=== PATIENT | male | born 1995 | race Caucasian/White ===

== ENCOUNTER 2022-06-30 18:08 | Emergency (ER) | payer MEDICAID, SELFPAY ==
[2022-06-30] VITALS (9 sets, daily range): BP systolic 128–142; BP diastolic 97–119; PULSE 64–111; RESP 16; O2SAT 93–98
--- NOTE | 2022-06-30 19:20 | ED.NURSE ---
Pt has been in triage room, pt moaning and screaming disruptively and loudly since arrival. Pt frequently dry-heaving into emesis bag.
[2022-06-30] MEDS: 0.9 % SODIUM CHLORIDE 1000 ml 1,000 ML IV ×2 (19:30→21:31)
[2022-06-30 19:36] LABS: Lactate* 3.4 mmol/L (0.5-1.9)
[2022-06-30 19:38] LABS: Basophils Percent Auto 0.1 % (0.0-3.0); Hematocrit 55.8 % (37.0-53.0); Hemoglobin* 19.8 gm/dL (13.5-17.5); Immature Granulocytes Abs Auto 0.04 K/uL (0.00-0.30); Lymphocytes Percent Auto 7.1 % (20-44); Mean Corpuscular HGB Conc 36 gm/dL (32-36); Mean Corpuscular Hemoglobin 32 pg (26-34); Mean Corpuscular Volume 91 fL (80-100); Monocytes Percent Auto 5.6 % (0.0-11.0); Platelet Count* 536 K/uL (140-440); RDW Coefficient of Variation % 13.1 % (11.5-15.5); Red Blood Count 6.12 m/uL (4.30-5.90)
[2022-06-30] MEDS: droperidoL 2.5 MG/ML inj 0.625 MG IV (19:50)
[2022-06-30 19:55] LABS: Chloride* 102 mmol/L (96-114); Potassium* 4.4 mmol/L (3.6-5.1); Sodium* 141 mmol/L (135-149)
[2022-06-30 19:57] LABS: Creatinine* 2.7 mg/dL (0.5-1.5); Estimated Glomerular Filt Rate 32 ml/min
[2022-06-30 19:58] LABS: Blood Urea Nitrogen* 31 mg/dL (5-24); Calcium* 11.7 mg/dL (8.4-10.6); Carbon Dioxide* 15 mmol/L (20-32); Glucose* 156 mg/dL (60-115)
[2022-06-30 19:59] LABS: Slide Review Reflex No
--- NOTE | 2022-06-30 20:00 | ED.NURSE ---
Pt now resting quietly in bed, no longer dry-heaving or having emesis.
--- NOTE | 2022-06-30 20:05 | ED_ITS ---
HPI - General Adult General Date Seen: 06/30/22 Chief complaint: Nausea/Vomiting Stated complaint: REACTION TO EDIBLE,HAS HYPEREMESIS SYNDROME Time Seen by Provider: 06/30/22 18:31 Source: patient History of Present Illness HPI narrative: Patient presents saying he is having a flare of his cyclic vomiting syndrome and muscle cramps. He has had this many times previously. He tells me that he has not used marijuana in several months but yesterday someone gave him an edible. He says that he thought it was shows regular candy. He said he had vomiting yesterday, and then it started up again today 11 am. He otherwise feels that this is a typical episode for him. Multiple episodes of vomiting, stomach cramping, and cramping in his back and extremities. He denies fevers, diarrhea, black or bloody stools. Has not had rashes, headache or trauma. Related Data Home Medications Medication Instructions Recorded Confirmed buprenorphine HCl 150 mcg buccal mcg buccal 06/30/22 film (Belbuca) celecoxib 100 mg capsule mg 06/30/22 cyclobenzaprine 10 mg tablet mg 06/30/22 lithium carbonate 300 mg mg PO 06/30/22 tablet,extended release ondansetron 4 mg disintegrating mg 06/30/22 tablet Allergies Allergy/AdvReac Type Severity Reaction Status Date / Time mold Allergy Mild Sneezing, Verified 06/08/22 08:44 congestion cats Allergy Mild Hives Uncoded 06/08/22 08:44 Dust Allergy Mild Sneezing, Uncoded 06/08/22 08:44 congestion Review of Systems Status of ROS: Reports: 10 or more systems reviewed and unremarkable except as noted in History and below [facility] Medical History Adhesive capsulitis of shoulder History of intussusception Surgical History History of hernia repair History of laparoscopy Family History Other Asthma Bipolar disorder Heart disease Social History Narrative: Marijuana user Smoking Status: Current every day smoker Non-prescribed substance use: denies use Exam Narrative: Exam Narrative: Vital signs as noted below. In general, an alert, dramatic acting male. Head: Normocephalic, atraumatic. Eyes: Pupils are equal reactive. Extraocular movements are full. Conjunctivae are normal. ENT: Mucous membranes are moist. Neck: Supple without lymphadenopathy. Heart: Regular rate and rhythm Lungs: Clear bilaterally. No increased work of breathing, crackles or wheezes. Abdomen: Nondistended. Mild diffuse tenderness. Extremities: Well perfused. No edema. Pulses intact. Neurologic: Patient is alert and oriented to person and place. Speech is fluent. Face is symmetric. Moves all extremities equally. Affect: Histrionic. Skin: Slightly diaphoretic, no rashes or lesions.. Const: Vital Signs, click to edit/add: Vital Signs - 24 hr 06/30/22 19:50 06/30/22 20:00 06/30/22 20:15 Pulse Rate [Left P ulse Oximeter] 64 73 90 Respiratory Rate Blood Pressure [Ri ght Upper Arm] 133/119 H 136/106 H 142/110 H Pulse Oximetry 95 93 98 [facility] Room Air 06/30/22 20:30 06/30/22 21:00 06/30/22 22:00 Pulse Rate [Left P ulse Oximeter] 84 84 107 H Respiratory Rate Blood Pressure [Ri ght Upper Arm] 132/105 H 128/102 H 128/97 H Pulse Oximetry 98 97 98 [facility] Room Air Room Air 06/30/22 20:45 06/30/22 21:15 06/30/22 23:00 Pulse Rate [Left P ulse Oximeter] 95 111 H 77 Respiratory Rate 16 Blood Pressure [Ri ght Upper Arm] 134/102 H 134/111 H 137/98 H Pulse Oximetry 96 98 98 [facility] Room Air Room Air 07/01/22 00:00 Pulse Rate [Left P ulse Oximeter] 77 Respiratory Rate 16 Blood Pressure [Ri ght Upper Arm] 146/99 H Pulse Oximetry 98 [facility] Documenting provider has reviewed patient's vital signs: yes Course Course Hospital Course: Patient presented to triage ambulatory, then stated he could not walk, was kneeling in triage saying he could not get up. He was sobbing and retching. We placed an IV, will give fluids, droperidol. I have reviewed previous records, he has typically had IV fluids and either Haldol or droperidol with good result. Typically has labs checked, usually has a significantly elevated white blood cell count. Labs as expected showed high white blood cell count, this is typical for him. His lactate was elevated at 3.4, his creatinine was elevated at 2.7, which is also been typical for him in the past. He also had a markedly elevated hemoglobin at 19.8, suggesting that his CBC is at least in part abnormal secondary to hemoconcentration, platelet count was up at 536. Urine showed 1+ ketones. Urine drug screen was positive for THC, oxycodone, TCAs. Had 2 L of normal saline total. His symptoms quieted down significantly. He rested for a while here we recheck a lactate which was normal at 0.9. His creatinine improved from 2.7 to 1.9, which I think is fairly significant improvement. He is taking fluids here orally. He did complain of some additional nausea and I gave him some Zofran, but I think given marked improvement in his labs and symptoms, I think it is reasonable to try letting him go home. If he is unable to continue hydrating at home he can return. He was noted to be walking through the parking lot and into the hospital without any difficulty, seemingly asymptomatic on security footage, and then had a dramatic change in his behavior as he approached the ER lobby, suddenly doubling over and acting significantly distressed. Some concerns about secondary gain. Vital Signs Vital signs: Initial Vital Signs Pulse Rate 64 06/30/22 19:50 Blood Pressure 133/119 H 06/30/22 19:50 Blood Pressure Mean 123 06/30/22 19:50 Blood Pressure Position Supine 06/30/22 19:50 Pulse Oximetry 95 06/30/22 19:50 Oxygen Delivery Method 06/30/22 19:50 Vital Signs Pulse Rate 64 06/30/22 19:50 Blood Pressure 133/119 H 06/30/22 19:50 Pulse Oximetry 95 06/30/22 19:50 Oxygen Delivery Method 06/30/22 19:50 Pulse Rate 77 07/01/22 00:00 Respiratory Rate 16 07/01/22 00:00 Blood Pressure 146/99 H 07/01/22 00:00 Pulse Oximetry 98 07/01/22 00:00 Oxygen Delivery Method 07/01/22 00:00 Medical Decision Making Lab Data Labs: Lab Results 06/30/22 06/30/22 06/30/22 Range/Units 19:25 19:25 19:25 WBC 24.60 H (4.50-11.00) K/uL RBC 6.12 H (4.30-5.90) m/uL Hgb 19.8 H (13.5-17.5) gm/dL Hct 55.8 H (37.0-53.0) % MCV 91 (80-100) fL MCH 32 (26-34) pg MCHC 36 (32-36) gm/dL RDW Coeff of Jennifer 13.1 (11.5-15.5) % Plt Count 536 H (140-440) K/uL Neut % (Auto) 87.0 H (42.0-72.0) % Lymph % (Auto) 7.1 L (20-44) % Slope % (Auto) 5.6 (0.0-11.0) % Eos % (Auto) 0.0 (0.0-7.0) % Baso % (Auto) 0.1 (0.0-3.0) % Neut # (Auto) 21.40 H (1.7-7.0) K/uL Lymph # (Auto) 1.70 (0.90-2.90) K/uL Slope # (Auto) 1.40 H (0.00-0.90) K/UL Eos # (Auto) 0.00 (0.00-0.50) K/uL Baso # (Auto) 0.00 (0.00-0.30) K/uL Abs Immat Gran (auto) 0.04 (0.00-0.30) K/uL Sodium 141 (135-149) mmol/L Potassium 4.4 (3.6-5.1) mmol/L Chloride 102 (96-114) mmol/L Carbon Dioxide 15 L (20-32) mmol/L BUN 31 H (5-24) mg/dL Creatinine 2.7 H (0.5-1.5) mg/dL Estimated GFR 32 ml/min Glucose 156 H (60-115) mg/dL Lactate 3.4 H (0.5-1.9) mmol/L Calcium 11.7 H (8.4-10.6) mg/dL Urine Color (Yellow) Urine Appearance (Clear) Urine pH (5.0-8.5) Ur Specific Titus (1.000-1.030) Urine Protein (Negative) Urine Glucose (UA) (Negative) Urine Ketones (Negative) Urine Blood (Negative) Urine Nitrite (Negative) Urine Bilirubin (Negative) Urine Urobilinogen (0.2-1.0) Ur Leukocyte Esterase (Negative) Urine RBC (0-2) Urine WBC (0-5) Ur Squamous Epith Cells (None-Few) Amorphous Sediment (None) Other Sediment (None) Urine Bacteria (None) Urine Mucus (None) Urine Opiates Screen (Negative) Ur Oxycodone Screen (Negative) Urine Methadone Screen (Negative) Ur Propoxyphene Screen (Negative) Ur Barbiturates Screen (Negative) U Tricyclic Antidepress (Negative) Ur Phencyclidine Scrn (Negative) Ur Amphetamines Screen (Negative) U Methamphetamines Scrn (Negative) U Benzodiazepines Scrn (Negative) Urine Cocaine Screen (Negative) U Marijuana (THC) Screen (Negative) Ur Drug Screen Comment SARS-CoV-2 (PCR) (Negative) Influenza Type A (PCR) (Negative) Influenza Type B (PCR) (Negative) 06/30/22 06/30/22 06/30/22 Range/Units 20:07 22:35 22:35 WBC (4.50-11.00) K/uL RBC (4.30-5.90) m/uL Hgb (13.5-17.5) gm/dL Hct (37.0-53.0) % MCV (80-100) fL MCH (26-34) pg MCHC (32-36) gm/dL RDW Coeff of Jennifer (11.5-15.5) % Plt Count (140-440) K/uL Neut % (Auto) (42.0-72.0) % Lymph % (Auto) (20-44) % Slope % (Auto) (0.0-11.0) % Eos % (Auto) (0.0-7.0) % Baso % (Auto) (0.0-3.0) % Neut # (Auto) (1.7-7.0) K/uL Lymph # (Auto) (0.90-2.90) K/uL Slope # (Auto) (0.00-0.90) K/UL Eos # (Auto) (0.00-0.50) K/uL Baso # (Auto) (0.00-0.30) K/uL Abs Immat Gran (auto) (0.00-0.30) K/uL Sodium (135-149) mmol/L Potassium (3.6-5.1) mmol/L Chloride (96-114) mmol/L Carbon Dioxide (20-32) mmol/L BUN (5-24) mg/dL Creatinine (0.5-1.5) mg/dL Estimated GFR ml/min Glucose (60-115) mg/dL Lactate (0.5-1.9) mmol/L Calcium (8.4-10.6) mg/dL Urine Color Yellow (Yellow) Urine Appearance Cloudy A (Clear) Urine pH 5.5 (5.0-8.5) Ur Specific Titus >= 1.030 (1.000-1.030) Urine Protein 3+ A (Negative) Urine Glucose (UA) Negative (Negative) Urine Ketones 1+ A (Negative) Urine Blood Negative (Negative) Urine Nitrite Negative (Negative) Urine Bilirubin 2+ A (Negative) Urine Urobilinogen 0.2 (0.2-1.0) Ur Leukocyte Esterase Negative (Negative) Urine RBC 0-2 (0-2) Urine WBC 2-5 (0-5) Ur Squamous Epith Cells Moderate A (None-Few) Amorphous Sediment Few A (None) Other Sediment HYLAINE CAST (None) Urine Bacteria Moderate A (None) Urine Mucus Moderate A (None) Urine Opiates Screen Negative (Negative) Ur Oxycodone Screen POSITIVE A* (Negative) Urine Methadone Screen Negative (Negative) Ur Propoxyphene Screen Negative (Negative) Ur Barbiturates Screen Negative (Negative) U Tricyclic Antidepress POSITIVE A* (Negative) Ur Phencyclidine Scrn Negative (Negative) Ur Amphetamines Screen Negative (Negative) U Methamphetamines Scrn Negative (Negative) U Benzodiazepines Scrn Negative (Negative) Urine Cocaine Screen Negative (Negative) U Marijuana (THC) Screen POSITIVE A* (Negative) Ur Drug Screen Comment See Note SARS-CoV-2 (PCR) Negative SARS-CoV-2 (Negative) Influenza Type A (PCR) Negative PCR FLU A (Negative) Influenza Type B (PCR) Negative PCR FLU B (Negative) 06/30/22 06/30/22 Range/Units 23:20 23:20 WBC (4.50-11.00) K/uL RBC (4.30-5.90) m/uL Hgb (13.5-17.5) gm/dL Hct (37.0-53.0) % MCV (80-100) fL MCH (26-34) pg MCHC (32-36) gm/dL RDW Coeff of Jennifer (11.5-15.5) % Plt Count (140-440) K/uL Neut % (Auto) (42.0-72.0) % Lymph % (Auto) (20-44) % Slope % (Auto) (0.0-11.0) % Eos % (Auto) (0.0-7.0) % Baso % (Auto) (0.0-3.0) % Neut # (Auto) (1.7-7.0) K/uL Lymph # (Auto) (0.90-2.90) K/uL Slope # (Auto) (0.00-0.90) K/UL Eos # (Auto) (0.00-0.50) K/uL Baso # (Auto) (0.00-0.30) K/uL Abs Immat Gran (auto) (0.00-0.30) K/uL Sodium 141 (135-149) mmol/L Potassium 4.5 (3.6-5.1) mmol/L Chloride 105 (96-114) mmol/L Carbon Dioxide 25 (20-32) mmol/L BUN 32 H (5-24) mg/dL Creatinine 1.9 H (0.5-1.5) mg/dL Estimated GFR 49 ml/min Glucose 116 H (60-115) mg/dL Lactate 0.9 (0.5-1.9) mmol/L Calcium 9.4 (8.4-10.6) mg/dL Urine Color (Yellow) Urine Appearance (Clear) Urine pH (5.0-8.5) Ur Specific Titus (1.000-1.030) Urine Protein (Negative) Urine Glucose (UA) (Negative) Urine Ketones (Negative) Urine Blood (Negative) Urine Nitrite (Negative) Urine Bilirubin (Negative) Urine Urobilinogen (0.2-1.0) Ur Leukocyte Esterase (Negative) Urine RBC (0-2) Urine WBC (0-5) Ur Squamous Epith Cells (None-Few) Amorphous Sediment (None) Other Sediment (None) Urine Bacteria (None) Urine Mucus (None) Urine Opiates Screen (Negative) Ur Oxycodone Screen (Negative) Urine Methadone Screen (Negative) Ur Propoxyphene Screen (Negative) Ur Barbiturates Screen (Negative) U Tricyclic Antidepress (Negative) Ur Phencyclidine Scrn (Negative) Ur Amphetamines Screen (Negative) U Methamphetamines Scrn (Negative) U Benzodiazepines Scrn (Negative) Urine Cocaine Screen (Negative) U Marijuana (THC) Screen (Negative) Ur Drug Screen Comment SARS-CoV-2 (PCR) (Negative) Influenza Type A (PCR) (Negative) Influenza Type B (PCR) (Negative) Discharge Plan Discharge Clinical Impression: Cyclic vomiting syndrome Patient Disposition: Home, Self-Care Condition: Improved Instructions: Acute Nausea and Vomiting (ED) Additional Instructions: Continue to hydrate at home. Return if unable to keep down fluids. Zofran as needed. Do not use marijuana. Prescriptions: No Action cyclobenzaprine 10 mg tablet Label Comments: TAKE 0.5-1 TAB BY MOUTH 3 TIMES A DAY , MAX 3 TABS/DAY (MAX 30MG DAILY) lithium carbonate 300 mg tablet extended release PO Label Comments: TAKE 2 TABLETS BY MOUTH DAILY. celecoxib 100 mg capsule ondansetron 4 mg tablet,disintegrating Label Comments: DISSOLVE 1 TAB ON THE TONGUE EVERY 8 HOURS NEEDED NAUSEA OR VOM buprenorphine HCl [Belbuca] 150 mcg film BUCCAL Label Comments: TAKE 1 FILM BUCCALLY TWICE A DAY FOR CHRONIC PAIN DO NOT EAT/DRINK/SMOKE FOR 30 MIN Follow Up/Referrals: Kimberlee Posadas PAJohnC [Primary Care Provider] - Stand Alone Forms: [facility] Info Instructions
[2022-06-30 20:55] LABS: PCR FLU A Negative PCR FLU A (Negative); PCR FLU B Negative PCR FLU B (Negative)
[2022-06-30 21:06] LABS: SARS PCR* Negative SARS-CoV-2 (Negative)
--- NOTE | 2022-06-30 22:05 | ED.NURSE ---
Pt appears resting comfortably in bed.
[2022-06-30 22:42] LABS: Appearance Urine Cloudy (Clear); Bilirubin Urine 2+ (Negative); Blood Urine Negative (Negative); Color Urine Yellow (Yellow); Glucose Urine Negative (Negative); Ketones Urine 1+ (Negative); Leukocyte Esterase Urine Negative (Negative); Nitrite Urine Negative (Negative); Protein Urine 3+ (Negative); Specific Gravity Urine >= 1.030 (1.000-1.030); Urobilinogen Urine 0.2 (0.2-1.0); pH Urine 5.5 (5.0-8.5)
[2022-06-30 22:52] LABS: Amphetamine Screen Urine Negative (Negative); Barbiturate Screen Urine Negative (Negative); Benzodiazepines Screen Urine Negative (Negative); Cocaine Screen Urine Negative (Negative); Methadone Screen Urine Negative (Negative); Methamphetamines Screen Urine Negative (Negative); Opiate Screen Urine Negative (Negative); Phencyclidine Screen Urine Negative (Negative)
[2022-06-30 22:54] LABS: Cannabinoid Screen Urine POSITIVE (Negative); Oxycodone Screen Urine POSITIVE (Negative); Tricyclic Antidepressant Urine POSITIVE (Negative)
[2022-06-30 23:04] LABS: Amorphous Sediment Urine Few; Bacteria Urine Moderate; Mucus Urine Moderate; RBC Urine 0-2 (0-2); Squamous Epithelial Cell Urine Moderate (None-Few)
[2022-06-30 23:22] LABS: Lactate* 0.9 mmol/L (0.5-1.9)
[2022-06-30 23:38] LABS: Chloride* 105 mmol/L (96-114); Potassium* 4.5 mmol/L (3.6-5.1); Sodium* 141 mmol/L (135-149)
[2022-06-30 23:41] LABS: Blood Urea Nitrogen* 32 mg/dL (5-24); Carbon Dioxide* 25 mmol/L (20-32); Creatinine* 1.9 mg/dL (0.5-1.5); Estimated Glomerular Filt Rate 49 ml/min; Glucose* 116 mg/dL (60-115)
[2022-06-30 23:42] LABS: Calcium* 9.4 mg/dL (8.4-10.6)
[2022-07-01] VITALS: BP 146/99; PULSE 77; RESP 16; O2SAT 98
[2022-07-01] MEDS: ONDANSETRON 2 MG/ML inj 4 MG IVP (00:10)
== END 2022-07-01 00:24 | disposition home or self-care (01) ==
PROVIDERS: Emergency Provider Emergency Medicine; PCP Physician Assistant Medical
DX: R11.15 Cyclical vomiting syndrome unrelated to migraine (principal)
CPT/HCPCS: 36415; 80048; 80306; 81001; 83605; 85025; 87086; 87502; 87635; 96374; 96375; 99283; 99284; J1790; J2405; J7030

== ENCOUNTER 2022-07-20 08:09 | Emergency (ER) | payer MEDICAID, SELFPAY ==
[2022-07-20 08:16] VITALS: BP 141/119; PULSE 126; RESP 20; TEMP 35.9; O2SAT 100; BMI 20.7
--- NOTE | 2022-07-20 08:45 | ED.NAVMDI ---
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 Patient noted that he actually quit using marijuana 5-6 months ago because he recognized his cyclic vomiting syndrome was from marijuana. A few weeks ago he was given an at a bowl which caused a flare and he was seen by my partner Dr. Rosemarie cordero. He states that on WednesdayJuly 18 he tried Delta 8 as he has a friend who is a dealer and is in the end history. He was told that Delta 8 has a different chemical makeup. Unfortunately, since that time he has had nonstop vomiting. He has been Ali able to keep any fluids down and has only had a little bit of urine this morning. He denies any diarrhea or fevers. He states this is very similar to past episodes. He notes that he does not have the cramping that he usually gets. He states he wanted to come in before that happened. Patient states that the Zofran that he has a at home has helped with the vomiting and nausea and he has no nausea at this time. However, he is still unable to take any p.o. without vomiting. Associated nausea: Yes Related Data Home Medications Medication Instructions Recorded Confirmed buprenorphine HCl 150 mcg buccal mcg buccal 06/30/22 film (Belbuca) celecoxib 100 mg capsule mg 06/30/22 cyclobenzaprine 10 mg tablet mg 06/30/22 lithium carbonate 300 mg mg PO 06/30/22 tablet,extended release ondansetron 4 mg disintegrating mg 06/30/22 tablet Allergies Allergy/AdvReac Type Severity Reaction Status Date / Time mold Allergy Mild Sneezing, Verified 06/08/22 08:44 congestion cats Allergy Mild Hives Uncoded 06/08/22 08:44 Dust Allergy Mild Sneezing, Uncoded 06/08/22 08:44 congestion Review of Systems Status of ROS: Reports: 10 or more systems reviewed and unremarkable except as noted in History and below Narrative: Patient notes that he has noticed elevated blood pressures in the times that he has been here to the emergency room. Const: Denies: fever or chills Eyes: Denies: change in vision ENMT: Denies: throat pain or difficulty swallowing Cardio: Denies: chest pain or shortness of breath with exertion Resp: Denies: shortness of breath or cough GI: Reports: nausea and vomiting; Denies: abdominal pain, diarrhea or difficulty swallowing : Reports: other (Minimal urination over the last 48 hours); Denies: painful urination Integ/Breast: Denies: rash Neuro: Reports: other (Bilateral carpal tunnel syndrome which she states is improving.); Denies: headache or numbness in extremities PFSH [facility], [facility] Medical History Adhesive capsulitis of shoulder History of intussusception Surgical History History of hernia repair History of laparoscopy Family History Other Asthma Bipolar disorder Heart disease Social History Narrative: Marijuana user Smoking Status: Never smoker Do you use any of these nicotine containing products: None Second hand tobacco smoke exposure: Yes How often do you have a drink containing alcohol: monthly or less How many standard drinks containing alcohol do you have on a typical day: 1 or 2 How often do you have six or more drinks on one occasion: Never AUDIT-C Alcohol total score: 1 Non-prescribed substance use: marijuana (any form) service: No Exam Narrative: Exam Narrative: Past medical history: Patient had told me that he is healthy but has noticed increased blood pressures lately. Denies headache or chest pain. Has developed carpal tunnel syndrome secondary to his employment. Currently wearing his braces on both arms and states that he is actually had some improvement. According to charged patient has a history of bipolar disorder with depression, anxiety, chronic back pain currently on Suboxone Family history: Mom with porcine heart valve. Dad with chronic back problems Social history: Occasional alcohol use. States he has only had 5-6 drinks since the beginning of the year. Currently working for a [employer] service. Const: Vital Signs, click to edit/add: Vital Signs - 24 hr 07/20/22 08:16 07/20/22 09:01 Temperature 96.7 F L Pulse Rate [Pulse Oximeter] 126 H Respiratory Rate 20 124 H Blood Pressure [Le ft Upper Arm] 127/93 H Blood Pressure [Ri ght Upper Arm] 141/119 H Pulse Oximetry 100 97 Oxygen Delivery Me thod Room Air Room Air Documenting provider has reviewed patient's vital signs: yes Common normals: no apparent distress, average body habitus, oriented x3, no limitations and alert General appearance: cooperative and comfortable HENMT: Common normals: normocephalic, head/scalp atraumatic, external ears normal and external nose normal Head and scalp: normocephalic and atraumatic Face and sinus: normal facial exam Nose: external nose normal External ear: external ears normal Mouth: oral and palatal mucosa normal and other (Mildly tacky mucous membranes) Eye: General eye: normal appearance of both eyes Neck & C-Spine: Common normals: full ROM and supple Resp: Common normals: normal respiratory effort and clear to auscultation bilaterally Effort & inspection: able to speak in complete sentences Auscultation: clear to auscultation bilaterally Cardio: Common normals: regular rhythm Rate: tachycardic Rhythm: regular rhythm GI: Common normals: soft to palpation and non-tender Palpation: soft Extremity: Common normals: normal to inspection Neuro: Common normals: oriented x3 Sensorium/orientation: alert Motor exam: muscle tone normal throughout and no movement abnormalities noted Psych: Common normals: mental status grossly normal, thought process normal, cooperative and speech normal Appearance: grossly normal Attitude: calm Speech: normal speech and other (Increase detail in stories.) Thought process: normal thought process Skin: Common normals: no rashes or lesions noted General skin exam: no rashes or lesions noted Course Course Hospital Course: Given patient's past history of cyclic vomiting syndrome secondary to THC today's episode most likely is that. His abdomen is soft, he has no fever and he has had recent exposure to delta 8. Would recommend placement of IV 1 L of normal saline and droperidol 0.625 mg IV. He appears to have a past history of acute kidney injury during these episodes as well as increase lactate and leukocytosis. Will check a CBC, comprehensive panel, urinalysis, drug screen, lactate and magnesium. Patient is agreeable to our plan. Reevaluation(s) Reevaluation #1: Patient noted to have no episodes of vomiting while here. He states he is feeling better and has been able to tolerate fluids. He notes that he has chicken broth at home and that seems to help him and he is feeling comfortable about going home. We spoke about his laboratory results which include a creatinine of 1.4, a lactate of 2.4 and a mild leukocytosis of 13.48. These values are usually much higher but as Jarocho said he came in before he started experiencing muscle cramping in an effort to khan off those symptoms. Vital Signs Vital signs: Initial Vital Signs Temperature 96.7 F L 07/20/22 08:16 Temperature Source Temporal Artery Scan 07/20/22 08:16 Pulse Rate 126 H 07/20/22 08:16 Pulse Rhythm 07/20/22 08:16 Respiratory Rate 20 07/20/22 08:16 Blood Pressure 141/119 H 07/20/22 08:16 Blood Pressure Mean 126 07/20/22 08:16 Blood Pressure Position Supine 07/20/22 08:16 Pulse Oximetry 100 07/20/22 08:16 Oxygen Delivery Method 07/20/22 08:16 Vital Signs Temperature 96.7 F L 07/20/22 08:16 Pulse Rate 126 H 07/20/22 08:16 Respiratory Rate 20 07/20/22 08:16 Blood Pressure 141/119 H 07/20/22 08:16 Pulse Oximetry 100 07/20/22 08:16 Oxygen Delivery Method 07/20/22 08:16 Temperature 96.7 F L 07/20/22 08:16 Pulse Rate 126 H 07/20/22 08:16 Respiratory Rate 124 H 07/20/22 09:01 Blood Pressure 127/93 H 07/20/22 09:01 Pulse Oximetry 97 07/20/22 09:01 Oxygen Delivery Method 07/20/22 09:01 MDM - Nausea/Vomiting/Diarrhea MDM Narrative Medical decision making narrative: 1. Cyclic vomiting syndrome secondary to THC-improved after 1 L of normal saline and droperidol 0.625 mg IV. Did speak extensively with patient about the importance of avoiding all forms of THC whether they be natural or synthetic. He is in agreement that he will not do this in the future. 2. Leukocytosis -mild and appears to have a history of this with his vomiting episodes. 3. Elevated creatinine-usually much worse. Today is 1.4. Patient received L of saline and is noted to be taking p.o. at this time. 4. Elevated lactate-patient has no evidence of fever nor does he have any abdominal pain. Will not check lactate at this time as it is lower than what it normally is with episodes of vomiting for Jarocho. He has no evidence of underlying bacterial infection. 5. Abnormal urinalysis-patient has 1+ ketones but does have rbc's and wbc's. Will send this for urine culture and contact him if abnormal. 6. Disposition-patient is discharged home. He is to push fluids and partake of mild foods and chicken or beef broth. He is to return to the emergency room for worsening symptoms and as needed. Medical Records Attestation: I reviewed the patient's medical records. Lab Data Attestation: I reviewed the patient's lab results. Labs: Lab Results 07/20/22 07/20/22 07/20/22 Range/Units 08:45 08:45 08:45 WBC 13.48 H (4.50-11.00) K/uL RBC 5.90 (4.30-5.90) m/uL Hgb 18.9 H (13.5-17.5) gm/dL Hct 53.4 H (37.0-53.0) % MCV 91 (80-100) fL MCH 32 (26-34) pg MCHC 35 (32-36) gm/dL RDW Coeff of Jennifer 12.5 (11.5-15.5) % Plt Count 470 H (140-440) K/uL Neut % (Auto) 82.6 H (42.0-72.0) % Lymph % (Auto) 12.8 L (20-44) % [place] % (Auto) 4.2 (0.0-11.0) % Eos % (Auto) 0.1 (0.0-7.0) % Baso % (Auto) 0.2 (0.0-3.0) % Neut # (Auto) 11.10 H (1.7-7.0) K/uL Lymph # (Auto) 1.70 (0.90-2.90) K/uL [place] # (Auto) 0.60 (0.00-0.90) K/UL Eos # (Auto) 0.00 (0.00-0.50) K/uL Baso # (Auto) 0.00 (0.00-0.30) K/uL Abs Immat Gran (auto) 0.01 (0.00-0.30) K/uL Sodium 134 L (135-149) mmol/L Potassium 3.7 (3.6-5.1) mmol/L Chloride 95 L (96-114) mmol/L Carbon Dioxide 19 L (20-32) mmol/L BUN 24 (5-24) mg/dL Creatinine 1.4 (0.5-1.5) mg/dL Estimated Creat Clear 66.53 Estimated GFR 70 ml/min Glucose 145 H (60-115) mg/dL Lactate 2.4 H (0.5-1.9) mmol/L Calcium 10.4 (8.4-10.6) mg/dL Magnesium (1.5-2.6) mg/dL Total Bilirubin 2.1 H (0.1-1.5) mg/dL AST 34 (12-35) U/L ALT 23 (4-50) U/L Alkaline Phosphatase 145 (40-150) U/L Total Protein 9.5 H (6.0-8.3) g/dL Albumin 5.6 H (3.3-5.0) g/dL Urine Color (Yellow) Urine Appearance (Clear) Urine pH (5.0-8.5) Ur Specific [place] (1.000-1.030) Urine Protein (Negative) Urine Glucose (UA) (Negative) Urine Ketones (Negative) Urine Blood (Negative) Urine Nitrite (Negative) Urine Bilirubin (Negative) Urine Urobilinogen (0.2-1.0) Ur Leukocyte Esterase (Negative) Urine RBC (0-2) Urine WBC (0-5) Ur Squamous Epith Cells (None-Few) Urine Bacteria (None) Hyaline Casts (None-Few) Urine Opiates Screen (Negative) Ur Oxycodone Screen (Negative) Urine Methadone Screen (Negative) Ur Propoxyphene Screen (Negative) Ur Barbiturates Screen (Negative) U Tricyclic Antidepress (Negative) Ur Phencyclidine Scrn (Negative) Ur Amphetamines Screen (Negative) U Methamphetamines Scrn (Negative) U Benzodiazepines Scrn (Negative) Urine Cocaine Screen (Negative) U Marijuana (THC) Screen (Negative) Ur Drug Screen Comment 07/20/22 07/20/22 07/20/22 Range/Units 08:45 09:30 09:30 WBC (4.50-11.00) K/uL RBC (4.30-5.90) m/uL Hgb (13.5-17.5) gm/dL Hct (37.0-53.0) % MCV (80-100) fL MCH (26-34) pg MCHC (32-36) gm/dL RDW Coeff of Jennifer (11.5-15.5) % Plt Count (140-440) K/uL Neut % (Auto) (42.0-72.0) % Lymph % (Auto) (20-44) % [place] % (Auto) (0.0-11.0) % Eos % (Auto) (0.0-7.0) % Baso % (Auto) (0.0-3.0) % Neut # (Auto) (1.7-7.0) K/uL Lymph # (Auto) (0.90-2.90) K/uL [place] # (Auto) (0.00-0.90) K/UL Eos # (Auto) (0.00-0.50) K/uL Baso # (Auto) (0.00-0.30) K/uL Abs Immat Gran (auto) (0.00-0.30) K/uL Sodium (135-149) mmol/L Potassium (3.6-5.1) mmol/L Chloride (96-114) mmol/L Carbon Dioxide (20-32) mmol/L BUN (5-24) mg/dL Creatinine (0.5-1.5) mg/dL Estimated Creat Clear Estimated GFR ml/min Glucose (60-115) mg/dL Lactate (0.5-1.9) mmol/L Calcium (8.4-10.6) mg/dL Magnesium 1.9 (1.5-2.6) mg/dL Total Bilirubin (0.1-1.5) mg/dL AST (12-35) U/L ALT (4-50) U/L Alkaline Phosphatase (40-150) U/L Total Protein (6.0-8.3) g/dL Albumin (3.3-5.0) g/dL Urine Color Brown A (Yellow) Urine Appearance Cloudy A (Clear) Urine pH 5.5 (5.0-8.5) Ur Specific [place] >= 1.030 (1.000-1.030) Urine Protein 3+ A (Negative) Urine Glucose (UA) Negative (Negative) Urine Ketones 1+ A (Negative) Urine Blood Negative (Negative) Urine Nitrite Positive A (Negative) Urine Bilirubin 2+ A (Negative) Urine Urobilinogen 1.0 (0.2-1.0) Ur Leukocyte Esterase Negative (Negative) Urine RBC 10-25 A (0-2) Urine WBC 5-10 A (0-5) Ur Squamous Epith Cells Few (None-Few) Urine Bacteria Few A (None) Hyaline Casts Moderate A (None-Few) Urine Opiates Screen Negative (Negative) Ur Oxycodone Screen POSITIVE A* (Negative) Urine Methadone Screen Negative (Negative) Ur Propoxyphene Screen Negative (Negative) Ur Barbiturates Screen Negative (Negative) U Tricyclic Antidepress POSITIVE A* (Negative) Ur Phencyclidine Scrn Negative (Negative) Ur Amphetamines Screen Negative (Negative) U Methamphetamines Scrn Negative (Negative) U Benzodiazepines Scrn Negative (Negative) Urine Cocaine Screen Negative (Negative) U Marijuana (THC) Screen POSITIVE A* (Negative) Ur Drug Screen Comment See Note Discharge Plan Discharge Clinical Impression: Cyclic vomiting syndrome Patient Disposition: Home, Self-Care Additional Instructions: Rest and push fluids. Avoid all forms of THC. Return as needed. We will be sending your urine for a culture. You will be called if there is any evidence of infection. Prescriptions: No Action cyclobenzaprine 10 mg tablet Label Comments: TAKE 0.5-1 TAB BY MOUTH 3 TIMES A DAY , MAX 3 TABS/DAY (MAX 30MG DAILY) lithium carbonate 300 mg tablet extended release PO Label Comments: TAKE 2 TABLETS BY MOUTH DAILY. celecoxib 100 mg capsule ondansetron 4 mg tablet,disintegrating Label Comments: DISSOLVE 1 TAB ON THE TONGUE EVERY 8 HOURS NEEDED NAUSEA OR VOM buprenorphine HCl [Belbuca] 150 mcg film BUCCAL Label Comments: TAKE 1 FILM BUCCALLY TWICE A DAY FOR CHRONIC PAIN DO NOT EAT/DRINK/SMOKE FOR 30 MIN Follow Up/Referrals: Kimberlee Posadas, PAJohnC [Primary Care Provider] - Stand Alone Forms: MyHealth Info Instructions
[2022-07-20] MEDS: 0.9 % SODIUM CHLORIDE 1000 ml 1,000 ML IV (08:48)
[2022-07-20] MEDS: droperidoL 2.5 MG/ML inj 0.625 MG IV (08:58)
[2022-07-20 09:01] VITALS: BP 127/93; RESP 124; O2SAT 97
[2022-07-20 09:01] LABS: Lactate* 2.4 mmol/L (0.5-1.9)
[2022-07-20 09:09] LABS: Basophils Percent Auto 0.2 % (0.0-3.0); Eosinophils Percent Auto 0.1 % (0.0-7.0); Hematocrit 53.4 % (37.0-53.0); Hemoglobin* 18.9 gm/dL (13.5-17.5); Immature Granulocytes Abs Auto 0.01 K/uL (0.00-0.30); Lymphocytes Percent Auto 12.8 % (20-44); Mean Corpuscular HGB Conc 35 gm/dL (32-36); Mean Corpuscular Hemoglobin 32 pg (26-34); Mean Corpuscular Volume 91 fL (80-100); Monocytes Percent Auto 4.2 % (0.0-11.0); Neutrophils Percent Auto 82.6 % (42.0-72.0); Platelet Count* 470 K/uL (140-440); RDW Coefficient of Variation % 12.5 % (11.5-15.5); White Blood Count* 13.48 K/uL (4.50-11.00)
[2022-07-20 09:13] LABS: Slide Review Reflex No
[2022-07-20 09:38] LABS: Appearance Urine Cloudy (Clear); Bilirubin Urine 2+ (Negative); Blood Urine Negative (Negative); Color Urine Brown (Yellow); Glucose Urine Negative (Negative); Ketones Urine 1+ (Negative); Leukocyte Esterase Urine Negative (Negative); Nitrite Urine Positive (Negative); Protein Urine 3+ (Negative); Specific Gravity Urine >= 1.030 (1.000-1.030); pH Urine 5.5 (5.0-8.5)
[2022-07-20 09:39] LABS: Albumin* 5.6 g/dL (3.3-5.0); Chloride* 95 mmol/L (96-114); Sodium* 134 mmol/L (135-149)
[2022-07-20 09:40] LABS: Potassium* 3.7 mmol/L (3.6-5.1)
[2022-07-20 09:42] LABS: Alkaline Phosphatase* 145 U/L (40-150); Aspartate Amino Transferase* 34 U/L (12-35); Bilirubin Total* 2.1 mg/dL (0.1-1.5); Blood Urea Nitrogen* 24 mg/dL (5-24); Carbon Dioxide* 19 mmol/L (20-32); Creatinine* 1.4 mg/dL (0.5-1.5); Est. Creatinine Clearance* 66.53; Estimated Glomerular Filt Rate 70 ml/min; Total Protein* 9.5 g/dL (6.0-8.3)
[2022-07-20 09:43] LABS: Alanine Aminotransferase* 23 U/L (4-50); Calcium* 10.4 mg/dL (8.4-10.6); Glucose* 145 mg/dL (60-115)
[2022-07-20 09:51] LABS: Amphetamine Screen Urine Negative (Negative); Barbiturate Screen Urine Negative (Negative); Benzodiazepines Screen Urine Negative (Negative); Cocaine Screen Urine Negative (Negative); Methadone Screen Urine Negative (Negative); Methamphetamines Screen Urine Negative (Negative); Opiate Screen Urine Negative (Negative); Phencyclidine Screen Urine Negative (Negative)
[2022-07-20 09:54] LABS: Cannabinoid Screen Urine POSITIVE (Negative); Tricyclic Antidepressant Urine POSITIVE (Negative)
[2022-07-20 09:55] LABS: Oxycodone Screen Urine POSITIVE (Negative)
[2022-07-20 10:02] LABS: Bacteria Urine Few; Squamous Epithelial Cell Urine Few (None-Few)
[2022-07-20 10:03] LABS: Hyaline Casts Urine Moderate (None-Few)
[2022-07-20 10:25] LABS: Magnesium* 1.9 mg/dL (1.5-2.6)
[2022-07-20 10:40] VITALS: BP 137/87; PULSE 93; O2SAT 97
== END 2022-07-20 10:47 | disposition home or self-care (01) ==
PROVIDERS: Emergency Provider Family Medicine; PCP Physician Assistant Medical
DX: R11.15 Cyclical vomiting syndrome unrelated to migraine (principal); F12.90 Cannabis use, unspecified, uncomplicated; D72.829 Elevated white blood cell count, unspecified; R94.4 Abnormal results of kidney function studies
CPT/HCPCS: 36415; 80053; 80306; 81003; 81015; 83605; 83735; 85025; 87086; 96361; 96374; 99283; 99284; J1790; J7030

== ENCOUNTER 2022-08-19 21:59 | Emergency (ER) | payer MEDICAID, SELFPAY ==
[2022-08-19 22:09] VITALS: BP 103/69; PULSE 131; RESP 18; TEMP 36.7; O2SAT 99; BMI 21.0
[2022-08-19 22:13] VITALS: O2SAT 99
[2022-08-19] MEDS: ONDANSETRON 2 MG/ML inj 4 MG IVP (22:17)
[2022-08-19] MEDS: 0.9 % SODIUM CHLORIDE 1000 ml 1,000 ML IV ×2 (22:17→22:34)
[2022-08-19 22:18] LABS: Lactate* 3.8 mmol/L (0.5-1.9)
--- NOTE | 2022-08-19 22:21 | ED_ITS ---
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 He did a cannabis vape which ended up having THC in it. Since last night he has been having nonstop retching and vomiting. He is getting muscle cramps in his back. He notes no fevers or chills or new symptoms. He is having abdominal pain with this. There is no diarrhea or fevers. This is similar to his last episodes. He does not remember any medications that he has had prior except that he does not want Haldol. He states that that makes his anxiety much worse. He does usually try to use Zofran at home. He is been unsuccessful in having this episode. . Related Data Home Medications Medication Instructions Recorded Confirmed buprenorphine HCl 150 mcg buccal mcg buccal 06/30/22 film (Belbuca) celecoxib 100 mg capsule mg 06/30/22 cyclobenzaprine 10 mg tablet mg 06/30/22 lithium carbonate 300 mg mg PO 06/30/22 tablet,extended release ondansetron 4 mg disintegrating mg 06/30/22 tablet Allergies Allergy/AdvReac Type Severity Reaction Status Date / Time mold Allergy Mild Sneezing, Verified 06/08/22 08:44 congestion cats Allergy Mild Hives Uncoded 06/08/22 08:44 Dust Allergy Mild Sneezing, Uncoded 06/08/22 08:44 congestion Review of Systems Status of ROS: Reports: 6 or more systems reviewed and unremarkable except as noted in History and below [facility] Medical History Adhesive capsulitis of shoulder History of intussusception Surgical History History of hernia repair History of laparoscopy Family History Other Asthma Bipolar disorder Heart disease Social History Narrative: Marijuana user Smoking Status: Never smoker Do you use any of these nicotine containing products: None Second hand tobacco smoke exposure: Yes How often do you have a drink containing alcohol: monthly or less How many standard drinks containing alcohol do you have on a typical day: 1 or 2 How often do you have six or more drinks on one occasion: Never AUDIT-C Alcohol total score: 1 Non-prescribed substance use: marijuana (any form) service: No Exam Const: Vital Signs, click to edit/add: Vital Signs - 24 hr 08/19/22 22:09 08/19/22 22:13 Temperature 98.0 F Pulse Rate [Right Pulse Oximeter] 131 H Respiratory Rate 18 Blood Pressure [Ri ght Upper Arm] 103/69 Pulse Oximetry 99 99 Oxygen Delivery Me thod Room Air Documenting provider has reviewed patient's vital signs: yes Common normals: oriented x3, no limitations and alert General appearance: cooperative, anxious, disheveled, ill appearing and frail appearing Nutritional appearance: thin Other: Hyperventilating when I 1st walk in, has retching without vomiting as I am leaving. HENMT: Common normals: normocephalic, head/scalp atraumatic, hearing grossly normal bilaterally, external ears normal, external nose normal and nasal mucous membranes and turbinates normal Head and scalp: normocephalic and atraumatic Nose: external nose normal and nasal mucous membranes and turbinates normal External ear: external ears normal Other: Oral mucosa, teeth and tongue are very dry. Speech is normal however. Eye: Common normals: PERRL, EOMs intact bilaterally, conjunctivae normal and no scleral icterus Conjunctiva: conjunctiva(e) normal Pupil: PERRL Neck & C-Spine: Common normals: full ROM, no lymphadenopathy, supple, no meningeal signs, no JVD and thyroid normal Thyroid: thyroid normal Resp: Common normals: normal respiratory effort, no retractions, no use of accessory muscles and clear to auscultation bilaterally Auscultation: clear to auscultation bilaterally Cardio: Common normals: no JVD, regular rhythm, S1 normal heart sound, S2 normal heart sound, no gallops, no clicks and no murmurs Rate: tachycardic Rhythm: regular rhythm Heart sounds: S1 normal and S2 normal GI: Common normals: Normal to inspection, nondistended, normoactive bowel sounds present, soft to palpation, non-tender, no hepatosplenomegaly and no masses Palpation: soft and no hepatosplenomegaly Neuro: Common normals: oriented x3, CN's II-XII intact bilaterally, moves all extremities, no focal motor deficits and no sensory deficits noted Sensorium/orientation: alert Meningeal signs: no meningeal signs Course Course Hospital Course: Will checking labs on this gentleman given that he historically has had some significant dysfunction with his kidneys with prior episodes with dehydration. His lactates have been elevated in the past. I a.m. initiating 2 L normal saline, nursing staff did request 4 mg IV Zofran when he came in as a could not see him immediately. This was done. We are going to order droperidol 0.625 mg IV. I will get an EKG on him just so we have an idea of his QT interval. May need to consider some IV magnesium. I do not feel it prudent to retested urine toxicology, this has been done by Dr. Mo prior. This patient readily admits to using some THC. Reevaluation(s) Reevaluation #1: Patient is mostly improved, states he still having some cramping in just slightly nauseated. Overall is much better. Discussed 1 more dose of IV Zofran and initiating a L of lactated Ringer's. He is in agreement. He overall feels much better. Have reviewed his labs and look to be consistent with prior times. His creatinine is not as high as it has been at other times with his dehydration. I think after the 3 L he should be able to go home. He is in agreement with that. Time: 00:22 Vital Signs Vital signs: Initial Vital Signs Temperature 98.0 F 08/19/22 22:09 Temperature Source Temporal Artery Scan 08/19/22 22:09 Pulse Rate 131 H 08/19/22 22:09 Respiratory Rate 18 08/19/22 22:09 Blood Pressure 103/69 08/19/22 22:09 Blood Pressure Mean 80 08/19/22 22:09 Blood Pressure Position Supine 08/19/22 22:09 Pulse Oximetry 99 08/19/22 22:09 Oxygen Delivery Method 08/19/22 22:09 Vital Signs Temperature 98.0 F 08/19/22 22:09 Pulse Rate 131 H 08/19/22 22:09 Respiratory Rate 18 08/19/22 22:09 Blood Pressure 103/69 08/19/22 22:09 Pulse Oximetry 99 08/19/22 22:09 Oxygen Delivery Method 08/19/22 22:09 Temperature 98.0 F 08/19/22 22:09 Pulse Rate 131 H 08/19/22 22:09 Respiratory Rate 18 08/19/22 22:09 Blood Pressure 103/69 08/19/22 22:09 Pulse Oximetry 99 08/19/22 22:13 Oxygen Delivery Method 08/19/22 22:09 Medical Decision Making Lab Data Labs: Lab Results 08/19/22 08/19/22 08/19/22 Range/Units 22:13 22:13 22:13 WBC 20.85 H (4.50-11.00) K/uL RBC 6.12 H (4.30-5.90) m/uL Hgb 19.7 H (13.5-17.5) gm/dL Hct 56.5 H (37.0-53.0) % MCV 92 (80-100) fL MCH 32 (26-34) pg MCHC 35 (32-36) gm/dL RDW Coeff of Jennifer 13.8 (11.5-15.5) % Plt Count 486 H (140-440) K/uL Neut % (Auto) 82.3 H (42.0-72.0) % Lymph % (Auto) 11.5 L (20-44) % [place] % (Auto) 5.9 (0.0-11.0) % Eos % (Auto) 0.0 (0.0-7.0) % Baso % (Auto) 0.2 (0.0-3.0) % Neut # (Auto) 17.20 H (1.7-7.0) K/uL Lymph # (Auto) 2.40 (0.90-2.90) K/uL [place] # (Auto) 1.20 H (0.00-0.90) K/UL Eos # (Auto) 0.00 (0.00-0.50) K/uL Baso # (Auto) 0.00 (0.00-0.30) K/uL Abs Immat Gran (auto) 0.03 (0.00-0.30) K/uL Sodium 141 (135-149) mmol/L Potassium 3.8 (3.6-5.1) mmol/L Chloride 98 (96-114) mmol/L Carbon Dioxide 16 L (20-32) mmol/L BUN 35 H (5-24) mg/dL Creatinine 1.8 H (0.5-1.5) mg/dL Estimated Creat Clear 50.96 Estimated GFR 52 ml/min Glucose 168 H (60-115) mg/dL Lactate 3.8 H (0.5-1.9) mmol/L Calcium 11.5 H (8.4-10.6) mg/dL ECG Data Attestation: I personally reviewed and interpreted this ECG as follows: (Sinus rhythm, 75 beats per minute. There is a possibility of a short [place] interval. Is meeting voltage criteria for LVH. QT corrected is 433 milliseconds which is reassuring.) Critical Care Time Critical Care Time Critical Care Time: No Discharge Plan Discharge Clinical Impression: Cyclic vomiting syndrome, Dehydration Patient Disposition: Home, Self-Care Condition: Stable Instructions: Dehydration (ED), Cyclic Vomiting Syndrome (ED) Additional Instructions: Continue drinking adequate fluids. Increase her diet to foods as tolerated. It is imperative that you avoid THC compounds. Please follow-up in clinic with y our primary care provider to discuss possibility of consideration for treatment if needed. You can contact the [facility] reside in and work with mental health social worker within the [facility] to work on treatment options as well. Activity Level: Activity as Tolerated Discharge Diet: Regular Prescriptions: No Action cyclobenzaprine 10 mg tablet Label Comments: TAKE 0.5-1 TAB BY MOUTH 3 TIMES A DAY , MAX 3 TABS/DAY (MAX 30MG DAILY) lithium carbonate 300 mg tablet extended release PO Label Comments: TAKE 2 TABLETS BY MOUTH DAILY. celecoxib 100 mg capsule ondansetron 4 mg tablet,disintegrating Label Comments: DISSOLVE 1 TAB ON THE TONGUE EVERY 8 HOURS NEEDED NAUSEA OR VOM buprenorphine HCl [Belbuca] 150 mcg film BUCCAL Label Comments: TAKE 1 FILM BUCCALLY TWICE A DAY FOR CHRONIC PAIN DO NOT EAT/DRINK/SMOKE FOR 30 MIN Follow Up/Referrals: Kimberlee Posadas PA-C [Primary Care Provider] - Stand Alone Forms: [facility] Info Instructions
[2022-08-19] MEDS: droperidoL 2.5 MG/ML inj 0.625 MG IV (22:34)
[2022-08-19 22:39] LABS: Chloride* 98 mmol/L (96-114); Potassium* 3.8 mmol/L (3.6-5.1); Sodium* 141 mmol/L (135-149)
[2022-08-19 22:40] LABS: Basophils Percent Auto 0.2 % (0.0-3.0); Hematocrit 56.5 % (37.0-53.0); Hemoglobin* 19.7 gm/dL (13.5-17.5); Immature Granulocytes Abs Auto 0.03 K/uL (0.00-0.30); Lymphocytes Percent Auto 11.5 % (20-44); Mean Corpuscular HGB Conc 35 gm/dL (32-36); Mean Corpuscular Hemoglobin 32 pg (26-34); Mean Corpuscular Volume 92 fL (80-100); Monocytes Percent Auto 5.9 % (0.0-11.0); Neutrophils Percent Auto 82.3 % (42.0-72.0); Platelet Count* 486 K/uL (140-440); RDW Coefficient of Variation % 13.8 % (11.5-15.5); Red Blood Count 6.12 m/uL (4.30-5.90); White Blood Count* 20.85 K/uL (4.50-11.00)
[2022-08-19 22:42] LABS: Blood Urea Nitrogen* 35 mg/dL (5-24); Calcium* 11.5 mg/dL (8.4-10.6); Carbon Dioxide* 16 mmol/L (20-32); Creatinine* 1.8 mg/dL (0.5-1.5); Est. Creatinine Clearance* 50.96; Estimated Glomerular Filt Rate 52 ml/min; Glucose* 168 mg/dL (60-115)
--- OUTSIDE RECORDS SUMMARY | 2022-08-19 22:47 | XMS_ITS | Encounter Summary ---
:1995 Author Organization [employer] Address [address] [address] Phone Care Team Providers Name Role Phone Unavailable Primary Care Provider Unavailable Encounter Details Date Type Department Care Team Description 07/06/2021 Travel Social History Tobacco Use Types Packs/Day Years Used Date Never Assessed Sex Assigned at Date Recorded Not on file Job Start Date Occupation Industry Not on file Not on file Not on file COVID-19 Exposure Response Date Recorded In the last month, have you been in contact with No / Unsure 07/06/2021 3:46 AM CDT someone who was confirmed or suspected to have Coronavirus / COVID-19? documented as of this encounter Functional Status Functional Status Response Date of Assessment Patient's Vision Adequate to Safely Complete Daily Yes 07/06/2021 Activities Patient's Memory Adequate to Safely Complete Daily Yes 07/06/2021 Activities Cognitive Status Response Date of Assessment Patient's Judgment Adequate to Safely Complete Daily Yes 07/06/2021 Activities documented as of this encounter Plan of Treatment Not on filedocumented as of this encounter Visit Diagnoses Not on filedocumented in this encounter
--- OUTSIDE RECORDS SUMMARY | 2022-08-19 22:47 | XMS_ITS | Encounter Summary ---
:1995 Author Organization [employer] Address [address] [place] [phone] Phone Care Team Providers Name Role Phone Unavailable Primary Care Provider Unavailable Reason for Visit Reason Comments Vomiting Encounter Details Date Type Department Care Team Description 07/06/2021 Emergency [facility] Mo Bliss, Non -intractable vomiting with nausea, unspecified vomiting type (Primary Dx); Center Emergency DO Other acute gastritis without hemorrhage Department [address] [place] [address] [place] [address] [place] [address] [phone] Social History Tobacco Use Types Packs/Day Years [...] / COVID-19? documented as of this encounter Last Filed Vital Signs Vital Sign Reading Time Taken Comments Blood Pressure 130/66 07/06/2021 3:47 AM CDT Pulse 123 07/06/2021 3:47 AM CDT Temperature 36.3 ??C (97.4 ??F) 07/06/2021 3:47 AM CDT Respiratory Rate 18 07/06/2021 3:47 AM CDT Oxygen Saturation 100% 07/06/2021 3:47 AM CDT Inhaled Oxygen Concentration - - Weight 61.2 kg (135 lb) 07/06/2021 3:47 AM CDT Height 175.3 cm (5' 9) 07/06/2021 3:47 AM CDT Body Mass Index 19.94 07/06/2021 3:47 AM CDT documented in this encounter Functional Status Functional Status Response Date of Assessment Patient's Vision Adequate to Safely Complete Daily Yes 07/06/2021 Activities Patient's Memory Adequate to Safely Complete Daily Yes 07/06/2021 Activities Cognitive Status Response Date of Assessment Patient's Judgment Adequate to Safely Complete Daily Yes 07/06/2021 Activities documented as of this encounter Discharge Instructions Patient InstructionsMo Bliss DO - 07/06/2021 7:31 AM CDT Return to the emergency room for worsening of symptoms or other emergent concerns. documented in this encounter Discharge Disposition Disposition Code Departure Means Destination Home and/or Self Halfway documented in this encounter ED Notes Nicolette Ames RN - 07/06/2021 7:45 AM CDT Patient provided with AVS paperwork. Patient verbalized understanding of discharge instructions. Patient discharged to ED lobby he is waiting for his brother to pick him up. Nicolette Ames RN - 07/06/2021 7:33 AM CDT Patient states his cousin dropped him off and he is unsure if he will be able to pick him up to bring him back to [facility]. Nicolette Ames RN - 07/06/2021 7:12 AM CDT Handoff report from LUKE Huang Reina Forrester RN - 07/06/2021 7:12 AM CDT Verbal report given to on-coming RN. Reina Forrester RN - 07/06/2021 6:51 AM CDT Pt provided with ice chips- awaiting repeat labs. Reina Forrester RN - 07/06/2021 5:52 AM CDT Pt back from radiology, resting comfortably in bed. No requests at this time. Awaiting results. Mo Bliss DO - 07/06/2021 4:10 AM CDT Patient: Jarocho Pickens Means of Arrival: Other Chief Complaint: Vomiting History of Present Illness: Patient is a 25-year-old male presenting to the emergency room with a chief complaint of vomiting. 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 He also has a past history of intussusception. Duration of symptoms in the past 24 hours. Patient reports symptoms of feeling like acid is eating away and inside his stomach. He has significant epigastric discomfort. He states he has been vomiting nonstop tonight. Gets no relief from vomiting. Last used marijuana 1.5 days ago. Denies fever, diarrhea, constipation, distention of his abdomen. Review of Systems: Review of Systems Constitutional: Negative for chills and fever. HENT: Negative for congestion, rhinorrhea and sore throat. Eyes: Negative for visual disturbance. Respiratory: Negative for cough and shortness of breath. Cardiovascular: Negative for chest pain. Gastrointestinal: Positive for vomiting. Negative for diarrhea. Genitourinary: Negative for difficulty urinating, dysuria and flank pain. Musculoskeletal: Negative for arthralgias. Skin: Negative for rash. Neurological: Negative for weakness, numbness and headaches. Hematological: Does not bruise/bleed easily. Allergies Allergen Reactions ??? Environmental Sneezing Prior to Admission Medication List Med List Status: ED Triage Only Set By: Reina Forrester RN at 07/06/2021 3:49 AM No Medications Reported Past Medical History: No past medical history on file. Past Surgical History: No past surgical history on file. Family History: No family history on file. Social History: Social History Tobacco Use ??? Smoking status: Not on file Substance Use Topics ??? Alcohol use: Not on file ??? Drug use: Not on file Social History Substance and Sexual Activity Drug Use Not on file Exam: Initial Vitals Most Recent Vitals Temp: 97.4 ??F (36.3 ??C) (07/06/21346) Temp: 97.4 ??F (36.3 ??C) (07/06/21346) Pulse: 123 (07/06/21346) Pulse: 123 (07/06/21346) Resp: 18 (07/06/21346) Resp: 18 (07/06/21346) BP: 130/66 (07/06/21346) BP: 130/66 (07/06/21346) SpO2: 100 % (07/06/21346) SpO2: 100 % (07/06/21346) Weight: 61.2 kg (135 lb) (07/06/21346) Physical Exam: Physical Exam Vitals and nursing note reviewed. Constitutional: General: He is not in acute distress. Appearance: He is well-developed. Comments: Uncomfortable in appearance. Actively vomiting HENT: Head: Normocephalic and atraumatic. Right Ear: Hearing normal. No drainage. Left Ear: Hearing normal. No drainage. Nose: Nose normal. Eyes: General: Lids are normal. Conjunctiva/sclera: Conjunctivae normal. Pupils: Pupils are equal, round, and reactive to light. Neck: Vascular: No JVD. Trachea: Trachea normal. Cardiovascular: Rate and Rhythm: Normal rate and regular rhythm. Pulses: Normal pulses. Pulmonary: Effort: Pulmonary effort is normal. No respiratory distress. Abdominal: Palpations: Abdomen is soft. Tenderness: There is no abdominal tenderness. There is no guarding or rebound. Comments: Small infraumbilical incision noted Musculoskeletal: General: No tenderness. Cervical back: Neck supple. No rigidity. Right lower leg: No edema. Left lower leg: No edema. Skin: General: Skin is warm and dry. Nails: There is no clubbing. Neurological: General: No focal deficit present. Mental Status: He is alert and oriented to person, place, and time. GCS: GCS eye subscore is 4. GCS verbal subscore is 5. GCS motor subscore is 6. Psychiatric: Mood and Affect: Mood normal. Speech: Speech normal. Behavior: Behavior normal. Lab Results: Results for orders placed or performed during the hospital encounter of 07/06/21 BASIC METABOLIC PANEL Collection Time: 07/06/21 7:05 AM Result Value Ref Range Sodium 136 134 - 143 mEq/L Potassium 3.5 3.4 - 5.1 mEq/L Chloride 100 99 - 110 mEq/L Carbon Dioxide 23 19 - 29 mEq/L Anion Gap 13.0 3.0 - 15.0 mEq/L Blood Urea Nitrogen 22 5 - 24 mg/dL Creatinine 0.87 0.70 - 1.20 mg/dL Glomerular Filtration Rate >60 >60 mL/min/1.73 m*2 Calcium 9.1 8.4 - 10.5 mg/dL Glucose 98 70 - 99 mg/dL COMPREHENSIVE METABOLIC PANEL Collection Time: 07/06/21 4:14 AM Result Value Ref Range Sodium 137 134 - 143 mEq/L Potassium 3.7 3.4 - 5.1 mEq/L Chloride 95 (L) 99 - 110 mEq/L Carbon Dioxide 20 19 - 29 mEq/L Anion Gap 22.0 (H) 3.0 - 15.0 mEq/L Blood Urea Nitrogen 27 (H) 5 - 24 mg/dL Creatinine 1.28 (H) 0.70 - 1.20 mg/dL Glomerular Filtration Rate >60 >60 mL/min/1.73 m*2 Calcium 11.4 (H) 8.4 - 10.5 mg/dL Glucose 139 (H) 70 - 99 mg/dL Protein, Total 8.9 (H) 6.0 - 8.0 g/dL Albumin 5.4 (H) 3.5 - 5.0 g/dL Alkaline Phosphatase 81 40 - 150 IU/L Aspartate Aminotransferase 26 10 - 40 IU/L Alanine Aminotransferase 29 6 - 40 IU/L Bilirubin, Total 2.9 (H) 0.2 - 1.2 mg/dL HEMOGRAM/DIFFERENTIAL Collection Time: 07/06/21 4:14 AM Result Value Ref Range WBC 18.6 (H) 3.2 - 11.0 10*9/L RBC 5.35 4.14 - 5.76 10*12/L HGB 17.4 (H) 12.9 - 16.9 g/dL HCT 47.8 38.4 - 49.7 % MCV 89.3 81.4 - 99.0 fL MCH 32.5 26.7 - 33.1 pg MCHC 36.4 (H) 31.6 - 35.5 g/dL RDW 12.9 11.3 - 14.6 % PLT 468 (H) 130 - 375 10*9/L Neutrophils % 76.7 % Lymphocytes % 17.8 % Monocytes % 5.2 % Eosinophils % 0.0 % Basophils % 0.1 % Immature Granulocytes % 0.2 % Neutrophils Absolute 14.3 (H) 1.5 - 7.6 10*9/L Lymphocytes Absolute 3.3 0.8 - 3.3 10*9/L Monocytes Absolute 1.0 (H) 0.2 - 0.9 10*9/L Eosinophils Absolute 0.0 0.0 - 0.4 10*9/L Basophils Absolute 0.0 0.0 - 0.1 10*9/L Immature Granulocytes Absolute 0.04 0.00 - 0.06 10*9/L MAGNESIUM Collection Time: 07/06/21 4:14 AM Result Value Ref Range Magnesium 2.1 1.8 - 2.7 mg/dL LIPASE Collection Time: 07/06/21 4:14 AM Result Value Ref Range Lipase 17 12 - 84 IU/L Imaging Results: Imaging Results CT ABDOMEN PELVIS W IV CONTRAST (In process) Emergency Department Course: Medications sodium chloride 0.9% BOLUS BAG 1,000 mL (0 mL Intravenous Stopped 07/06/21 0815) droperidol (Inapsine) injection 2.5 mg (2.5 mg IV Push Given 07/06/21 1626) aluminum & magnesium hydroxide-simethicone (Maalox, Mylanta) 200-200-20 MG/5ML suspension 30 mL (30 mL Oral Given 07/06/21445) And lidocaine viscous (Xylocaine) 2 % solution 15 mL (15 mL Mouth/Throat Given 07/06/21445) sodium chloride 0.9% BOLUS BAG 1,000 mL (0 mL Intravenous Stopped 07/06/2151) iohexol (Omnipaque) 350 MG/ML 80 mL (80 mL IV Push Given 07/06/21535) sodium chloride 0.9% IV LINE FLUSH (NS) BAG 50 mL (50 mL IV Flush Given 07/06/21535) Procedures: Procedures Assessment: Non-intractable vomiting with nausea, unspecified vomiting type (primary encounter diagnosis) Other acute gastritis without hemorrhage Plan: Discharge Prescriptions None MDM Number of Diagnoses or Management Options Non-intractable vomiting with nausea, unspecified vomiting type Other acute gastritis without hemorrhage Diagnosis management comments: Patient 25-year-old male presented to emergency room with chief complaint of vomiting. Patient vomiting significantly improved after administration of droperidol in the emergency room. Patient subsequently given GI cocktail. On reexamination, patient felt significantly better. Patient reports minimal pain and no further vomiting. Patient is tolerating p.o. Differential diagnosis considered for this patient include cholecystitis, pancreatitis, bowel obstruction, cyclical vomiting syndrome, severe electrolyte abnormality, appendicitis, diverticulitis. Laboratory studies reviewed demonstrate evidence of leukocytosis. Metabolic panel demonstrates aniongap with no significant electrolyte abnormalities. Slight YARA. Clinical impression is likely cyclical vomiting syndrome. However, CT scan was ordered to evaluate for further pathology. CT scan demonstrates thickened gastric mucosa is significant for likely gastritis. There is also some pericolonic fluid which is trace in amount. Radiology reports this could be early inflammatory process. Is not having diarrhea at this time. At this point, metabolic panel was repeated with resolution of anion gap along with acute kidney injury. Patient is tolerating p.o. and will follow up as an outpatient. Return precautions given is normal. Patient agrees with plan of care. Amount and/or Complexity of Data Reviewed Clinical lab tests: reviewed Tests in the radiology section of CPT??: reviewed Disposition: ED Disposition ED Disposition Comment Discharge [facility] thanks you for allowing us to assist you with your healthcare needs. This document contains patient education materials and information regarding your injury/illness. *If you need copies of your x-rays for a f ollow up appointment please call [phone] to arrange for diamond picker. If you had an IV in place during your stay, please continue to monitor the site for the next 48 hours. Report any redness, swelling, drainage, or fever to your primary care phys ician. Mo Bliss DO 07/06/21 0758 Reina Forrester RN - 07/06/2021 3:45 AM CDT Pt states I have cyclical vomiting and have been throwing up for two days. Pt does states he smokes marijuana but that this is not related to that. Pt vomiting presently in triage. He states his medications for nausea/vomiting have not been helping. documented in this encounter Plan of Treatment Not on filedocumented as of this encounter Procedures Procedure Name Priority Date/Time Associated Comments Diagnosis BASIC METABOLIC PANEL STAT 07/06/2021 7:05 AM Results for this CDT procedure are i n the results section. CT ABDOMEN PELVIS W IV STAT 07/06/2021 5:35 AM Non-intracta ble Results for this CONTRAST CDT vomiting with procedure are in nausea, unspecified the resu lts vomiting type section. COMPREHENSIVE STAT 07/06/2021 4:14 AM Results for this METABOLIC PANEL CDT procedure ar e in the results section. HEMOGRAM/DIFF STAT 07/06/2021 4:14 AM Results for this CDT procedure are i n the results section. MAGNESIUM STAT 07/06/2021 4:14 AM Results f or this CDT procedure are i n the results section. LIPASE STAT 07/06/2021 4:14 AM Results f or this CDT procedure are i n the results section. documented in this encounter Results BASIC METABOLIC PANEL (07/06/2021 7:05 AM CDT) P athologist Signature Sodium 136 134 - 143 07/06/[address] [facility] mEq/L 7:28 AM [facility] Potassium 3.5 3.4 - 5.1 07/06/[address] [facility] [facility] mEq/L 7:28 AM [facility] Chloride 100 99 - 110 07/06/[address] [facility] [facility] mEq/L 7:28 AM [facility] Carbon Dioxide 23 19 - 29 07/06/2021 [facility] mEq/L 7:28 AM [facility] Anion Gap 13.0 3.0 - 15.0 07/06/2021 [facility] mEq/L 7:28 AM [facility] Blood Urea 22 5 - 24 [facility]/06[facility] Nitrogen mg/dL 7:28 AM [facility] Creatinine 0.87 0.70 - 07/06/2021 [facility] 1.20 mg/dL 7:28 AM [facility] Glomerular >60 >60 07/06/2021 [facility] Filtration Rate mL/min/1.7 7:28 AM [facility] [address] m*2 LABORATORY Comment: Complications of CKD and risk o f cardiovascular disease increase when GFR is below 60ml.min/1.73m2. A persistently re duced GFR is a specific indication of Chronic Kidney Disease. The eGFR calculation has not been validated in patients >70yrs. Calcium 9.1 8.4 - 10.5 mg/dL 07/06/2021 7:28 AM CDT [facility] Glucose 98 70 - 99 mg/dL 07/06/2021 7:28 AM T [facility] Specimen Anatomical Collection Method / Collection Time Recei paul Time (Source) Location / Volume Laterality Blood BLOOD SPECIMEN / Venipuncture / 07/06/2021 7:05 2020 7:09 Unknown Unknown AM CDT AM CDT Narrative [facility] LABORATOR Y - 07/06/2021 7:28 AM CDT Current ADA criteria for Glucose: ?Normal: 70-99 mg/dL ?Impaired Fasting Glucose: 100-125 mg/dL ?Diabetes Mellitus: at or above 126 mg/dL The diagnosis of diabetes must be confir med on a subsequent day by measuring Fasting Plasma Glucose, 2-hr PG or random plasma glucose (if symptoms are present). Authorizing Provider Result Jacinto Bliss DO EC CHEMISTRY ORDERABLES Performing Organization Address City/State/ZIP Code Phon e Number [place] [id number] [place] [address] ABDOMEN PELVIS W IV CONTRAST (07/06/2021 5:35 AM CDT) Anatomical Region Laterality Modality Abdomen, Pelvis Computed Tomography Specimen (Source) Anatomical Collection Method Collection Time Re ceived Time Location / / Volume Laterality 07/06/2021 5:35 AM CDT Narrative 07/06/2021 2:06 PM CDT This document is currently in Final Status Exam CT ABDOMEN PELVIS W IV CONTRAST HISTORY: Nausea/vomiting; Bowel obstruct ion high-grade suspected; COMPARISON: None. TECHNIQUE: Auto dosage reduction and ite rative reconstruction techniques employed. FINDINGS: The liver, gallbladder, spleen , kidneys, and adrenal glands are normal. Minimal gastric mucosal thickening may be related to under distention versus gastritis. Trace free fluid about the right colon. The bowel is normal in caliber. The appendix is not definitely seen. A partially visualized curvilinear structure may be the normal appendix (series 4 image 29). No intraperitoneal free air or fluid collections. Bilateral L5-S1 pars defects. IMPRESSION: 1. Trace free fluid about the right colo n suggestive of an early infectious or inflammatory process. 2. Mild nonspecific gastric wall thicken ing which could be related to underdistention versus mild gastritis. 3. The appendix is not definitely identi fied. Electronically Signed: Rashawn Alejandro MD 07/06/2021 2:06 PM Procedure Note Rashawn Alejandro MD - 07/06/2021Formatt ing of this note might be different from the original. This document is currently in Final Stat us Exam CT ABDOMEN PELVIS W IV CONTRAST HISTORY: Nausea/vomiting; Bowel obstruct ion high-grade suspected; COMPARISON: None. TECHNIQUE: Auto dosage reduction and ite rative reconstruction techniques employed. FINDINGS: The liver, gallbladder, spleen , kidneys, and adrenal glands are normal. Minimal gastric mucosal thickening may be related to under distention versus gastritis. Trace free fluid about the right colon. The bowel is normal in caliber. The appendix is not definitely seen. A partially visualized curvilinear structure may be the normal appendix (series 4 image 29). No intraperitoneal free air or fluid collections. Bilateral L5-S1 pars defects. IMPRESSION: 1. Trace free fluid about the right colo n suggestive of an early infectious or inflammatory process. 2. Mild nonspecific gastric wall thicken ing which could be related to underdistention versus mild gastritis. 3. The appendix is not definitely identi fied. Electronically Signed: Rashawn Alejandro MD 07/06/2021 2:06 PM Mo Bliss DO EC CT ORDERABLES MAGNESIUM (07/06/2021 4:14 AM CDT) athologist Signature Magnesium 2.1 1.8 - 2.7 07/06/2021 [facility] mg/dL 4:55 AM CDT [facility] Specimen Anatomical Collection Method / Collection Time Recei paul Time (Source) Location / Volume Laterality Blood BLOOD SPECIMEN / Venipuncture / 07/06/2021 4:14 2020 4:19 Unknown Unknown AM CDT AM CDT Mo Bliss DO EC CHEMISTRY ORDERABLES Performing Organization Address City/[facility] Phon e Number [facility] [address] [place] [phone] LABORATORY LIPASE (07/06/2021 4:14 AM CDT) athologist Signature Lipase 17 12 - 84 07/06/2021 [facility] IU/L 4:52 AM [facility] Specimen Anatomical Collection Method / Collection Time Recei paul Time (Source) Location / Volume Laterality Blood BLOOD SPECIMEN / Venipuncture / 07/06/2021 4:14 2020 4:19 Unknown Unknown AM CDT AM CDT Mo Bliss DO EC CHEMISTRY ORDERABLES Performing Organization Address City/[facility] Phon e Number [address] [address] LABORATORY (ABNORMAL) COMPREHENSIVE METABOLIC PANEL (07/06/2021 4:14 AM CDT) [facility] gist Method Time Signature Sodium 137 134 - 143 07/06/2021 ST. mEq/L 4:[address] [facility] Potassium 3.7 3.4 - 5.1 07/06/2021 ST. mEq/L 4:[address] [facility] Chloride 95 (L) 99 - 110 07/06/2021 ST[address] mEq/L 4:[address] [facility] Carbon Dioxide 20 19 - 29 07/06/[address] mEq/L 4:[address] [facility] Anion Gap 22.0 (H) 3.0 - 15.0 07/06/2021 ST[facility] mEq/L 4:[address] [facility] Blood Urea 27 (H) 5 - 24 07/06/2021 ST. Nitrogen mg/dL 4:[address] [facility] Creatinine 1.28 (H) 0.70 - 07/06/2021 ST[address] 1.20 mg/dL 4:[address] [facility] Glomerular >60 >60 07/06/2021 ST. Filtration Rate mL/min/1.7 4:54 AM [facility] 3 m*[address] [facility] Comment: Complications of CKD and risk o f cardiovascular disease increase when GFR is below 60ml.min/1.73m2. A persistently re duced GFR is a specific indication of Chronic Kidney Disease. The eGFR calculation has not been validated in patients >70yrs. Calcium 11.4 (H) 8.4 - 10.5 07/06/2021 4:[address] [facility] mg/dL [facility] Glucose 139 (H) 70 - 99 mg/dL 07/06/2021 4:54 AM [facility] Protein, Total 8.9 (H) 6.0 - 8.0 07/06/2021 4:[address] [facility] g/dL [facility] Albumin 5.4 (H) 3.5 - 5.0 07/06/2021 4:[address] [facility] [facility] g/dL [facility] Alkaline Phosphatase 81 40 - 150 IU/L 07/06/2021 4:[address] [facility] Aspartate 26 10 - 40 IU/L 07/06/2021 4:[address] [facility] Aminotransferase [facility] Alanine Aminotransferase 29 6 - 40 IU/L 07/06/2021 4: 54 AM [facility] Bilirubin, Total 2.9 (H) 0.2 - 1.2 07/06/2021 4:54 AM [facility] mg/dL [facility] Specimen Anatomical Collection Method / Collection Time Recei paul Time (Source) Location / Volume Laterality Blood BLOOD SPECIMEN / Venipuncture / 07/06/2021 4:14 2020 4:19 Unknown Unknown AM CDT AM CDT Narrative [facility] LABORATOR Y - 07/06/2021 4:54 AM CDT Current ADA criteria for Glucose: ?Normal: 70-99 mg/dL ?Impaired Fasting Glucose: 100-125 mg/dL ?Diabetes Mellitus: at or above 126 mg/dL The diagnosis of diabetes must be confir med on a subsequent day by measuring Fasting Plasma Glucose, 2-hr PG or random plasma glucose (if symptoms are present). Mo Bliss DO EC CHEMISTRY ORDERABLES Performing Organization Address City/State/ZIP Code Phon e Number [place] [phone] [place] [id number] LABORATORY (ABNORMAL) HEMOGRAM/DIFFERENTIAL (07/06/2021 4:14 AM CDT) [facility] gist Method Time Signature WBC 18.6 (H) 3.2 - 07/06/2021 ST. 11.0 4:23 AM [facility] 10*9/L [facility] RBC 5.35 4.14 - 07/06/[address]21 ST[address] 5.76 4:23 AM [facility] 10*12/L [facility] HGB 17.4 (H) 12.9 - 07/06/2021 ST[address] 16.9 g/dL 4:[address] [facility] HCT 47.8 38.4 - 07/06/2021 ST[address] 49.7 % 4:[address] [facility] MCV 89.3 81.4 - 07/06/2021 ST[address] 99.0 fL 4:[address] [facility] MCH 32.5 26.7 - 07/06/2021 ST[address] 33.1 pg 4:[address] [facility] MCHC 36.4 (H) 31.6 - 07/06/2021 ST[address] 35.5 g/dL 4:[address] [facility] RDW 12.9 11.3 - 07/06/2021 ST[address] 14.6 % 4:[address] [facility] PLT 468 (H) 130 - 375 07/06/2021 ST. 10*9/L 4:[address] [facility] Neutrophils % 76.7 % 07/06/2021 ST[address] 4:[address] [facility] Lymphocytes % 17.8 % 07/06/2021 ST[address] 4:[address] [facility] Monocytes % 5.2 % 07/06/2021 ST[address] 4:[address] [facility] Eosinophils % 0.0 % 07/06/2021 ST[address] 4:[address] [facility] Basophils % 0.1 % 07/06/2021 ST[address] 4:[address] [facility] Immature 0.2 % 07/06/2021 ST[address] Granulocytes % 4:[address] [facility] Neutrophils 14.3 (H) 1.5 - 7.6 07/06/2021 ST. Absolute 10*9/L 4:[address] [facility] Lymphocytes 3.3 0.8 - 3.3 07/06/2021 ST. Absolute 10*9/L 4:[address] [facility] Monocytes 1.0 (H) 0.2 - 0.9 07/06/2021 ST. Absolute 10*9/L 4:[address] [facility] Eosinophils 0.0 0.0 - 0.4 07/06/2021 ST. Absolute 10*9/L 4:[address] [facility] Basophils 0.0 0.0 - 0.1 07/06/2021 ST. Absolute 10*9/L 4:[address] [facility] Immature 0.04 0.00 - 07/06/2021 ST[address] Granulocytes 0.06 4:23 AM [facility] Absolute 10*9/L [facility] Specimen Anatomical Collection Method / Collection Time Recei paul Time (Source) Location / Volume Laterality Blood BLOOD SPECIMEN / Venipuncture / 07/06/2021 4:14 2020 4:19 Unknown Unknown AM CDT AM CDT Mo [facility] HEMATOLOGY ORDERABLES Performing Organization Address City/State/ZIP Code Phon e Number [facility] [address] [address] LABORATORY documented in this encounter Visit Diagnoses Diagnosis Non-intractable vomiting with nausea, un specified vomiting type - Primary Other acute gastritis without hemorrhage documented in this encounter Administered Medications Inactive Administered Medications Medication Order MAR Action Action Date Dose Rate Site aluminum & magnesium Given 07/06/2021 4:46 AM CDT 30 mL hydroxide-simethicone (Maalox, Mylanta) 200-200-20 MG/5ML suspension 30 mL 30 mL, Oral, ONCE, 1 dose, On Wed07/06/21 at 0435 droperidol (Inapsine) injection 2.5 mg Given 07/06/2021 4:16 AM CDT 2.5 mg 2.5 mg, IV Push, ONCE, 1 dose, On Wed07/06/21 at 0410 iohexol (Omnipaque) 350 MG/ML 80 mL Given 07/06/2021 5:36 AM CDT 80 mL 80 mL, IV Push, ONCE, 1 dose, On Wed07/06/21 at 0525 lidocaine viscous (Xylocaine) 2 % solution 15 Given 4:46 AM CDT 15 mL mL 15 mL, Mouth/Throat, ONCE, 1 dose, On Wed07/06/21 at 0435 sodium chloride 0.9% BOLUS BAG New Bag 07/06/2021 4:15 AM CDT 1,000 mL 1000 mL/hr 1,000 mL 1,000 mL, Intravenous, at 1,000 mL/hr, ONCE, 1 dose, On Wed07/06/21 at 0410 sodium chloride 0.9% BOLUS BAG New Bag 07/06/2021 5:55 AM CDT 1,000 mL 1000 mL/hr 1,000 mL 1,000 mL, Intravenous, at 1,000 mL/hr, ONCE, 1 dose, On Wed07/06/21 at 0520 sodium chloride 0.9% IV LINE FLUSH (NS) BAG 50 Given 0 07/06/2021 5:36 AM CDT 50 mL mL 50 mL, IV Flush, ONCE, 1 dose, On 07/06/21 at 0525 documented in this encounter Active and Recently Administered Medications Times are shown in CDT. Scheduled Medication Order 07/04/2021 07/05/2021 07/06/2021 aluminum & magnesium hydroxide-simethico ne (Maalox, Mylanta) 200-200-20 MG/5ML suspension 30 mL (COMPLETED) 0446 (Given - Provider: Reina Forrester RN) 30 mL, Oral, ONCE, 1 dose, On 07/06/21 at 0435 droperidol (Inapsine) injection 2.5 mg (COMPLETED) 0416 (Given - Provider: Reina Forrester RN) 2.5 mg, IV Push, ONCE, 1 dose, On 07/06/21 at 0410 iohexol (Omnipaque) 350 MG/ML 80 mL (COMPLETED) 0536 (Given - Provider: Juliana Joel RT(R)) 80 mL, IV Push, ONCE, 1 dose, On 07/06/21 at 0525 lidocaine viscous (Xylocaine) 2 % solution 15 mL (COMPLETED) 0446 (Given - Provider: Reina Forrester RN) 15 mL, Mouth/Throat, ONCE, 1 dose, On 07/06/21 at 0435 sodium chloride 0.9% BOLUS BAG 1,000 mL (COMPLETED) 0415 (New Bag - Provider: Reina Forrester RN)0515 (Stopped - Provider: Reina Forrester, LUKE) 1,000 mL, Intravenous, at 1,000 mL/hr, ONCE, 1 dose, On Sun at 0410 sodium chloride 0.9% BOLUS BAG 1,000 mL (COMPLETED) 0555 (New Bag - Provider: Reina Forrester, LUKE)0651 (Stopped - Provider: Reina Forrester, LUKE) 1,000 mL, Intravenous, at 1,000 mL/hr, ONCE, 1 dose, On Sun at 0520 sodium chloride 0.9% IV LINE FLUSH (NS) BAG 50 mL (COMPLETED) 0536 (Given - Provider: RT Abiodun(R)) 50 mL, IV Flush, ONCE, 1 dose, On 07/06/21 at 0525 documented in this encounter
--- OUTSIDE RECORDS SUMMARY | 2022-08-19 22:48 | XMS_ITS | Encounter Summary ---
:1995 Author Organization [facility] Address [address] [place] [address] Care Team Providers Name Role Phone Unavailable Primary Care Provider Unavailable Encounter Details Date Type Department Care Team Description 04/07/2016 Hospital Encounter [facility] Fabienne Gregg ra, JELANI [address] [place] [address] (Wo rk) Social History Tobacco Use Types Packs/Day Years Used Date Smoking Tobacco: Never Assessed Sex Assigned at Date Recorded Not on file documented as of this encounter Last Filed Vital Signs Vital Sign Reading Time Taken Comments Blood Pressure 104/58 04/07/2016 10:58 AM CDT Pulse 88 04/07/2016 10:58 AM CDT Temperature - - Respiratory Rate 18 04/07/2016 10:58 AM CDT Oxygen Saturation - - Inhaled Oxygen Concentration - - Weight 61.8 kg (136 lb 3.9 oz) 04/07/2016 10:58 AM CDT Height 167 cm (5' 5.75) 04/07/2016 10:58 AM CDT Body Mass Index 22.16 04/07/2016 10:58 AM CDT documented in this encounter Progress Notes Jackie Joel, JELANI, C.N.P. - 04/07/2016 10:53 AM CDT FM-LE CHIEF COMPLAINT/REASON FOR VISIT Post hospital followup. HISTORY OF PRESENT ILLNESS This is a 20-year-old male here today in no acute distress. Comes in as he was seen in the [place] [facility] March 28 for nausea, vomiting, with [place]. [place] his [place]els. He ended up being on bowel rest, clear liquids and gradually got back to a general diet. He states now he has been doing well. He actually was discharged from the hospital on April 02 and now 5 days into it states he is doing great. He states he is really focusing on healthy eating habits, and actually has cut down on his weight. He had been at 85.5 kg, down to now 61.8 kg. He has no pain today and overall feels well. It is in here to followup after that hospital stay and make sure things truly are continuing to go well. He does not have afollowup scheduled for general surgery as he did not have to end up having any procedure completed. PHYSICAL EXAMINATION VITAL SIGNS: Temp 36.7, pulse 88, respirations 18, blood pressure 104/50, weight 61.8 kg, height 167cm. BMI 22.16. GENERAL: He is in no acute distress. Alert and oriented x3. NECK: Supple without lymphadenopathy. No masses. Full range of motion. No carotid bruits noted bilaterally. LUNGS: Clear to auscultation bilaterally. No wheezing or rhonchi heard to auscultation bilaterally. HEART: Regular rate and rhythm. ABDOMEN: Bowel sounds active in all 4 quadrants. Soft and nontender. Patient denies any tenderness to percussion or palpation in the abdominal area. IMPRESSION/REPORT/PLAN Nausea with vomiting, resolved. PLAN: 1. Patient will continue to monitor his dietary habits and drink plenty of fluids and follow a healthy diet. 2. If he feels he has worsening concerns or any other questions, he will return to the clinic. Otherwise, does agree with this plan. Has no other concerns. ADMINISTRATIVE BILLING 25 minutes spent with patient, 20 minutes spent in medical counseling and coordination of care. Jackie Joel, FJairoN.P./pos Electronically Signed By: JACKIE JOEL NP On: 04/20/2016 02:12 PM Source: [facility] MHSDOLBEYNONRADSYS Document Id: [id number] documented in this encounter Miscellaneous Notes Miscellaneous - Jackie Joel APRN, C.N.P. - 04/07/2016 11:17 AM CDT Ambulatory Discharge Medication List [address] [id number] Visit Information Name: JONO CARRILLO [facility] Number: [id number] Visit Date: 04/07/2016 11:17:24 Attending Provider: JACKIE JOEL NP Primary Care Provider: PCP, ELSEWHERE JONO CARRILLO has been given the following list of medications: Your Medications It is important to take your medications as directed. Use a pill box or chart to help remind you to take your medications. Please let your doctor or nurse know if you have problems taking your medications. Medication/Strength How to Take Indications/Special Instructions/Comments/Notes for Patient Medication Changes/Routing No Medications found Stop Taking the Following Medications: Medication list as of 04-07-16 11:17 Attention: If you have any medications at home that are not on this list, DO NOT take them until youcontact your provider for clarification. Give a copy of your medication list to your primary care provider. Update your medication list any time medications or doses are changed and carry your medication list at all times in case of emergency. Electronically Signed By: JACKIE JOEL LINE CLEANER Signed On:07-APR-2016 11:17:21 Additional Information: Source: [facility] POWERCHART Document Id: [id number] Miscellaneous - Jackie Joel APRN, C.N.P. - 04/07/2016 11:17 AM CDT Ambulatory Patient Summary [address] [id number] Visit Information Name: JONO CARRILLO [facility] Number: [id number] Current Date: 04/07/2016 11:17:24 Physicians Attending Provider: JACKIE JOEL NP Primary Care Provider: PCP, ELSEWHERE JONO CARRILLO has been given the following list of follow-up instructions, medication list, and patient education materials: Follow-up Instructions Your Medications Here is a list of your medications. It is important to take your medications as directed. Use a pillbox or chart to help remind you to take your medications. Please let your doctor or nurse know if you have problems taking your medications. Medication/Strength How to Take Indications/Special Instructions/Comments/Notes for Patient Medication Changes/Routing No Medications found Stop Taking the Following Medications: Medication list as of 04-07-16 11:17 Attention: If you have any medications at home that are not on this list, DO NOT take them until youcontact your provider for clarification. Give a copy of your medication list to your primary care provider. Update your medication list any time medications or doses are changed and carry your medication list at all times in case of emergency. Electronically Signed By: JACKIE JOEL LINE CLEANER Signed On:07-APR-2016 11:17:21 Your Allergies & Intolerances Substance Reaction Symptoms Category Comments No Known Medication Allergies Drug Your Problem List Problem Status Onset Comments No Problems found Your Upcoming Appointments Date Time Location Provider No Appointments found Attention: Contact your local Clinic if further appointment detail needed. Consider Using Patient Online Services Patient Online Services is a secure online and Mobile application that lets you: ?? View lab and test results ?? View portions of your medical record including clinical notes, immunizations and discharge summaries ?? Request an appointment or medication refill ?? Review your appointment schedule ?? Send secure messages to your care team Its easy to create an account if you dont have one. Go to [email or web address] and click on Create Your Account. Then, follow the directions to complete the online form. Youll be asked for your [facility] number which you can find at the top of this document. Your Goals/Additional instructions: Source: [facility] POWERCHART Document Id: [id number] Miscellaneous - Latasha Ray L.P.N. - 04/07/2016 10:58 AM CDT Adult Web Press Jogger Intake/History Adult Web Press Jogger Intake/History Entered On: 04/07/2016 11:03 CDT Performed On: 04/07/2016 10:58 CDT by LATASHA RAY LPN Intake Chief Complaint : Post hospital discharge for nausea and vomiting. Was hospitalized for four days. Patient has some nausea after eating occasionally. Temperature Core : 36.7 DegC(Converted to: 98.1 DegF) Peripheral Pulse Rate : 88 /min Respiratory Rate : 18 /min Systolic Blood Pressure : 104 mmHg Diastolic Blood Pressure : 58 mmHg NIBP Mean : 73 mmHg BP Location : Right upper extremity Blood Pressure Cuff Size : Regular Height : 167 cm(Converted to: 5 ft 6 inch(es), 66 inch(es)) Actual Weight : 61.8 kg(Converted to: 136 lb 4 oz) Weight Source : Standing scale Dosing Weight Clinic : 61.8 kg Clinic BSA : 1.69 Body Mass Index : 22.16 kg/m2 LATASHA RAY LPN - 04/07/2016 10:58 CDT General Info Information Given By : Patient Preferred Communication Mode : Verbal Languages : [place]an Is Patient Female and 13-50 no hysterectomy : No LATASHA RAY LPN - 04/07/2016 10:58 CDT Subjective Pain Symptoms : No LATASHA RAY LPN - 04/07/2016 10:58 CDT Dependent Habits Exposure to Tobacco Smoke : Other: Non-smoker Smoking Status : Former smoker Tobacco 2A : Yes Tobacco Use/Currently Using : No Tobacco Use/Last 30 Days : No Tobacco Use/Last 12 months : Yes Type : Other: quit smoking six weeks ago. Alcohol Use : Yes LATASHA RAY LPN - 04/07/2016 10:58 CDT Caffeine Use Grid Caffeine Use : Current Type : Soft drinks Frequency : Daily LATASHA RAY LPN - 04/07/2016 10:58 CDT Source: [employer] Document Id: [id number] documented in this encounter Plan of Treatment Upcoming Encounters Date Type Specialty Care Team Description 08/25/2022 Appointment Laboratory Medicine Cabrera Chavarria M.D. [address] [place] [phone] 08/25/2022 Appointment Radiology Cabrera Chavarria M.D. [address] [place] [phone] 08/25/2022 Comprehensive Visit Spine Chauncey Emanuel M.D. [address] [place] [phone] 08/25/2022 Office Visit Gastroenterology and Cabrera Chavarria, Hepatology Donaldo [address] [place] [phone] documented as of this encounter Visit Diagnoses Not on filedocumented in this encounter
--- OUTSIDE RECORDS SUMMARY | 2022-08-19 22:48 | XMS_ITS | Encounter Summary ---
:1995 Author Organization [facility] Address [address] [place] [id number] Care Team Providers Name Role Phone Unavailable Primary Care Provider Unavailable Reason for Referral Outpatient (Routine) - Closed Specialty Diagnoses / Procedures Referred By Contact Refer red To Contact Diagnoses Obstruction Intestinal (HCC) Cyclical Vomiting Syndrome Unrelated To Migraine Dehydration Cabrera Chavarria M.D. [facility] Procedures FL Nasojejunal Feeding Tube Placement [address] [place], [place] [address] Referral ID Status Reason Start Date Expiration Date Visits Requ ested Visits Authorized [id number] Closed 04/07/2022 04/07/2023 1 1 Reason for Visit Outpatient (Routine) - Closed Specialty Diagnoses / Procedures Referred By Contact Refer red To Contact Diagnoses Obstruction Intestinal (HCC) Cyclical Vomiting Syndrome Unrelated To Migraine Dehydration Cabrera Chavarria M.D. [facility] Procedures FL Nasojejunal Feeding Tube Placement [address] [place] [address] Referral ID Status Reason Start Date Expiration Date Visits Requ ested Visits Authorized [id number] Closed 04/07/2022 04/07/2023 1 1 Encounter Details Date Type Department Care Team Description 05/05/2022 Hospital Encounter Department of Cabrera Chavarria, Obstruct ion Intestinal (HCC); Radiology, Dirk [place] Cyclical Vomiting Syndrome Unrelated To Migraine; Building, in [address] [place], [place] [address] [facility] [address] [place], [place] [phone] (Work) [phone] Social History Tobacco Use Types Packs/Day Years Used Date Smoking Tobacco: Never Smokeless Tobacco: Never Alcohol Use Standard Drinks/Week Comments Not Currently 0 (1 standard drink = 0.6 oz pure alcoho l) Sex Assigned at Date Recorded Not on file documented as of this encounter Medications at Time of Discharge Medication Sig Dispensed Refills Start Date End Date albuterol 90 mcg/actuation Inhale 2 puffs. 0 10/29 inhaler asenapine maleate (SAPHRIS) Place under the 0 5 mg SL tablet tongue every 12 (twelve) hours. baclofen (LIORESAL) 10 mg START WITH 1/4 TAB 0 tablet BY MOUTH 4 TIMES A DAY INCREASE GRADUALLY TOLERATED TO MAX 2 TAB 4 TIMES DAILY Belbuca 300 mcg per Buccal 0 2 Film celecoxib (CeleBREX) 100 mg 0 03/30/20 22 capsule ergocalciferol (DRISDOL) TAKE 1 CAPSULE 0 022 50,000 Unit capsule WEEKLY X 10 WEEKS famotidine (PEPCID) 20 mg Take 20 mg by mouth 0 tablet 2 (two) times a day. loratadine (CLARITIN) 10 mg Daily 0 tablet Narcan 4 mg/actuation nasal USE DIRECTED 0 02/16/2022 spray NEEDED ACCIDENTAL OD, THEN CALL 911. ondansetron (ZOFRAN) 24 mg Take 24 mg by mouth 0 tablet once. ondansetron ODT Place 8 mg under the 0 10/15/2020 (ZOFRAN-ODT) 4 mg tongue. disintegrating tablet ondansetron ODT as needed 0 07/11/2021 (ZOFRAN-ODT) 4 mg disintegrating tablet oxyCODONE (ROXICODONE) 5 mg Every 4 Hours as 0 immediate release tablet needed polyethylene glycol Take 17 g by mouth. 0 019 (MIRALAX) 17 gram/dose oral powder prochlorperazine Insert 25 mg into 0 (COMPAZINE) 25 mg the rectum every 12 suppository (twelve) hours as needed for nausea or vomiting. documented as of this encounter Plan of Treatment Upcoming Encounters Date Type Specialty Care Team Description 08/25/2022 Appointment Laboratory Medicine Cabrera Chavarria M.D. [address] [place] [phone] 08/25/2022 Appointment Radiology Cabrera Chavarria M.D. [address] [place] [phone] 08/25/2022 Comprehensive Visit Spine Chauncey Emanuel M.D. [address] [place] [phone] 08/25/2022 Office Visit Gastroenterology and Cabrera Chavarria Hepatology Donaldo [address] [place] [phone] documented as of this encounter Procedures Procedure Name Priority Date/Time Associated Comments Diagnosis FL NASOJEJUNAL RAD - Routine 05/05/2022 2:19 Obstruction Results f or this FEEDING TUBE (most inpatients PM CDT Intestinal (HCC ) procedure are in PLACEMENT and all Cyclical Vomiting the result s outpatients) Syndrome Unrelated section. To Migraine Dehydration documented in this encounter Results FL Nasojejunal Feeding Tube Placement (05/05/2022 2:19 PM CDT) Anatomical Region Laterality Modality Gastro Intestinal, Abdominal RST LOS, Abdominal ARZ N/A Digital Radiography LOS, Abdominal FLA LOS Specimen (Source) Anatomical Collection Method Collection Time Re ceived Time Location / / Volume Laterality 05/05/2022 1:58 PM CDT Impressions 05/05/2022 2:22 PM CDT An NJ tube was successfully placed under fluoroscopic guidance. EP Narrative 05/05/2022 2:22 PM CDT EXAM: ??FL NASOJEJUNAL FEEDING TUBE PLACEMENT COMPARISON: ??CT from 08/17/[address] from 11/05/2021. FINDINGS: An enteric tube was Placed under fluoros copic guidance: Tube placed: ??NJ, 140 cm, 8 Guinean Route of entry: ??Nose (left nostril) Tip location: ??Jejunum Stylet removed: ??Yes Cabrera Chavarria M.D. IMG FLUOROSCOPY PROCEDURES documented in this encounter Visit Diagnoses Diagnosis Obstruction Intestinal (HCC) Cyclical Vomiting Syndrome Unrelated To Migraine Dehydration documented in this encounter
--- OUTSIDE RECORDS SUMMARY | 2022-08-19 22:48 | XMS_ITS | Encounter Summary ---
:1995 Author Organization [facility] Address [address] [place] [address] Care Team Providers Name Role Phone Unavailable Primary Care Provider Unavailable Reason for Referral Outpatient (Routine) - Closed Specialty Diagnoses / Referred By Referred To Cont act Procedures Contact Gastroenterology and Diagnoses Cyclical Vomiting Syndrome Unrelated To Migraine Kimberlee Posadas [facility] [address] [place] [address] Referral ID Status Reason Start Date Expiration Date Visits Requ ested Visits Authorized [id number] Closed 11/26/2021 11/26/2022 1 1 CAL LIBRARY ASSISTANT Encounter Details Date Type Department Care Team Description 11/26/2021 [facility] Kimberlee Posadas C yclical Vomiting AND CLINICS P.A.-C. Syndrome Unrelated To [address] [facility] [address] [facility] Migraine (Primary Dx) [place] [address] [place], [place] [phone] Social History Tobacco Use Types Packs/Day Years Used Date Smoking Tobacco: Never Smokeless Tobacco: Never Alcohol Use Standard Drinks/Week Comments Not Currently 0 (1 standard drink = 0.6 oz pure alcoho l) Sex Assigned at Date Recorded Not on file documented as of this encounter Plan of Treatment Upcoming Encounters Date Type Specialty Care Team Description 08/25/2022 Appointment Laboratory Medicine Cabrera Chavarria M.D. [address] [place] [address] 08/25/2022 Appointment Radiology Cabrera Chavarria M.D. [address] [place] [phone] 08/25/2022 Comprehensive Visit Spine Chauncey Emanuel M.D. [address] [place] [phone] 08/25/2022 Office Visit Gastroenterology and Cabrera Chavarria, Hepatology [facility]onaldo [address] [place] [phone] Scheduled Referrals Name Type Priority Associated Order Schedule Diagnoses Gastroenterology & Outpatient Routine Cyclical Vomiting Expe cted: Hepatology Referral Referral Syndrome Unrelated To Migraine (Approximate), Expires: 02/24/2023 documented as of this encounter Visit Diagnoses Diagnosis Cyclical Vomiting Syndrome Unrelated To Migraine - Primary documented in this encounter
--- OUTSIDE RECORDS SUMMARY | 2022-08-19 22:48 | XMS_ITS | Encounter Summary ---
:1995 Author Organization [facility] Address [address] [place] [address] Care Team Providers Name Role Phone Unavailable Primary Care Provider Unavailable Reason for Referral Outpatient (Routine) - Authorized Specialty Diagnoses / Referred By Referred To Cont act Procedures Contact Gastroenterology and Cabrera Chavarria M.D. [facility] Hepatology [address] [place] [address] Referral ID Status Reason Start Date Expiration Date Visits V isits Requested Authorized [id number] Authorized 03/31/2022 03/31/2023 1 1 ehavioral Health (Routine) - Authorized Specialty Diagnoses / Procedures Referred By Contact Refer red To Contact Psychiatry / Psychiatry Diagnoses Cyclical Vomiting Syndrome Unrelated To Migraine Other Bipolar Disorder (HCC) Cabrera Chavarria M.D. [facility] and Psychology [address] [place] [address] Referral ID Status Reason Start Expiration Visits Visits Date Date Requested Authorized [id number] Authorized Specialty 03/31/2022 03/31/2023 1 1 Services Required utpatient (Routine) - Authorized Specialty Diagnoses / Procedures Referred By Contact Refer red To Contact Diagnoses Cyclical Vomiting Syndrome Unrelated To Migraine Cabrera Chavarria M.D. [facility] Procedures DX Cervical Spine 2-3 Views [address] [place] [address] Referral ID Status Reason Start Date Expiration Date Visits V isits Requested Authorized [id number] Authorized 03/31/2022 03/31/2023 1 1 utpatient (Routine) - Authorized Specialty Diagnoses / Procedures Referred By Contact Refer red To Contact Spine Diagnoses Cyclical Vomiting Syndrome Unrelated To Migraine Cabrera Chavarria M.D. [facility] [address] [place], [place] [phone] Referral ID Status Reason Start Date Expiration Date Visits V isits Requested Authorized [id number] Authorized 03/31/2022 03/31/2023 1 1 Reason for Visit Outpatient (Routine) - Closed Specialty Diagnoses / Referred By Referred To Cont act Procedures Contact Gastroenterology and Diagnoses Cyclical Vomiting Syndrome Unrelated To Migraine [facility] [address] [place] [address] Referral ID Status Reason Start Date Expiration Date Visits Requ ested Visits Authorized [id number] Closed 11/26/2021 11/26/2022 1 1 Encounter Details Date Type Department Care Team Description 03/31/2022 Comprehensive Visit Division of Kimberlee Posadas P.A[facility] [address] [place] [address] Cyclical Vomiting Syndrome Unrelated To Migraine (Primary Dx); Gastroenterology in Cabrera Chavarria M.D. [address] [place] [phone] Other Bipolar Disorder (HCC) [place], [place] [address] [place], [place] [phone] Social History Tobacco Use Types Packs/Day Years Used Date Smoking Tobacco: Never Smokeless Tobacco: Never Alcohol Use Standard Drinks/Week Comments Not Currently 0 (1 standard drink = 0.6 oz pure alcoho l) Sex Assigned at Date Recorded Not on file documented as of this encounter Last Filed Vital Signs Vital Sign Reading Time Taken Comments Blood Pressure 132/97 03/31/2022 8:56 AM CDT Pulse 97 03/31/2022 8:56 AM CDT Temperature - - Respiratory Rate - - Oxygen Saturation - - Inhaled Oxygen Concentration - - Weight 57.9 kg (127 lb 10.3 oz) 03/31/2022 8:56 AM CDT Height 170.4 cm (5' 7.09) 03/31/2022 8:56 AM CDT Body Mass Index 19.94 03/31/2022 8:56 AM CDT documented in this encounter Consult Notes Cabrera Chavarria M.D. - 03/31/2022 9:00 AM CDT SUBJECTIVE Date of Consultation: 03/31/2022 Referring Provider: Kimberlee Posadas P.A.-C. Primary Care Physician: No primary care provider on file. CHIEF COMPLAINT / REASON FOR CONSULT Cyclical Vomiting Syndrome Unrelated To Migraine [R11.15] HISTORY OF PRESENT ILLNESS Jarocho Pickens is a 26 y.o. male attending [facility] for evaluation of Cyclical Vomiting Syndrome Unrelated To Migraine [R11.15]. Mr. Pickens reports that symptoms first began in 2015. He describes the episodes of intractable vomiting punctuated initially by months a feeling well. He reports in 2016 he had 2 episodes over the course of the year. In 2017 he was diagnosed with a right inguinal hernia and he has abdominal mesh placed with the hernia repair. In 2018 he began to have increased frequency of episodes and underwent CT scanning which showed an intussusception which resulted in an exploratory laparoscopy which was negative although his understanding is the CT scan showed 2 size of potential intussusception. [facility] scanning as well as upper and lower endoscopies and a capsule endoscopy.There is no discern about thickening of the stomach but the endoscopy was essentially normal. Mr. Pickens has used marijuana on a regular basis in the past and it was initially thought that the marijuana could be the culprit for his symptoms he stopped marijuana for up to 4 months without ever read to [place] of his GI symptoms. Mr. Pickens also uses opioid pain medications in the form of Belbuca films and oxycodone on a daily basis. He has been on chronic opioid pain medications for greater than a year because of chronic neck and back pain. Mr. Pickens was recently diagnosed with bipolar with predominantly depressive symptoms. Mr. Pickens reports that he has episodes of intractable vomiting that can last for days, during these episodes there was delayed vomiting of food in addition to dry heaving and there is also constipation. When the episode resolves he is able to move his bowels normally. In between episodes he generally has 2 bowel movements a day and has not noted any change in his bowel habits since starting the opioid pain medications. Mr. Pickens does have a history of early lifeadversity including losing his mom to sudden cardiac arrest at age 10. He has roommates which provided good support system to him in he describes some is brothers. REVIEW OF SYSTEMS Constitutional: Positive for fatigue, night sweats, weight gain of more than 10 pounds and weight loss of more than 10 pounds. Gastrointestinal: Positive for abdominal (belly) pain or cramping, constipation, nausea and vomiting. All other systems reviewed and are negative. The following portions of the patient's history were reviewed and updated as appropriate: allergies,current medication, family history, medical history, surgical history and social history. OBJECTIVE VITAL SIGNS BP (!) 132/97 (BP Location: Left arm, Patient Position: Sitting, Cuff Size: Regular) Pulse 97 Ht170.4 cm Wt 57.9 kg BMI 19.94 kg/m?? PHYSICAL EXAMINATION General Appearance: Alert, cooperative. No distress. Appears stated age. Head: Normocephalic, without obvious abnormality, atraumatic. Eyes: . Sclerae anicteric. Conjunctivae clear. EOMs intact, both eyes. Neck: Supple, symmetrical. Trachea midline. No adenopathy. Thyroid: No enlargement, tenderness, or nodules. Lungs: Clear to auscultation bilaterally. Respirations unlabored. Chest Wall: No tenderness or deformity. Heart: Regular rate and rhythm. S1 and S2 normal. No murmur, rub, or gallop Abdomen: Soft, but tender in the epigastrium as well in the left lower quadrant. Carnett sign is equivocal. Bowel sounds active. No masses. No organomegaly. Extremities: Normal, atraumatic. No cyanosis or edema. Pulses: 2+ and symmetric in the upper and lower limbs. Skin: Skin color, texture, skin is clammy and diaphoretic. No rashes or lesions. Lymph Nodes: Cervical, supraclavicular, axillary, and inguinal nodes normal. DIAGNOSTICS Labs: No visits with results within 1 Week(s) from this visit. Latest known visit with results is: Admission on 08/17/2020, Discharged on 08/17/2020 Component Date Value ??? Hemoglobin 08/17/2020 18.1 (A) ??? Hematocrit 08/17/2020 50.2 (A) ??? Erythrocytes 08/17/2020 5.51 ??? MCV 08/17/2020 91.1 ??? RBC Distrib Width 08/17/2020 13.0 ??? Platelet Count 08/17/2020 388 (A) ??? Leukocytes 08/17/2020 10.5 (A) ??? Neutrophils 08/17/2020 7.79 (A) ??? Lymphocytes 08/17/2020 2.05 ??? Monocytes 08/17/2020 0.66 ??? Eosinophils 08/17/2020 0.02 (A) ??? Basophils 08/17/2020 0.02 ??? Potassium, P 08/17/2020 3.9 ??? Sodium, P 08/17/2020 138 ??? Chloride, P 08/17/2020 93 (A) ??? Bicarbonate, P 08/17/2020 28 ??? Anion Gap, P 08/17/2020 17 (A) ??? BUN (Blood Urea Nitrogen* 08/17/2020 20 ??? Creatinine, P 08/17/2020 1.02 ? ? eGFR-Black/ Ameri* 08/17/2020 >90 ? ? eGFR Non-Black/ A* 08/17/2020 >90 ??? Calcium, Total, P 08/17/2020 10.2 (A) ??? Glucose, P 08/17/2020 107 ??? Protein, Total, P 08/17/2020 8.4 (A) ??? Albumin, P 08/17/2020 5.7 (A) ??? Aspartate Aminotransfera* 08/17/2020 17 ??? Alkaline Phosphatase, P 08/17/2020 85 ??? Alanine Aminotransferase* 08/17/2020 18 ??? Bilirubin, Total, P 08/17/2020 2.2 (A) ??? Lactate, P 08/17/2020 2.5 (A) ??? Lipase, P 08/17/2020 30 ??? Magnesium, P 08/17/2020 3.0 (A) ? ? Ethanol, P 08/17/2020 <10 ??? Ventricular Rate ECG/Min 08/17/2020 94 ??? MA Interval 08/17/2020 132 ??? QRSD Interval 08/17/2020 90 ??? QT Interval 08/17/2020 372 ??? QTC Interval 08/17/2020 465 ??? P Dingess 08/17/2020 78 ??? R Dingess 08/17/2020 80 ??? T Wave Dingess 08/17/2020 45 ??? Amphetamines, U 08/17/2020 Negative ??? Barbiturates, U 08/17/2020 Negative ??? Benzodiazepines, U 08/17/2020 Negative ??? Buprenorphine, U 08/17/2020 Negative ??? Cocaine, U 08/17/2020 Negative ??? Methadone, U 08/17/2020 Negative ??? Methamphetamines, U 08/17/2020 Negative ??? Opiates, U 08/17/2020 Negative ??? Oxycodone, U 08/17/2020 Negative ??? Phencyclidine, U 08/17/2020 Negative ??? Propoxyphene, U 08/17/2020 Negative ??? Tetrahydrocannabinol, U 08/17/2020 Unconfirmed Positive (A) ??? Tricyclic Antidepressant* 08/17/2020 Negative ??? Source 08/17/2020 Midstream ??? Clarity 08/17/2020 Clear ??? Color 08/17/2020 Yellow ??? Blood 08/17/2020 Trace (A) ??? Nitrite 08/17/2020 Negative ??? Leukocyte Esterase 08/17/2020 Negative ??? Protein 08/17/2020 Negative ??? Glucose 08/17/2020 Negative ??? Ketones, QI(U) 08/17/2020 Trace (A) ??? Bilirubin 08/17/2020 Negative ??? pH 08/17/2020 8.5 (A) ??? Specific Mcclure 08/17/2020 1.015 ??? Urobilinogen 08/17/2020 0.2 ??? White Blood Cells 08/17/2020 Occ-3 ??? Red Blood Cells 08/17/2020 Occ-2 ? ? Dysmorphic Red Blood Madhavi* 08/17/2020 <=25 ??? Hyaline Casts 08/17/2020 1-3 ??? Squamous Cells 08/17/2020 Occ-3 ASSESSMENT / PLAN #1 Cyclical Vomiting Syndrome Unrelated To Migraine I do have concerns for medication side effects and I have discussed this with Mr. Pickens . Other possibilities would include inherited angioedema, cyclic vomiting syndrome, mechanical obstruction dueto previous surgeries. - Gastroenterology & Hepatology Referral - Interpretation of Outside CT Abdomen and or Pelvis; Future; Expected date: 03/31/2022 - Spine Center - General consult (clinic); Future; Expected date: 03/31/2022 - DX Cervical Spine 2-3 Views; Future; Expected date: 03/31/2022 (Before next visit) - Interpretation of Outside CT Abdomen and or Pelvis; Future; Expected date: 03/31/2022 - Complement C4; Future; Expected date: 03/31/2022 - C1 Esterase Inhibitor, Functional Assay; Future; Expected date: 03/31/2022 - Calcium, Total; Future; Expected date: 03/31/2022 - Glucose, Fasting; Future; Expected date: 03/31/2022 - Cortisol; Future; Expected date: 03/31/2022 - CBC with Differential, Blood; Future; Expected date: 03/31/2022 - tTg (Tissue Transglutaminase), Antibody, IgA; Future; Expected date: 03/31/2022 #2 Other Bipolar Disorder (HCC) I am hopeful that Mr. Pickens will be able to consult with Dr. Muniz the help give us a more definitive diagnosis and treatment options that could be beneficial both from the standpoint of managing hisbipolar symptoms and also for chronic pain. Other orders - Psychiatry and Psychology - General consult (clinic); Future; Expected date: 03/31/2022 - Gastroenterology and Hepatology office visit (clinic); Future; Expected date: 03/31/2022 (After tests) #3 Chronic neck and back pain I would like to arrange for consultation in the Spine Center for non opioid treatment options, I also would have an eye toward comprehensive pain rehabilitation in 4 able to rule out mechanical obstruction. Mr. Pickens has not yet gained access to the patient portal and knows that he is welcome to contactme by telephone should he need to. This was a 60 minute consultation of which 30 minutes was spent in counseling the patient and coordinating their care. documented in this encounter Plan of Treatment Upcoming Encounters Date Type Specialty Care Team Description 08/25/2022 Appointment Laboratory Medicine Cabrera Chavarria M.D. [address] [place] [phone] 08/25/2022 Appointment Radiology Cabrera Chavarria M.D. [address] [place] [phone] 08/25/2022 Comprehensive Visit Spine Chauncey Emanuel M.D. [address] [place] [phone] 08/25/2022 Office Visit Gastroenterology and Cabrera Chavarria Hepatology [place] [address] [place] [phone] Scheduled Orders Name Type Priority Associated Diagnoses Order S chedule DX Cervical Spine Imaging RAD - Routine (most Cyclical Vomitin g Expected: 2-3 Views inpatients and all Syndrome Unrelated 01/2022 outpatients) To Migraine (Approximate), Expires: 07/01/2023 Complement C4 Lab Routine Cyclical Vomiting Expected: Syndrome Unrelated 2 To Migraine (Approximate), Expires: 07/01/2023 C1 Esterase Lab Routine Cyclical Vomiting Expected: Inhibitor, Syndrome Unrelated 2 Functional Assay To Migraine (Approximat e), Expires: 03/31/2023 Calcium, Total Lab Routine Cyclical Vomiting Expected : Syndrome Unrelated 2 To Migraine (Approximate), Expires: 07/01/2023 Glucose, Fasting Lab Routine Cyclical Vomiting Expect ed: Syndrome Unrelated 2 To Migraine (Approximate), Expires: 07/01/2023 Cortisol Lab Routine Cyclical Vomiting Expected: Syndrome Unrelated 2 To Migraine (Approximate), Expires: 07/01/2023 CBC with Lab Routine Cyclical Vomiting Expected: Differential, Blood Syndrome Unrelated To Migraine (Approximate), Expires: 07/01/2023 tTG (Tissue Lab Routine Cyclical Vomiting Expected: Transglutaminase), Syndrome Unrelated 01/2022 Antibody, IgA To Migraine (Approximate), Expires: 07/01/2023 Scheduled Referrals Name Type Priority Associated Order Schedule Diagnoses Spine Center - General Outpatient Routine Cyclical Vomiting Expected: consult (clinic) Referral Syndrome Unrelated 03/31 To Migraine (Approximate), Expires: 07/01/2023 Psychiatry and Outpatient Routine Cyclical Vomiting Expected : Psychology - General Referral Syndrome Unrelated 0 03/31/2022 consult (clinic) To Migraine (Approximate), Other Bipolar Expires: Disorder (HCC) 07/01/2023 Gastroenterology and Outpatient Routine Expecte d: Hepatology office visit Referral 01/2022 (clinic) (Approximate), Expires: 07/01/2023 documented as of this encounter Results Interpretation of Outside CT Abdomen and or Pelvis (03/31/2022 9:53 AM CDT) Anatomical Region Laterality Modality Abdomen, Pelvis, Abdominal RST LOS, Abdominal ARZ LOS, N/A Computed Tomography Abdominal FLA LOS, Other Specimen (Source) Anatomical Collection Method Collection Time Re ceived Time Location / / Volume Laterality 04/01/2022 9:40 AM CDT Impressions 04/01/2022 9:50 AM CDT No findings explaining patient's symptom s. Narrative 04/01/2022 9:50 AM CDT EXAM: ??INTERPRETATION OF OUTSIDE CT ABDOMEN AND OR PELVIS COMPARISON: ??08/17/2020 FINDINGS: ??Outside CT of the abdomen an d pelvis with IV contrast performed 11/05/2021. No bowel obstruction. No intussusception . Large amount of stool within the colon. The bowel appears grossly normal in location but is diffic ult to fully evaluate given the absence of luminal and distending material. If there is concern for malrotation or adhesions, CT enterocleisis or CT enterography would be better for further evaluation. The remainder of the exam is negative. Procedure Note Viktor Saravia M.D. - 04/01/2022Formatti ng of this note might be different from the original. EXAM: INTERPRETATION OF OUTSIDE CT ABDOM EN AND OR PELVIS COMPARISON: 08/17/2020 FINDINGS: Outside CT of the abdomen and pelvis with IV contrast performed 11/05/2021. No bowel obstruction. No intussusception . Large amount of stool within the colon. The bowel appears grossly normal in location but is diffic ult to fully evaluate given the absence of luminal and distending material. If there is concern for malrotation or adhesions, CT enterocleisis or CT enterography would be better for further evaluation. The remainder of the exam is negative. IMPRESSION: No findings explaining patient's symptom s. Cabrera Chavarria M.D. IMG CT PROCEDURES documented in this encounter Visit Diagnoses Diagnosis Cyclical Vomiting Syndrome Unrelated To Migraine - Primary Other Bipolar Disorder (HCC) Cyclical Vomiting Syndrome Unrelated To Migraine documented in this encounter
--- OUTSIDE RECORDS SUMMARY | 2022-08-19 22:48 | XMS_ITS | Encounter Summary ---
:1995 Author Organization [facility] Address [address] [place] [address] Care Team Providers Name Role Phone Unavailable Primary Care Provider Unavailable Reason for Visit Reason Comments GI Motility Results Encounter Details Date Type Department Care Team Description 05/06/2022 Clinical Division of Cabrera Chavarria GI Motility; Communication Gastroenterology in [place]. Results [place], [place] [address] [place] [phone] [facility] [phone] [phone] Social History Tobacco Use Types Packs/Day Years Used Date Smoking Tobacco: Never Smokeless Tobacco: Never Alcohol Use Standard Drinks/Week Comments Not Currently 0 (1 standard drink = 0.6 oz pure alcoho l) Sex Assigned at Date Recorded Not on file documented as of this encounter Miscellaneous Notes Telephone Encounter - Sofi Dong R.N. - 05/06/2022 3:02 PM CDT SUBJECTIVE CHIEF COMPLAINT / REASON FOR CALL GI Motility and Results Test Result Information: Reached out to patient at the request of Dr. Chavarria to share that his recent CT results were reviewed and are normal. There is no evidence of mechanical bowel obstruction. ??I mentioned to him that Dr. Chavarria was looking for the laboratory tests that she ordered and it does not seem that they have yet been done. He would like to have his blood work done on the same day as some other appointments that Dr. Chavarria has recommended. He would like a call to get this all arranged on the same day. Resulted Orders CT Abdomen Pelvis Enterography without and with IV Contrast Narrative EXAM: CT ABDOMEN PELVIS ENTEROGRAPHY WITHOUT AND WITH IV CONTRAST COMPARISON: CT abdomen and pelvis 11/05/2021 FINDINGS: Following administration of 2500 mL of oral contrast, there is uniform distention of majority of the small bowel to the level of the cecum. A few scattered loops of small bowel in the deep pelvis are not well distended, however there is no upstream dilation to indicate an obstruction. No mural hyperenhancement or bowl wall thickening. Normal appearance of the terminal ileum. Moderate colonic stool burden, otherwise unremarkable. The liver, spleen, pancreas, kidneys and adrenal glands are normal. No abdominal or pelvic adenopathy. Bilateral L5 pars defect. Enteric tube with tip in the transverse duodenum. Surgical changes of right inguinal hernia repair. Impression No CT enteroclysis evidence of small bowl obstruction. Disposition/Recommendation: self-care yes appropriate at this time, patient encouraged to call back with questions Information/Education: patient/caller able to teach back Caller agreeable to plan of care: yes documented in this encounter Plan of Treatment Upcoming Encounters Date Type Specialty Care Team Description 08/25/2022 Appointment Laboratory Medicine Cabrera Chavarria M.D. [address] [place] [phone] 08/25/2022 Appointment Radiology Cabrera Chavarria M.D. [address] [place] [phone] 08/25/2022 Comprehensive Visit Spine Chauncey Emanuel M.D. [address] [place] [phone] 08/25/2022 Office Visit Gastroenterology and Cabrera Chavarria Hepatology [place] [address] [place] [phone] documented as of this encounter Visit Diagnoses Not on filedocumented in this encounter
--- OUTSIDE RECORDS SUMMARY | 2022-08-19 22:48 | XMS_ITS | Clinical Summary ---
:1995 Author Organization [facility] Address [address] [place] [address] Care Team Providers Name Role Phone Unavailable Primary Care Provider Unavailable Source Comments Patient records contain information from all sites at [facility]. For routine questions regarding patient records, call [phone] during business hours, M-F 8:00 AM - 5:00 PM Central Time. Record requests for emergency care only can be directed to [phone] at any time.[facility] Allergies Active Allergy Reactions Severity Noted Date Comments House Dust Mite Other (see comments) Low 12/30/2021 Medications Medication Sig Dispensed Refills Start Date End Date Status famotidine (PEPCID) 20 Take 20 mg by 0 Active mg tablet mouth 2 (two) times a day. ondansetron (ZOFRAN) 24 Take 24 mg by 0 Active mg tablet mouth once. prochlorperazine Insert 25 mg into 0 Active (COMPAZINE) 25 mg the rectum every suppository 12 (twelve) hours as needed for nausea or vomiting. albuterol 90 Inhale 2 puffs. 0 11/08/2019 Active mcg/actuation inhaler asenapine maleate Place under the 0 Active (SAPHRIS) 5 mg SL tongue every 12 tablet (twelve) hours. baclofen (LIORESAL) 10 START WITH 1/4 0 01/14/2022 Active mg tablet TAB BY MOUTH 4 TIMES A DAY INCREASE GRADUALLY TOLERATED TO MAX 2 TAB 4 TIMES DAILY Belbuca 300 mcg per 0 03/30/2022 Active Buccal Film celecoxib (CeleBREX) 0 03/30/2022 Active 100 mg capsule ergocalciferol TAKE 1 CAPSULE 0 03/16/2022 Active (DRISDOL) 50,000 Unit WEEKLY X 10 WEEKS capsule loratadine (CLARITIN) Daily 0 Active 10 mg tablet Narcan 4 mg/actuation USE DIRECTED 0 02/16/2022 Active nasal spray NEEDED ACCIDENTAL OD, THEN CALL [address]. [address] 8 mg under 0 10/15/2020 Active (ZOFRAN-ODT) 4 mg the tongue. disintegrating tablet ondansetron ODT as needed 0 07/11/2021 Act rina (ZOFRAN-ODT) 4 mg disintegrating tablet oxyCODONE (ROXICODONE) Every 4 Hours as 0 02/03/2022 Active 5 mg immediate release needed tablet polyethylene glycol Take 17 g by 0 01/25/2019 Active (MIRALAX) 17 gram/dose mouth. oral powder Active Problems No known active problems Family History Medical History Relation Name Comments Asthma Father Congenital heart valve abnormality Mother Relation Name Status Comments Father Mother Social History Tobacco Use Types Packs/Day Years Used Date Smoking Tobacco: Never Smokeless Tobacco: Never Alcohol Use Standard Drinks/Week Comments Not Currently 0 (1 standard drink = 0.6 oz pure alcoho l) Sex Assigned at Date Recorded Not on file Last Filed Vital Signs Vital Sign Reading Time Taken Comments Blood Pressure 132/97 03/31/2022 8:56 AM CDT Pulse 97 03/31/2022 8:56 AM CDT Temperature 36.2 ??C (97.2 ??F) 08/17/2020 1:30 PM CDT Respiratory Rate 20 08/17/2020 1:30 PM CDT Oxygen Saturation 98% 08/17/2020 3:35 PM CDT Inhaled Oxygen Concentration - - Weight 57.9 kg (127 lb 10.3 oz) 03/31/2022 8:56 AM CDT Height 170.4 cm (5' 7.09) 03/31/2022 8:56 AM CDT Body Mass Index 19.94 03/31/2022 8:56 AM CDT Plan of Treatment Upcoming Encounters Date Type Specialty Care Team Description 08/25/2022 Appointment Laboratory Medicine Cabrera Chavarria M.D. [address] [place] [phone] 08/25/2022 Appointment Radiology Cabrera Chavarria M.D. [address] [place] [phone] 08/25/2022 Comprehensive Visit Spine Chauncey Emanuel M.D. [address] [place] [phone] 08/25/2022 Office Visit Gastroenterology and Cabrera Chav[facility] [address] [place] [phone] Health Maintenance Due Date Last Done Comments HIV Screening 1995 Hepatitis C Screening 1995 COVID-19 Vaccine (#1) 01/20/1995 Depression Screening 11/29/2021 (Annual PHQ-2) Glucose Test for Med 02/25/2022 02/25/2021, 11/12/2020, Monitoring 08/17/2020, Additional history exists Influenza Vaccine (#1) 2022 09/25/2003, 09/25/2003 DTaP,Tdap,and Td Vaccines 12/17/2027 12/17/2017, 06/08/2006 , (7 - Td or Tdap) 01/03/1996, Additional history exists Hepatitis B Vaccines Completed 04/15/1995, 1995, 1995 Pneumococcal vaccine (0-64 Aged Out No lo nger eligible years) based on patient 's age to complete this topic Insurance Payer Benefit Plan Subscriber ID Effective Dates Phone Address Type / Group [facility] [id number] 2021-Eboni [phone] [address] Medicaid HMO t 5 [place] [address] (Home) [place] [address]
--- OUTSIDE RECORDS SUMMARY | 2022-08-19 22:48 | XMS_ITS | Encounter Summary ---
:1995 Author Organization [facility] Address [address] [place] [address] Care Team Providers Name Role Phone Unavailable Primary Care Provider Unavailable Reason for Referral MRI/CAT/PET Scan (Routine) - Closed Specialty Diagnoses / Procedures Referred By Contact Refer red To Contact Radiology Diagnoses Obstruction Intestinal (HCC) Cabrera Montez M.D. [facility] [address] Abdomen Pelvis Enterography without and with IV Contrast AL CT ABD&PELVIS WO/W CNTRST [address] [place] [address] Referral ID Status Reason Start Date Expiration Date Visits Requ ested Visits Authorized [id number] Closed 04/07/2022 04/07/2023 1 1 utpatient (Routine) - Closed Specialty Diagnoses / Procedures Referred By Contact Refer red To Contact Diagnoses Obstruction Intestinal (HCC) Cyclical Vomiting Syndrome Unrelated To Migraine Dehydration Cabrera Montez M.D. [facility] Procedures [place] Nasojejunal Feeding Tube Placement [address] [place] [phone] Referral ID Status Reason Start Date Expiration Date Visits Requ ested Visits Authorized [id number] Closed 04/07/2022 04/07/2023 1 1 Reason for Visit Reason Comments GI Motility Encounter Details Date Type Department Care Team Description 04/06/2022 Clinical Communication Division of Cabrera Montez [facility] [place] [place] [address] [facility] [address] [place] [phone] Social History Tobacco Use Types Packs/Day Years Used Date Smoking Tobacco: Never Smokeless Tobacco: Never Alcohol Use Standard Drinks/Week Comments Not Currently 0 (1 standard drink = 0.6 oz pure alcoho l) Sex Assigned at Date Recorded Not on file documented as of this encounter Miscellaneous Notes Addendum Note - Cabrera Montez M.D. - 04/07/2022 8:23 AM CDT Addended by: CABRERA MONTEZ on: 04/07/2022 08:23 AM Modules accepted: Orders Addendum Note - Latasha Leblanc R.N. - 04/06/2022 2:26 PM CDT Addended by: LATASHA LEBLANC on: 04/06/2022 02:26 PM Modules accepted: Orders Telephone Encounter - Latasha Leblanc R.N. - 04/06/2022 2:14 PM CDT The below message was shared with pt at the request of Dr. Montez: ----- Message from Cabrera Montez M.D. sent at 04/03/2022 4:05 PM CDT ----- Please call the patient regarding his CT scan. Please let him know it was not adequate to rule out mechanical obstruction or malrotation so that with his permission I would be happy to order a CT enteroclysis which would allow was to distend the small bowel with contrast and get a better look. Alternatively he is welcome to take this recommendation to his local physician and try to get the study performed at home whichever is preferable to him. Pt also wanted to share that since stopping marijuana on March 29 and since he has stopped the probiotic a few months ago, he has noticed a slight improvement in his systems. Prior when he stopped marijuana, he was always on a probiotic. (he is thinking the probiotic was contributing to some of his symptoms too) He would like to pursue CT enteroclysis here at [place], he is concerned with the amount of mucus he passes in his stools. I will share this with Dr. Montez. documented in this encounter Plan of Treatment Upcoming Encounters Date Type Specialty Care Team Description 08/25/2022 Appointment Laboratory Medicine Cabrera Montez M.D. [address] [place] [phone] 08/25/2022 Appointment Radiology Cabrera Montez M.D. [address] [place] [phone] 08/25/2022 Comprehensive Visit Spine Chauncey Emanuel M.D. [address] [place] [phone] 08/25/2022 Office Visit Gastroenterology and Cabrera Montez Hepat[facility] [address] [place] [phone] documented as of this encounter Results CT Abdomen Pelvis Enterography without and with IV Contrast (05/05/2022 3:51 PM CDT) Anatomical Region Laterality Modality Abdomen, Pelvis, Abdominal RST LOS, Comp uted Tomography, Computed Abdominal ARZ LOS, Abdominal FLA LOS Gerardo ography Specimen (Source) Anatomical Collection Method Collection Time Re ceived Time Location / / Volume Laterality 05/05/2022 3:27 PM CDT Impressions 05/05/2022 4:[address] enteroclysis evidence of small bow l obstruction. Narrative 05/05/2022 4:00 PM CDT EXAM: ??CT ABDOMEN PELVIS ENTEROGRAPHY WITHOUT AND WITH IV CONTRAST COMPARISON: ??CT abdomen and pelvis 06/2021 FINDINGS: ??Following administration of 2500 mL of oral contrast, there is uniform distention of majority of the small bowel to the level of the cecum. A few scattered loops of small bowel in the deep pelvis are not well distended, julio zully there is no upstream dilation to indicate an obstruction. No mural hyperenhancement o r bowl wall thickening. Normal appearance of the terminal ileum. Moderate colonic stool burden, ot herwise unremarkable. The liver, spleen, pancreas, kidneys and adrenal glands are normal. No abdominal or pelvic adenopathy. Bilateral L5 pars defect. En teric tube with tip in the transverse duodenum. Surgical changes of right inguinal hernia repair. Procedure Note Hang Mcdaniel M.D. - 05/05/2022Formatti ng of this note might be different from the original. EXAM: CT ABDOMEN PELVIS ENTEROGRAPHY WIT HOUT AND WITH IV CONTRAST COMPARISON: CT abdomen and pelvis 2020 FINDINGS: Following administration of 25 00 mL of oral contrast, there is uniform distention of majority of the small bowel to the level of the cecum. A few scattered loops of small bowel in the deep pelvis are not well distended, julio zully there is no upstream dilation to indicate an obstruction. No mural hyperenhancement o r bowl wall thickening. Normal appearance of the terminal ileum. Moderate colonic stool burden, ot herwise unremarkable. The liver, spleen, pancreas, kidneys and adrenal glands are normal. No abdominal or pelvic adenopathy. Bilateral L5 pars defect. En teric tube with tip in the transverse duodenum. Surgical changes of right inguinal hernia repair. IMPRESSION: No CT enteroclysis evidence of small bow l obstruction. Cabrera Montez M.D. IMG CT PROCEDURES [place] Nasojejunal Feeding Tube Placement (05/05/2022 2:19 [...] guidance: Tube placed: ??NJ, 140 cm, 8 Estonian Route of entry: ??Nose (left nostril) Tip location: ??Jejunum Stylet removed: ??Yes Cabrera NO FLUOROSCOPY PROCEDURES documented in this encounter Visit Diagnoses Diagnosis Cyclical Vomiting Syndrome Unrelated To Migraine - Primary Obstruction Intestinal (HCC) Dehydration Obstruction Intestinal (HCC) Cyclical Vomiting Syndrome Unrelated To Migraine Dehydration Obstruction Intestinal (HCC) documented in this encounter
--- OUTSIDE RECORDS SUMMARY | 2022-08-19 22:48 | XMS_ITS | Encounter Summary ---
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 MD On: 03/29/2016 03:22 PM Modified by and Electronically Signed by: HOLLEY RIZZO MD On: 03/29/2016 03:22 PM Source: [facility] MHSDOLBEYNONRADSYS Document Id: [id number] documented in this encounter Procedure Notes Svetlana Hopkins RJairoNJairo - 04/02/2016 9:03 AM CDT Peripheral IV Peripheral IV Entered On: 04/02/2016 9:03 CDT Performed On: 04/02/2016 9:03 CDT by SVETLANA HOPKINS RN Peripheral IV Peripheral IV Assess/Intervention Grid Peripheral IV #1 Peripheral IV #2 IV Activity : Discontinue Removal : Catheter intact, Hemostasis within expected timeframe Date of Insertion : 03/30/2016 CDT Discontinued Date : 04/02/2016 CDT IV Site : Forearm Laterality : Right Left Catheter Size : 20 Catheter Type : Over the needle Primary Tubing Changed : 03/29/2016 CDT SVETLANA HOPKINS RN - 04/02/2016 9:03 CDT SVETLANA HOPKINS RN - 04/02/2016 9:03 CDT Source: [facility] POWERCHART Document Id: [id number] CDT!15 Rashawn Wellington R.N. - 03/30/2016 6:44 PM CDT Peripheral IV Peripheral IV Entered On: 03/30/2016 18:46 CDT Performed On: 03/30/2016 18:44 CDT by RASHAWN WELLINGTON RN Peripheral IV Peripheral IV Assess/Intervention Grid Peripheral IV #1 Peripheral IV #2 IV Activity : Start Date of Insertion : 03/30/2016 CDT IV Site : Forearm Laterality : Right Left Catheter Size : 20 Site Condition : No complications Drainage Description : None Primary Tubing Changed : 03/29/2016 CDT Dressing/ Activity : Dry, Intact, Transparent Flow/ Patency : No complications RASHAWN WELLINGTON RN - 03/30/2016 18:44 CDT RASHAWN WELLINGTON RN - 03/30/2016 18:44 CDT Source: [facility] [employer] Document Id: [id number] CDT!16 Regino Martinez R.N. - 03/30/2016 6:18 PM CDT Peripheral IV Peripheral IV Entered On: 03/30/2016 18:19 CDT Performed On: 03/30/2016 18:18 CDT by REGINO MARTINEZ RN Peripheral IV Peripheral IV Assess/Intervention Grid Peripheral IV #1 Peripheral IV #2 IV Activity : Discontinue Attempts/unsuccessful Removal : Catheter intact, Hemostasis within expected timeframe Number of Attempts : 2 Date of Insertion : 03/28/2016 CDT Discontinued Date : 03/30/2016 CDT IV Site : Forearm Forearm Laterality : Right Left Catheter Size : 20 Site Condition : Edema < 1 inch Drainage Description : None Infiltration Score : 1 0 Phlebitis Score : 0 0 Primary Tubing Changed : 03/29/2016 CDT Dressing/ Activity : Intact, Gauze, Transparent REGINO MARTINEZ RN - 03/30/2016 18:18 CDT REGINO MARTINEZ RN - 03/30/2016 18:18 CDT Source: [facility] Document Id: [id number] CDT!24 Mary Rodrigues R.N. - 03/29/2016 11:20 AM CDT Bladder Scan Document Has Been Updated Bladder Scan Entered On: 03/29/2016 11:43 CDT Performed On: 03/29/2016 11:20 CDT by MARY RODRIGUES RN Bladder Scan Void Prior to Bladder Scan : No Bladder Distention : Absent MARY RODRIGUES RN - 03/29/2016 11:41 CDT Patient States Need to Void : Yes MARY RODRIGUES RN - 03/29/2016 11:43 CDT Position During Bladder Scan : Supine Bladder Scan Volume : 34 mL MARY RODRIGUES RN - 03/29/2016 11:41 CDT Source: [facility] Document Id: [id number] CDT!3 documented in this encounter Nursing Notes Regino Martinez R.N. - 03/31/2016 6:05 PM CDT PRN Response PRN Response Entered On: 03/31/2016 18:15 CDT Performed On: 03/31/2016 18:05 CDT by REGINO MARTINEZ RN Intervention Information: ondansetron Performed by REGINO MARTINEZ RN on 03/31/2016 17:35:24 CDT ondansetron,4mg IV Push,Forearm Right Mid,Nausea/vomiting PRN Medication Effectiveness Evaluation PRN Medication Effective : Yes REGINO MARTINEZ RN - 03/31/2016 18:15 CDT Source: [facility] Document Id: [id number] CDT!3 Regino Martinez R.N. - 03/31/2016 5:45 PM CDT Focused Assessment - Gastrointestinal Focused Assessment - Gastrointestinal Entered On: 03/31/2016 19:00 CDT Performed On: 03/31/2016 17:45 CDT by REGINO MARTINEZ RN Gastrointestinal GI Patient Stated Symptoms : Nausea Abdomen Description : Flat, Symmetric Abdomen Palpation : Non-Tender, Soft Bowel Movement Last Date : 03/30/2016 CDT Emesis Description : Bile Bowel Sounds All Quadrants : Hypoactive Passing Flatus : Yes REGINO MARTINEZ RN - 03/31/2016 18:59 CDT Source: [facility] [employer] Document Id: [id number] CDT!9 Trena Gottlieb R.N. - 03/31/2016 12:30 PM CDT PRN Response PRN Response Entered On: 03/31/2016 14:30 CDT Performed On: 03/31/2016 12:30 CDT by TRENA GOTTLIEB RN Intervention Information: ondansetron Performed by TRENA GOTTLIEB RN on 03/31/2016 11:50:33 CDT ondansetron,4mg IV Push,Forearm Right Mid,Nausea/vomiting PRN Medication Effectiveness Evaluation PRN Medication Effective : Yes TRENA GOTTLIEB RN - 03/31/2016 14:30 CDT Source: [facility] [employer] Document Id: [id number] CDT!3 Idania Daly B.S.N. R.NJairo - 03/30/2016 7:59 PM CDT PRN Response PRN Response Entered On: 03/30/2016 20:15 CDT Performed On: 03/30/2016 19:59 CDT by IDANIA DALY RN Intervention Information: acetaminophen Performed by REGINO MARTINEZ RN on 03/30/2016 18:59:26 CDT acetaminophen,650mg PO,Pain / Fever PRN Medication Effectiveness Evaluation PRN Medication Effective : No Post Medication Pain Assessment : 5 IDANIA DALY RN - 03/30/2016 20:15 CDT Source: [facility] [employer] Document Id: [id number] CDT!4 Regino Martinez R.N. - 03/30/2016 9:24 AM CDT PRN Response PRN Response Entered On: 03/30/2016 9:56 CDT Performed On: 03/30/2016 9:24 CDT by REGINO MARTINEZ RN Intervention Information: ondansetron Performed by REGINO MARTINEZ RN on 03/30/2016 08:54:33 CDT ondansetron,4mg IV Push,Forearm Right Mid,Nausea/vomiting PRN Medication Effectiveness Evaluation PRN Medication Effective : Yes REGINO MARTINEZ RN - 03/30/2016 9:56 CDT Source: [facility] Document Id: [id number] CDT!3 Hilary Brower R.N. - 03/30/2016 1:15 AM CDT PRN Response PRN Response Entered On: 03/30/2016 1:24 CDT Performed On: 03/30/2016 1:15 CDT by HILARY BROWER RN Intervention Information: acetaminophen Performed by HILARY BROWER RN on 03/30/2016 00:20:42 CDT acetaminophen,650mg PO,Pain / Fever PRN Medication Effectiveness Evaluation PRN Medication Effective : Yes (Comment: given warm blanket to assist with pain relief [HILARY BROWER RN - 03/30/2016 1:23 CDT] ) Post Medication Pain Assessment : 6 HILARY BROWER RN - 03/30/2016 1:23 CDT Comfort Measures Comfort Measures Grid Heat Therapy : Yes HILARY BROWER RN - 03/30/2016 1:23 CDT Source: [facility] Document Id: [id number] CDT!7 Mary Rodrigues R.N. - 03/29/2016 1:00 PM CDT Focused Assessment - Gastrointestinal Focused Assessment - Gastrointestinal Entered On: 03/29/2016 13:30 CDT Performed On: 03/29/2016 13:00 CDT by MARY RODRIGUES RN Gastrointestinal Bowel Movement Last Date : 03/27/2016 CDT Emesis Description : Watery MARY RODRIGUES RN - 03/29/2016 13:30 CDT Source: [facility] Document Id: [id number] CDT!4 Mary Rodrigues R.N. - 03/29/2016 12:03 PM CDT Protocol Vascular Access Adult Protocol Vascular Access Adult Entered On: 03/29/2016 12:03 CDT Performed On: 03/29/2016 12:03 CDT by MARY RODRIGUES RN Vascular Access Adult Protocol Age 15 years or older Adult Protocol : Yes Vascular Access Device Adult : Yes Exclusion Criteria Adult Vascular Access Protocol : Patient has none of the below exclusions Vascular Access Protocol Status Adult : Criteria Met MARY RODRIGUES RN - 03/29/2016 12:03 CDT Source: [facility] Document Id: [id number] CDT!6 Mary Rodrigues R.N. - 03/29/2016 11:28 AM CDT PRN Response PRN Response Entered On: 03/29/2016 11:28 CDT Performed On: 03/29/2016 11:28 CDT by MARY RODRIGUES RN Intervention Information: ondansetron Performed by LISHA CHILDERS RN on 03/29/2016 11:04:38 CDT ondansetron,4mg IV Push,Antecubital Right,Nausea/vomiting PRN Medication Effectiveness Evaluation PRN Medication Effective : Yes MARY RODRIGUES RN - 03/29/2016 11:28 CDT Source: [facility] [employer] Document Id: [id number] CDT!3 Lisha Kan R.N. - 03/29/2016 3:48 AM CDT RT Tobacco Cessation Education RT Tobacco Cessation Education Entered On: 03/29/2016 3:48 CDT Performed On: 03/29/2016 3:48 CDT by LISHA KAN RN Education Smoking Education Grid Topic : Risks/Benefits of smoking cessation, Smoking cessation programs Individuals Taught : Patient Barriers to Learning : None evident Teaching Method : Explanation LISHA KAN RN - 03/29/2016 3:48 CDT Source: [facility] [employer] Document Id: [id number] CDT!8 documented in this encounter Miscellaneous Notes Miscellaneous - Conversion, Historical Provider Ser - 04/02/2016 9:20 AM CDT Coding Summary-Paper Based CODING DATE: 04/06/2016 FINAL [facility] STATUS: * Discharged to Home or Self Care PAYOR: Medicaid Grouper: 390 MS-DRG G.I. 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 However, the narrative phrase printed from the coding software may appear abbreviated, or result in slightly different terminology. Coded By: LYDIA LOGAN CCS Date Saved: 04/06/2016 12:56 pm Source: [facility] [employer] Document Id: [id number] Miscellaneous - Enedelia Joel - 04/02/2016 8:13 AM CDT Hospital Patient Education The following Patient Education Materials have been given to the patient: Patient Education Materials: Source: [facility] POWERCHART Document Id: [id number] Miscellaneous - Svetlana Hopkins R.N. - 04/02/2016 7:45 AM CDT Adult Ongoing Assessment Adult Ongoing Assessment Entered On: 04/02/2016 9:06 CDT Performed On: 04/02/2016 7:45 CDT by SVETLANA HOPKINS RN Respiratory Respiratory Patient Stated Symptoms : None Respirations : Unlabored Distress : None Respiratory Pattern : Regular All Lobes Breath Sounds : Clear Cough : None Sputum Amount : None SVETLANA HOPKINS RN - 04/02/2016 9:04 CDT Cardiovascular CV Patient Stated Symptoms : None Heart Rhythm : Regular Antiembolism Device Yes/No : No Nail Bed Color : Savona Capillary Refill : Less than 2 seconds Edema Assessment : No SVETLANA HOPKINS RN - 04/02/2016 9:04 CDT Dorsalis Pedis Pulse, Left : 2+ Normal Dorsalis Pedis Pulse, Right : 2+ Normal SVETLANA HOPKINS RN - 04/02/2016 9:04 CDT Skin Color : Normal for ethnicity Skin Description : Dry Skin Temperature : Warm Activity Tolerance : Without distress SVETLANA HOPKINS RN - 04/02/2016 9:04 CDT Neurological Neuro Patient Stated Symptoms : None Orientation : Oriented x 3 Level of Consciousness : Alert Gait : Steady SVETLANA HOPKINS RN - 04/02/2016 9:04 CDT Psycho/Emotional Affect/Behavior : Calm, Cooperative, Appropriate Pain Symptoms : No SVETLANA HOPKINS RN - 04/02/2016 9:04 CDT Coping Grid Identifies effective strategies : Yes Uses effective strategies : Yes Reports increase in psychological comfort : Yes Indicates sense of control : Yes Stressors perceived within control : Yes Stable mood with appropriate affect : Yes Behaviors indicate use of coping mechanism : Yes Family supportive and involved in care : Yes Values/Beliefs incorporated appropriately : Yes SVETLANA HOPKINS RN - 04/02/2016 9:04 CDT Safety Grid Vision, Hearing, Mobility Adequate to Meet Safety Needs : Yes SVETLANA HOPKINS RN - 04/02/2016 9:04 CDT Gastrointestinal GI Patient Stated Symptoms : Nausea (Comment: mild [SVETLANA HOPKINS RN - 04/02/2016 9:04 CDT] ) Abdomen Palpation : Non-Tender, Soft Bowel Movement Last Date : 04/01/2016 CDT Bowel Sounds All Quadrants : Present Passing Flatus : Yes SVETLANA HOPKINS RN - 04/02/2016 9:04 CDT Nutrition Appetite : Good Eating Difficulties : None Feeding Ability : Complete independence SVETLANA HOPKINS RN - 04/02/2016 9:04 CDT Genitourinary Patient Stated Symptoms : None SVETLANA HOPKINS RN - 04/02/2016 9:04 CDT Integumentary Integumentary Patient Stated Symptoms : None Skin Turgor : Elastic Skin Integrity : Intact Mucous Membrane Color : Savona Mucous Membrane Description : Moist Skin Color : Normal for ethnicity Skin Description : Dry Skin Temperature : Warm SVETLANA HOPKINS RN - 04/02/2016 9:04 CDT Jose Enrique Sensory Perception Jose Enrique : No impairment Moisture Jose Enrique : Rarely moist Activity Jose Enrique : Walks frequently Mobility Jose Enrique : No limitations Nutrition Jose Enrique : Adequate Friction and Shear Jose Enrique : No apparent problem Jose Enrique Score : 22 SVETLANA HOPKINS RN - 04/02/2016 9:04 CDT Musculoskeletal Musculoskeletal Patient Stated Symptoms : None Activity Tolerance : Without distress SVETLANA HOPKINS RN - 04/02/2016 9:04 CDT Peripheral IV Peripheral IV Assess/Intervention Grid Peripheral IV #1 Peripheral IV #2 IV Activity : Assessment Date of Insertion : 03/30/2016 CDT Discontinued Date : 04/02/2016 CDT IV Site : Forearm Laterality : Right Left Catheter Size : 20 Catheter Type : Over the needle Site Condition : No complications Drainage Description : None Primary Tubing Changed : 03/29/2016 CDT Dressing/ Activity : Dry, Intact, Transparent Flow/ Patency : No complications SVETLANA HOPKINS RN - 04/02/2016 9:04 CDT SVETLANA HOPKINS RN - 04/02/2016 9:04 CDT Hendrich II Fall Risk Confusion/Disorientation Hendrich : No Depression Fall Risk Hendrich : No Altered Elimination Fall Risk Hendrich : No Dizziness/Vertigo Fall Risk Hendrich : No Gender, Male Fall Risk Hendrich : Yes Prescribed Antiepileptics Hendrich : No Prescribed Benzodiazepines Hendrich : No Rising From Chair Fall Risk Hendrich : Pushes up, successful in one attempt Fall Risk Score Hendrich II : 2 SVETLANA HOPKINS RN - 04/02/2016 9:04 CDT Safe Patient Handling Safe Pt Handling Independent : Yes - No equipment needed Safe Pt Handling Equipment Rec : No Equipment Needed SVETLANA HOPKINS RN - 04/02/2016 9:04 CDT Education General Patient Education [employer] Topics : Plan of care, Unit procedures, When to call health care provider Individuals Taught : Patient Barriers to Learning : None evident Teaching Method : Explanation Teaching Evaluation : Verbalizes understanding SVETLANA HOPKINS RN - 04/02/2016 9:04 CDT [facility] Document Id: [id number] CDT!113 Christi - Jesús Prajapati M.D. - 04/02/2016 7:12 AM CDT Hospital Patient Education The following Patient Education Materials have been given to the patient: Patient Education Materials: [facility] Document Id: [id number] Christi - Darshan Ellis, RJairoN. - 04/02/2016 2:09 AM CDT Adult Ongoing Assessment Adult Ongoing Assessment Entered On: 04/02/2016 2:15 CDT Performed On: 04/02/2016 2:09 CDT by DARSHAN ELLIS RN Respiratory Respiratory Patient Stated Symptoms : None Respirations : Unlabored Distress : None Respiratory Pattern : Regular All Lobes Breath Sounds : Clear Cough : None Sputum Amount : None Suction : None Airway : Patent Respiratory Detailed Assessment : Yes DARSHAN ELLIS RN - 04/02/2016 2:09 CDT Resp Detailed Breath Sounds Assessment Grid JAJA : Clear RUL : Clear RML : Clear LLL : Clear RLL : Clear DARSHAN ELLIS RN - 04/02/2016 2:09 CDT Cardiovascular CV Patient Stated Symptoms : None Heart Rhythm : Regular Heart Sounds ICU : S1S2 Antiembolism Device Yes/No : Yes Nail Bed Color : Savona Capillary Refill : Less than 2 seconds Edema Assessment : No DARSHAN ELLIS RN - 04/02/2016 2:09 CDT Radial Pulse, Left : 2+ Normal Radial Pulse, Right : 2+ Normal Dorsalis Pedis Pulse, Left : 2+ Normal Dorsalis Pedis Pulse, Right : 2+ Normal DARSHAN ELLIS RN - 04/02/2016 2:09 CDT Skin Color : Normal for ethnicity Skin Description : Dry Skin Temperature : Warm Activity Tolerance : Without distress DARSHAN ELLIS RN - 04/02/2016 2:09 CDT Antiembolism Device Antiembolism Device : Sequential Compression Device Antiembolism Device Laterality : Bilateral Antiembolism Device Removal Reason : Activity Antiembolism Device Status : Patient refused DARSHAN ELLIS RN - 04/02/2016 2:09 CDT Neurological Neuro Patient Stated Symptoms : None Orientation : Oriented x 3 Level of Consciousness : Alert Gait : Steady Swallowing Difficulty/Aspiration Risk : None DARSHAN ELLIS RN - 04/02/2016 2:09 CDT Novi Coma Eye Opening Response Tavo : Spontaneously Best Verbal Response Tavo : Oriented Best Motor Response Tavo : Obeys simple commands Novi Coma Score : 15 DARSHAN ELLIS RN - 04/02/2016 2:09 CDT Psycho/Emotional Affect/Behavior : Calm, Cooperative Pain Symptoms : No Feels Rested : No DARSHAN ELLIS RN - 04/02/2016 2:09 CDT Coping Grid Identifies effective strategies : Yes Uses effective strategies : Yes Reports increase in psychological comfort : Yes Indicates sense of control : Yes Stressors perceived within control : Yes Stable mood with appropriate affect : Yes Behaviors indicate use of coping mechanism : Yes Family supportive and involved in care : Yes Values/Beliefs incorporated appropriately : Yes DARSHAN ELLIS RN - 04/02/2016 2:09 CDT Safety Grid Vision, Hearing, Mobility Adequate to Meet Safety Needs : Yes DARSHAN ELLIS RN - 04/02/2016 2:09 CDT Gastrointestinal GI Patient Stated Symptoms : None Abdomen Description : Flat, Symmetric Abdomen Palpation : Non-Tender, Soft Bowel Movement Last Date : 04/01/2016 CDT Bowel Sounds All Quadrants : Present Passing Flatus : Yes DARSHAN ELLIS RN - 04/02/2016 2:09 CDT Genitourinary Patient Stated Symptoms : None Urinary Elimination : Voiding, no difficulties Urine Color : Yellow Urine Description : Clear Urine Odor : Odorless Bladder Distention : Absent DARSHAN ELLIS RN - 04/02/2016 2:09 CDT Integumentary Integumentary Patient Stated Symptoms : None Skin Turgor : Elastic Skin Integrity : Intact Mucous Membrane Color : Savona Mucous Membrane Description : Moist Skin Color : Normal for ethnicity Skin Description : Dry Skin Temperature : Warm DARSHAN ELLIS RN - 04/02/2016 2:34 CDT Jose Enrique Sensory Perception Jose Enrique : No impairment Moisture Jose Enrique : Rarely moist Activity Jose Enrique : Walks frequently Mobility Jose Enrique : No limitations Nutrition Jose Enrique : Adequate Friction and Shear Jose Enrique : No apparent problem Jose Enrique Score : 22 DARSHAN ELLIS RN - 04/02/2016 2:34 CDT Musculoskeletal Musculoskeletal Patient Stated Symptoms : None Activity Tolerance : Without distress DRASHAN ELLIS RN - 04/02/2016 2:34 CDT Peripheral IV Peripheral IV Assess/Intervention Grid Peripheral IV #1 Peripheral IV #2 IV Activity : Assessment Date of Insertion : 03/30/2016 CDT IV Site : Forearm Laterality : Right Left Catheter Size : 20 Catheter Type : Over the needle Site Condition : No complications Primary Tubing Changed : 03/29/2016 CDT DARSHAN ELLIS RN - 04/02/2016 2:34 CDT DARSHAN ELLIS RN - 04/02/2016 2:34 CDT Hendrich II Fall Risk Confusion/Disorientation Hendrich : No Depression Fall Risk Hendrich : No Altered Elimination Fall Risk Hendrich : No Dizziness/Vertigo Fall Risk Hendrich : No Gender, Male Fall Risk Hendrich : Yes Prescribed Antiepileptics Hendrich : No Prescribed Benzodiazepines Hendrich : No Rising From Chair Fall Risk Hendrich : Able to rise in a single movement, no loss of balance with steps Fall Risk Score Hendrich II : 1 DARSHAN ELLIS RN - 04/02/2016 2:34 CDT Safe Patient Handling Safe Pt Handling Independent : Yes - No equipment needed Safe Pt Handling Equipment Rec : No Equipment Needed DARSHAN ELLIS RN - 04/02/2016 2:34 CDT Education General Patient Education [employer] Topics : Equipment, Medication dosage, route, scheduling, Medication generic/brand names, purpose, action, Pain Management, Plan of care, Safety, fall Individuals Taught : Patient Barriers to Learning : None evident Teaching Method : Explanation Teaching Evaluation : Verbalizes understanding DARSHAN ELLIS RN - 04/02/2016 2:34 CDT Source: [facility] Document Id: [id number] CDT!136 Miscellaneous - Darshan Ellis R.N. - 04/01/2016 11:43 PM CDT Adult Activities of Daily Living Adult Activities of Daily Living Entered On: 04/01/2016 23:43 CDT Performed On: 04/01/2016 23:43 CDT by DARSHAN ELLIS RN ADLs I Patient Position : Elevate head of bed 30 degrees, Semi-Lopez's Activity Status ADL : Up ad surya Activity Assistance : Independent Assistive Device : None Ambulation Patient Effort : Good Antiembolism Device : Sequential Compression Device Antiembolism Device Laterality : Bilateral Antiembolism Device Removal Reason : Activity Range of Motion LUE : Active Range of Motion RUE : Active Range of Motion LLE : Active Range of Motion RLE : Active DARSHAN ELLIS RN - 04/01/2016 23:43 CDT ADLs II Bowel Movement Last Date : 04/01/2016 CDT Standard Safety : Bed in low position, Call device within reach, ID band check, Night light, Non-Slip footwear, Upper/Half-length side-rails up, Wheels locked DARSHAN ELLIS RN - 04/01/2016 23:43 CDT Source: [employer] Document Id: [id number] CDT!17 Aline Salazar - 04/01/2016 10:09 PM CDT Adult Activities of Daily Living Adult Activities of Daily Living Entered On: 04/01/2016 22:10 CDT Performed On: 04/01/2016 22:09 CDT by ALINE LIPSCOMB ADLs II Bowel Movement Last Date : 04/01/2016 CDT Standard Safety : Bed in low position, Call device within reach, ID band check, Non-Slip footwear, Rounds every 1 hour, Upper/Half-length side-rails up, Wheels locked ALINE LIPSCOMB - 04/01/2016 22:09 CDT [facility] Document Id: [id number] CDT!4 Christi - Darshan Ellis R.N. - 04/01/2016 8:05 PM CDT Adult Ongoing Assessment Adult Ongoing Assessment Entered On: 04/01/2016 20:11 CDT Performed On: 04/01/2016 20:05 CDT by DARSHAN ELLIS RN Respiratory Respiratory Patient Stated Symptoms : None Respirations : Unlabored Distress : None Respiratory Pattern : Regular All Lobes Breath Sounds : Clear Cough : None Sputum Amount : None Suction : None Airway : Patent Respiratory Detailed Assessment : Yes DARSHAN ELLIS RN - 04/01/2016 20:05 CDT Resp Detailed Breath Sounds Assessment Grid JAJA : Clear RUL : Clear RML : Clear LLL : Clear RLL : Clear DARSHAN ELLIS RN - 04/01/2016 20:05 CDT Cardiovascular CV Patient Stated Symptoms : None Heart Rhythm : Regular Heart Sounds ICU : S1S2 Antiembolism Device Yes/No : Yes Nail Bed Color : Savona Capillary Refill : Less than 2 seconds Edema Assessment : No DARSHAN ELLIS RN - 04/01/2016 20:05 CDT Radial Pulse, Left : 2+ Normal Radial Pulse, Right : 2+ Normal Dorsalis Pedis Pulse, Left : 2+ Normal Dorsalis Pedis Pulse, Right : 2+ Normal DARSHAN ELLIS RN - 04/01/2016 20:05 CDT Skin Color : Normal for ethnicity Skin Description : Dry Skin Temperature : Warm Activity Tolerance : Without distress DARSHAN ELLIS RN - 04/01/2016 20:05 CDT Antiembolism Device Antiembolism Device : Sequential Compression Device Antiembolism Device Laterality : Bilateral Antiembolism Device Removal Reason : Activity Antiembolism Device Status : Off DARSHAN ELLIS RN - 04/01/2016 20:05 CDT Neurological Neuro Patient Stated Symptoms : None Orientation : Oriented x 3 Level of Consciousness : Alert Gait : Steady Swallowing Difficulty/Aspiration Risk : None DARSHAN ELLIS RN - 04/01/2016 20:05 CDT Tavo Coma Eye Opening Response Tavo : Spontaneously Best Verbal Response Novi : Oriented Best Motor Response Tavo : Obeys simple commands Novi Coma Score : 15 DARSHAN ELLIS RN - 04/01/2016 20:05 CDT Psycho/Emotional Affect/Behavior : Calm, Cooperative Pain Symptoms : No Feels Rested : No DARSHAN ELLIS RN - 04/01/2016 20:05 CDT Coping Grid Identifies effective strategies : Yes Uses effective strategies : Yes Reports increase in psychological comfort : Yes Indicates sense of control : Yes Stressors perceived within control : Yes Stable mood with appropriate affect : Yes Behaviors indicate use of coping mechanism : Yes Family supportive and involved in care : Yes Values/Beliefs incorporated appropriately : Yes DARSHAN ELLIS RN - 04/01/2016 20:05 CDT Safety Grid Vision, Hearing, Mobility Adequate to Meet Safety Needs : Yes DARSHAN ELLIS RN - 04/01/2016 20:05 CDT Gastrointestinal GI Patient Stated Symptoms : None Abdomen Description : Flat, Symmetric Abdomen Palpation : Non-Tender, Soft Bowel Movement Last Date : 04/01/2016 CDT Bowel Sounds All Quadrants : Present Passing Flatus : Yes DARSHAN ELLIS RN - 04/01/2016 20:05 CDT Genitourinary Patient Stated Symptoms : None Urinary Elimination : Voiding, no difficulties Urine Color : Yellow Urine Description : Clear Urine Odor : Odorless Bladder Distention : Absent DARSHAN ELLIS RN - 04/01/2016 20:05 CDT Integumentary Integumentary Patient Stated Symptoms : None Skin Turgor : Elastic Skin Integrity : Intact Mucous Membrane Color : Savona Mucous Membrane Description : Moist Skin Color : Normal for ethnicity Skin Description : Dry Skin Temperature : Warm DARSHAN ELLIS RN - 04/01/2016 20:05 CDT Jose Enrique Sensory Perception Jose Enrique : No impairment Moisture Jose Enrique : Rarely moist Activity Jose Enrique : Walks occasionally Mobility Jose Enrique : No limitations Nutrition Jose Enrique : Adequate Friction and Shear Jose Enrique : No apparent problem Jose Enrique Score : 21 DARSHAN ELLIS RN - 04/01/2016 20:05 CDT Musculoskeletal Musculoskeletal Patient Stated Symptoms : None Activity Tolerance : Without distress DARSHAN ELLIS RN - 04/01/2016 20:05 CDT Peripheral IV Peripheral IV Assess/Intervention Grid Peripheral IV #1 Peripheral IV #2 IV Activity : Assessment Date of Insertion : 03/30/2016 CDT IV Site : Forearm Laterality : Right Left Catheter Size : 20 Catheter Type : Over the needle Site Condition : No complications Drainage Description : None Primary Tubing Changed : 03/29/2016 CDT Dressing/ Activity : Dry, Intact Flow/ Patency : No complications DARSHAN ELLIS RN - 04/01/2016 20:05 CDT DARSHAN ELLIS RN - 04/01/2016 20:05 CDT Hendrich II Fall Risk Confusion/Disorientation Hendrich : No Depression Fall Risk Hendrich : No Altered Elimination Fall Risk Hendrich : No Dizziness/Vertigo Fall Risk Hendrich : No Gender, Male Fall Risk Hendrich : Yes Prescribed Antiepileptics Hendrich : No Prescribed Benzodiazepines Hendrich : No Rising From Chair Fall Risk Hendrich : Able to rise in a single movement, no loss of balance with steps Fall Risk Score Hendrich II : 1 DARSHAN ELLIS RN - 04/01/2016 20:05 CDT Safe Patient Handling Safe Pt Handling Independent : Yes - No equipment needed Safe Pt Handling Equipment Rec : No Equipment Needed DARSHAN ELLIS RN - 04/01/2016 20:05 CDT Education General Patient Education Powergrid Topics : Equipment, Medication dosage, route, scheduling, Medication generic/brand names, purpose, action, Pain Management, Plan of care Individuals Taught : Patient Barriers to Learning : None evident Teaching Method : Explanation Teaching Evaluation : Verbalizes understanding DARSHAN ELLIS RN - 04/01/2016 20:05 CDT Source: [facility] [employer] Document Id: [id number] CDT!139 Miscellaneous - Lisha Rosales R.N. - 04/01/2016 3:57 PM CDT Adult Activities of Daily Living Adult Activities of Daily Living Entered On: 04/01/2016 15:57 CDT Performed On: 04/01/2016 15:57 CDT by LISHA ROSALES RN ADLs I Patient Position : High Lopez's Activity Status ADL : Ambulating in room, Up ad surya Activity Assistance : Independent Assistive Device : None Repositioning/Pressure Reducing Devices : Pillow Pressure Reducing Device For Bed : Foam Range of Motion LUE : Active Range of Motion RUE : Active Range of Motion LLE : Active Range of Motion RLE : Active LISHA ROSALES RN - 04/01/2016 15:57 CDT ADLs II Hygiene Assistance Grid Alseia Care : Independent LISHA ROSALES RN - 04/01/2016 15:57 CDT Elimination Assistance Offered Q2H : Independent Bowel Movement Last Date : 04/01/2016 CDT Standard Safety : Bed in low position, Call device within reach, ID band check, Night light, Non-Slip footwear, Rounds every 1 hour, Upper/Half-length side- rails up, Wheels locked LISHA ROSALES RN - 04/01/2016 15:57 CDT ADLs Adult Nutrition Diet Type : Diet -- 04/01/16 15:28:00 CDT, General (No Restrictions) Feeding Assistance : Independent LISHA ROSALES RN - 04/01/2016 15:57 CDT [facility] Document Id: [id number] CDT!21 Miscellaneous - Lisha Rosales R.N. - 04/01/2016 3:45 PM CDT Adult Ongoing Assessment Adult Ongoing Assessment Entered On: 04/01/2016 15:56 CDT Performed On: 04/01/2016 15:45 CDT by LISHA ROSALES RN Respiratory Respiratory Patient Stated Symptoms : None Respirations : Unlabored Distress : None Respiratory Pattern : Regular All Lobes Breath Sounds : Clear Cough and Deep Breathe : Done Cough : None Sputum Amount : None Suction : None Airway : Patent LISHA ROSALES RN - 04/01/2016 15:53 CDT Cardiovascular CV Patient Stated Symptoms : None Heart Rhythm : Regular Antiembolism Device Yes/No : Yes Nail Bed Color : [place]ona Capillary Refill : Less than 2 seconds Edema Assessment : No Pacer : No LISHA ROSALES RN - 04/01/2016 15:53 CDT Radial Pulse, Left : 2+ Normal Radial Pulse, Right : 2+ Normal Dorsalis Pedis Pulse, Left : 2+ Normal Dorsalis Pedis Pulse, Right : 2+ Normal LISHA ROSALES RN - 04/01/2016 15:53 CDT Skin Color : Normal for ethnicity Skin Description : Dry, Normal Skin Temperature : Warm Activity Tolerance : Without distress LISHA ROSALES RN - 04/01/2016 15:53 CDT Antiembolism Device Antiembolism Device : Sequential Compression Device Antiembolism Device Status : Off LISHA ROSALES RN - 04/01/2016 15:53 CDT Neurological Neuro Patient Stated Symptoms : None Orientation : Oriented x 3 Level of Consciousness : Alert Gait : Steady Swallowing Difficulty/Aspiration Risk : None LISHA ROSALES RN - 04/01/2016 15:53 CDT Novi Coma Eye Opening Response Novi : Spontaneously Best Verbal Response Novi : Oriented Best Motor Response Tavo : Obeys simple commands Tavo Coma Score : 15 LISHA ROSALES RN - 04/01/2016 15:53 CDT Psycho/Emotional Affect/Behavior : Calm, Cooperative, Appropriate Pain Symptoms : No Feels Rested : Yes LISHA ROSALES RN - 04/01/2016 15:53 CDT Coping Grid Identifies effective strategies : Yes Uses effective strategies : Yes Reports increase in psychological comfort : Yes Indicates sense of control : Yes Stressors perceived within control : Yes Stable mood with appropriate affect : Yes Behaviors indicate use of coping mechanism : Yes Family supportive and involved in care : Yes Values/Beliefs incorporated appropriately : Yes LISHA ROSALES RN - 04/01/2016 15:53 CDT Safety Grid Vision, Hearing, Mobility Adequate to Meet Safety Needs : Yes LISHA ROSALES RN - 04/01/2016 15:53 CDT Gastrointestinal GI Patient Stated Symptoms : None Abdomen Description : Flat Abdomen Palpation : Non-Tender Bowel Movement Last Date : 04/01/2016 CDT Bowel Sounds All Quadrants : Present Passing Flatus : Yes LISHA ROSALES RN - 04/01/2016 15:53 CDT Nutrition Appetite : Good Eating Difficulties : None Feeding Ability : Complete independence LISHA ROSALES RN - 04/01/2016 15:53 CDT Genitourinary Patient Stated Symptoms : None Urinary Elimination : Voiding, no difficulties Bladder Distention : Absent LISHA ROSALES RN - 04/01/2016 15:53 CDT Integumentary Integumentary Patient Stated Symptoms : None Skin Turgor : Elastic Skin Integrity : Intact Mucous Membrane Color : [place] Mucous Membrane Description : Moist Skin Color : Normal for ethnicity Skin Description : Dry, Normal Skin Temperature : Warm LISHA ROSALES RN - 04/01/2016 15:53 CDT Jose Enrique Sensory Perception Jose Enrique : No impairment Moisture Jose Enrique : Rarely moist Activity Jose Enrique : Walks occasionally Mobility Jose Enrique : No limitations Nutrition Jose Enrique : Adequate Friction and Shear Jose Enrique : Potential problem Jose Enirque Score : 20 LISHA ROSALES RN - 04/01/2016 15:53 CDT Musculoskeletal Musculoskeletal Patient Stated Symptoms : None Activity Tolerance : Without distress LISHA ROSALES RN - 04/01/2016 15:53 CDT Peripheral IV Peripheral IV Assess/Intervention Grid Peripheral IV #1 Peripheral IV #2 IV Activity : Assessment Date of Insertion : 03/30/2016 CDT IV Site : Forearm Laterality : Right Left Catheter Size : 20 Catheter Type : Over the needle Site Condition : No complications Drainage Description : None Primary Tubing Changed : 03/29/2016 CDT Dressing/ Activity : Dry, Intact, Transparent Flow/ Patency : No complications LISHA ROSALES RN - 04/01/2016 15:53 CDT LISHA ROSALES RN - 04/01/2016 15:53 CDT Hendrich II Fall Risk Confusion/Disorientation Hendrich : No Depression Fall Risk Hendrich : No Altered Elimination Fall Risk Hendrich : No Dizziness/Vertigo Fall Risk Hendrich : No Gender, Male Fall Risk Hendrich : Yes Prescribed Antiepileptics Hendrich : No Prescribed Benzodiazepines Hendrich : No Rising From Chair Fall Risk Hendrich : Able to rise in a single movement, no loss of balance with steps Fall Risk Score Lyle II : 1 LISHA ROSALES RN - 04/01/2016 15:53 CDT Safe Patient Handling Safe Pt Handling Independent : Yes - No equipment needed Safe Pt Handling Equipment Rec : No Equipment Needed Repositioning Device Recommended : No LISHA ROSALES RN - 04/01/2016 15:53 CDT Education General Patient Education Powergrid Topics : Activity limitations/expectations, Importance of follow-up visits, Individual plan for painmanagement, Medication dosage, route, scheduling, Medication generic/brand names, purpose, action, Nutrition/Diet, Pain Management, Patient rights and responsibilities, Patient's rights and responsibilities related to pain management, Physical limitations, Plan of care, Safety, fall, Safety, medication, Treatments/Procedures/Tests, Turn/Cough/Deep breathing, Unit procedures, Use of pain scale(s), When to call health care provider Individuals Taught : Patient Barriers to Learning : None evident Teaching Method : Explanation Teaching Evaluation : Verbalizes understanding LISHA ROSALES RN - 04/01/2016 15:53 CDT Source: [employer] Document Id: [id number] CDT!132 Miscellaneous - Juani Jha - 04/01/2016 11:50 AM CDT Adult Activities of Daily Living Adult Activities of Daily Living Entered On: 04/01/2016 11:50 CDT Performed On: 04/01/2016 11:50 CDT by JUANI JHA ADLs II Elimination Assistance Offered Q2H : Independent Bowel Movement Last Date : 03/31/2016 CDT Standard Safety : Bed in low position, Call device within reach, ID band check, Non-Slip footwear, Rounds every 1 hour, Upper/Half-length side-rails up, Wheels locked JUANI JHA - 04/01/2016 11:50 CDT Source: [employer] Document Id: [id number] CDT!5 Miscellaneous - Trena Gottlieb R.N. - 04/01/2016 11:00 AM CDT Adult Ongoing Assessment Adult Ongoing Assessment Entered On: 04/01/2016 13:00 CDT Performed On: 04/01/2016 11:00 CDT by TRENA GOTTLIEB RN Respiratory Respiratory Patient Stated Symptoms : None Respirations : Unlabored Distress : None Respiratory Pattern : Regular All Lobes Breath Sounds : Clear Cough and Deep Breathe : Done Cough : None Sputum Amount : None Suction : None Airway : Patent TRENA GOTTLIEB RN - 04/01/2016 12:58 CDT Cardiovascular CV Patient Stated Symptoms : None Heart Rhythm : Regular Antiembolism Device Yes/No : No Nail Bed Color : [place] Capillary Refill : Less than 2 seconds Edema Assessment : No Pacer : No Skin Color : Normal for ethnicity Skin Description : Dry Skin Temperature : Warm Activity Tolerance : Without distress TRENA GOTTLIEB RN - 04/01/2016 12:58 CDT Neurological Neuro Patient Stated Symptoms : None Orientation : Oriented x 3 Level of Consciousness : Alert Gait : Steady Swallowing Difficulty/Aspiration Risk : None TRENA GOTTLIEB RN - 04/01/2016 12:58 CDT Novi Coma Eye Opening Response Novi : Spontaneously Best Verbal Response Tavo : Oriented Best Motor Response Tavo : Obeys simple commands Tavo Coma Score : 15 TRENA GOTTLIEB RN - 04/01/2016 12:58 CDT Psycho/Emotional Affect/Behavior : Calm, Cooperative, Appropriate Pain Symptoms : No Feels Rested : Yes TRENA GOTTLIEB RN - 04/01/2016 12:58 CDT Coping Grid Identifies effective strategies : Yes Uses effective strategies : Yes Reports increase in psychological comfort : Yes Indicates sense of control : Yes Stressors perceived within control : Yes Stable mood with appropriate affect : Yes Behaviors indicate use of coping mechanism : Yes Family supportive and involved in care : Yes Values/Beliefs incorporated appropriately : Yes TRENA GOTTLIEB RN - 04/01/2016 12:58 CDT Safety Grid Vision, Hearing, Mobility Adequate to Meet Safety Needs : Yes TRENA GOTTLIEB RN - 04/01/2016 12:58 CDT Gastrointestinal GI Patient Stated Symptoms : Nausea Abdomen Description : Flat, Symmetric Abdomen Palpation : Non-Tender, Soft Bowel Movement Last Date : 04/01/2016 CDT Bowel Sounds All Quadrants : Hypoactive Stool Color : Brown Stool Amount : Small Passing Flatus : Yes TRENA GOTTLIEB RN - 04/01/2016 12:58 CDT Genitourinary Patient Stated Symptoms : None Urinary Elimination : Voiding, no difficulties Urine Color : Yellow Urine Description : Clear TRENA GOTTLIEB RN - 04/01/2016 13:00 CDT Integumentary Integumentary Patient Stated Symptoms : None Skin Turgor : Elastic Skin Integrity : Intact Mucous Membrane Color : [place] Mucous Membrane Description : Moist TRENA GOTTLIEB RN - 04/01/2016 13:00 CDT Jose Enrique Sensory Perception Jose Enrique : No impairment Moisture Jose Enrique : Rarely moist Activity Jose Enrique : Walks frequently Mobility Jose Enrique : No limitations Nutrition Jose Enrique : Excellent Friction and Shear Jose Enrique : No apparent problem Jose Enrique Score : 23 TRENA GOTTLIEB RN - 04/01/2016 13:00 CDT Peripheral IV Peripheral IV Assess/Intervention Grid Peripheral IV #1 Peripheral IV #2 IV Activity : Assessment Date of Insertion : 03/30/2016 CDT IV Site : Forearm Laterality : Right Left Catheter Size : 20 Primary Tubing Changed : 03/29/2016 CDT TRENA GOTTLIEB RN - 04/01/2016 13:00 CDT TRENA GOTTLIEB RN - 04/01/2016 13:00 CDT Hendrich II Fall Risk Confusion/Disorientation Hendrich : No Depression Fall Risk Hendrich : No Altered Elimination Fall Risk Hendrich : No Dizziness/Vertigo Fall Risk Hendrich : No Gender, Male Fall Risk Hendrich : Yes Prescribed Antiepileptics Hendrich : No Prescribed Benzodiazepines Hendrich : No Rising From Chair Fall Risk Hendrich : Able to rise in a single movement, no loss of balance with steps Fall Risk Score Hendrich II : 1 TRENA GOTTLIEB RN - 04/01/2016 13:00 CDT Safe Patient Handling Safe Pt Handling Independent : Yes - No equipment needed Safe Pt Handling Equipment Rec : No Equipment Needed TRENA GOTTLIEB RN - 04/01/2016 13:00 CDT Education General Patient Education Powergrid Topics : Activity limitations/expectations, Plan of care, Safety, fall, Treatments/Procedures/Tests,When to call health care provider Individuals Taught : Patient Barriers to Learning : None evident Teaching Method : Explanation Teaching Evaluation : Verbalizes understanding TRENA GOTTLIEB RN - 04/01/2016 13:00 CDT Source: [facility] [employer]ART Document Id: [id number] CDT!111 Miscellaneous - Idania Daly B.S.N., R.N. - 03/31/2016 11:32 PM CDT Adult Ongoing Assessment Adult Ongoing Assessment Entered On: 04/01/2016 1:20 CDT Performed On: 03/31/2016 23:32 CDT by IDANIA DALY RN Respiratory Respiratory Patient Stated Symptoms : None Respirations : Unlabored Distress : None Respiratory Pattern : Regular All Lobes Breath Sounds : Clear Cough and Deep Breathe : Done Cough : None Sputum Amount : None Suction : None Airway : Patent IDANIA DALY RN - 04/01/2016 1:16 CDT Cardiovascular CV Patient Stated Symptoms : None Heart Rhythm : Regular Heart Sounds ICU : S1S2 Antiembolism Device Yes/No : Yes Nail Bed Color : [place] Capillary Refill : Less than 2 seconds Edema Assessment : No IDANIA DALY RN - 04/01/2016 1:16 CDT Radial Pulse, Left : 2+ Normal Radial Pulse, Right : 2+ Normal Dorsalis Pedis Pulse, Left : 2+ Normal Dorsalis Pedis Pulse, Right : 2+ Normal IDANIA DALY RN - 04/01/2016 1:16 CDT Skin Color : Normal for ethnicity Skin Description : Normal Skin Temperature : Warm Activity Tolerance : Without distress IDANIA DALY RN - 04/01/2016 1:16 CDT Antiembolism Device Antiembolism Device : Sequential Compression Device Antiembolism Device Laterality : Bilateral Antiembolism Device Status : Patient refused IDANIA DALY RN - 04/01/2016 1:16 CDT Neurological Neuro Patient Stated Symptoms : None Orientation : Oriented x 3 Level of Consciousness : Alert Gait : Steady Swallowing Difficulty/Aspiration Risk : None Last Well Time Known : Not applicable IDANIA DALY RN - 04/01/2016 1:16 CDT Novi Coma Eye Opening Response Tavo : Spontaneously Best Verbal Response Tavo : Oriented Best Motor Response Tavo : Obeys simple commands Tavo Coma Score : 15 IDANIA DALY RN - 04/01/2016 1:16 CDT Psycho/Emotional Affect/Behavior : Calm, Cooperative, Appropriate Pain Symptoms : No IDANIA DALY RN - 04/01/2016 1:16 CDT Coping Grid Identifies effective strategies : Yes Uses effective strategies : Yes Reports increase in psychological comfort : Yes Indicates sense of control : Yes Stressors perceived within control : Yes Stable mood with appropriate affect : Yes Behaviors indicate use of coping mechanism : Yes Family supportive and involved in care : Yes Values/Beliefs incorporated appropriately : Yes IDANIA DALY RN - 04/01/2016 1:16 CDT Safety Grid Vision, Hearing, Mobility Adequate to Meet Safety Needs : Yes IDANIA DALY RN - 04/01/2016 1:16 CDT Gastrointestinal GI Patient Stated Symptoms : Other: slight abdomenal pressure Abdomen Description : Flat, Symmetric Abdomen Palpation : Soft Bowel Movement Last Date : 03/31/2016 CDT Bowel Sounds All Quadrants : Present Passing Flatus : Yes IDANIA DALY RN - 04/01/2016 1:16 CDT Nutrition Appetite : Fair Eating Difficulties : None Feeding Ability : Complete independence IDANIA DALY RN - 04/01/2016 1:16 CDT Genitourinary Patient Stated Symptoms : None Urinary Elimination : Voiding, no difficulties Bladder Distention : Absent IDANIA DALY RN - 04/01/2016 1:16 CDT Integumentary Integumentary Patient Stated Symptoms : None Skin Turgor : Elastic Skin Integrity : Intact Mucous Membrane Color : [place] Mucous Membrane Description : Moist Skin Color : Normal for ethnicity Skin Description : Normal Skin Temperature : Warm IDANIA DALY RN - 04/01/2016 1:16 CDT Jose Enrique Sensory Perception Jose Enrique : No impairment Moisture Jose Enrique : Rarely moist Activity Jose Enrique : Walks frequently Mobility Jose Enrique : No limitations Nutrition Jose Enrique : Adequate Friction and Shear Jose Enrique : No apparent problem Jose Enrique Score : 22 IDANIA DALY RN - 04/01/2016 1:16 CDT Musculoskeletal Musculoskeletal Patient Stated Symptoms : None Activity Tolerance : Without distress IDANIA DALY RN - 04/01/2016 1:16 CDT Peripheral IV Peripheral IV Assess/Intervention Grid Peripheral IV #1 Peripheral IV #2 IV Activity : Assessment Date of Insertion : 03/30/2016 CDT IV Site : Forearm Laterality : Right Left Catheter Size : 20 Site Condition : No complications Drainage Description : None Infiltration Score : 0 Phlebitis Score : 0 Primary Tubing Changed : 03/29/2016 CDT Dressing/ Activity : Dry, Intact Flow/ Patency : No complications IDANIA DALY RN - 04/01/2016 1:16 CDT IDANIA DALY RN - 04/01/2016 1:16 CDT Hendrich II Fall Risk Confusion/Disorientation Hendrich : No Depression Fall Risk Hendrich : No Altered Elimination Fall Risk Hendrich : No Dizziness/Vertigo Fall Risk Hendrich : No Gender, Male Fall Risk Hendrich : Yes Prescribed Antiepileptics Hendrich : No Prescribed Benzodiazepines Hendrich : No Rising From Chair Fall Risk Hendrich : Able to rise in a single movement, no loss of balance with steps Fall Risk Score Hendrich II : 1 IDANIA DALY RN - 04/01/2016 1:16 CDT Safe Patient Handling Safe Pt Handling Independent : Yes - No equipment needed Safe Pt Handling Equipment Rec : No Equipment Needed Repositioning Device Recommended : No IDANIA DALY RN - 04/01/2016 1:16 CDT Education General Patient Education Powergrid Topics : Medication dosage, route, scheduling, Nutrition/Diet, Pain Management, Plan of care, Safety, fall, Turn/Cough/Deep breathing Individuals Taught : Patient Barriers to Learning : None evident Teaching Method : Explanation Teaching Evaluation : Verbalizes understanding IDANIA DALY RN - 04/01/2016 1:16 CDT [facility] Document Id: [id number] CDT!134 Miscellaneous - Idania Daly B.S.N., R.N. - 03/31/2016 11:30 PM CDT Adult Activities of Daily Living Adult Activities of Daily Living Entered On: 04/01/2016 1:16 CDT Performed On: 03/31/2016 23:30 CDT by IDANIA DALY RN ADLs I Patient Position : Lying on left side Activity Assistance : Independent Repositioning/Pressure Reducing Devices : IDANIA Pierre RN - 04/01/2016 1:16 CDT ADLs II Elimination Assistance Offered Q2H : Independent Bowel Movement Last Date : 03/31/2016 CDT Standard Safety : Bed in low position, Call device within reach, ID band check, Non-Slip footwear, Rounds every 1 hour, Upper/Half-length side-rails up, Wheels locked IDANIA DALY RN - 04/01/2016 1:16 CDT Source: [employer] Document Id: [id number] CDT!9 [place] - Idania Daly B.SDevi, R.N. - 03/31/2016 8:09 PM CDT Adult Activities of Daily Living Adult Activities of Daily Living Entered On: 03/31/2016 20:09 CDT Performed On: 03/31/2016 20:09 CDT by IDANIA DALY RN I Patient Position : Sitting in bed Activity Assistance : Independent Assistive Device : None Repositioning/Pressure Reducing Devices : IDANIA Pierre RN - 03/31/2016 20:09 CDT ADLs II Elimination Assistance Offered Q2H : Independent Bowel Movement Last Date : 03/31/2016 CDT Standard Safety : Bed in low position, Call device within reach, ID band check, Non-Slip footwear, Rounds every 1 hour, Upper/Half-length side-rails up, Wheels locked IDANIA DALY RN - 03/31/2016 20:09 CDT Source: [employer] Document Id: [id number] CDT!10 Sasha Roberttney R, B.S.N., R.N. - 03/31/2016 8:09 PM CDT Adult Ongoing Assessment Adult Ongoing Assessment Entered On: 03/31/2016 20:13 CDT Performed On: 03/31/2016 20:09 CDT by IDANIA DALY RN Respiratory Respiratory Patient Stated Symptoms : None Respirations : Unlabored Distress : None Respiratory Pattern : Regular All Lobes Breath Sounds : Clear Cough and Deep Breathe : Done Cough : None Sputum Amount : None Suction : None Airway : Patent IDANIA DALY RN - 03/31/2016 20:09 CDT Cardiovascular CV Patient Stated Symptoms : None Heart Rhythm : Regular Heart Sounds ICU : S1S2 Antiembolism Device Yes/No : Yes Nail Bed Color : [place] Capillary Refill : Less than 2 seconds Edema Assessment : No IDANIA DALY RN - 03/31/2016 20:09 CDT Radial Pulse, Left : 2+ Normal Radial Pulse, Right : 2+ Normal Dorsalis Pedis Pulse, Left : 2+ Normal Dorsalis Pedis Pulse, Right : 2+ Normal IDANIA DALY RN - 03/31/2016 20:09 CDT Skin Color : Normal for ethnicity Skin Description : Normal Skin Temperature : Warm Activity Tolerance : Without distress IDANIA DALY RN - 03/31/2016 20:09 CDT Antiembolism Device Antiembolism Device : Sequential Compression Device Antiembolism Device Laterality : Bilateral Antiembolism Device Status : Off IDANIA DALY RN - 03/31/2016 20:09 CDT Neurological Neuro Patient Stated Symptoms : None Orientation : Oriented x 3 Level of Consciousness : Alert Gait : Steady Swallowing Difficulty/Aspiration Risk : None Last Well Time Known : Not applicable IDANIA DALY RN - 03/31/2016 20:09 CDT Novi Coma Eye Opening Response Tavo : Spontaneously Best Verbal Response Tavo : Oriented Best Motor Response Tavo : Obeys simple commands Tavo Coma Score : 15 IDANIA DALY RN - 03/31/2016 20:09 CDT Psycho/Emotional Affect/Behavior : Calm, Cooperative, Appropriate Pain Symptoms : No IDANIA DALY RN - 03/31/2016 20:09 CDT Coping Grid Identifies effective strategies : Yes Uses effective strategies : Yes Reports increase in psychological comfort : Yes Indicates sense of control : Yes Stressors perceived within control : Yes Stable mood with appropriate affect : Yes Behaviors indicate use of coping mechanism : Yes Family supportive and involved in care : Yes Values/Beliefs incorporated appropriately : Yes IDANIA DALY RN - 03/31/2016 20:09 CDT Safety Grid Vision, Hearing, Mobility Adequate to Meet Safety Needs : Yes IDANIA DALY RN - 03/31/2016 20:09 CDT Gastrointestinal GI Patient Stated Symptoms : Other: abdominal pressure Abdomen Description : Flat, Symmetric Abdomen Palpation : Non-Tender, Soft Bowel Movement Last Date : 03/31/2016 CDT Bowel Sounds All Quadrants : Present Passing Flatus : Yes IDANIA DALY RN - 03/31/2016 20:09 CDT Nutrition Eating Difficulties : None Feeding Ability : Complete independence IDANIA DALY RN - 03/31/2016 20:09 CDT Genitourinary Patient Stated Symptoms : None Urinary Elimination : Voiding, no difficulties Bladder Distention : Absent IDANIA DALY RN - 03/31/2016 20:09 CDT Integumentary Integumentary Patient Stated Symptoms : None Skin Turgor : Elastic Skin Integrity : Intact Mucous Membrane Color : Savona Mucous Membrane Description : Moist Skin Color : Normal for ethnicity Skin Description : Normal Skin Temperature : Warm IDANIA DALY RN - 03/31/2016 20:09 CDT Jose Enrique Sensory Perception Jose Enrique : No impairment Moisture Jose Enrique : Rarely moist Activity Jose Enrique : Walks frequently Mobility Jose Enrique : No limitations Nutrition Jose Enrique : Probably inadequate Friction and Shear Jose Enrique : No apparent problem Jose Enrique Score : 21 IDANIA DALY RN - 03/31/2016 20:09 CDT Musculoskeletal Musculoskeletal Patient Stated Symptoms : None Activity Tolerance : Without distress IDANIA DALY RN - 03/31/2016 20:09 CDT Peripheral IV Peripheral IV Assess/Intervention Grid Peripheral IV #1 Peripheral IV #2 IV Activity : Assessment Date of Insertion : 03/30/2016 CDT IV Site : Forearm Laterality : Right Left Catheter Size : 20 Site Condition : No complications Drainage Description : None Infiltration Score : 0 Phlebitis Score : 0 Primary Tubing Changed : 03/29/2016 CDT Dressing/ Activity : Dry, Intact Flow/ Patency : No complications IDANIA DALY RN - 03/31/2016 20:09 CDT DIANIA DALY RN - 03/31/2016 20:09 CDT Hendrich II Fall Risk Confusion/Disorientation Hendrich : No Depression Fall Risk Hendrich : No Altered Elimination Fall Risk Hendrich : No Dizziness/Vertigo Fall Risk Hendrich : No Gender, Male Fall Risk Hendrich : Yes Prescribed Antiepileptics Hendrich : No Prescribed Benzodiazepines Hendrich : No Rising From Chair Fall Risk Hendrich : Able to rise in a single movement, no loss of balance with steps Fall Risk Score Hendrich II : 1 IDANIA DALY RN - 03/31/2016 20:09 CDT Safe Patient Handling Safe Pt Handling Independent : Yes - No equipment needed Safe Pt Handling Equipment Rec : No Equipment Needed Repositioning Device Recommended : No IDAINA DALY RN - 03/31/2016 20:09 CDT Education General Patient Education Powergrid Topics : Nutrition/Diet, Pain Management, Plan of care, Safety, fall, Treatments/Procedures/Tests, Turn/Cough/Deep breathing, Unit procedures Individuals Taught : Patient Barriers to Learning : None evident Teaching Method : Explanation Teaching Evaluation : Verbalizes understanding IDANIA DALY RN - 03/31/2016 20:09 CDT Source: Runner Document Id: [id number] CDT!133 Miscellaneous - Regino Martienz RJairoNJairo - 03/31/2016 6:34 PM CDT Communication Note Communication Note Entered On: 03/31/2016 18:35 CDT Performed On: 03/31/2016 18:34 CDT by REGINO MARTINEZ RN Communication Intervention : New Orders Obtained Response : MD Hardwick to place patient NPO for procedure after midnight. REGINO MARTINEZ RN - 03/31/2016 18:53 CDT Subject of Note : M.D. Notification Assessment Communication Note : Patient is having an upper GI scope tomorrow AM. Nurse asking if patient needs to be NPO after midnight. No order placed at this time. Name of provider notified : JESÚS PRAJAPATI MD Name of provider notified d/t : 03/31/2016 18:34 CDT REGINO MARTINEZ RN - 03/31/2016 18:34 CDT Source: Runner Document Id: [id number] CDT!8 Regino Cortez R.N. - 03/31/2016 5:17 PM CDT Adult Activities of Daily Living Adult Activities of Daily Living Entered On: 03/31/2016 17:18 CDT Performed On: 03/31/2016 17:17 CDT by REGINO MARTINEZ RN ADLs I Patient Position : Elevate head of bed 30 degrees, Semi-Lopez's Activity Status ADL : Up ad surya Activity Assistance : Independent Assistive Device : None Repositioning/Pressure Reducing Devices : Pillow Ambulation Patient Effort : Good Range of Motion LUE : Active Range of Motion RUE : Active Range of Motion LLE : Active Range of Motion RLE : Active REGINO MARTINEZ RN - 03/31/2016 17:17 CDT ADLs II Bowel Movement Last Date : 03/30/2016 CDT Standard Safety : Bed in low position, Call device within reach, ID band check, Non-Slip footwear, Rounds every 1 hour, Upper/Half-length side-rails up, Wheels locked REGINO MARTINEZ RN - 03/31/2016 17:17 CDT Source: Runner Document Id: [id number] CDT!15 Regino Cortez R.N. - 03/31/2016 5:00 PM CDT Adult Ongoing Assessment Adult Ongoing Assessment Entered On: 03/31/2016 17:21 CDT Performed On: 03/31/2016 17:00 CDT by REGINO MARTINEZ RN Respiratory Respiratory Patient Stated Symptoms : None Respirations : Unlabored Distress : None Respiratory Pattern : Regular All Lobes Breath Sounds : Clear Cough : None Sputum Amount : None Suction : None Airway : Patent REGINO MARTINEZ RN - 03/31/2016 17:18 CDT Cardiovascular CV Patient Stated Symptoms : None Heart Rhythm : Regular Heart Sounds ICU : S1S2 Antiembolism Device Yes/No : Yes Nail Bed Color : Savona Capillary Refill : Less than 2 seconds Edema Assessment : No Pacer : No REGINO MARTINEZ - 03/31/2016 17:18 CDT Radial Pulse, Left : 2+ Normal Radial Pulse, Right : 2+ Normal Dorsalis Pedis Pulse, Left : 2+ Normal Dorsalis Pedis Pulse, Right : 2+ Normal REGINO MARTINEZ - 03/31/2016 17:18 CDT Skin Color : Normal for ethnicity Skin Description : Normal Skin Temperature : Warm Activity Tolerance : Without distress REGINO MARTINEZ RN - 03/31/2016 17:18 CDT Antiembolism Device Antiembolism Device : Sequential Compression Device REGINO MARTINEZ - 03/31/2016 17:18 CDT Neurological Neuro Patient Stated Symptoms : None Orientation : Oriented x 3, Appropriate for age Level of Consciousness : Alert Gait : Steady Swallowing Difficulty/Aspiration Risk : None Last Well Time Known : Not applicable REGINO MARTINEZ RN - 03/31/2016 17:18 CDT Tavo Coma Eye Opening Response Tavo : Spontaneously Best Verbal Response Tavo : Oriented Best Motor Response Tavo : Obeys simple commands Tavo Coma Score : 15 REGINO MARTINEZ - 03/31/2016 17:18 CDT Psycho/Emotional Affect/Behavior : Calm, Cooperative, Appropriate Pain Symptoms : Yes REGINO MARTINEZ - 03/31/2016 17:18 CDT Coping Grid Identifies effective strategies : Yes Uses effective strategies : Yes Reports increase in psychological comfort : Yes Indicates sense of control : Yes Stressors perceived within control : Yes Stable mood with appropriate affect : Yes Behaviors indicate use of coping mechanism : Yes REGINO MARTINEZ RN - 03/31/2016 17:18 CDT Safety Grid Vision, Hearing, Mobility Adequate to Meet Safety Needs : Yes REGINO MARTINEZ - 03/31/2016 17:18 CDT Pain Scale Pain Scale Verbal 0-10 : Open REGINO MARTINEZ 03/31/2016 17:18 CDT Pain Pain Assessment Grid Pain 1 Location : Neck Laterality : Bilateral Intensity : 2 REGINO MARTINEZ RN - 03/31/2016 17:18 CDT Gastrointestinal GI Patient Stated Symptoms : Other: abdominal pressure, nausea and diarrhea earlier Abdomen Description : Flat, Symmetric Abdomen Palpation : Non-Tender, Soft Bowel Movement Last Date : 03/31/2016 CDT Bowel Sounds All Quadrants : Hypoactive REGINO MARTINEZ RN - 03/31/2016 17:18 CDT Genitourinary Patient Stated Symptoms : None Urinary Elimination : Voiding, no difficulties Bladder Distention : Absent REGINO MARTINEZ RN - 03/31/2016 17:18 CDT Integumentary Integumentary Patient Stated Symptoms : None Skin Turgor : Elastic Skin Integrity : Intact Mucous Membrane Color : [place] Mucous Membrane Description : Moist Skin Color : Normal for ethnicity Skin Description : Normal Skin Temperature : Warm REGINO MARTINEZ RN - 03/31/2016 17:18 CDT Jose Enrique Sensory Perception Jose Enrique : No impairment Moisture Jose Enrique : Rarely moist Activity Jose Enrique : Walks frequently Mobility Jose Enrique : No limitations Nutrition Jose Enrique : Adequate Friction and Shear Jose Enrique : No apparent problem Jose Enrique Score : 22 REGINO MARTINEZ RN - 03/31/2016 17:18 CDT Musculoskeletal Musculoskeletal Patient Stated Symptoms : None Activity Tolerance : Without distress REGINO MARTINEZ RN - 03/31/2016 17:18 CDT Peripheral IV Peripheral IV Assess/Intervention Grid Peripheral IV #1 Peripheral IV #2 IV Activity : Assessment Date of Insertion : 03/30/2016 CDT IV Site : Forearm Laterality : Right Left Catheter Size : 20 Site Condition : No complications Drainage Description : None Infiltration Score : 0 Phlebitis Score : 0 Primary Tubing Changed : 03/29/2016 CDT Dressing/ Activity : Dry, Intact, Transparent Flow/ Patency : No complications REGINO MARTINEZ RN - 03/31/2016 17:18 CDT REGINO MARTINEZ RN - 03/31/2016 17:18 [facility]T [facility] Confusion/Disorientation Hendrich : No Depression Fall Risk Hendrich : No Altered Elimination Fall Risk Hendrich : No Dizziness/Vertigo Fall Risk Hendrich : No Gender, Male Fall Risk Hendrich : Yes Prescribed Antiepileptics Hendrich : No Prescribed Benzodiazepines Hendrich : No Rising From Chair Fall Risk Hendrich : Able to rise in a single movement, no loss of balance with steps Fall Risk Score Hendrich II : 1 REGINO MARTINEZ RN - 03/31/2016 17:18 CDT Safe Patient Handling Safe Pt Handling Independent : Yes - No equipment needed Safe Pt Handling Equipment Rec : No Equipment Needed REGINO MARTINEZ RN - 03/31/2016 17:18 CDT Education General Patient Education Powergrid Topics : Medication dosage, route, scheduling, Nutrition/Diet, Pain Management, Patient rights and responsibilities, Safety, fall Individuals Taught : Patient Barriers to Learning : Acuity of Illness Teaching Method : Demonstration, Explanation Teaching Evaluation : Needs reinforcement, Verbalizes understanding REGINO MARTINEZ RN - 03/31/2016 17:18 CDT Source: Runner Document Id: [id number] CDT!132 Oscar Vital - 03/31/2016 2:47 PM CDT Adult Activities of Daily Living Adult Activities of Daily Living Entered On: 03/31/2016 14:49 CDT Performed On: 03/31/2016 14:47 CDT by OSCAR TURNER ADLs I Activity Status ADL : Ambulating in room Activity Assistance : Independent Assistive Device : None OSCAR TURNER - 03/31/2016 14:47 CDT ADLs II Hygiene Assistance Grid Back Rub : Independent Bed Bath : Independent Foot Care : Independent Hair Care : Independent Oral Care : Independent Alesia Care : Independent Shave : Independent Shower : Independent OSCAR TURNER - 03/31/2016 14:47 CDT Bowel Movement Last Date : 03/30/2016 CDT OSCAR TURNER - 03/31/2016 14:47 CDT Source: Runner Document Id: [id number] CDT!16 Trena Harris RDevi - 03/31/2016 8:30 AM CDT Adult Ongoing Assessment Adult Ongoing Assessment Entered On: 03/31/2016 10:08 CDT Performed On: 03/31/2016 8:30 CDT by TRENA GOTTLIEB RN Respiratory Respiratory Patient Stated Symptoms : None Respirations : Unlabored Distress : None Respiratory Pattern : Regular All Lobes Breath Sounds : Clear Cough and Deep Breathe : Done Cough : None Sputum Amount : None Suction : None Airway : Patent TRENA GOTTLIEB RN - 03/31/2016 10:06 CDT Cardiovascular CV Patient Stated Symptoms : None Heart Rhythm : Regular Antiembolism Device Yes/No : No Nail Bed Color : Savona Capillary Refill : Less than 2 seconds Edema Assessment : No Pacer : No Skin Color : Normal for ethnicity Skin Description : Dry Skin Temperature : Warm Activity Tolerance : Without distress TRENA GOTTLIEB RN - 03/31/2016 10:06 CDT Neurological Neuro Patient Stated Symptoms : None Orientation : Oriented x 3 Level of Consciousness : Alert Gait : Steady Swallowing Difficulty/Aspiration Risk : None Last Well Time Known : Not applicable TRENA GOTTLIEB RN - 03/31/2016 10:06 CDT Tavo Coma Eye Opening Response Novi : Spontaneously Best Verbal Response Tavo : Oriented Best Motor Response Tavo : Obeys simple commands Novi Coma Score : 15 TRENA GOTTLIEB RN - 03/31/2016 10:06 CDT Psycho/Emotional Affect/Behavior : Calm, Cooperative, Appropriate Pain Symptoms : No TRENA GOTTLIEB RN - 03/31/2016 10:06 CDT Coping Grid Identifies effective strategies : Yes Uses effective strategies : Yes Reports increase in psychological comfort : Yes Indicates sense of control : Yes Stressors perceived within control : Yes Stable mood with appropriate affect : Yes Behaviors indicate use of coping mechanism : Yes Family supportive and involved in care : Yes Values/Beliefs incorporated appropriately : Yes TRENA GOTTLIEB RN - 03/31/2016 10:06 CDT Safety Grid Vision, Hearing, Mobility Adequate to Meet Safety Needs : Yes TRENA GOTTLIEB RN - 03/31/2016 10:06 CDT Gastrointestinal GI Patient Stated Symptoms : Abdominal pain, Nausea Abdomen Description : Flat, Symmetric Abdomen Palpation : Soft, Tender Tenderness : All quadrants Bowel Movement Last Date : 03/30/2016 CDT Bowel Sounds All Quadrants : Hypoactive Passing Flatus : Yes TRENA GOTTLIEB RN - 03/31/2016 10:09 CDT Nutrition Eating Difficulties : Appetite change Feeding Ability : Complete independence TRENA GOTTLIEB RN - 03/31/2016 10:09 CDT Genitourinary Patient Stated Symptoms : None Urinary Elimination : Voiding, no difficulties Urine Color : Yellow Urine Description : Clear TRENA GOTTLIEB RN - 03/31/2016 10:09 CDT Integumentary Integumentary Patient Stated Symptoms : Bruising Skin Turgor : Elastic Skin Integrity : Intact Mucous Membrane Color : [place]ona Mucous Membrane Description : Moist TRENA GOTTLIEB RN - 03/31/2016 10:09 CDT Jose Enrique Sensory Perception Jose Enrique : No impairment Moisture Jose Enrique : Rarely moist Activity Jose Enrique : Walks occasionally Mobility Jose Enrique : No limitations Nutrition Jose Enrique : Excellent Friction and Shear Jose Enrique : No apparent problem Jose Enrique Score : 22 TRENA GOTTLIEB RN - 03/31/2016 10:09 CDT Peripheral IV Peripheral IV Assess/Intervention Grid Peripheral IV #1 Peripheral IV #2 IV Activity : Assessment Date of Insertion : 03/30/2016 CDT IV Site : Forearm Laterality : Right Left Catheter Size : 20 Primary Tubing Changed : 03/29/2016 CDT TRENA GOTTLIEB RN - 03/31/2016 10:09 CDT TRENA GOTTLIEB RN - 03/31/2016 10:09 CDT Hendrich II Fall Risk Confusion/Disorientation Hendrich : No Depression Fall Risk Hendrich : No Altered Elimination Fall Risk Hendrich : No Dizziness/Vertigo Fall Risk Hendrich : No Gender, Male Fall Risk Hendrich : Yes Prescribed Antiepileptics Hendrich : No Prescribed Benzodiazepines Hendrich : No Rising From Chair Fall Risk Hendrich : Able to rise in a single movement, no loss of balance with steps Fall Risk Score Hendrich II : 1 TRENA GOTTLIEB RN - 03/31/2016 10:09 CDT Safe Patient Handling Safe Pt Handling Independent : Yes - No equipment needed Safe Pt Handling Equipment Rec : No Equipment Needed TRENA GOTTLIEB RN - 03/31/2016 10:09 CDT Education General Patient Education Powergrid Topics : Activity limitations/expectations, Nutrition/Diet, Pain Management, Plan of care, Safety, fall, Turn/Cough/Deep breathing, When to call health care provider Individuals Taught : Patient Barriers to Learning : None evident Teaching Method : Explanation, Printed materials Teaching Evaluation : Verbalizes understanding TRENA GOTTLIEB RN - 03/31/2016 10:09 CDT Source: [facility] POWERCHART Document Id: [id number] CDT!113 Miscellaneous - Idania Daly B.S.N., RJairoNJairo - 03/31/2016 12:04 AM CDT Adult Ongoing Assessment Adult Ongoing Assessment Entered On: 03/31/2016 0:26 CDT Performed On: 03/31/2016 0:04 CDT by IDANIA DALY RN Respiratory Respiratory Patient Stated Symptoms : None Respirations : Unlabored Distress : None Respiratory Pattern : Regular All Lobes Breath Sounds : Clear Cough and Deep Breathe : Done Cough : None Sputum Amount : None Suction : None Airway : Patent IDANIA DALY RN - 03/31/2016 0:23 CDT Cardiovascular CV Patient Stated Symptoms : None Heart Rhythm : Regular Heart Sounds ICU : S1S2 Antiembolism Device Yes/No : Yes Nail Bed Color : [place] Capillary Refill : Less than 2 seconds Edema Assessment : No IDANIA DALY RN - 03/31/2016 0:23 CDT Radial Pulse, Left : 2+ Normal Radial Pulse, Right : 2+ Normal Dorsalis Pedis Pulse, Left : 2+ Normal Dorsalis Pedis Pulse, Right : 2+ Normal IDANIA DALY RN - 03/31/2016 0:23 CDT Skin Color : Normal for ethnicity Skin Description : Normal Skin Temperature : Warm Activity Tolerance : Without distress IDANIA DALY RN - 03/31/2016 0:23 CDT Antiembolism Device Antiembolism Device : Sequential Compression Device Antiembolism Device Laterality : Bilateral Antiembolism Device Status : Off IDANAI DALY RN - 03/31/2016 0:23 CDT Neurological Neuro Patient Stated Symptoms : None Orientation : Oriented x 3 Level of Consciousness : Alert Gait : Steady Swallowing Difficulty/Aspiration Risk : None Last Well Time Known : Not applicable IDANIA DALY RN - 03/31/2016 0:23 CDT Novi Coma Eye Opening Response Tavo : Spontaneously Best Verbal Response Tavo : Oriented Best Motor Response Tavo : Obeys simple commands Novi Coma Score : 15 IDANIA DALY Buck RN - 03/31/2016 0:23 CDT Psycho/Emotional Affect/Behavior : Calm, Cooperative, Appropriate Pain Symptoms : Yes MALIKAMYNORIDANIA R RN - 03/31/2016 0:23 CDT Coping Grid Identifies effective strategies : Yes Uses effective strategies : Yes Reports increase in psychological comfort : Yes Indicates sense of control : Yes Stressors perceived within control : Yes Stable mood with appropriate affect : Yes Behaviors indicate use of coping mechanism : Yes Family supportive and involved in care : Yes Values/Beliefs incorporated appropriately : Yes IDANIA DALY RN - 03/31/2016 0:23 CDT Safety Grid Vision, Hearing, Mobility Adequate to Meet Safety Needs : Yes IDANIA DALY RN - 03/31/2016 0:23 CDT Pain Scale Pain Scale Verbal 0-10 : Open IDANIA DALY RN - 03/31/2016 0:23 CDT Pain Pain Assessment Grid Pain 1 Location : Lower arm Laterality : Left Intensity : 4 Quality : Aching Aggravating Factors : Palpation Alleviating Factors : Cold therapy Interventions : Cold IDANIA DALY RN - 03/31/2016 0:23 CDT Gastrointestinal GI Patient Stated Symptoms : Other: abdominal pressure Abdomen Description : Symmetric Abdomen Palpation : Soft Bowel Movement Last Date : 03/30/2016 CDT Bowel Sounds All Quadrants : Present Passing Flatus : Yes IDANIA DALY RN - 03/31/2016 0:23 CDT Nutrition Appetite : Good Eating Difficulties : None Feeding Ability : Complete independence IDANIA DALY RN - 03/31/2016 0:23 CDT Genitourinary Patient Stated Symptoms : None Urinary Elimination : Voiding, no difficulties Bladder Distention : Absent IDANIA DALY RN - 03/31/2016 0:23 CDT Integumentary Integumentary Patient Stated Symptoms : None Skin Turgor : Elastic Skin Integrity : Intact Mucous Membrane Color : [place]ona Mucous Membrane Description : Moist Skin Color : Normal for ethnicity Skin Description : Normal Skin Temperature : Warm IDANIA DALY RN - 03/31/2016 0:23 CDT Jose Enrique Sensory Perception Jose Enrique : No impairment Moisture Jose Enrique : Rarely moist Activity Jose Enrique : Walks frequently Mobility Jose Enrique : No limitations Nutrition Jose Enrique : Adequate Friction and Shear Jose Enrique : No apparent problem Jose Enrique Score : 22 IDANIA DALY RN - 03/31/2016 0:23 CDT Musculoskeletal Musculoskeletal Patient Stated Symptoms : None Activity Tolerance : Without distress IDANIA DALY RN - 03/31/2016 0:23 CDT Peripheral IV Peripheral IV Assess/Intervention Grid Peripheral IV #1 Peripheral IV #2 IV Activity : Assessment Date of Insertion : 03/30/2016 CDT IV Site : Forearm Laterality : Right Left Catheter Size : 20 Site Condition : No complications Drainage Description : None Infiltration Score : 0 Phlebitis Score : 0 Primary Tubing Changed : 03/29/2016 CDT Dressing/ Activity : Dry, Intact Flow/ Patency : No complications IDANIA DALY RN - 03/31/2016 0:23 CDT IDANIA DALY RN - 03/31/2016 0:23 CDT Hendrich II Fall Risk Confusion/Disorientation Hendrich : No Depression Fall Risk Hendrich : No Altered Elimination Fall Risk Hendrich : No Dizziness/Vertigo Fall Risk Hendrich : No Gender, Male Fall Risk Hendrich : Yes Prescribed Antiepileptics Hendrich : No Prescribed Benzodiazepines Hendrich : No Rising From Chair Fall Risk Hendrich : Able to rise in a single movement, no loss of balance with steps Fall Risk Score Hendrich II : 1 IDANIA DALY RN - 03/31/2016 0:23 CDT Safe Patient Handling Safe Pt Handling Independent : Yes - No equipment needed Safe Pt Handling Equipment Rec : No Equipment Needed Repositioning Device Recommended : No IDANIA DALY RN - 03/31/2016 0:23 CDT Education General Patient Education Powergrid Topics : Medication dosage, route, scheduling, Multiple Drug Resistant Organism, Pain Management, Plan of care, Safety, fall, Turn/Cough/Deep breathing Individuals Taught : Patient Barriers to Learning : Desire/Motivation Teaching Method : Explanation Teaching Evaluation : Verbalizes understanding IDANIA DALY RN - 03/31/2016 0:23 CDT [facility] Document Id: [id number] CDT!146 Miscellaneous - Idania Daly B.SDevi, R.N. - 03/31/2016 12:02 AM CDT Adult Activities of Daily Living Adult Activities of Daily Living Entered On: 03/31/2016 0:23 CDT Performed On: 03/31/2016 0:02 CDT by IDANIA DALY RN ADLs I Patient Position : Lying on right side Activity Assistance : Independent Assistive Device : None Repositioning/Pressure Reducing Devices : Pillow IDANIA DALY RN - 03/31/2016 0:23 CDT ADLs II Elimination Assistance Offered Q2H : Independent Bowel Movement Last Date : 03/30/2016 CDT Standard Safety : Bed in low position, Call device within reach, Non-Slip footwear, Rounds every 1 hour, Upper/Half-length side-rails up, Wheels locked IDANIA DALY RN - 03/31/2016 0:23 CDT Source: Runner Document Id: [id number] CDT!10 Miscellaneous - Wicho Hemphill U - 03/30/2016 10:01 PM CDT Adult Activities of Daily Living Adult Activities of Daily Living Entered On: 03/30/2016 22:01 CDT Performed On: 03/30/2016 22:01 CDT by WICHO HEMPHILL ADLs I Activity Status ADL : Ambulating in room, Bathroom privileges, Up to chair Activity Assistance : Independent Assistive Device : None WICHO HEMPHILL U - 03/30/2016 22:01 CDT ADLs II Hygiene Assistance Grid Bed Bath : Independent Foot Care : Independent Hair Care : Independent Oral Care : Independent Alesia Care : Independent Upper Body Dressing(Clothing) : Independent Lower Body Dressing(Clothing) : Independent WICHO HEMPHILL - 03/30/2016 22:01 CDT Elimination Assistance Offered Q2H : Independent Bowel Movement Last Date : 03/30/2016 CDT Standard Safety : Bed in low position, Call device within reach, ID band check, Non-Slip footwear, Rounds every 1 hour, Upper/Half-length side-rails up, Wheels locked WICHO HEMPHILL - 03/30/2016 22:01 CDT Source: [facility] POWERCHART Document Id: [id number] CDT!17 Miscellaneous - Idania Daly B.SDevi, R.N. - 03/30/2016 8:08 PM CDT Adult Ongoing Assessment Adult Ongoing Assessment Entered On: 03/30/2016 20:13 CDT Performed On: 03/30/2016 20:08 CDT by IDANIA DALY RN Respiratory Respiratory Patient Stated Symptoms : None Respirations : Unlabored Distress : None Respiratory Pattern : Regular All Lobes Breath Sounds : Clear Cough and Deep Breathe : Done Cough : None Sputum Amount : None Suction : None Airway : Patent IDANIA DALY RN - 03/30/2016 20:10 CDT Cardiovascular CV Patient Stated Symptoms : None Heart Rhythm : Regular Heart Sounds ICU : S1S2 Antiembolism Device Yes/No : No Nail Bed Color : [place]ona Capillary Refill : Less than 2 seconds Edema Assessment : No IDANIA DALY RN - 03/30/2016 20:10 CDT Radial Pulse, Left : 2+ Normal Radial Pulse, Right : 2+ Normal Dorsalis Pedis Pulse, Left : 2+ Normal Dorsalis Pedis Pulse, Right : 2+ Normal IDANIA DALY RN - 03/30/2016 20:10 CDT Skin Color : Normal for ethnicity Skin Description : Normal Skin Temperature : Warm Activity Tolerance : Without distress IDANIA DALY RN - 03/30/2016 20:10 CDT Neurological Neuro Patient Stated Symptoms : None Orientation : Oriented x 3 Level of Consciousness : Alert Gait : Steady Swallowing Difficulty/Aspiration Risk : None Last Well Time Known : Not applicable IDANIA DALY RN - 03/30/2016 20:10 CDT Novi Coma Eye Opening Response Tavo : Spontaneously Best Verbal Response Novi : Oriented Best Motor Response Novi : Obeys simple commands Tavo Coma Score : 15 IDANIA DALY RN - 03/30/2016 20:10 CDT Psycho/Emotional Affect/Behavior : Calm, Cooperative, Appropriate, Flat Pain Symptoms : Yes IDANIA DALY RN - 03/30/2016 20:10 CDT Coping Grid Identifies effective strategies : Yes Uses effective strategies : Yes Reports increase in psychological comfort : Yes Indicates sense of control : Yes Stressors perceived within control : Yes Stable mood with appropriate affect : Yes Behaviors indicate use of coping mechanism : Yes Family supportive and involved in care : Yes Values/Beliefs incorporated appropriately : Yes IDANIA DALY RN - 03/30/2016 20:10 CDT Safety Grid Vision, Hearing, Mobility Adequate to Meet Safety Needs : Yes IDANIA DALY RN - 03/30/2016 20:10 CDT Pain Scale Pain Scale Verbal 0-10 : Open IDANIA DALY RN - 03/30/2016 20:10 CDT Pain Pain Assessment Grid Pain 1 Location : Lower arm Laterality : Left Intensity : 5 Time Pattern : Acute Quality : Aching Aggravating Factors : None Alleviating Factors : Cold therapy, Medication Interventions : Cold, Medications, Repositioning Comment : site of infiltated IV IDANIA DALY RN - 03/30/2016 20:10 CDT Gastrointestinal GI Patient Stated Symptoms : Other: abdominal pressure Abdomen Description : Symmetric Abdomen Palpation : Soft, Tender Tenderness : Left lower quadrant, Right lower quadrant Bowel Movement Last Date : 03/30/2016 CDT Bowel Sounds All Quadrants : Present Passing Flatus : No IDANIA DALY RN - 03/30/2016 20:10 CDT Nutrition Appetite : Fair Eating Difficulties : None Feeding Ability : Complete independence IDANIA DALY RN - 03/30/2016 20:10 CDT Genitourinary Patient Stated Symptoms : None Urinary Elimination : Voiding, no difficulties Bladder Distention : Absent IDANIA DALY RN - 03/30/2016 20:10 CDT Integumentary Integumentary Patient Stated Symptoms : None Skin Turgor : Elastic Skin Integrity : Intact Mucous Membrane Color : [place]ona Mucous Membrane Description : Moist Skin Color : Normal for ethnicity Skin Description : Normal Skin Temperature : Warm IDANIA DALY RN - 03/30/2016 20:10 CDT Jose Enrique Sensory Perception Jose Enrique : No impairment Moisture Jose Enrique : Rarely moist Activity Jose Enrique : Walks frequently Mobility Jose Enrique : No limitations Nutrition Jose Enrique : Adequate Friction and Shear Jose Enrique : No apparent problem Jose Enrique Score : 22 IDANIA DALY RN - 03/30/2016 20:10 CDT Musculoskeletal Musculoskeletal Patient Stated Symptoms : None Activity Tolerance : Without distress IDANIA DALY RN - 03/30/2016 20:10 CDT Peripheral IV Peripheral IV Assess/Intervention Grid Peripheral IV #1 Peripheral IV #2 IV Activity : Assessment Date of Insertion : 03/30/2016 CDT IV Site : Forearm Laterality : Right Left Catheter Size : 20 Site Condition : No complications Drainage Description : None Infiltration Score : 0 Phlebitis Score : 0 Primary Tubing Changed : 03/29/2016 CDT Dressing/ Activity : Dry, Intact Flow/ Patency : No complications IDANIA DALY RN - 03/30/2016 20:10 CDT IDANIA DALY RN - 03/30/2016 20:10 CDT Hendrich II Fall Risk Confusion/Disorientation Hendrich : No Depression Fall Risk Hendrich : No Altered Elimination Fall Risk Hendrich : No Dizziness/Vertigo Fall Risk Hendrich : No Gender, Male Fall Risk Hendrich : Yes Prescribed Antiepileptics Hendrich : No Prescribed Benzodiazepines Hendrich : No Rising From Chair Fall Risk Hendrich : Pushes up, successful in one attempt Fall Risk Score Hendrich II : 2 IDANIA DALY RN - 03/30/2016 20:10 CDT Safe Patient Handling Safe Pt Handling Independent : Yes - No equipment needed Safe Pt Handling Equipment Rec : No Equipment Needed Repositioning Device Recommended : No IDANIA DALY RN - 03/30/2016 20:10 CDT Education General Patient Education Powergrid Topics : Medication dosage, route, scheduling, Nutrition/Diet, Pain Management, Plan of care, Safety, fall, Turn/Cough/Deep breathing Individuals Taught : Patient Barriers to Learning : Acuity of Illness, Desire/Motivation Teaching Method : Explanation Teaching Evaluation : Verbalizes understanding IDANIA DALY RN - 03/30/2016 20:10 CDT Source: [facility] POWERCHART Document Id: [id number] CDT!145 Miscellaneous - Idania Daly B.S.N., R.N. - 03/30/2016 8:06 PM CDT Adult Activities of Daily Living Adult Activities of Daily Living Entered On: 03/30/2016 20:10 CDT Performed On: 03/30/2016 20:06 CDT by IDANIA DALY RN ADLs I Patient Position : Supine Activity Assistance : Independent Assistive Device : None Repositioning/Pressure Reducing Devices : Pillow IDANIA DALY RN - 03/30/2016 20:09 CDT ADLs II Elimination Assistance Offered Q2H : Independent Bowel Movement Last Date : 03/30/2016 CDT Standard Safety : Bed in low position, Call device within reach, ID band check, Non-Slip footwear, Rounds every 1 hour, Upper/Half-length side-rails up, Wheels locked IDANIA DALY RN - 03/30/2016 20:09 CDT Source: [employer] Document Id: [id number] CDT!10 Christi - Regino Martinez RDevi - 03/30/2016 4:05 PM CDT Adult Ongoing Assessment Adult Ongoing Assessment Entered On: 03/30/2016 16:10 CDT Performed On: 03/30/2016 16:05 CDT by REGINO MARTINEZ RN Respiratory Respiratory Patient Stated Symptoms : None Respirations : Unlabored Distress : None Respiratory Pattern : Regular All Lobes Breath Sounds : Clear Cough : None Sputum Amount : None Suction : None Airway : Patent REGINO MARTINEZ RN - 03/30/2016 16:05 CDT Cardiovascular CV Patient Stated Symptoms : None Heart Rhythm : Regular Heart Sounds ICU : S1S2 Antiembolism Device Yes/No : Yes Nail Bed Color : [place] Capillary Refill : Less than 2 seconds Edema Assessment : No Pacer : No REGINO MARTINEZ RN - 03/30/2016 16:05 CDT Radial Pulse, Left : 2+ Normal Radial Pulse, Right : 2+ Normal Dorsalis Pedis Pulse, Left : 2+ Normal Dorsalis Pedis Pulse, Right : 2+ Normal REGINO MARTINEZ 03/30/2016 16:05 CDT Skin Color : Normal for ethnicity Skin Description : Normal Skin Temperature : Warm Activity Tolerance : Without distress REGINO MARTINEZ - 03/30/2016 16:05 CDT Antiembolism Device Antiembolism Device Laterality : Bilateral REGINO MARTINEZ Gerald - 03/30/2016 16:05 CDT Neurological Neuro Patient Stated Symptoms : None Orientation : Oriented x 3, Appropriate for age Level of Consciousness : Alert Gait : Steady Swallowing Difficulty/Aspiration Risk : None REGINO MARTINEZ Gerald - 03/30/2016 16:05 CDT Tavo Coma Eye Opening Response Novi : Spontaneously Best Verbal Response Tavo : Oriented Best Motor Response Tavo : Obeys simple commands Novi Coma Score : 15 REGINO MARTINEZ Gerald - 03/30/2016 16:05 CDT Psycho/Emotional Affect/Behavior : Calm, Cooperative, Appropriate Pain Symptoms : Yes REGINO MARTINEZ 03/30/2016 16:05 CDT Coping Grid Identifies effective strategies : Yes Uses effective strategies : Yes Reports increase in psychological comfort : Yes Indicates sense of control : Yes Stressors perceived within control : Yes Stable mood with appropriate affect : Yes Behaviors indicate use of coping mechanism : Yes REGINO MARTINEZ - 03/30/2016 16:05 CDT Safety Grid Vision, Hearing, Mobility Adequate to Meet Safety Needs : Yes MICHELLEREGINO Gerald - 03/30/2016 16:05 CDT Pain Scale Pain Scale Verbal 0-10 : Open MICHELLE REGINO Duarte 03/30/2016 16:05 CDT Pain Pain Assessment Grid Pain 1 Location : Neck Laterality : Bilateral Intensity : 3 Acceptable Intensity : 0 Time Pattern : Chronic Quality : Aching Pain Radiation : No Aggravating Factors : Movement Alleviating Factors : Rest Associated Symptoms : None SANTOSDEVON DEVRIESROXANN Duarte - 03/30/2016 16:05 CDT Gastrointestinal GI Patient Stated Symptoms : Other: abdominal pressure Abdomen Description : Flat, Symmetric Abdomen Palpation : Non-Tender, Soft Bowel Movement Last Date : 03/27/2016 CDT Bowel Sounds All Quadrants : Present Passing Flatus : Yes REGINO MARTINEZ - 03/30/2016 16:05 CDT Genitourinary Patient Stated Symptoms : None Urinary Elimination : Voiding, no difficulties Urine Color : Yellow Urine Odor : Odorless Bladder Distention : Absent REGINO MARTINEZ RN - 03/30/2016 16:05 CDT Integumentary Integumentary Patient Stated Symptoms : None Skin Turgor : Elastic Skin Integrity : Intact Mucous Membrane Color : [place] Mucous Membrane Description : Moist Skin Color : Normal for ethnicity Skin Description : Normal Skin Temperature : Warm REGINO MARTINEZ RN - 03/30/2016 16:05 CDT Jose Enrique Sensory Perception Jose Enrique : No impairment Moisture Jose Enrique : Rarely moist Activity Jose Enrique : Walks frequently Mobility Jose Enrique : No limitations Nutrition Jose Enrique : Adequate Friction and Shear Jose Enrique : No apparent problem Jose Enrique Score : 22 REGINO MARTINEZ RN - 03/30/2016 16:05 CDT Musculoskeletal Musculoskeletal Patient Stated Symptoms : None Activity Tolerance : Without distress REGINO MARTINEZ RN - 03/30/2016 16:05 CDT Peripheral IV Peripheral IV Assess/Intervention Grid Peripheral IV #1 IV Activity : Assessment Date of Insertion : 03/28/2016 CDT IV Site : Forearm Laterality : Right Catheter Size : 20 Site Condition : No complications Drainage Description : None Infiltration Score : 0 Phlebitis Score : 0 Primary Tubing Changed : 03/29/2016 CDT Dressing/ Activity : Dry, Intact, Transparent Flow/ Patency : No complications REGINO MARTINEZ RN - 03/30/2016 16:05 CDT Hendrich II Fall Risk Confusion/Disorientation Hendrich : No Depression Fall Risk Hendrich : No Altered Elimination Fall Risk Hendrich : No Dizziness/Vertigo Fall Risk Hendrich : No Gender, Male Fall Risk Hendrich : Yes Prescribed Antiepileptics Hendrich : No Prescribed Benzodiazepines Hendrich : No Rising From Chair Fall Risk Hendrich : Able to rise in a single movement, no loss of balance with steps Fall Risk Score Hendrich II : 1 ERGINO MARTINEZ RN - 03/30/2016 16:05 CDT Safe Patient Handling Safe Pt Handling Independent : Yes - No equipment needed Safe Pt Handling Equipment Rec : No Equipment Needed REGINO MARTINEZ RN - 03/30/2016 16:05 CDT Education General Patient Education Powergrid Topics : Medication dosage, route, scheduling, Pain Management, Patient rights and responsibilities,Plan of care, Safety, fall, Unit procedures, Use of pain scale(s) Individuals Taught : Patient Barriers to Learning : Acuity of Illness Teaching Method : Demonstration, Explanation Teaching Evaluation : Verbalizes understanding REGINO MARTINEZ RN - 03/30/2016 16:05 CDT Source: [facility] [employer]ocket [employer]ems Document Id: [id number] CDT!139 Regino Cortez R.N. - 03/30/2016 3:14 PM CDT Adult Activities of Daily Living Adult Activities of Daily Living Entered On: 03/30/2016 15:15 CDT Performed On: 03/30/2016 15:14 CDT by REGINO MARTINEZ RN ADLs I Patient Position : Elevate head of bed 30 degrees, Semi-Lopez's Activity Status ADL : Up ad surya Activity Assistance : Independent Assistive Device : None Repositioning/Pressure Reducing Devices : Pillow Ambulation Patient Effort : Good Range of Motion LUE : Active Range of Motion RUE : Active Range of Motion LLE : Active Range of Motion RLE : Active REGINO MARTINEZ RN - 03/30/2016 15:14 CDT ADLs II Bowel Movement Last Date : 03/27/2016 CDT Standard Safety : Bed in low position, Call device within reach, ID band check, Non-Slip footwear, Rounds every 1 hour, Upper/Half-length side-rails up, Wheels locked REGINO MARTINEZ RN - 03/30/2016 15:14 CDT [facility] Document Id: [id number] CDT!15 Regino Cortez R.N. - 03/30/2016 9:45 AM CDT Adult Ongoing Assessment Adult Ongoing Assessment Entered On: 03/30/2016 9:52 CDT Performed On: 03/30/2016 9:45 CDT by REGINO MARTINEZ RN Respiratory Respiratory Patient Stated Symptoms : None Respirations : Unlabored Distress : None Respiratory Pattern : Regular All Lobes Breath Sounds : Clear Cough : None Sputum Amount : None Suction : None Airway : Patent REGINO MARTINEZ Gerald 03/30/2016 9:47 CDT Cardiovascular CV Patient Stated Symptoms : None Heart Rhythm : Regular Heart Sounds ICU : S1S2 Antiembolism Device Yes/No : Yes Nail Bed Color : [place] Capillary Refill : Less than 2 seconds Edema Assessment : No Pacer : No REGINO MARTINEZ Gerald 03/30/2016 9:47 CDT Radial Pulse, Left : 2+ Normal Radial Pulse, Right : 2+ Normal Dorsalis Pedis Pulse, Left : 2+ Normal Dorsalis Pedis Pulse, Right : 2+ Normal REGINO MARTINEZ Gerald 03/30/2016 9:47 CDT Skin Color : Normal for ethnicity Skin Description : Normal Skin Temperature : Warm Activity Tolerance : Without distress REGINO MARTINEZ 03/30/2016 9:47 CDT Antiembolism Device Antiembolism Device : Sequential Compression Device Antiembolism Device Laterality : Bilateral MICHELLEREGINO 03/30/2016 9:47 CDT Neurological Neuro Patient Stated Symptoms : None Orientation : Oriented x 3, Appropriate for age Level of Consciousness : Alert Gait : Steady Swallowing Difficulty/Aspiration Risk : None REGINO MARTINEZ 03/30/2016 9:47 CDT Novi Coma Eye Opening Response Tavo : Spontaneously Best Verbal Response Novi : Oriented Best Motor Response Tavo : Obeys simple commands Tavo Coma Score : 15 REGINO MARTINEZ 03/30/2016 9:47 CDT Psycho/Emotional Affect/Behavior : Calm, Cooperative, Appropriate Pain Symptoms : Yes REGINO MARTINEZ 03/30/2016 9:47 CDT Coping Grid Identifies effective strategies : Yes Uses effective strategies : Yes Reports increase in psychological comfort : Yes Indicates sense of control : Yes Stressors perceived within control : Yes Stable mood with appropriate affect : Yes Behaviors indicate use of coping mechanism : Yes REGINO MARTINEZ 03/30/2016 9:47 CDT Safety Grid Vision, Hearing, Mobility Adequate to Meet Safety Needs : Yes REGINO MARTINEZ 03/30/2016 9:47 CDT Pain Scale Pain Scale Verbal 0-10 : Open REGINO MARTINEZ 03/30/2016 9:47 CDT Pain Pain Assessment Grid Pain 1 Location : Neck Laterality : Bilateral Intensity : 3 Time Pattern : Acute Quality : Aching Aggravating Factors : Movement Alleviating Factors : None Associated Symptoms : None REGINO MARTINEZ RN - 03/30/2016 9:47 CDT Gastrointestinal GI Patient Stated Symptoms : Other: abdominal pressure Abdomen Description : Flat, Symmetric Abdomen Palpation : Non-Tender, Soft Bowel Movement Last Date : 03/27/2016 CDT Bowel Sounds All Quadrants : Present Stool Color : Brown Stool Description : Loose Passing Flatus : Yes REGINO MARTINEZ RN - 03/30/2016 9:47 CDT Genitourinary Patient Stated Symptoms : None Urinary Elimination : Voiding, no difficulties Bladder Distention : Absent REGINO MARTINEZ RN - 03/30/2016 9:47 CDT Integumentary Integumentary Patient Stated Symptoms : None Skin Turgor : Elastic Skin Integrity : Intact Mucous Membrane Color : [place] Mucous Membrane Description : Moist Skin Color : Normal for ethnicity Skin Description : Normal Skin Temperature : Warm REGINO MARTINEZ RN - 03/30/2016 9:47 CDT Jose Enrique Sensory Perception Jose Enrique : No impairment Moisture Jose Enrique : Rarely moist Activity Jose Enrique : Walks frequently Mobility Jose Enrique : No limitations Nutrition Jose Enrique : Adequate Friction and Shear Jose Enrique : No apparent problem Jose Enrique Score : 22 REGINO MARTINEZ RN - 03/30/2016 9:47 CDT Musculoskeletal Activity Tolerance : Without distress REGINO MARTINEZ RN - 03/30/2016 9:47 CDT Peripheral IV Peripheral IV Assess/Intervention Grid Peripheral IV #1 IV Activity : Assessment Date of Insertion : 03/28/2016 CDT IV Site : Forearm Laterality : Right Catheter Size : 20 Site Condition : No complications Drainage Description : None Infiltration Score : 0 Phlebitis Score : 0 Primary Tubing Changed : 03/29/2016 CDT Dressing/ Activity : Dry, Intact, Transparent Flow/ Patency : No complications REGINO MARTINEZ RN - 03/30/2016 9:47 CDT Hendrich II Fall Risk Confusion/Disorientation Hendrich : No Depression Fall Risk Hendrich : No Altered Elimination Fall Risk Hendrich : No Dizziness/Vertigo Fall Risk Hendrich : No Gender, Male Fall Risk Hendrich : Yes Prescribed Antiepileptics Hendrich : No Prescribed Benzodiazepines Hendrich : No Rising From Chair Fall Risk Hendrich : Able to rise in a single movement, no loss of balance with steps Fall Risk Score Hendrich II : 1 REGINO MARTINEZ RN - 03/30/2016 9:47 CDT Safe Patient Handling Safe Pt Handling Independent : Yes - No equipment needed Safe Pt Handling Equipment Rec : No Equipment Needed REGINO MARTINEZ RN - 03/30/2016 9:47 CDT Education General Patient Education Powergrid Topics : Medication dosage, route, scheduling, Pain Management, Patient rights and responsibilities,Plan of care, Safety, fall, Unit procedures, Use of pain scale(s) Individuals Taught : Patient Barriers to Learning : None evident Teaching Method : Demonstration, Explanation Teaching Evaluation : Verbalizes understanding REGINO MARTINEZ RN - 03/30/2016 9:47 CDT Source: [employer] Document Id: [id number] CDT!137 Regino Cortez R.N. - 03/30/2016 9:18 AM CDT Adult Activities of Daily Living Adult Activities of Daily Living Entered On: 03/30/2016 9:19 CDT Performed On: 03/30/2016 9:18 CDT by REGINO MARTINEZ RN ADLs I Patient Position : Elevate head of bed 30 degrees, Semi-Lopez's Activity Status ADL : Up ad surya Activity Assistance : Independent Assistive Device : None Repositioning/Pressure Reducing Devices : Pillow Ambulation Patient Effort : Good Range of Motion LUE : Active Range of Motion RUE : Active Range of Motion LLE : Active Range of Motion RLE : Active REGINO MARTINEZ RN - 03/30/2016 9:18 CDT ADLs II Bowel Movement Last Date : 03/27/2016 CDT Standard Safety : Bed in low position, Call device within reach, ID band check, Non-Slip footwear, Rounds every 1 hour, Upper/Half-length side-rails up, Wheels locked REGINO MARTINEZ RN - 03/30/2016 9:18 CDT Source: [employer] Document Id: [id number] CDT!15 Hilary Hall R.N. - 03/29/2016 7:30 PM CDT Adult Activities of Daily Living Adult Activities of Daily Living Entered On: 03/29/2016 19:50 CDT Performed On: 03/29/2016 19:30 CDT by HILARY BROWER RN ADLs I Patient Position : High Lopez's Activity Assistance : Independent Assistive Device : None Ambulation Patient Effort : Good Range of Motion LUE : Active Range of Motion RUE : Active Range of Motion LLE : Active Range of Motion RLE : Active HILARY BROWER RN - 03/29/2016 19:50 CDT ADLs II Elimination Assistance Offered Q2H : Independent Bowel Movement Last Date : 03/27/2016 CDT Standard Safety : Bed in low position, Call device within reach, ID band check, Non-Slip footwear, Rounds every 1 hour, Upper/Half-length side-rails up, Wheels locked HILARY BROWER RN - 03/29/2016 19:50 CDT ADLs Adult Nutrition Diet Type : Diet -- 03/29/16 11:18:00 CDT, Transition Feeding Assistance : Independent HILARY BROWER RN - 03/29/2016 19:50 CDT Source: [employer] Document Id: [id number] CDT!17 Miscellaneous - Hilary Brower RDevi - 03/29/2016 7:30 PM CDT Adult Ongoing Assessment Adult Ongoing Assessment Entered On: 03/29/2016 19:53 CDT Performed On: 03/29/2016 19:30 CDT by HILARY BROWER RN Respiratory Respiratory Patient Stated Symptoms : None Respirations : Unlabored Distress : None Respiratory Pattern : Regular All Lobes Breath Sounds : Clear Cough and Deep Breathe : Done Cough : None Airway : Patent HILARY BROWER RN - 03/29/2016 19:50 CDT Cardiovascular CV Patient Stated Symptoms : None Heart Rhythm : Regular Heart Sounds ICU : S1S2 Antiembolism Device Yes/No : No Nail Bed Color : [place] Capillary Refill : Less than 2 seconds Edema Assessment : No Monitored Rhythm : Yes Pacer : No HILARY BROWER 03/29/2016 19:50 CDT Posttibial Pulse, Left : 2+ Normal Posttibial Pulse, Right : 2+ Normal Dorsalis Pedis Pulse, Left : 2+ Normal Dorsalis Pedis Pulse, Right : 2+ Normal BROWERHILARY MONTES 03/29/2016 19:50 CDT Skin Color : Normal for ethnicity Skin Description : Normal Skin Temperature : Warm Activity Tolerance : Without distress LEONARDA HILARY Solis 03/29/2016 19:50 CDT Neurological Neuro Patient Stated Symptoms : None Orientation : Oriented x 3 Level of Consciousness : Alert Gait : Steady Swallowing Difficulty/Aspiration Risk : None Last Well Time Known : Not applicable LEONARDA HILARY Solis 03/29/2016 19:50 CDT Novi Coma Eye Opening Response Tavo : Spontaneously Best Verbal Response Novi : Oriented Best Motor Response Novi : Obeys simple commands Tavo Coma Score : 15 BROWER HILARY Solis 03/29/2016 19:50 CDT Psycho/Emotional Affect/Behavior : Calm, Cooperative, Appropriate Pain Symptoms : No BROWER HILARY Solis 03/29/2016 19:50 CDT Coping Grid Identifies effective strategies : Yes Uses effective strategies : Yes Reports increase in psychological comfort : Yes Indicates sense of control : Yes Stressors perceived within control : Yes Stable mood with appropriate affect : Yes Behaviors indicate use of coping mechanism : Yes Family supportive and involved in care : Yes Values/Beliefs incorporated appropriately : Yes LEONARDA HILARY Solsi 03/29/2016 19:50 CDT Safety Grid Vision, Hearing, Mobility Adequate to Meet Safety Needs : Yes BORWER HILARY Solis 03/29/2016 19:50 CDT Gastrointestinal GI Patient Stated Symptoms : Other: abdominal pressure Abdomen Description : Flat Abdomen Palpation : Non-Tender, Soft Bowel Movement Last Date : 03/27/2016 CDT Bowel Sounds All Quadrants : Hypoactive LEONARDA HILARY Solis 03/29/2016 19:50 CDT Genitourinary Urinary Elimination : Voiding, no difficulties Voiding Difficulties : Oliguria Urine Color : Vale BROWER HILARY Solis LUKE 03/29/2016 19:50 CDT Integumentary Integumentary Patient Stated Symptoms : None Skin Turgor : Elastic Skin Integrity : Intact Mucous Membrane Color : [place] Mucous Membrane Description : Moist Skin Color : Normal for ethnicity Skin Description : Normal Skin Temperature : Warm BROWERHILARY RN - 03/29/2016 19:50 CDT Jose Enrique Sensory Perception Jose Enrique : No impairment Moisture Jose Enrique : Rarely moist Activity Jose Enrique : Walks frequently Mobility Jose Enrique : No limitations Nutrition Jose Enrique : Adequate Friction and Shear Jose Enrique : No apparent problem Jose Enrique Score : 22 BROWERHILARY RN - 03/29/2016 19:50 CDT Musculoskeletal Musculoskeletal Patient Stated Symptoms : None Activity Tolerance : Without distress HILARY BROWER RN - 03/29/2016 19:50 CDT Peripheral IV Peripheral IV Assess/Intervention Grid Peripheral IV #1 IV Activity : Assessment Date of Insertion : 03/28/2016 CDT IV Site : Forearm Laterality : Right Catheter Size : 20 Site Condition : No complications Drainage Description : None Infiltration Score : 0 Phlebitis Score : 0 Primary Tubing Changed : 03/29/2016 CDT Dressing/ Activity : Dry, Intact, Transparent Flow/ Patency : No complications HILARY BROWER RN - 03/29/2016 19:50 CDT Hendrich II Fall Risk Confusion/Disorientation Hendrich : No Depression Fall Risk Hendrich : No Altered Elimination Fall Risk Hendrich : No Dizziness/Vertigo Fall Risk Hendrich : No Gender, Male Fall Risk Hendrich : Yes Prescribed Antiepileptics Hendrich : No Prescribed Benzodiazepines Hendrich : No Rising From Chair Fall Risk Hendrich : Pushes up, successful in one attempt Fall Risk Score Hendrich II : 2 BROWERHILARY RN - 03/29/2016 19:50 CDT Safe Patient Handling Safe Pt Handling Independent : Yes - No equipment needed Safe Pt Handling Equipment Rec : No Equipment Needed HILARY BROWER RN - 03/29/2016 19:50 CDT Education General Patient Education Powergrid Topics : Diagnostic results, Disease process, Invasive line care, Medication dosage, route, scheduling, Nutrition/Diet, Pain Management, Patient rights and responsibilities, Plan of care, Treatments/Procedures/Tests, Unit procedures, When to call health care provider Individuals Taught : Patient Barriers to Learning : None evident Teaching Method : Explanation Teaching Evaluation : Able to teach back, Verbalizes understanding HILARY BROWER RN - 03/29/2016 19:50 CDT Source: [facility] POWERCHART Document Id: [id number] CDT!122 Christi - Mary Rodrigues RDevi - 03/29/2016 4:02 PM CDT Adult Activities of Daily Living Adult Activities of Daily Living Entered On: 03/29/2016 17:28 CDT Performed On: 03/29/2016 16:02 CDT by MARY RODRIGUES RN ADLs I Patient Position : Lying on right side Activity Status ADL : Up ad surya Activity Assistance : Independent Assistive Device : None Repositioning/Pressure Reducing Devices : Pillow Ambulation Patient Effort : Good Antiembolism Device : Sequential Compression Device Antiembolism Device Laterality : Bilateral Antiembolism Device Removal Reason : Activity MARY RODRIGUES RN - 03/29/2016 17:26 CDT ADLs II Elimination Assistance Offered Q2H : Independent Bowel Movement Last Date : 03/27/2016 CDT Standard Safety : Bed in low position, Call device within reach, ID band check, Non-Slip footwear, Rounds every 1 hour, Toilet every 2 hours, Wheels locked MARY RODRIGUES RN - 03/29/2016 17:26 CDT ADLs Adult Nutrition Diet Type : Diet -- 03/29/16 11:18:00 CDT, Transition Feeding Assistance : Independent MARY RODRIGUES RN - 03/29/2016 17:26 CDT [facility] Document Id: [id number] CDT!18 Madonnacelljoanne - Mary Rodrigues RJairoNJairo - 03/29/2016 4:02 PM CDT Adult Ongoing Assessment Adult Ongoing Assessment Entered On: 03/29/2016 17:39 CDT Performed On: 03/29/2016 16:02 CDT by MARY RODRIGUES RN Respiratory Respiratory Patient Stated Symptoms : None Respirations : Unlabored Distress : None Respiratory Pattern : Regular All Lobes Breath Sounds : Clear Cough and Deep Breathe : Done Cough : None Sputum Amount : None Suction : None Airway : Patent MARY RODRIGUES Will RN - 03/29/2016 17:29 CDT Cardiovascular CV Patient Stated Symptoms : None Heart Rhythm : Regular Heart Sounds ICU : S1S2 Antiembolism Device Yes/No : Yes Nail Bed Color : [place] Capillary Refill : Less than 2 seconds Edema Assessment : No JOSÉ MIGUEL RODRIGUESNIEmmanuel Solis RN - 03/29/2016 17:29 CDT Radial Pulse, Left : 2+ Normal Radial Pulse, Right : 2+ Normal Dorsalis Pedis Pulse, Left : 2+ Normal Dorsalis Pedis Pulse, Right : 2+ Normal YUDY MARY Will RN - 03/29/2016 17:29 CDT Skin Color : Normal for ethnicity Skin Description : Normal Skin Temperature : Warm Activity Tolerance : Without distress MARY RODRIGUES RN - 03/29/2016 17:29 CDT Antiembolism Device Antiembolism Device : Sequential Compression Device Antiembolism Device Laterality : Bilateral Antiembolism Device Removal Reason : Activity Antiembolism Device Status : Off MARY RODRIGUES RN - 03/29/2016 17:29 CDT Neurological Neuro Patient Stated Symptoms : Drowsiness Orientation : Oriented x 3 Level of Consciousness : Alert, Drowsy Gait : Steady Swallowing Difficulty/Aspiration Risk : None Last Well Time Known : Not applicable JOSÉ MIGUEL RODRIGUESNIEmmanuel Solis RN - 03/29/2016 17:29 CDT Psycho/Emotional Affect/Behavior : Calm, Cooperative, Appropriate Pain Symptoms : No JOSÉ MIGUEL RODRIGUESNIEmmanuel Solis RN - 03/29/2016 17:29 CDT Coping Grid Identifies effective strategies : Yes Reports increase in psychological comfort : Yes Indicates sense of control : Yes MARY RODRIGUES RN - 03/29/2016 17:29 CDT Safety Grid Vision, Hearing, Mobility Adequate to Meet Safety Needs : Yes JOSÉ MIGUEL RODRIGUESNIEmmanuel Solis RN - 03/29/2016 17:29 CDT Gastrointestinal GI Patient Stated Symptoms : Vomiting, Other: vomiting w/o nausea Abdomen Description : Flat Abdomen Palpation : Non-Tender, Soft Bowel Movement Last Date : 03/27/2016 CDT Bowel Sounds All Quadrants : Present Passing Flatus : Yes MARY RODRIGUES RN - 03/29/2016 17:29 CDT Nutrition Appetite : Fair Eating Difficulties : Other: vomiting MARY RDORIGUES RN - 03/29/2016 17:29 CDT Genitourinary Patient Stated Symptoms : None Urinary Elimination : Voiding, no difficulties Urine Color : Vale MARY RODRIGUES RN - 03/29/2016 17:29 CDT Integumentary Integumentary Patient Stated Symptoms : None Skin Turgor : Elastic Skin Integrity : Intact Mucous Membrane Color : [place]ona Mucous Membrane Description : Moist MARY RODRIGUES RN - 03/29/2016 17:29 CDT Jose Enrique Sensory Perception Jose Enrique : No impairment Moisture Jose Enrique : Rarely moist Activity Jose Enrique : Walks frequently Mobility Jose Enrique : No limitations Nutrition Jose Enrique : Adequate Friction and Shear Jose Enrique : No apparent problem Jose Enrique Score : 22 MARY RODRIGUES RN - 03/29/2016 17:29 CDT Musculoskeletal Musculoskeletal Patient Stated Symptoms : None Activity Tolerance : Without distress MARY RODRIGUES RN - 03/29/2016 17:29 CDT Peripheral IV Peripheral IV Assess/Intervention Grid Peripheral IV #1 IV Activity : Assessment Date of Insertion : 03/28/2016 CDT IV Site : Forearm Laterality : Right Catheter Size : 20 Site Condition : No complications Drainage Description : None Infiltration Score : 0 Phlebitis Score : 0 Dressing/ Activity : Dry, Intact, Transparent Flow/ Patency : No complications MARY RODRIGUES RN - 03/29/2016 17:29 CDT Hendrich II Fall Risk Confusion/Disorientation Hendrich : No Depression Fall Risk Hendrich : No Altered Elimination Fall Risk Hendrich : No Dizziness/Vertigo Fall Risk Hendrich : No Gender, Male Fall Risk Hendrich : Yes Prescribed Antiepileptics Hendrich : No Prescribed Benzodiazepines Hendrich : No Rising From Chair Fall Risk Hendrich : Able to rise in a single movement, no loss of balance with steps Fall Risk Score Hendrich II : 1 MARY RODRIGUES RN - 03/29/2016 17:29 CDT Safe Patient Handling Safe Pt Handling Independent : Yes - No equipment needed Safe Pt Handling Equipment Rec : No Equipment Needed Repositioning Device Recommended : No MARY RODRIGUES RN - 03/29/2016 17:29 CDT Education General Patient Education Powergrid Topics : Medication dosage, route, scheduling, Plan of care, Unit procedures Individuals Taught : Patient Barriers to Learning : None evident Teaching Method : Explanation Teaching Evaluation : Verbalizes understanding MARY RODRIGUES RN - 03/29/2016 17:29 CDT [facility] POWER[facility] Document Id: [id number] CDT!117 Miscellaneous - Mary Rodrigues R.N. - 03/29/2016 1:52 PM CDT Communication Note Document Has Been Updated Communication Note Entered On: 03/29/2016 13:53 CDT Performed On: 03/29/2016 13:52 CDT by MARY RODRIGUES RN Communication Intervention : No New Orders MARY RODRIGUES RN - 03/29/2016 13:59 CDT Response : No new orders, provider wants to continue conservative management. Will continue to monitor patient and assess the need for further measures. MARY RODRIUGES RN - 03/29/2016 14:25 CDT Subject of Note : M.D. Notification Assessment Communication Note : Patient has had two emesis since 1100. States not feeling nauseated,just vomits unexpectedly. Zofran previously given. Name of provider notified : LISHA HAMMER PA-C Name of provider notified d/t : 03/29/2016 13:53 CDT MARY RODRIGUES RN - 03/29/2016 13:52 CDT Source: [facility] Document Id: [id number] CDT!3 Miscellaneous - Mary Rodrigues R.N. - 03/29/2016 12:30 PM CDT Focused Assessment - Genitourinary Focused Assessment - Genitourinary Entered On: 03/29/2016 12:30 CDT Performed On: 03/29/2016 12:30 CDT by MARY RODRIGUES RN Genitourinary Voiding Difficulties : Oliguria Urine Color : Vale Urine Description : Clear MARY RODRIGUES RN - 03/29/2016 12:30 CDT [facility] Document Id: [id number] CDT!5 Christi - Mary Rodrigues R.N. - 03/29/2016 8:20 AM CDT Adult Activities of Daily Living Adult Activities of Daily Living Entered On: 03/29/2016 10:20 CDT Performed On: 03/29/2016 8:20 CDT by MARY RODRIGUES RN ADLs I Patient Position : Lying on right side Activity Status ADL : Up ad surya Activity Assistance : Independent Assistive Device : None Antiembolism Device : Sequential Compression Device Antiembolism Device Laterality : Bilateral Antiembolism Device Removal Reason : Activity MARY RODRIGUES RN - 03/29/2016 10:16 CDT ADLs II Elimination Assistance Offered Q2H : Independent Bowel Movement Last Date : 03/27/2016 CDT Standard Safety : Bed in low position, Call device within reach, ID band check, Non-Slip footwear, Rounds every 1 hour, Toilet every 2 hours, Upper/Half-length side-rails up, Wheels locked MARY RODRIGUES RN - 03/29/2016 10:16 CDT ADLs Adult Nutrition Diet Type : Diet - NPO -- 03/29/16 3:40:00 CDT, Except for Medications MARY RODRIGUES RN - 03/29/2016 10:16 CDT Source: [facility] POWERCHART Document Id: [id number] CDT!15 Madonnacelljoanne - Mary Rodrigues R.N. - 03/29/2016 8:20 AM CDT Adult Ongoing Assessment Adult Ongoing Assessment Entered On: 03/29/2016 10:25 CDT Performed On: 03/29/2016 8:20 CDT by MARY RODRIGUES RN Respiratory Cough and Deep Breathe : Done Cough : None Sputum Amount : None Suction : None Airway : Patent MARY RODRIGUES RN - 03/29/2016 10:30 CDT Respiratory Patient Stated Symptoms : None Respirations : Unlabored Distress : None Respiratory Pattern : Regular All Lobes Breath Sounds : Clear MARY RODRIGUES Will RN - 03/29/2016 10:24 CDT Cardiovascular CV Patient Stated Symptoms : None Heart Rhythm : Regular Heart Sounds ICU : S1S2 Antiembolism Device Yes/No : Yes Nail Bed Color : Savona Capillary Refill : Less than 2 seconds Edema Assessment : No JOSÉ MIGUEL RODRIGUESNIEmmanuel Solis RN - 03/29/2016 10:30 CDT Radial Pulse, Left : 2+ Normal Radial Pulse, Right : 2+ Normal Dorsalis Pedis Pulse, Left : 2+ Normal Dorsalis Pedis Pulse, Right : 2+ Normal JOSÉ MIGUEL RODRIGUESNIEmmanuel Solis RN - 03/29/2016 10:30 CDT Skin Color : Normal for ethnicity Skin Description : Normal Skin Temperature : Warm Activity Tolerance : Without distress MARY RODRIGUES RN - 03/29/2016 10:30 CDT Antiembolism Device Antiembolism Device : Sequential Compression Device Antiembolism Device Laterality : Bilateral Antiembolism Device Removal Reason : Activity Antiembolism Device Status : Off MARY RODRIGUES RN - 03/29/2016 10:30 CDT Neurological Neuro Patient Stated Symptoms : Drowsiness Orientation : Oriented x 3 Level of Consciousness : Alert Gait : Steady Swallowing Difficulty/Aspiration Risk : None Last Well Time Known : Not applicable MARY RODRIGUES RN - 03/29/2016 10:30 CDT Psycho/Emotional Affect/Behavior : Calm, Cooperative, Appropriate Pain Symptoms : No MARY RODRIGUES RN - 03/29/2016 10:30 CDT Coping Grid Identifies effective strategies : Yes Stressors perceived within control : Yes MARY RODRIGUES RN - 03/29/2016 10:30 CDT Safety Grid Vision, Hearing, Mobility Adequate to Meet Safety Needs : Yes MARY RODRIGUES RN - 03/29/2016 10:30 CDT Gastrointestinal GI Patient Stated Symptoms : Other: pressure in lower abdomen Abdomen Description : Flat Abdomen Palpation : Firm, Non-Tender Bowel Movement Last Date : 03/27/2016 CDT Bowel Sounds All Quadrants : Hypoactive Passing Flatus : No MARY RODRIGUES RN - 03/29/2016 10:30 CDT Nutrition Appetite : Other: NPO MARY RODRIGUES RN - 03/29/2016 10:30 CDT Genitourinary Patient Stated Symptoms : None Urinary Elimination : Voiding, no difficulties MARY RODRIGUES RN - 03/29/2016 10:30 CDT Integumentary Integumentary Patient Stated Symptoms : None Skin Turgor : Elastic Skin Integrity : Intact Mucous Membrane Color : [place] Mucous Membrane Description : Moist MARY RODRIGUES RN - 03/29/2016 10:30 CDT Jose Enrique Sensory Perception Jose Enrique : No impairment Moisture Jose Enrique : Rarely moist Activity Jose Enrique : Walks frequently Mobility Jose Enrique : No limitations Nutrition Jose Enrique : Adequate Friction and Shear Jose Enrique : No apparent problem Jose Enrique Score : 22 MARY RODRIGUES RN - 03/29/2016 10:30 CDT Musculoskeletal Musculoskeletal Patient Stated Symptoms : None Activity Tolerance : Without distress MARY RODRIGUES RN - 03/29/2016 10:30 CDT Musculoskeletal Strength Grid Left Upper Extremity Right Upper Extremity Left Lower Extremity Right Lower Extremity Strength : Strong to gravity and resistance Strong to gravity and resistance Strong to gravity and resistance Strong to gravity and resistance Sensation : Normal, Intact Normal, Intact Normal, Intact Normal, Intact MARY RODRIGUES RN - 03/29/2016 10:30 CDT MARY RODRIGUES RN - 03/29/2016 10:30 CDT MARY RODRIGUES RN - 03/29/2016 10:30 CDT MARY RODRIGUES RN - 03/29/2016 10:30 CDT Peripheral IV Peripheral IV Assess/Intervention Grid Peripheral IV #1 IV Activity : Assessment Date of Insertion : 03/28/2016 CDT IV Site : Forearm Laterality : Right Catheter Size : 20 Site Condition : No complications Drainage Description : None Infiltration Score : 0 Phlebitis Score : 0 Dressing/ Activity : Dry, Intact, Transparent Flow/ Patency : No complications MARY RODRIGUES RN - 03/29/2016 10:30 CDT Hendrich II Fall Risk Confusion/Disorientation Hendrich : No Depression Fall Risk Hendrich : No Altered Elimination Fall Risk Hendrich : No Dizziness/Vertigo Fall Risk Hendrich : No Gender, Male Fall Risk Hendrich : Yes Prescribed Antiepileptics Hendrich : No Prescribed Benzodiazepines Hendrich : No Rising From Chair Fall Risk Hendrich : Able to rise in a single movement, no loss of balance with steps Fall Risk Score Hendrich II : 1 MARY RODRIGUES RN - 03/29/2016 10:30 CDT Safe Patient Handling Safe Pt Handling Independent : Yes - No equipment needed Safe Pt Handling Equipment Rec : No Equipment Needed Repositioning Device Recommended : No MARY RODRIGUES RN - 03/29/2016 10:30 CDT Education General Patient Education Powergrid Topics : Medication dosage, route, scheduling, Nutrition/Diet, Plan of care Individuals Taught : Patient Barriers to Learning : Difficulty concentrating Teaching Method : Explanation Teaching Evaluation : Verbalizes understanding MARY RODRIGUES RN - 03/29/2016 10:30 CDT Source: [facility] POWERCHART Document Id: [id number] CDT!127 Miscellaneous - Lisha Kan R.N. - 03/29/2016 3:45 AM CDT Basic Admission Information Document Has Been Updated Basic Admission Information Entered On: 03/29/2016 3:47 CDT Performed On: 03/29/2016 3:45 CDT by LISHA KAN RN Vital Signs Temperature Core : 37.9 DegC(Converted to: 100.2 DegF) Peripheral Pulse Rate : 93 /min Respiratory Rate : 20 /min Systolic Blood Pressure : 136 mmHg Diastolic Blood Pressure : 75 mmHg NIBP Mean : 95 mmHg SpO2 : 98 % Oxygen Therapy : Room air Height : 167 cm(Converted to: 5 ft 6 inch(es)) Actual Weight : 58.6 kg Actual Weight Conversion to Pounds : 128.92 lb Weight Source : Standing scale Height Source : Stated Body Mass Index : 21.01 kg/m2 LISHA KAN RN - 03/29/2016 3:45 CDT Allergy Rule (As Of: 03/29/2016 03:47:16 CDT) Allergies (Active) No Known Medication Allergies Estimated Onset Date: Unspecified ; Created By: MARISA ST RN; Reaction Status: Active ; Category: Drug ; Substance: No Known Medication Allergies ; Type: Allergy ; Updated By: MARISA ST RN; Reviewed Date: 03/29/2016 2:59 CDT Valuables/Belongings Valuables/Belongings Grid Valuables at Bedside Valuables with Patient Clothes, Patient Valuables : Shoes, Skirt Pants, Undergarments Electronic Devices : Cell phone LISHA KAN RN - 03/29/2016 3:45 CDT LISHA KAN RN - 03/29/2016 3:45 CDT Room Orientation/Facility Policy Reviewed : Yes Home Medication Disposition : None brought in with patient LISHA KAN RN - 03/29/2016 3:45 CDT Source: [facility] POWERCHART Document Id: [id number] CDT!25 Miscellaneous - Lisha Kan R.N. - 03/29/2016 3:43 AM CDT Adult Admission Assessment Adult Admission Assessment Entered On: 03/29/2016 3:45 CDT Performed On: 03/29/2016 3:43 CDT by LISHA KAN RN Respiratory Respiratory Patient Stated Symptoms : None Respirations : Unlabored Distress : None Respiratory Pattern : Regular All Lobes Breath Sounds : Clear Cough : None LISHA KAN RN - 03/29/2016 3:43 CDT Cardiovascular CV Patient Stated Symptoms : None Heart Rhythm : Regular Antiembolism Device Yes/No : No Nail Bed Color : [place]ona Capillary Refill : Less than 2 seconds Edema Assessment : No LISHA KAN RN - 03/29/2016 3:43 CDT Neurological Neuro Patient Stated Symptoms : None Orientation : Oriented x 3 Level of Consciousness : Alert Gait : Steady Swallowing Difficulty/Aspiration Risk : None Last Well Time Known : Not applicable LISHA KAN RN - 03/29/2016 3:43 CDT Psycho/Emotional Pain Symptoms : No LISHA KAN RN - 03/29/2016 3:43 CDT Gastrointestinal GI Patient Stated Symptoms : None Abdomen Description : Symmetric Abdomen Palpation : Soft Bowel Movement Last Date : 03/27/2016 CDT Bowel Sounds All Quadrants : Present LISHA KAN RN - 03/29/2016 3:43 CDT Genitourinary Patient Stated Symptoms : None Urinary Elimination : Voiding, no difficulties LISHA KAN RN - 03/29/2016 3:43 CDT Integumentary Integumentary Patient Stated Symptoms : None Skin Turgor : Elastic Skin Integrity : Intact Mucous Membrane Color : [place]ona Mucous Membrane Description : Moist Skin Color : Normal for ethnicity Skin Description : Normal Skin Temperature : Warm LISHA KAN RN - 03/29/2016 3:43 CDT Jose Enrique Sensory Perception Jose Enrique : No impairment Moisture Jose Enrique : Rarely moist Activity Jose Enrique : Walks frequently Mobility Jose Enrique : No limitations Nutrition Jose Enrique : Adequate Friction and Shear Jose Enrique : No apparent problem Jose Enrique Score : 22 LISHA KAN RN - 03/29/2016 3:43 CDT Peripheral IV Peripheral IV Assess/Intervention Grid Peripheral IV #1 IV Activity : Other facility Date of Insertion : 03/28/2016 CDT IV Site : Forearm Laterality : Right Catheter Size : 20 LISHA KAN RN - 03/29/2016 3:43 CDT Hendrich II Fall Risk Confusion/Disorientation Hendrich : No Depression Fall Risk Hendrich : No Altered Elimination Fall Risk Hendrich : No Dizziness/Vertigo Fall Risk Hendrich : No Gender, Male Fall Risk Hendrich : Yes Prescribed Antiepileptics Hendrich : No Prescribed Benzodiazepines Hendrich : No Rising From Chair Fall Risk Hendrich : Able to rise in a single movement, no loss of balance with steps Fall Risk Score Hendrich II : 1 LISHA KAN RN - 03/29/2016 3:43 CDT Safe Patient Handling Safe Pt Handling Independent : Yes - No equipment needed Safe Pt Handling Equipment Rec : No Equipment Needed LISHA KAN RN - 03/29/2016 3:43 CDT Education General Patient Education Powergrid Topics : Activity limitations/expectations, Medication dosage, route, scheduling, Pain Management, Plan of care, Safety, fall, Turn/Cough/Deep breathing, Unit procedures, Use of pain scale(s) Individuals Taught : Patient Barriers to Learning : None evident Teaching Method : Explanation Teaching Evaluation : Verbalizes understanding LISHA KAN RN - 03/29/2016 3:43 CDT Source: [facility] POWERCHART Document Id: [id number] CDT!79 Miscellaneous - Lisha Kan R.N. - 03/29/2016 3:38 AM CDT Adult Admission History Document Has Been Updated Adult Admission History Entered On: 03/29/2016 3:41 CDT Performed On: 03/29/2016 3:38 CDT by LISHA KAN RN General Info Admitted From : Non-Health Care Facility Point of Origin Mode of Arrival : Cart Present in Room During Exam/Procedure : EMS Preferred Communication Mode : Verbal Information Given By : Patient Languages : Czech Is Patient Female and 13-50 no hysterectomy : No LISHA KAN RN - 03/29/2016 3:38 CDT Allergy (As Of: 03/29/2016 03:41:35 CDT) Allergies (Active) No Known Medication Allergies Estimated Onset Date: Unspecified ; Created By: MARISA ST RN; Reaction Status: Active ; Category: Drug ; Substance: No Known Medication Allergies ; Type: Allergy ; Updated By: MARISA ST RN; Reviewed Date: 03/29/2016 2:59 CDT Nutrition Have you recently lost weight without trying? : No Decreased Appetite Nutrition : No Tube Feedings or Parenteral Nutrition : No MST Score : 0 Home Diet : Regular Appetite : Poor (Comment: due to admission reason [LISHA KAN RN - 03/29/2016 3:38 CDT] ) Eating Difficulties : None Feeding Ability : Complete independence LISHA KAN RN - 03/29/2016 3:38 CDT Home Environment Current Daily Living Assistance : None Living Situation : Home independently Home Equipment : None Sensory Deficits : None Mobility Assistance Prior to Admission : Independent Current Home Treatments : None Professional Skilled Services : None Special Services and Community Resources : None LISHA KAN RN - 03/29/2016 3:38 CDT Dependent Habits Alcohol Use : Yes LISHA KAN RN - 03/29/2016 3:38 CDT AUDIT Tool How Often Do You Have A Drink : 2 to 4 times a month How Many Drinks in a Day When Drinking : 5 or 6 Six or More Drinks On One Occassion : Less than monthly Audit Phase 1 Score : 5 LISHA KAN RN - 03/29/2016 3:38 CDT Psychosocial Adult Domestic Abuse Concerns : None Concerns About Family Members at Home : No Emotional Support Available : Yes Caregiver Post Hospital Care : Unknown Chronic/Terminal Illness Freq Visits : No Financial Concerns Regarding Hospitalization/Discharge : Yes Behavioral Health Screen/Safety Assmt : No Coping : Effective Stressors : Hospitalization Zoroastrian Preference : Unknown LISHA KAN RN - 03/29/2016 3:38 CDT Advance Directive Advanced Directives : No Advance Directive Additional Information : No LISHA KAN RN - 03/29/2016 3:38 CDT Educ Needs Patient/Family Education Needs : Activity limitations/expectations, Medications, Pain management, Plan of care, Safety, fall, Treatments/Procedures/Tests LISHA KAN RN - 03/29/2016 3:38 CDT Learning Style Preference Adult Grid Patient : Verbal explanation Family : None LISHA KAN RN - 03/29/2016 3:38 CDT [facility] Document Id: [id number] CDT!53 documented in this encounter Plan of Treatment Upcoming Encounters Date Type Specialty Care Team Description 08/25/2022 Appointment Laboratory Medicine Cabrera Chavarria M.D. [address] [place] [address] [phone] 08/25/2022 Appointment Radiology Cabrera Chavarria M.D. [address] [place] [address] [phone] 08/25/2022 Comprehensive Visit Spine Chauncey Emanuel M.D. [address] [place] [address] [phone] 08/25/2022 Office Visit Gastroenterology and Cabrera Chavarria Hepatology Donaldo [address] [place] [phone] documented as of this encounter Procedures Procedure Name Priority Date/Time Associated Comments Diagnosis FL ESOPHAGRAM AND Routine 04/01/2016 12:41 Result s for this UPPER GI SINGLE PM CDT procedure ar e in CONTRAST WITH SMALL the resu lts BOWEL section. DX ABDOMEN SUPINE WITH Routine 03/30/2016 10:23 R esults for this UPRIGHT OR DECUBITUS 2 AM CDT proce dure are in VIEWS the results section. AUTOMATED Routine 03/30/2016 8:15 AM Results f or this DIFFERENTIAL, B CDT procedure ar e in the results section. CBC WITH DIFFERENTIAL, Routine 03/30/2016 8:15 AM Results for this B CDT procedure are i n the results section. PHOSPHORUS Routine 03/30/2016 8:15 AM Results f or this (INORGANIC), S CDT procedure are in the results section. MAGNESIUM, S Routine 03/30/2016 8:15 AM Results f or this CDT procedure are i n the results section. LIPASE, S/P Routine 03/30/2016 8:15 AM Results f or this CDT procedure are i n the results section. BILIRUBIN DIRECT, S/P Routine 03/30/2016 8:15 AM Results for this CDT procedure are i n the results section. COMPREHENSIVE Routine 03/30/2016 8:15 AM Results for this METABOLIC PANEL, S/P CDT procedu re are in the results section. AUTOMATED Routine 03/29/2016 10:32 Results for this DIFFERENTIAL, B AM CDT procedure ar e in the results section. CBC WITH DIFFERENTIAL, Routine 03/29/2016 10:32 R esults for this B AM CDT procedure are i n the results section. LIPASE, S/P Routine 03/29/2016 10:32 Results for this AM CDT procedure are i n the results section. BILIRUBIN DIRECT, S/P Routine 03/29/2016 10:32 Re sults for this AM CDT procedure are i n the results section. COMPREHENSIVE Routine 03/29/2016 10:32 Results fo r this METABOLIC PANEL, S/P AM CDT procedu re are in the results section. DRUG SCREEN URINE Routine 03/29/2016 4:50 AM Resu lts for this CDT procedure are i n the results section. AUTOMATED Routine 03/29/2016 3:48 AM Results f or this DIFFERENTIAL, B CDT procedure ar e in the results section. CBC WITH DIFFERENTIAL, Routine 03/29/2016 3:48 AM Results for this B CDT procedure are i n the results section. documented in this encounter Results RF Esophogram and Upper GI Single Contrast with Small Bowel (04/01/2016 12:41 PM CDT) Anatomical Region Laterality Modality Gastro Intestinal N/A Radiographic Imaging Specimen (Source) Anatomical Collection Method Collection Time Re ceived Time Location / / Volume Laterality 04/01/2016 12:41 PM CDT Addenda Addendum by Provider, Donaldo Arriaga 04/01/2016 12:41 PM CDT RAD^^^[place] Esophagram/UGI w/ Small Bowel 04/01/2016 12:41:29 Impressions 04/01/2016 1:12 PM CDT 1. Normal esophagus. 2. Normal stomach and small bowel. Narrative 04/01/2016 1:12 PM CDT EXAM: [place] Esophagram/UGI w/ Small Bowel INDICATION: Intussusception on imaging, persistent emesis COMPARISON: None. FINDINGS: The esophagus is normal. Stoma ch fills to a normal contour. There is slow gastric emptying. Contrast enters nondistended small bowel. Small bowel mucosal pattern is un remarkable. Small bowel transit time approximately 2 hours. The appendix is visualized and appears normal Procedure Note Silvio Munguia D.O. / Alireza Owen M.D. - 04/02/2017 EXAM: [place] Esophagram/UGI w/ Small Bowel INDICATION: Intussusception on imaging, persistent emesis COMPARISON: None. FINDINGS: The esophagus is normal. Stoma ch fills to a normal contour. There is slow gastric emptying. Contrast enters nondistended small bowel. Small bowel mucosal pattern is un remarkable. Small bowel transit time approximately 2 hours. The appendix is visualized and appears normal IMPRESSION: 1. Normal esophagus. 2. Normal stomach and small bowel. Elle Wells RTT IMG FLUOROSCOPY PROCEDURES DX Abdomen Supine with Upright or Decubitus 2 Views (03/30/2016 10:23 AM CDT) Anatomical Region Laterality Modality Abdomen Right Radiographic Imaging Specimen (Source) Anatomical Collection Method Collection Time Re ceived Time Location / / Volume Laterality 03/30/2016 10:23 AM CDT Addenda Addendum by Provider, Donaldo Arriaga 03/30/2016 10:23 AM CDT RAD^^^[place] XR Abdomen 2 Views 03/30/2016 10:23:44 Impressions 03/30/2016 11:52 AM CDT Nonspecific bowel gas pattern, no bowel obstruction or free air. Narrative 03/30/2016 11:52 AM CDT EXAM: XR Abdomen 2 Views INDICATION: suspect bowel obstruction. COMPARISON: None. FINDINGS: Overall bowel gas pattern is n onspecific with gas and stool in nondilated colon. No bowel dilatation , significant air-fluid levels, or free air is identified. There is no evidence of obstruction. No abnormal mass or suspici ous calcifications are noted. There is some apparent vascular calcific ation in the left pelvis. Procedure Note Melvin Gordon Jr., M.D. / Corina Swain M.D. - 04/02/2017 EXAM: XR Abdomen 2 Views INDICATION: suspect bowel obstruction. COMPARISON: None. FINDINGS: Overall bowel gas pattern is n onspecific with gas and stool in nondilated colon. No bowel dilatation , significant air-fluid levels, or free air is identified. There is no evidence of obstruction. No abnormal mass or suspici ous calcifications are noted. There is some apparent vascular calcific ation in the left pelvis. IMPRESSION: Nonspecific bowel gas patter n, no bowel obstruction or free air. Marisa Gill(R) IMG DIAGNOSTIC IMAGING PROCE DURES (ABNORMAL) Automated Differential (03/30/2016 8:15 AM CDT) Patholo gist Method Time Signature Absolute 3.60 1.70 - POWERCHART Neutrophils 7.00 109L Lymphocytes 2.04 0.90 - POWERCHART 2.90 X109L Monocytes 0.28 (L) 0.30 - POWERCHART 0.90 X109L Eosinophils 0.03 (L) 0.05 - POWERCHART 0.50 X109L Absolute 0.01 0.00 - POWERCHART Basophil 0.30 X109L Specimen Anatomical Collection Method Collection Time Receive d Time (Source) Location / / Volume Laterality Blood 03/30/2016 8:15 AM 6 8:15 CDT AM CDT Holley Rizzo M.D. LAB BLOOD ADD-ON Performing Organization Address City/State/ZIP Code Phon e Number POWERCHART CBC with Differential (03/30/2016 8:15 AM CDT) P athologist Signature Leukocytes 6.0 3.5 - 10.5 POWERCHART X109L Erythrocytes 4.56 4.32 - 5.72 POWERCHART [id number] Hemoglobin 14.5 13.5 - 17.5 POWERCHART GDL Hematocrit 43.2 38.8 - 50.0 POWERCHART MCV 94.7 81.2 - 95.1 POWERCHART FL HX RDW 14.4 11.8 - 15.6 POWERCHART Platelet Count 231 150 - 450 POWERCHART X109L Specimen (Source) Anatomical Collection Method Collection Time Re ceived Time Location / / Volume Laterality Blood 03/30/2016 8:15 AM CDT Holley Rizzo M.D. LAB BLOOD ADD-ON Performing Organization Address City/[facility]/ZIP Code Phon e Number POWERCHART Phosphorus (Inorganic) (03/30/2016 8:15 AM CDT) P athologist Signature Phosphorus 2.5 2.5 - 4.5 POWERCHART (Inorganic), S MGDL Specimen Anatomical Collection Method Collection Time Receive d Time (Source) Location / / Volume Laterality Blood 03/30/2016 8:15 AM 6 8:20 CDT AM CDT Holley Rizzo M.D. LAB BLOOD ADD-ON Performing Organization Address City/[facility] Phon e Number POWERCHART Magnesium (03/30/2016 8:15 AM CDT) P athologist Signature Magnesium, S 2.0 1.7 - 2.3 POWERCHART MGDL Specimen Anatomical Collection Method Collection Time Receive d Time (Source) Location / / Volume Laterality Blood 03/30/2016 8:15 AM 6 8:20 CDT AM CDT Holley Rizzo M.D. LAB BLOOD ADD-ON Performing Organization Address City/[facility] Phon e Number POWERCHART Lipase (03/30/2016 8:15 AM CDT) P athologist Signature Lipase, S 45 13 - 60 UL POWERCHART Specimen (Source) Anatomical Collection Method Collection Time Re ceived Time Location / / Volume Laterality Blood 03/30/2016 8:15 AM CDT Holley Rizzo M.D. LAB BLOOD ADD-ON Performing Organization Address City/[facility]/ZIP Code Phon e Number POWERCHART (ABNORMAL) CMP (Comprehensive Metabolic Panel) (03/30/2016 8:15 AM CDT) Patholo gist Method Time Signature Sodium, S 139 135 - 145 POWERCHART MMOLL Potassium, S 4.4 3.5 - 5.1 POWERCHART MMOLL Chloride, S 102 98 - 107 POWERCHART MMOLL Total Protein, S 6.4 6.3 - 7.9 POWERCHART GDL Albumin, S 4.1 3.5 - 5.2 POWERCHART GDL CO2 Total 28 22 - 29 POWERCHART MMOLL Glucose 133 70 - 140 POWERCHART MGDL BUN (Blood Urea 10 6 - 24 POWERCHART Nitrogen), S MGDL Creatinine 0.8 0.8 - 1.3 POWERCHART MGDL Calcium, Total, S 9.2 8.6 - 10.3 POWERCHART MGDL Alkaline 64 40 - 130 POWERCHART Phosphatase, S UL Aspartate 24 8 - 48 UL POWERCHART Aminotransferase (AST), S Alanine 25 7 - 55 UL POWERCHART Amniotransferase, LD Bilirubin, Total, S 3.5 (H) <=1.2 MGDL POWERCHAR T Anion Gap 9 7 - 15 POWERCHART MMOLL eGFR Black/ >60 >=60 POWERCHART [place] MLMINSA HXeGFR (MDRD) >60 >=60 POWERCHART MLMINSA Comment: Results are in mL/min/1.73m squared CKD Stage I: ? GFR > 90 CKD Stage II: ?GFR 60 to 89 CKD Stage III: ? GFR 30 to 59 CKD Stage IV: ? GFR 15 to 29 CKD Stage V: ?GFR < 15 or Dialysi s Specimen (Source) Anatomical Collection Method Collection Time Re ceived Time Location / / Volume Laterality Blood 03/30/2016 8:15 AM CDT Holley Rizzo M.D. LAB BLOOD ADD-ON Performing Organization Address City/State/ZIP Code Phon e Number POWERCHART Bilirubin Direct (03/30/2016 8:15 AM CDT) P athologist Signature Bilirubin, <0.2 0.0 - 0.3 POWERCHART Direct, S MGDL Specimen (Source) Anatomical Collection Method Collection Time Re ceived Time Location / / Volume Laterality Blood 03/30/2016 8:15 AM CDT Holley Rizzo M.D. LAB BLOOD ADD-ON Performing Organization Address City/State/ZIP Code Phon e Number POWERCHART (ABNORMAL) Automated Differential (03/29/2016 10:32 AM CDT) Patholo gist Method Time Signature Absolute 8.82 (H) 1.70 - POWERCHART Neutrophils 7.00 109L Lymphocytes 1.99 0.90 - POWERCHART 2.90 X109L Monocytes 0.75 0.30 - POWERCHART 0.90 X109L Eosinophils 0.00 (L) 0.05 - POWERCHART 0.50 X109L Absolute 0.01 0.00 - POWERCHART Basophil 0.30 X109L Specimen Anatomical Collection Method Collection Time Receive d Time (Source) Location / / Volume Laterality Blood 03/29/2016 10:32 03/29/2016 AM CDT 10:32 AM CDT Holley Rizzo M.D. LAB BLOOD ADD-ON Performing Organization Address City/State/ZIP Code Phon e Number POWERCHART (ABNORMAL) CBC with Differential (03/29/2016 10:32 AM CDT) Analysis Performed At Patho logist Time Signature Leukocytes 11.6 (H) 3.5 - 10.5 POWERCHART X109L Erythrocytes 4.61 4.32 - POWERCHART 5.72 [id number] Hemoglobin 14.8 13.5 - POWERCHART 17.5 GDL Hematocrit 43.0 38.8 - POWERCHART 50.0 MCV 93.3 81.2 - POWERCHART 95.1 FL HX RDW 14.7 11.8 - POWERCHART 15.6 Platelet Count 267 150 - 450 POWERCHART X109L Specimen (Source) Anatomical Collection Method Collection Time Re ceived Time Location / / Volume Laterality Blood 03/29/2016 10:32 AM CDT Holley Rizzo M.D. LAB BLOOD ADD-ON Performing Organization Address City/[facility]/ZIP Code Phon e Number POWERCHART Bilirubin Direct (03/29/2016 10:32 AM CDT) P athologist Signature Bilirubin, 0.2 0.0 - 0.3 POWERCHART Direct, S MGDL Specimen (Source) Anatomical Collection Method Collection Time Re ceived Time Location / / Volume Laterality Blood 03/29/2016 10:32 AM CDT Holley Rizzo M.D. LAB BLOOD ADD-ON Performing Organization Address City/State/ZIP Code Phon e Number POWERCHART Lipase (03/29/2016 10:32 AM CDT) P athologist Signature Lipase, S 36 13 - 60 UL POWERCHART Specimen (Source) Anatomical Collection Method Collection Time Re ceived Time Location / / Volume Laterality Blood 03/29/2016 10:32 AM CDT Holley Rizzo M.D. LAB BLOOD ADD-ON Performing Organization Address City/State/ZIP Code Phon e Number POWERCHART (ABNORMAL) CMP (Comprehensive Metabolic Panel) (03/29/2016 10:32 AM CDT) [facility] gist Method Time Signature Sodium, S 140 135 - 145 POWERCHART MMOLL Potassium, S 3.4 (L) 3.5 - 5.1 POWERCHART MMOLL Chloride, S 106 98 - 107 POWERCHART MMOLL Total Protein, S 6.8 6.3 - 7.9 POWERCHART GDL Albumin, S 4.4 3.5 - 5.2 POWERCHART GDL CO2 Total 25 22 - 29 POWERCHART MMOLL Glucose 102 70 - 140 POWERCHART MGDL BUN (Blood Urea 17 6 - 24 POWERCHART Nitrogen), S MGDL Creatinine 0.9 0.8 - 1.3 POWERCHART MGDL Calcium, Total, S 9.3 8.6 - 10.3 POWERCHART MGDL Alkaline 71 40 - 130 POWERCHART Phosphatase, S UL Aspartate 22 8 - 48 UL POWERCHART Aminotransferase (AST), S Alanine 21 7 - 55 UL POWERCHART Amniotransferase, LD Bilirubin, Total, S 2.8 (H) <=1.2 MGDL POWERCHAR T Anion Gap 9 7 - 15 POWERCHART MMOLL eGFR Black/ >60 >=60 POWERCHART [place] MLMINSA HXeGFR (MDRD) >60 >=60 POWERCHART MLMINSA Comment: Results are in mL/min/1.73m squared CKD Stage I: ? GFR > 90 CKD Stage II: ?GFR 60 to 89 CKD Stage III: ? GFR 30 to 59 CKD Stage IV: ? GFR 15 to 29 CKD Stage V: ?GFR < 15 or Dialysi s Specimen (Source) Anatomical Collection Method Collection Time Re ceived Time Location / / Volume Laterality Blood 03/29/2016 10:32 AM CDT Holley Rizzo M.D. LAB BLOOD ADD-ON Performing Organization Address City/State/ZIP Code Phon e Number POWERCHART Drug Screen Urine (03/29/2016 4:50 AM CDT) [facility] gist Method Time Signature Carboxy-THC Positive Negative POWERCHART Immunoassay Screen HX U Negative Negative POWERCHART Phencyclidine Cocaine Negative Negative POWERCHART Amphetamine/Metha Negative Negative POWERCHART mphetamine, Urine Opiates Negative Negative POWERCHART HXU Amphet Scrn Negative Negative POWERCHART HX U Benzodia Negative Negative POWERCHART Scrn HXU Tricyclic Scr Negative Negative POWERCHART Methadone Negative Negative POWERCHART Immunoassay Screen Barbiturates Negative Negative POWERCHART Oxycodone-by Negative Negative POWERCHART LC-MS/MS Propoxyphene Negative Negative POWERCHART Buprenorphine, U Negative Negative POWERCHART Comment See Comment POWERCHART Comment: Control 1 Valid? yControl 2 Valid? yCont rol 3 Valid? yControl 4 Valid? y Control 5 Valid? y Specimen (Source) Anatomical Collection Method Collection Time Re ceived Time Location / / Volume Laterality Urine 03/29/2016 4:50 AM CDT Holley Rizzo M.D. LAB URINE ORDERABLES Performing Organization Address City/[facility] Code Phon e Number POWERCHART (ABNORMAL) Automated Differential (03/29/2016 3:48 AM CDT) [facility] gist Method Time Signature Absolute 11.74 (H) 1.70 - POWERCHART Neutrophils 7.00 109L Lymphocytes 1.54 0.90 - POWERCHART 2.90 X109L Monocytes 0.59 0.30 - POWERCHART 0.90 X109L Eosinophils 0.00 (L) 0.05 - POWERCHART 0.50 X109L Absolute 0.01 0.00 - POWERCHART Basophil 0.30 X109L Specimen Anatomical Collection Method Collection Time Receive d Time (Source) Location / / Volume Laterality Blood 03/29/2016 3:48 AM 6 3:48 CDT AM CDT Holley Rizzo M.D. LAB BLOOD ADD-ON Performing Organization Address City/State/[facility] Code Phon e Number POWERCHART (ABNORMAL) CBC with Differential (03/29/2016 3:48 AM CDT) Analysis Performed At [facility] logist Time Signature Leukocytes 13.9 (H) 3.5 - 10.5 POWERCHART X109L Erythrocytes 4.92 4.32 - POWERCHART 5.72 [id number] Hemoglobin 16.1 13.5 - POWERCHART 17.5 GDL Hematocrit 45.5 38.8 - POWERCHART 50.0 MCV 92.5 81.2 - POWERCHART 95.1 FL HX RDW 14.5 11.8 - POWERCHART 15.6 Platelet Count 311 150 - 450 POWERCHART X109L Specimen (Source) Anatomical Collection Method Collection Time Re ceived Time Location / / Volume Laterality Blood 03/29/2016 3:48 AM CDT Holley Rizzo M.D. LAB BLOOD ADD-ON Performing Organization Address City/State/ZIP Code Phon e Number POWERCHART documented in this encounter Visit Diagnoses Not on filedocumented in this encounter
--- OUTSIDE RECORDS SUMMARY | 2022-08-19 22:48 | XMS_ITS | Encounter Summary ---
:1995 Author Organization [facility] Address [address] [place] [address] Care Team Providers Name Role Phone Unavailable Primary Care Provider Unavailable Encounter Details Date Type Department Care Team Description 03/28/2016 - Hospital Encounter HX [facility] ED ProviderAkin 03/29/2016 Social History Tobacco Use Types Packs/Day Years Used Date Smoking Tobacco: Never Assessed Sex Assigned at Date Recorded Not on file documented as of this encounter Last Filed Vital Signs Vital Sign Reading Time Taken Comments Blood Pressure 132/75 03/29/2016 2:14 AM CDT Pulse 63 03/28/2016 9:31 PM CDT Temperature - - Respiratory Rate 16 03/28/2016 11:30 PM CDT Oxygen Saturation - - Inhaled Oxygen Concentration - - Weight - - Height 167 cm (5' 5.75) 03/28/2016 9:30 PM CDT Body Mass Index - - documented in this encounter Discharge Summaries Marisa Pelayo R.N. - 03/29/2016 2:20 AM CDT ED Depart Summary [facility] Emergency Department Clinical Discharge Summary PERSON INFORMATION Name JAROCHO PICKENS Age 20 Years 1995 12:00 AM Sex Male Language PCP PCP, ELSEWHERE Marital Status Unknown Phone Visit Id Visit Reason Vomiting; Nausea; vomiting Specialty Enc Type Emergency Med Service Emergency Medicine Referred by Marly Tran [facility] ED/UC Discharge 03/29/2016 2:15 AM Tracking Id [id number] Checkout 03/29/2016 2:15 AM Checkin 03/28/2016 9:24 PM Acuity 4 -Less Urgent Dispo Type Disch/Trans ShortTerm Gen Hosp-Inpt Care Arrival 03/28/2016 9:24 PM Reg Status LOS 000 04:51 Address: UNKNOWN UNKNOWN Unknown Comment: PROVIDER INFORMATION Provider Role Provider Contact Time MARISA PELAYO FRONTEND ENGINEER Nurse 03/28/16 21:25 YOKO FORRESTER PA-C ED Provider 03/28/16 21:28 DIAGNOSIS Comment: PATIENT EDUCATION INFORMATION Instructions: Follow up: Source: [facility] POWERCHART Document Id: [id number] Marisa Pelayo R.N. - 03/29/2016 2:20 AM CDT ED Discharge Instructions [address] [address] Name: JAROCHO PICKENS Date of : 1995 12:00 AM Visit Date: 03/28/2016 9:24 PM [facility] Number: [id number] Address: UNKNOWN UNKNOWN Unknown Phone: Primary Care Provider: PCP, ELSEWHERE IMPORTANT: [facility] in [place] would like to thank you for allowing us to assist you with your healthcare needs. The following includes patient education materials and information regarding your injury/illness. Diagnosis: Follow-Up Instructions: Your Upcoming Appointments: Date Time Location Provider No Appointments found Patient Education Materials: Consider Using Patient Online Services Patient Online [...] if you dont have one. Go to [email or web address] and click on Create Your Account. Then, follow the directions to complete the online form. Youll be asked for your [facility] number which you can find at the top of this document. ED Tests and Procedures: Order Status CBC (includes Auto Differential) Completed Comprehensive Metabolic Panel Completed Lipase Level Completed Magnesium Level Completed Ethanol Level Completed CT Abdomen/Pelvis w/ contrast Ordered Lactic Acid Completed Automated Diff-5 Part Completed Discharge Prescriptions & Home Medications: Medication/Strength Dose Route Frequency Indications/Special Instructions/Comments/Notes Comment: Attention: If you have any medications at home not on this list, DO NOT take them until you contact your provider for clarification. Give a copy of your medication list to your primary care provider. Update your medication list any time medications or doses are changed and carry your medication list at all times in case of emergency. IMPORTANT: We examined and treated you today on an emergency basis only. This was not a substitute for, or an effort to provide, complete medical care. In most cases, you must let your doctor check youagain. Tell your doctor about any new or lasting problems. We cannot recognize and treat all injuries or illnesses in one Emergency Department visit. If you had special tests, such as EKG's or X- rays, we will review them again within 24 hours. We will call you if there are any new suggestions. Please follow the instructions above carefully. If you are being transferred to another facility your followup plan of care will be determined by the receiving facility. If you are a patient that is being discharged from the Emergency Department after receiving narcotics or other medications that may impair your judgment you may be a risk to yourself or others if you operate a motor vehicle. We recommend that you arrange a ride home with a responsible alliance party. I, JAROCHO PICKENS , or responsible alliance party have received this information and my questions havebeen answered. I have discussed any challenges I see with this plan with the nurse or physician. Patient Signature or Responsible Republican/Relationship Date Time Provider Signature Date Time IMPORTANT: We examined and treated you today on an emergency basis only. This was not a substitute for, or an effort to provide, complete medical care. In most cases, you must let your doctor check youagain. Tell your doctor about any new or lasting problems. We cannot recognize and treat all injuries or illnesses in one Emergency Department visit. If you had special tests, such as EKG's or X- rays, we will review them again within 24 hours. We will call you if there are any new suggestions. Please follow the instructions above carefully. If you are being transferred to another facility your followup plan of care will be determined by the receiving facility. If you are a patient that is being discharged from the Emergency Department after receiving narcotics or other medications that may impair your judgment you may be a risk to yourself or others if you operate a motor vehicle. We recommend that you arrange a ride home with a responsible alliance party. I, JAROCHO PICKENS , or responsible alliance party have received this information and my questions havebeen answered. I have discussed any challenges I see with this plan with the nurse or physician. Patient Signature or Responsible Republican/Relationship Date Time Provider Signature Date Time Source: [employer] Document Id: [id number] documented in this encounter ED Notes Marisa Pelayo R.N. - 03/29/2016 2:14 AM CDT ED Pain Assessment ED Pain Assessment Entered On: 03/29/2016 2:14 CDT Performed On: 03/29/2016 2:14 CDT by MARISA PELAYO RN Pain Assessment Pain Symptoms : No MARISA PLEAYO RN - 03/29/2016 2:14 CDT Source: [employer] Document Id: [id number] CDT!3 Marisa Pelayo R.N. - 03/29/2016 2:14 AM CDT ED Disposition Summary ED Disposition Summary Entered On: 03/29/2016 2:15 CDT Performed On: 03/29/2016 2:14 CDT by MARISA PELAYO FRONTEND ENGINEER Disposition Summary Nurse Receiving Report : [place] Date/Time Nurse Received Report : 03/29/2016 2:59 CDT MARISA PELAYO RN - 03/29/2016 3:02 CDT Present in Room During Exam/Procedure : EMS Mode of Discharge : Stretcher Transportation : Ground ambulance Printed Discharge Instructions Given to Patient : No Reason Discharge Instructions Not Given : patient transferred to [place] for surgery MARISA PELAYO RN - 03/29/2016 2:14 CDT Source: [employer] Document Id: [id number] CDT!4 Marisa Pelayo R.N. - 03/29/2016 2:00 AM CDT ED Nurse Reassess ED Nurse Reassess Entered On: 03/29/2016 5:06 CDT Performed On: 03/29/2016 2:00 CDT by MARISA PELAYO RN Pain Assessment Pain Symptoms : No MARISA PELAYO RN - 03/29/2016 5:05 CDT Resp Reassess Respiratory Patient Stated Symptoms : None Distress : None Airway : Patent MARISA PELAYO RN - 03/29/2016 5:05 CDT CV Reassess CV Patient Stated Symptoms : None Skin Color : Normal for ethnicity Skin Description : Dry MARISA PELAYO RN - 03/29/2016 5:05 CDT Neuro Reassess Last Well Time Known : Not applicable Orientation : Oriented x 3 Characteristics of Speech : Clear Level of Consciousness : Alert MARISA PELAYO RN - 03/29/2016 5:05 CDT GI Reassess GI Note : states is feelingm uc better than before no nausea no dry heaving MARISA PELAYO RN - 03/29/2016 5:05 CDT Source: [employer] Document Id: [id number] CDT!18 Huy Alicea R.N. - 03/29/2016 1:15 AM CDT ED Nurse Reassess ED Nurse Reassess Entered On: 03/29/2016 1:21 CDT Performed On: 03/29/2016 1:15 CDT by HUY ALICEA Pain Assessment Pain Symptoms : No HUY ALICEA - 03/29/2016 1:20 CDT Resp Reassess Respiratory Patient Stated Symptoms : None Distress : None Airway : Patent Respiratory Pattern : Regular Respirations : Unlabored HUY ALICEA - 03/29/2016 1:20 CDT CV Reassess CV Patient Stated Symptoms : None Skin Color : [place] Skin Description : Dry Skin Temperature : Warm Nail Bed Color : [place] Capillary Refill : Less than 2 seconds HUY ALICEA - 03/29/2016 1:20 CDT GI Reassess GI Patient Stated Symptoms : None HUY ALICEA - 03/29/2016 1:20 CDT Source: [employer] Document Id: [id number] CDT!18 Marisa Pelayo R.N. - 03/29/2016 12:12 AM CDT ED Nurse Reassess ED Nurse Reassess Entered On: 03/29/2016 0:12 CDT Performed On: 03/29/2016 0:12 CDT by MARISA PELAYO RN Pain Assessment Pain Symptoms : No MARISA PELAYO RN - 03/29/2016 0:12 CDT Resp Reassess Respiratory Patient Stated Symptoms : None Distress : None Airway : Patent Respirations : Unlabored MARISA PELAYO RN - 03/29/2016 0:12 CDT CV Reassess CV Patient Stated Symptoms : None Skin Color : Normal for ethnicity Skin Description : Dry MARISA PELAYO RN - 03/29/2016 0:12 CDT Neuro Reassess Last Well Time Known : Not applicable Orientation : Oriented x 3 Characteristics of Speech : Clear Level of Consciousness : Alert MARISA PELAYO RN - 03/29/2016 0:12 CDT GI Reassess GI Patient Stated Symptoms : None GI Note : no nausea no pain resting comfortbly MARISA PELAYO RN - 03/29/2016 0:12 CDT Source: [employer] Document Id: [id number] CDT!20 Marisa Pelayo R.N. - 03/28/2016 10:58 PM CDT ED Nurse Reassess ED Nurse Reassess Entered On: 03/28/2016 22:59 CDT Performed On: 03/28/2016 22:58 CDT by MARISA PELAYO RN Pain Assessment Pain Symptoms : No MARISA PELAYO RN - 03/28/2016 22:58 CDT Resp Reassess Respiratory Patient Stated Symptoms : None Distress : None Airway : Patent Respirations : Unlabored MARISA PELAYO RN - 03/28/2016 22:58 CDT CV Reassess CV Patient Stated Symptoms : None Skin Color : Normal for ethnicity Skin Description : Dry MARISA PELAYO RN - 03/28/2016 22:58 CDT Neuro Reassess Last Well Time Known : Not applicable Orientation : Oriented x 3 Characteristics of Speech : Clear Level of Consciousness : Alert MARISA PELAYO RN - 03/28/2016 22:58 CDT GI Reassess GI Note : no nause no vomiting feeling much better MARISA PELAYO RN - 03/28/2016 22:58 CDT Source: [employer] Document Id: [id number] CDT!19 Marisa Pelayo R.N. - 03/28/2016 10:01 PM CDT ED Nurse Reassess ED Nurse Reassess Entered On: 03/28/2016 22:02 CDT Performed On: 03/28/2016 22:01 CDT by MARISA PELAYO RN Pain Assessment Pain Symptoms : No MARISA PELAYO RN - 03/28/2016 22:01 CDT Resp Reassess Respiratory Patient Stated Symptoms : None Distress : None Airway : Patent Respirations : Unlabored MARISA PELAYO RN - 03/28/2016 22:01 CDT CV Reassess CV Patient Stated Symptoms : None Skin Color : Normal for ethnicity Skin Description : Dry MARISA PELAYO RN - 03/28/2016 22:01 CDT Neuro Reassess Last Well Time Known : Not applicable Orientation : Oriented x 3 Characteristics of Speech : Clear Level of Consciousness : Alert MARISA PELAYO RN - 03/28/2016 22:01 CDT GI Reassess GI Note : no nausea feeling better no dry heaving resting on cot iv infusing without difficulty MARISA PELAYO RN - 03/28/2016 22:01 CDT Source: [employer] Document Id: [id number] CDT!19 Yoko Forrester P.A.-C. - 03/28/2016 9:41 PM CDT Nausea-Vomiting *ED Patient: JAROCHO PICKENS Age: 20 years Sex: Male : 1995 Author: YOKO FORRESTER PA-C Attachments: None Basic Information Time seen: Immediately upon arrival. History source: Patient. Arrival mode: Private vehicle. History limitation: None. History of Present Illness The patient presents with nausea, vomiting and Here today with a 1 day history of vomiting and diarrhea without blood. No recent antibiotics, travels, or sick contacts. . The onset was 1 days ago. The course/duration of symptoms is constant. The character of symptoms is clear and bilious, not bloody and not coffee ground. The degree at present is none. The exacerbating factor is none. The relieving factor is none. Risk factors consist of alcohol abuse. Therapy today: none. Associated symptoms: abdominal pain, diarrhea, denies fever, denies chills, denies chest pain, denies shortness of breath, denies headache, denies dizziness, denies back pain and denies blood in stool. Review of Systems Constitutional symptoms: No fever, no chills, no sweats or no weakness. ENMT symptoms: No sore throat. Respiratory symptoms: No shortness of breath or no cough. Cardiovascular symptoms: No chest pain or no palpitations. Gastrointestinal symptoms: Abdominal pain, nausea, vomiting and diarrhea, but no constipation or no rectal bleeding. Genitourinary symptoms: No dysuria, no hematuria, no discharge or no testicular pain. Musculoskeletal symptoms: No back pain or no Muscle pain. Neurologic symptoms: No dizziness, no numbness or no tingling. Health Status Allergies: No active allergies have been recorded.. Past Medical/ Family/ Social History Medical history: No active or resolved past medical history items have been selected or recorded.. Surgical history: No active procedure history items have been selected or recorded.. Family history: No family history items have been selected or recorded.. Physical Examination Vital Signs: Vital Signs 03/28/2016 21:31 CDT Peripheral Pulse Rate 63 /min Respiratory Rate 20 /min SpO2 100 % Systolic Blood Pressure 156 mmHg HI Diastolic Blood Pressure 98 mmHg >HHI BP Location Right upper . General: Alert and no acute distress. Skin: Warm and pink. Head: Normocephalic. Neck: Supple and no tenderness. Eye: Pupils are equal, round and reactive to light. Ears, nose, mouth and throat: Oral mucosa moist. Cardiovascular: Regular rate and rhythm, No murmur and Normal peripheral perfusion. Respiratory: Lungs are clear to auscultation and breath sounds are equal. Gastrointestinal: Soft and No organomegaly, but no abdominal distention. , Tenderness: Negative, Guarding: Negative, Rebound: Negative, Bowel sounds: Normal, Mass: Negative, Scars: Negative and Signs: None. Medical Decision Making Results review:Lab results : Lab View 03/28/2016 21:40 CDT Hgb 17.6 g/dL HI Hct 49.3 % WBC 18.7 x10(9)/L HI RBC 5.37 x10(12)/L MCV 91.8 fL RDW 14.0 % Platelet 315 x10(9)/L Neutro Absolute 17.33 10(9)/L HI Lymph Absolute 1.08 x10(9)/L [place] Absolute 0.28 x10(9)/L LOW Eos Absolute 0.00 x10(9)/L LOW Baso Absolute 0.00 x10(9)/L Sodium Lvl 145 mmol/L Potassium Lvl 3.7 mmol/L Chloride 100 mmol/L CO2 23 mmol/L AGAP 22 mmol/L HI Alkaline Phosphatase 93 U/L Glucose Lvl 135 mg/dL Creatinine 0.8 mg/dL EGFR (MDRD) >60 mL/min/SA EGFR (MDRD) >60 mL/min/SA BUN 18 mg/dL Calcium Lvl 10.4 mg/dL HI Magnesium 2.0 mg/dL Protein Total 8.5 g/dL HI Albumin Lvl 5.5 g/dL HI AST 25 U/L ALT 28 U/L Bili Total 2.3 mg/dL HI Lipase Lvl 32 U/L Ethanol Lvl <11 mg/dL NA . Notes:discussed his elevated white count. Patient has concerns regarding the costs of his visit. We discussed advanced imaging options, he would like a CT which I believe is warranted with his elevatedwhite count. CT ordered. . Reexamination/ Reevaluation Notes: patient no distress. Discussed his CT findings, he has a intussusception. [place] Transfer Line notified, awaiting surgical consult. , Spoke with Dr. Rizzo in [place], will start maintenance fluids, maintain NPO status. She will accept this patient . Transfer processes initiated. . Impression and Plan Diagnosis intussusception Plan Condition: Improved. Disposition Electronically Signed By: YOKO FORRESTER PA-C On: 03/30/2016 03:06 PM Modified by and Electronically Signed by: YOKO FORRESTER PA-C On: 03/28/2016 09:55 PM Source: [facility] POWERCHART Document Id: [id number]} Marias Pelayo R.N. - 03/28/2016 9:30 PM CDT ED Primary Assessment Document Has Been Updated ED Primary Assessment Entered On: 03/28/2016 21:51 CDT Performed On: 03/28/2016 21:30 CDT by MARISA PELAYO RN Reason For Visit (As Of: 03/29/2016 05:05:22 CDT) Diagnoses(Active) Nausea Date: 03/28/2016 ; Diagnosis Type: Reason For Visit ; Confirmation: Complaint of ; Clinical Dx: Nausea ; Classification: Medical ; Clinical Service: Emergency medicine ; Code: PNED ; Probability: 0 ; Diagnosis Code: [id number] Vomiting Date: 03/28/2016 ; Diagnosis Type: Reason For Visit ; Confirmation: Complaint of ; ClinicalDx: Vomiting ; Classification: Medical ; Clinical Service: Emergency medicine ; Code: PNED ; Probability: 0 ; Diagnosis Code: [id number] Triage Vital Signs Assessed : Yes MARISA PELAYO RN - 03/29/2016 5:05 CDT Chief Complaint Description : patient states was out drinking last night states woke this morning vomiting states cant keep anything down today states had diarrhea for about 3 hours. states has vomited/dry heaved about 100 times Information Given By : Patient Present in Room During Exam/Procedure : Alone Mode of Arrival ED : Private vehicle Track : Medical Languages : Polish GCS Assessed : Yes Treatments Prior to Arrival : None Is Patient Female and 13-50 no hysterectomy : No MARISA PELAYO RN - 03/28/2016 21:46 CDT Vital Signs Temperature Core : 36.6 DegC(Converted to: 97.9 DegF) Height : 167 cm(Converted to: 5 ft 6 inch(es)) MARISA PELAYO RN - 03/29/2016 5:05 CDT [place] Coma Eye Opening Response [place]avo : Spontaneously Best Verbal Response Tavo : Oriented Best Motor Response [place] : Obeys simple commands Tavo Coma Score : 15 MARISA PELAYO RN - 03/28/2016 21:46 CDT Pain Assessment Pain Symptoms : No MARISA PELAYO RN - 03/28/2016 21:46 CDT ED Physician Notification Time ED Physician Notification Time : 03/28/2016 21:30 CDT MARISA PELAYO RN 03/28/2016 21:46 CDT SANDY SANDY Level 1 : No SANDY Level 2 : No SANDY Level 3 : Many Vital Signs SANDY : No MARISA PELAYO RN - 03/28/2016 21:46 CDT DCP GENERIC CODE Tracking Group : [facility] ED/ Tracking Acuity : 4 -Less Urgent MARISA PELAYO RN - 03/28/2016 21:46 CDT Respiratory Airway : Patent Respirations : Unlabored Respiratory Pattern : Regular MARISA PELAYO RN - 03/28/2016 21:46 CDT Cardiovascular Heart Rhythm : Regular Skin Color : Normal for ethnicity Skin Description : Dry Skin Temperature : Warm ALMA ROSA MARISA RN - 03/28/2016 21:46 CDT Neurological Last Well Time Known : Not applicable Level of Consciousness : Alert Orientation : Oriented x 3 Characteristics of Speech : Clear MARISA PELAYO RN - 03/28/2016 21:46 CDT ED Psychosocial Affect/Behavior : Calm, Cooperative Domestic Abuse Concerns : None Behavioral Health Screen/Safety Assmt : No MARISA PELAYO RN - 03/28/2016 21:46 CDT Gastrointestinal Nutrition ED : Adequate Nutrition ED Freetext : states has vomited over 100 times today states cannot hold anything down states had diarrhea for 3 hours this morning states constant dry heaving states nauseated denies blood in stool or emesis states did consume alchol last night MARISA PELAYO RN - 03/28/2016 21:46 CDT Musculoskeletal Fall Prevention Education Provided : MARISA KAUR RN - 03/28/2016 21:46 CDT Social Habits Smoking Status : Never smoker Tobacco 2A : No Tobacco Use/Currently Using : No Tobacco Use/Last 30 Days : No Tobacco Use/Last 12 months : No MARISA PELAYO RN - 03/28/2016 21:46 CDT Peripheral IV Peripheral IV Assess/Intervention Grid Peripheral IV #1 IV Activity : Start Number of Attempts : 1 Date of Insertion : 03/28/2016 CDT IV Site : Antecubital Laterality : Right Catheter Size : 20 Catheter Type : Over the needle Comments (Comment: iv started by nurse practioner Karli [MARISA PELAYO RN - 03/28/2016 21:46 CDT] ) MARISA PELAYO RN - 03/28/2016 21:46 CDT Source: [facility] [employer] Document Id: [id number] CDT!6 documented in this encounter Miscellaneous Notes Miscellaneous - Marisa Pelayo R.N. - 03/29/2016 2:18 AM CDT Valuables/Belongings Valuables/Belongings Entered On: 03/29/2016 2:19 CDT Performed On: 03/29/2016 2:18 CDT by MARISA PELAYO RN Valuables/Belongings Comment : all belongings sent with pt MARISA PELAYO RN - 03/29/2016 2:18 CDT Source: [employer] Document Id: [id number] CDT!3 Miscellaneous - Conversion, Historical Provider Ser - 03/29/2016 2:15 AM CDT Coding Summary-Paper Based CODING DATE: 04/10/2016 FINAL FA [facility] STATUS: Disch/Trans ShortTerm Gen Hosp-Inpt Care PAYOR: Self Pay ADMIT DX: R11.2 Nausea with vomiting, unspecified REASON FOR VISIT DX: R11.2 Nausea with vomiting, unspecified FINAL DX: PRINCIPAL: K56.1 Intussusception SECONDARY: PROCEDURES DOCTOR NAME DATE NOTE: The code number assigned matches the documented diagnosis and / or procedure in the patient's chart. However, the narrative phrase printed from the coding software may appear abbreviated, or result in slightly different terminology. Coded By: HEATHER MALONE Date Saved: 04/10/2016 01:40 pm Source: [employer] Document Id: [id number] Miscellaneous - Marisa Pelayo R.N. - 03/29/2016 12:50 AM CDT Communication Note Communication Note Entered On: 03/29/2016 0:50 CDT Performed On: 03/29/2016 0:50 CDT by MARISA PELAYO RN Communication Subject of Note : Critical Diagnostic Result Assessment Communication Note : contacted MARISA Benson RN - 03/29/2016 0:50 CDT Source: [employer] Document Id: [id number] CDT!4 Miscellaneous - Marisa Pelayo R.N. - 03/28/2016 9:24 PM CDT Facility Charge Ticket 2.0 11.0 DX Facility Charge Ticket 2.0 11.0 DX Entered On: 03/29/2016 2:19 CDT Performed On: 03/28/2016 21:24 CDT by MARISA PELAYO RN Facility Charge Ticket 2.0 11.0 DX ED Other Charges : Standard ED Encounter TVL Level Translated RTF : Nausea, Vomiting TVL:4 TVL Level for Facility Charge Ticket : Level 4 Arrival Mode Calc : 1 Mode of Arrival ED : Private vehicle [facility] Mode of Arrival Interpreted : Standard [facility] Process Management : None Order Management RTF : Laboratory CBC (includes Auto Differential),03/28/16 21:32,YOKO FORRESTER-C Completed CMP,03/28/16 21:32,YOKO FORRESTER-C Completed Lipase Level,03/28/16 21:32,YOOK FORRESTER-C Completed Magnesium Level,03/28/16 21:32,YOKO FORRESTER-C Completed EtOH Level,03/28/16 21:32,YOKO FORRESTER-C Completed Automated Diff-5 Part,03/28/16 21:44,YOKO FORRESTER-C Completed Lactic Acid,03/29/16 00:20,YOKO FORRESTER-C Completed CT / MRI / Ultrasound Abd Pelvis CT w/ contrast,03/28/16 22:09,YOKO FORRESTER-C Ordered [facility] Order Management : CT/MRI/Ultrasound, Lab tests 30 Minutes Critical Care : No Nursing Notes RTF : Nursing Notes ED Primary Assessment,03/28/16 21:30,MARISA PELAYO FRONTEND ENGINEER Nurse Reassess,03/29/16 01:15,HUY ALICEA ED Nurse Reassess,03/29/16 00:12,MARISA PELAYO FRONTEND ENGINEER Nurse Reassess,03/28/16 22:58,MARISA PELAYO FRONTEND ENGINEER Nurse Reassess,03/28/16 22:01,MARISA PELAYO FRONTEND ENGINEER Pain Assessment,03/29/16 02:14,MARISA PELAYO RN Communication Note,03/29/16 00:50,MARISA PELAYO RN [facility] Nursing Assessment : Triage and 3-5 nursing assessments [facility] Disposition : Transfer/Return to Hospital/SNF [facility] Total Points with Diagnosis Control : 15 [facility] Visit Level : 05362 Level 5 Treatments Prior to Arrival : None MARISA PELAYO RN - 03/29/2016 2:19 CDT Source: [employer] Document Id: [id number] CDT!18 documented in this encounter Plan of Treatment Upcoming Encounters Date Type Specialty Care Team Description 08/25/2022 Appointment Laboratory Medicine Cabrera Chavarria M.D. [address] [place] [phone] 08/25/2022 Appointment Radiology Cabrera Chavarria M.D. [address] [place] [address] [phone] 08/25/2022 Comprehensive Visit Spine Chauncey Emanuel M.D. [address] [place] [phone] 08/25/2022 Office Visit Gastroenterology and [facility] [address] [place] [address] [phone] documented as of this encounter Procedures Procedure Name Priority Date/Time Associated Comments Diagnosis LACTATE, B/P Routine 03/29/2016 12:48 Results for this AM CDT procedure are i n the results section. CT ABDOMEN PELVIS WITH Routine 03/28/2016 10:26 R esults for this IV CONTRAST PM CDT procedure are i n the results section. AUTOMATED Routine 03/28/2016 9:40 PM Results f or this DIFFERENTIAL, B CDT procedure ar e in the results section. CBC WITH DIFFERENTIAL, Routine 03/28/2016 9:40 PM Results for this B CDT procedure are i n the results section. MAGNESIUM, S Routine 03/28/2016 9:40 PM Results f or this CDT procedure are i n the results section. LIPASE, S/P Routine 03/28/2016 9:40 PM Results f or this CDT procedure are i n the results section. ETHANOL, S Routine 03/28/2016 9:40 PM Results f or this CDT procedure are i n the results section. COMPREHENSIVE Routine 03/28/2016 9:40 PM Results for this METABOLIC PANEL, S/P CDT procedu re are in the results section. documented in this encounter Results Lactate (03/29/2016 12:48 AM CDT) P athologist Signature Lactate, P 1.3 0.5 - 2.2 POWERCHART MMOLL Specimen (Source) Anatomical Collection Method Collection Time Re ceived Time Location / / Volume Laterality Blood 03/29/2016 12:48 AM CDT Yoko Forrester P.A.-C. LAB BLOOD NON ADD-ON Performing Organization Address City/State/ZIP Code Phon e Number POWERCHART CT Abdomen Pelvis with IV Contrast (03/28/2016 10:26 PM CDT) Anatomical Region Laterality Modality Abdomen, Pelvis N/A Computed Tomography Specimen (Source) Anatomical Collection Method Collection Time Re ceived Time Location / / Volume Laterality 03/28/2016 10:26 PM CDT Addenda Addendum by Provider, Donaldo Arriaga 03/28/2016 10:26 PM CDT RAD^^^MA CT Abdomen/Pelvis w/ contrast 03/28/2016 22:26:42 Impressions 03/29/2016 11:53 AM CDT ??Two incidental short length, likely self-limiting, intussusceptions of the small bowel in t he pelvis as described. Unremarkable postcontrast CT scan of the abdomen or pelvis otherwise. I agree with vRjanny's report. Narrative 03/29/2016 11:53 AM CDT EXAM: CT Abdomen/Pelvis w/ contrast INDICATION: abdominal pain, elevated whi te count COMPARISON: None. PROCEDURE: Following the oral administra tion of contrast and during the rapid infusion of intravenous contra st series of helical images in the axial plane were obtained through the abdomen and pelvis. FINDINGS: The lower lung maradiaga are johnie r. The liver, spleen and pancreas are normal size, position, cont our, CT density and enhancement pattern. The gallbladder is present and no calcified gallstones are seen. The stomach is norm al. There is a short length of intussusception of the small bowel in the pelvis in 2 locations seen best on image 64 and 70.. Stool and air are seen throughout the colon which otherwise appears unremarkab le. The appendix is normal and is not enlarged. No inflammatory obi nges noted in the right lower quadrant or elsewhere in the abdomen or pelvis. No free air is seen. The kidneys demonstrate a symmetric neph rogram and no hydronephrosis is seen. The large vessels of the retrop eritoneum enhance normally. No retroperitoneal adenopathy is seen. Procedure Note Feroz Rodrigues M.D. / ProviderLaurie M.D. - 04/02/2017 EXAM: CT Abdomen/Pelvis w/ contrast INDICATION: abdominal pain, elevated whi te count COMPARISON: None. PROCEDURE: Following the oral administra tion of contrast and during the rapid infusion of intravenous contra st series of helical images in the axial plane were obtained through the abdomen and pelvis. FINDINGS: The lower lung maradiaga are johnie r. The liver, spleen and pancreas are normal size, position, cont our, CT density and enhancement pattern. The gallbladder is present and no calcified gallstones are seen. The stomach is norm al. There is a short length of intussusception of the small bowel in the pelvis in 2 locations seen best on image 64 and 70.. Stool and air are seen throughout the colon which otherwise appears unremarkab le. The appendix is normal and is not enlarged. No inflammatory obi nges noted in the right lower quadrant or elsewhere in the abdomen or pelvis. No free air is seen. The kidneys demonstrate a symmetric neph rogram and no hydronephrosis is seen. The large vessels of the retrop eritoneum enhance normally. No retroperitoneal adenopathy is seen. IMPRESSION: Two incidental short length, likely self-limiting, intussusceptions of the small bowel in t he pelvis as described. Unremarkable postcontrast CT scan of the abdomen or pelvis otherwise. I agree with [facility]'s report. Rose FuentesTJairo(R)(CT), R.T.(R) IMG CT PROCEDURES (ABNORMAL) Automated Differential (03/28/2016 9:40 PM CDT) Patholo gist Method Time Signature Absolute 17.33 (H) 1.70 - POWERCHART Neutrophils 7.00 109L Lymphocytes 1.08 0.90 - POWERCHART 2.90 X109L Monocytes 0.28 (L) 0.30 - POWERCHART 0.90 X109L Eosinophils 0.00 (L) 0.05 - POWERCHART 0.50 X109L Absolute 0.00 0.00 - POWERCHART Basophil 0.30 X109L Specimen Anatomical Collection Method Collection Time Receive d Time (Source) Location / / Volume Laterality Blood 03/28/2016 9:40 PM 6 9:40 CDT PM CDT Yoko WashingtonAJairo-CJairo LAB BLOOD ADD-ON Performing Organization Address City/State/ZIP Code Phon e Number POWERCHART (ABNORMAL) CBC with Differential (03/28/2016 9:40 PM CDT) Analysis Performed At Patho logist Time Signature Leukocytes 18.7 (H) 3.5 - 10.5 POWERCHART X109L Erythrocytes 5.37 4.32 - POWERCHART 5.72 [id number] Hemoglobin 17.6 (H) 13.5 - POWERCHART 17.5 GDL Hematocrit 49.3 38.8 - POWERCHART 50.0 MCV 91.8 81.2 - POWERCHART 95.1 FL HX RDW 14.0 11.8 - POWERCHART 15.6 Platelet Count 315 150 - 450 POWERCHART X109L Specimen (Source) Anatomical Collection Method Collection Time Re ceived Time Location / / Volume Laterality Blood 03/28/2016 9:40 PM CDT Yoko Jones-C. LAB BLOOD ADD-ON Performing Organization Address City/State/ZIP Code Phon e Number POWERCHART Ethanol Level (03/28/2016 9:40 PM CDT) P athologist Signature Ethanol, S <11 MGDL POWERCHART Comment: Legal limit of intoxication is 80 mg/dL (0.08 g/dL) Toxic concentration is dependent upon in dividual usage history. Potentially lethal concentration: > or = 400 mg/dL (0.4 g/dL) Specimen (Source) Anatomical Collection Method Collection Time Re ceived Time Location / / Volume Laterality Blood 03/28/2016 9:40 PM CDT Yoko Forrester P.A.-C. LAB BLOOD NON ADD-ON Performing Organization Address City/[facility]/ZIP Code Phon e Number POWERCHART Magnesium (03/28/2016 9:40 PM CDT) athologist Signature Magnesium, S 2.0 1.7 - 2.3 POWERCHART MGDL Specimen (Source) Anatomical Collection Method Collection Time Re ceived Time Location / / Volume Laterality Blood 03/28/2016 9:40 PM CDT Yoko BrookeC. LAB BLOOD ADD-ON Performing Organization Address City/[facility] Code Phon e Number POWERCHART Lipase (03/28/2016 9:40 PM CDT) athologist Signature Lipase, S 32 13 - 60 UL POWERCHART Specimen (Source) Anatomical Collection Method Collection Time Re ceived Time Location / / Volume Laterality Blood 03/28/2016 9:40 PM CDT Yoko Jones-CJairo LAB BLOOD ADD-ON Performing Organization Address City/[facility] Phon e Number POWERCHART (ABNORMAL) CMP (Comprehensive Metabolic Panel) (03/28/2016 9:40 PM CDT) Patholo gist Method Time Signature Alanine 28 7 - 55 UL POWERCHART Amniotransferase, LD Albumin, S 5.5 (H) 3.5 - 5.2 POWERCHART GDL Alkaline 93 40 - 130 POWERCHART Phosphatase, S UL Aspartate 25 8 - 48 UL POWERCHART Aminotransferase (AST), S Sodium, S 145 135 - 145 POWERCHART MMOLL Potassium, S 3.7 3.5 - 5.1 POWERCHART MMOLL Chloride, S 100 98 - 107 POWERCHART MMOLL CO2 Total 23 22 - 29 POWERCHART MMOLL BUN (Blood Urea 18 6 - 24 POWERCHART Nitrogen), S MGDL Creatinine 0.8 0.8 - 1.3 POWERCHART MGDL Calcium, Total, S 10.4 (H) 8.6 - 10.3 POWERCHART MGDL Anion Gap 22 (H) 7 - 15 POWERCHART MMOLL HXeGFR (MDRD) >60 >=60 POWERCHART MLMINSA Comment: Results are in mL/min/1.73m squared CKD Stage I: ? GFR > 90 CKD Stage II: ?GFR 60 to 89 CKD Stage III: ? GFR 30 to 59 CKD Stage IV: ? GFR 15 to 29 CKD Stage V: ?GFR < 15 or Dialysi s eGFR Black/ >60 >=60 MLMINSA POWERCHART Comment: Results are in mL/min/1.73m squared CKD Stage I: ? GFR > 90 CKD Stage II: ?GFR 60 to 89 CKD Stage III: ? GFR 30 to 59 CKD Stage IV: ? GFR 15 to 29 CKD Stage V: ?GFR < 15 or Dialysi s Bilirubin, Total, S 2.3 (H) <=1.2 MGDL POWERCHAR T Total Protein, S 8.5 (H) 6.3 - 7.9 GDL POWERCHAR T Glucose 135 70 - 140 MGDL POWERCHART Specimen (Source) Anatomical Collection Method Collection Time Re ceived Time Location / / Volume Laterality Blood 03/28/2016 9:40 PM CDT Yoko Forrester P.A.-C. LAB BLOOD ADD-ON Performing Organization Address City/State/ZIP Code Phon e Number POWERCHART documented in this encounter Visit Diagnoses Not on filedocumented in this encounter
--- OUTSIDE RECORDS SUMMARY | 2022-08-19 22:48 | XMS_ITS | Encounter Summary ---
:1995 Author Organization [facility] Address [address] [place] [id number] Care Team Providers Name Role Phone Unavailable Primary Care Provider Unavailable Reason for Referral MRI/CAT/PET Scan (Routine) - Closed Specialty Diagnoses / Procedures Referred By Contact Refer red To Contact Radiology Diagnoses Obstruction Intestinal (HCC) Cabrera Chavarria M.D. [facility] Procedures CT Abdomen Pelvis Enterography without and with IV Contrast ID CT ABD&PELVIS WO/W CNTRST [address] [place] [phone] Referral ID Status Reason Start Date Expiration Date Visits Requ ested Visits Authorized [id number] Closed 04/07/2022 04/07/2023 1 1 Reason for Visit MRI/CAT/PET Scan (Routine) - Closed Specialty Diagnoses / Procedures Referred By Contact Refer red To Contact Radiology Diagnoses Obstruction Intestinal (HCC) Cabrear Chavarria M.D. [facility] Procedures CT Abdomen Pelvis Enterography without and with IV Contrast ID CT ABD&PELVIS WO/W CNTRST [address] [place] [phone] Referral ID Status Reason Start Date Expiration Date Visits Requ ested Visits Authorized [id number] Closed 04/07/2022 04/07/2023 1 1 Encounter Details Date Type Department Care Team Description 05/05/2022 Hospital Encounter Department of Cabrera Chav[facility]ria, Obstruct ion Radiology, [facility] Intestinal (HCC) Building, in [address] [place], [place] [address] [place] [phone] [place], [place] [phone] (Work) [phone] Social History Tobacco Use Types Packs/Day Years [...] or vomiting. documented as of this encounter Nursing Notes Berenice Riojas, RJairoN. - 05/05/2022 2:00 PM CDT Enteroclysis screening Does patient have an allergy to Barium sulfate? NO if no...continue. CT: does patient have an allergy to Iohexol 300 (omnipaque 300)? NO If... no continue. MR: does patient have an allergy to gadolinium based contrast media? NO if no... continue. Does patient have known or suspected gastrointestinal perforation or peritonitis; History of aspiration; History of oral, maxillofacial, esophageal, and/or gastric anastomosis/procedures/surgery? YES If no...continue. Laproscopic surgery in [place]. [place] per Dr. Mcdaniel. Has patient had barium in the last 72 hours? NO If yes, notify radiologist. *Administer appropriate oral contrast ordered as identified in order and outlined in medication reference document. *If ordered with IV contrast, administer as ordered and outline in medication reference document. documented in this encounter Plan of Treatment Upcoming Encounters Date Type Specialty Care Team Description 08/25/2022 Appointment Laboratory Medicine Cabrera Chavarria M.D. [address] [place] [address] [phone] 08/25/2022 Appointment Radiology Cabrera Chavarria M.D. [address] [place] [address] [phone] 08/25/2022 Comprehensive Visit Spine Chauncey Emanuel M.D. [address] [place] [phone] 08/25/2022 Office Visit Gastroenterology and [facility] [address] [place] [address] [phone] documented as of this encounter Procedures Procedure Name Priority Date/Time Associated Comments Diagnosis CT ABDOMEN PELVIS RAD - Routine 05/05/2022 3:51 Obstruction Result s for ENTEROGRAPHY (most inpatients PM CDT Intestinal (HCC) this pr ocedure WITHOUT AND WITH IV and all are in t he CONTRAST outpatients) results section. documented in this encounter Results CT Abdomen Pelvis Enterography [...] evidence of small bow l obstruction. Cabrera Chavarria M.D. IMG CT PROCEDURES documented in this encounter Visit Diagnoses Diagnosis Obstruction Intestinal (HCC) documented in this encounter Administered Medications Inactive Administered Medications - up to 3 most recent administrations Medication Order MAR Action Action Date Dose Rate Site barium 0.1 % suspension 450 mL Given 05/05/2022 3:46 PM CDT 2,25 0 mL (NEULUMEX) 450 mL, gastric tube, Once in imaging, contrast, Starting on Wed05/05/22 at 1400, For 4 doses iohexoL 300 mg iodine/mL solution 1-200 mL Given 05/05/2022 2:41 PM CDT 100 mL (OMNIPAQUE) 1-200 mL, intravenous, Once in imaging, contrast, Starting on Wed05/05/22 at 1326, For 1 dose, Imaging Protocol Orders, Dose per Radiant Medication Guidelines sodium chloride (PF) 0.9 % injection 1-1 00 mL Given 05/05/2022 2:41 PM CDT 50 mL 1-100 mL, intravenous, Once, On Wed05/05/22 at 1330, For 1 dose, Imaging Protocol Orders documented in this encounter
--- OUTSIDE RECORDS SUMMARY | 2022-08-19 22:48 | XMS_ITS | Encounter Summary ---
:[address] [facility] Address [address] [place] [address] Care Team Providers Name Role Phone Unavailable Primary Care Provider Unavailable Reason for Visit Reason Comments Vomiting Encounter Details Date Type Department Care Team Description 08/17/2020 Emergency [facility] Abdelrahman Snell, Cyclical Vomiting Syndrome Unrelated To Migraine (Primary Dx); Department P.A.-C. Abuse Cannabis Episodic; [address] [place] [address] [address] [place], [place] [phone] (Wo rk) Social History Tobacco Use Types Packs/Day Years Used Date Smoking Tobacco: Never Smokeless Tobacco: Never Alcohol Use Standard Drinks/Week Comments Not Currently 0 (1 standard drink = 0.6 oz pure alcoho l) Sex Assigned at Date Recorded Not on file documented as of this encounter Last Filed Vital Signs Vital Sign Reading Time Taken Comments Blood Pressure 141/99 08/17/2020 3:30 PM CDT Pulse 100 08/17/2020 3:35 PM CDT Temperature 36.2 ??C (97.2 ??F) 08/17/2020 1:30 PM CDT Respiratory Rate 20 08/17/2020 1:30 PM CDT Oxygen Saturation 98% 08/17/2020 3:35 PM CDT Inhaled Oxygen Concentration - - Weight 57.6 kg (126 lb 15.8 oz) 08/17/2020 1:26 PM CDT Height - - Body Mass Index 20.65 04/07/2016 10:58 AM CDT documented in this encounter Discharge Instructions Discharge InstructionsVer Abdelrahman Snell, P.A.-C. - 08/17/2020 3:28 PM CDT Jarocho Pickens - as we discussed, - call your GI team on Wednesday for an appointment. - continue to use your Zofran and Compazine as needed for nausea and vomiting. - seek ER treatment for worsening symptoms, uncontrolled vomiting, severe abdominal pain, fevers, bloody stools or other concerns. AttachmentsThe following attachments cannot be sent through Care Everywhere. Cannabinoid Hyperemesis Syndrome (Setswana)documented in this encounter Medications at Time of Discharge Medication Sig Dispensed Refills Start Date End Date famotidine (PEPCID) 20 mg Take 20 mg by 0 tablet mouth 2 (two) times a day. ondansetron (ZOFRAN) 24 mg Take 24 mg by 0 tablet mouth once. prochlorperazine (COMPAZINE) Insert 25 mg into 0 25 mg suppository the rectum every 12 (twelve) hours as needed for nausea or vomiting. albuterol 90 mcg/actuation Inhale 2 puffs. 0 10/29 inhaler polyethylene glycol (MIRALAX) Take 17 g by 0 12/31 17 gram/dose oral powder mouth. documented as of this encounter ED Notes Abdelrahman Mathew P.A.-C. - 08/17/2020 1:45 PM CDT SUBJECTIVE CHIEF COMPLAINT/REASON FOR VISIT Vomiting HISTORY OF PRESENT ILLNESS Jarocho Pickens is a 25 y.o. male with a history of cyclic vomiting syndrome, cannabis dependence, intussusception, who presents ambulatory to the Emergency Department by private car for evaluationof vomiting. Patient states that about 4 days ago he began to have consistent vomiting. He was feeling nauseated. He had been abstinent from cannabis for about 4 months he reports. He had not been using cannabis prior to the onset of the symptoms 4 days ago but because of his nausea yesterday he used some cannabis. He was feeling okay yesterday with exception of nausea. Today he thought he was feeling better and so decided to go to an event here [facility] with some family members. He began to have uncontrolled vomiting at the event. He has had greater than 10 episodes of vomiting today, and the last few days has had more than 10 episodes. He has pain in his abdomen as if ???there is something sitting on it?? . It is all throughout the abdomen. No chest pain or shortness of breath or back pain. Hehas had reduction in the amount of urine he has been making, and denies any polyuria or dysuria frequency urgency or hematuria. He has noted some stool changes which she describes as loose. No bloody stools. He does not drink alcohol. REVIEW OF SYSTEMS Constitutional: Negative for chills and fever. HENT: Negative for congestion, ear pain and sore throat. Respiratory: Negative for cough and shortness of breath. Cardiovascular: Negative for chest pain and palpitations. Gastrointestinal: Positive for abdominal pain, diarrhea, nausea and vomiting. Negative for blood in stool and constipation. Endocrine: Negative. Genitourinary: Negative for dysuria, flank pain, frequency and urgency. Musculoskeletal: Negative for neck pain and neck stiffness. Skin: Negative for lesions and rash. Allergic/Immunologic: Negative. Neurological: Negative for dizziness, syncope, weakness and numbness. Hematological: Negative. Psychiatric/Behavioral: Positive for substance abuse. OBJECTIVE Initial Vitals Temperature Pulse Rate Heart Rate Resp Rate Blood Pressure SpO2 08/17/20 1330 08/17/20 1330 -- 08/17/20 1330 08/17/20 1330 08/17/20 1330 36.2 ??C 110 20 (!) 150/124 100 % Pain Score 08/17/20 1353 6 PHYSICAL EXAMINATION Constitutional: Nursing note and vitals reviewed. He appears not lethargic. No distress. wretching on initial exam. HENT: Head: Atraumatic. Mouth/Throat: Oropharynx is clear and moist. Mucous membranes are moist. Eyes: Conjunctivae and EOM are normal. Pupils are equal, round, and reactive to light. Extraocular Movements: EOM normal. Neck: Normal range of motion. Neck supple. No JVD present. No tracheal deviation present. Cardiovascular: Normal rate and regular rhythm. Pulses are palpable. Capillary refill: takes less than 3 seconds, Pulmonary/Chest: Effort normal and breath sounds normal. There is normal air entry. Abdominal: Soft. He exhibits no distension. There is no abdominal tenderness. There is no rebound and no guarding. Musculoskeletal: Normal range of motion. No edema. Neurological: He is alert and oriented to person, place, and time. Skin: Skin is warm. He is diaphoretic. Psychiatric: He has a normal mood and affect. His behavior is normal. ASSESSMENT/PLAN MDM: The patient is a 25 y.o. male who presents for 4 days of vomiting and abdominal pain in the setting of cyclic vomiting, prior intussusception. Given patient's history and presentation, most concern for SBO, intussusception, cyclic vomiting, pancreatitis, gastritis, duodenitis, dehydration, others considered. He presents tachycardic vomiting but in no distress. He is able to speak in full sentences but has about 4 episodes of vomiting while I am evaluating him. He has good cap refill and blood pressure is stable with normal mental status. His abdomen is soft but tender. No rigidity or rebound tenderness. Per his history it sounds like he has had intussusception twice. The 1st time and was treated non operatively in [facility] in 2016 after he was admitted from the ER in [place]. Then he had another episode in the [facility] and was seen at [facility] where they did do laparoscopy to evaluate the bowel but it had self reduced by the time of operation. Additionally he has seen GI specialistin the [facility] for his cyclic vomiting, thought to be initially due to cannabis abuse however he was still having vomiting for months after he had quit cannabis. He does take p.r.n. Compazine and Zofranfor this. Will obtain IV access, give fluids and Zofran as well as check urinalysis, U tox, ethanol, magnesium, CMP, lipase, lactate, CBC and CT abdomen pelvis to evaluate. Also obtain ECG as he initially somewhat tachycardic at 1 to evaluate QTC has we will plan on giving him antiemetics. Feeling better after fluids, Zofran, droperidol, Benadryl, Toradol. His CT was negative for acute findings. No free air or signs of bowel obstruction. At this point he was feeling better and I did offer p.o. challenge. He actually declined this and we discussed pros and cons of this approach. He wouldlike to go home which I feel is reasonable. He will follow-up with local GI team in the [facility]. He will return or seek emergent care for worsening symptoms over the next few days. Patient remained stable in the ED. All questions were answered. Indications to return to the emergency department were discussed with the patient and they verbalized understanding of these. IMAGING: CT Abdomen Pelvis with IV Contrast Final Result 1. No acute abnormalities are identified in the abdomen or pelvis. 2. The appendix is not well visualized. vRad: Findings concordant with preliminary vRad report. DISPOSITION: Discharge. Routine return precautions discussed in everyday language. Contact Information for Follow-ups [facility] Specialty: Emergency Medicine [address] [place] [phone] Next Steps: Follow up Your GI team in [facility] Next Steps: Call in 2 day(s) Medications prescribed for after the encounter: ED Prescriptions None ED Course as of Aug 17 1848 Sat Aug 17, 2020 1357 Hemoglobin(!): 18.1 1358 White Blood Cell Count(!): 10.5 1358 Platelet Count(!): 388 1358 Suspect hemoconcentration 1406 Potassium, P: 3.9 1406 Magnesium, P(!): 3.0 1406 Creatinine, P: 1.02 1406 BUN, P: 20 1406 Ethanol, P: <10 1406 Will give another 1 L, droperidol, benadryl, toradol. He is at CT. 1410 His QTc is 465. 1413 Lipase, P: [address] with no acute findings 1450 Suspect dehydration rather than malperfusion or ischemic colitis. Lactate(!): 2.5 Final Diagnoses: as of Aug 17 1848 Cyclical Vomiting Syndrome Unrelated To Migraine Abuse Cannabis Episodic Dehydration Abdelrahman Mathew P.A.-C. 08/17/201847 documented in this encounter Plan of Treatment Upcoming Encounters Date Type Specialty Care Team Description 08/25/2022 Appointment Laboratory Medicine Cabrera Chavarria M.D. [address] [place] [phone] 08/25/2022 Appointment Radiology Cabrera Chavarria M.D. [address] [place] [phone] 08/25/2022 Comprehensive Visit Chauncey Guajardo M.D. [address] [place] [phone] 08/25/2022 Office Visit [facility] Chavar[facility] [address] [place] [phone] documented as of this encounter Procedures Procedure Name Priority Date/Time Associated Comments Diagnosis DRUG SCREEN URINE STAT 08/17/2020 3:04 Results for PM CDT this procedure are in the results section. URINALYSIS WITH STAT 08/17/2020 3:04 Results f or MICROSCOPIC PM CDT this procedure are in the results section. CT ABDOMEN PELVIS RAD - Semiurgent 08/17/2020 2:13 Res ults for WITH IV CONTRAST (Fast; most ED PM CDT this proc edure patients; some are in the inpatients) results section. ECG STAT 08/17/2020 1:42 Results for PM CDT this procedure are in the results section. ETHANOL, S STAT 08/17/2020 1:42 Results for PM CDT this procedure are in the results section. CBC WITH STAT 08/17/2020 1:42 Results for DIFFERENTIAL, B PM CDT this procedu re are in the results section. MAGNESIUM, S STAT 08/17/2020 1:42 Results for PM CDT this procedure are in the results section. LIPASE, S/P STAT 08/17/2020 1:42 Results for PM CDT this procedure are in the results section. LACTATE, B/P STAT 08/17/2020 1:42 Results for PM CDT this procedure are in the results section. COMPREHENSIVE STAT 08/17/2020 1:42 Results for METABOLIC PANEL, S/P PM CDT this pr ocedure are in the results section. documented in this encounter Results (ABNORMAL) Urinalysis with Microscopic: Urine, Midstream (08/17/2020 3:04 PM CDT) athologist Signature Source Midstream 08/17/2020 [facility] 3:16 PM CDT Clarity Clear Clear 08/17/2020 [facility] 3:16 PM CDT Color Yellow 08/17/2020 [facility] 3:16 PM CDT Comment: ----REFERENCE VALUE---- Colorless Yellow Vale Blood Trace (A) Negative 08/17/2020 3:16 PM CDT CNFL Nitrite Negative Negative 08/17/2020 3:16 PM CDT CNFL Leukocyte Esterase Negative Negative 08/17/2020 3:16 PM CD T CNFL Protein Negative mg/dL 08/17/2020 3:16 PM CDT CNFL Comment: ----REFERENCE VALUE---- Negative Trace Glucose Negative Negative mg/dL 08/17/2020 3:16 PM CDT CN FL Ketones, QI(U) Trace (A) Negative mg/dL 08/17/2020 3:16 PM C DT CNFL Bilirubin Negative Negative 08/17/2020 3:16 PM CDT CNFL pH 8.5 (A) 5.0 - 8.0 08/17/2020 3:16 PM CDT CN[facility] Specific Bureau 1.015 1.001 - 1.035 08/17/2020 3:16 PM CDT CNFL Urobilinogen 0.2 0.2 - 1.0 mg/dL 08/17/2020 3:16 PM CD T CNFL White Blood Cells Occ-3 /hpf 08/17/2020 3:24 PM CDT CNFL Comment: ----REFERENCE VALUE---- Males: 0-3 Females: 0-10 Unknown: 0-10 Red Blood Cells Occ-2 0 - 2 /hpf 08/17/2020 3:24 PM CDT CNFL Dysmorphic Red Blood Cells <=25 <=25 % 08/17/2020 3: 24 PM CDT CNFL Hyaline Casts 1-3 /lpf 08/17/2020 3:24 PM CDT CNF L Squamous Cells Occ-3 /hpf 08/17/2020 3:24 PM CDT CN FL Specimen Anatomical Collection Method Collection Time Receive d Time (Source) Location / / Volume Laterality Urine (Urine, 08/17/2020 3:04 PM 08/17/20 20 3:10 Midstream) CDT PM CDT Abdelrahman Snell P.A.-C. LAB URINE ORDERABLES Performing Organization Address City/State/ZIP Code Phon e Number [facility]- [address] [place] [address] [place] [address] [place] [address] [address] (ABNORMAL) Drug Screen Urine (08/17/2020 3:04 PM CDT) P athologist Signature Amphetamines, Negative Negative 08/17/2020 [facility] U 3:25 PM CDT Comment: ----ADDITIONAL INFORMATION---- Home Care Provider's Cutoff: 500 ng/mL Barbiturates, U Negative Negative 08/17/2020 3:25 PM CDT C NFL Comment: ----ADDITIONAL INFORMATION---- Home Care Provider's Cutoff: 200 ng/mL Benzodiazepines, U Negative Negative 08/17/2020 3:25 PM CD T CNFL Comment: ----ADDITIONAL INFORMATION---- Home Care Provider's Cutoff: 150 ng/mL Buprenorphine, U Negative Negative 08/17/2020 3:25 PM CDT CNFL Comment: ----ADDITIONAL INFORMATION---- Home Care Provider's Cutoff: 10 ng/mL Cocaine, U Negative Negative 08/17/2020 3:25 PM CDT CNFL Comment: ----ADDITIONAL INFORMATION---- Home Care Provider's Cutoff: 150 ng/mL Methadone, U Negative Negative 08/17/2020 3:25 PM CDT CNFL Comment: ----ADDITIONAL INFORMATION---- Home Care Provider's Cutoff: 200 ng/mL Methamphetamines, U Negative Negative 08/17/2020 3:25 PM C DT CNFL Comment: ----ADDITIONAL INFORMATION---- Home Care Provider's Cutoff: 500 ng/mL Opiates, U Negative Negative 08/17/2020 3:25 PM CDT CNFL Comment: ----ADDITIONAL INFORMATION---- Home Care Provider's Cutoff: 100 ng/mL Oxycodone, U Negative Negative 08/17/2020 3:25 PM CDT CNFL Comment: ----ADDITIONAL INFORMATION---- Home Care Provider's Cutoff: 100 ng/mL Phencyclidine, U Negative Negative 08/17/2020 3:25 PM CDT CNFL Comment: ----ADDITIONAL INFORMATION---- Home Care Provider's Cutoff: 25 ng/mL Propoxyphene, U Negative Negative 08/17/2020 3:25 PM CDT C NFL Comment: ----ADDITIONAL INFORMATION---- Home Care Provider's Cutoff: 300 ng/mL Tetrahydrocannabinol, U Unconfirmed Positive Negative 08/17 3:25 PM CNFL (A) CDT Comment: ----ADDITIONAL INFORMATION---- Home Care Provider's Cutoff: 50 ng/mL Tricyclic Antidepressants, U Negative Negative 08/17/2020 3:25 PM CDT CNFL Comment: ----ADDITIONAL INFORMATION---- Home Care Provider's Cutoff: 300 ng/mL THE ABOVE DRUG SCREEN PANEL IS FOR MED ICAL PURPOSES ONLY Specimen Anatomical Collection Method Collection Time Receive d Time (Source) Location / / Volume Laterality Urine (Urine, 08/17/2020 3:04 PM 08/17/20 20 3:10 Clean Catch) CDT PM CDT Abdelrahman Snell P.A.-C. LAB URINE ORDERABLES Performing Organization Address City/State/ZIP Code Phon e Number [facility]- [address] [place] [address] [place] [address] Abdomen Pelvis with IV Contrast (08/17/2020 2:13 PM CDT) Anatomical Region Laterality Modality Abdomen, Pelvis, Abdominal RST LOS, Abdominal ARZ LOS, N/A Computed Tomography Abdominal FLA LOS Specimen (Source) Anatomical Collection Method Collection Time Re ceived Time Location / / Volume Laterality 08/17/2020 3:58 PM CDT Impressions 08/17/2020 4:05 PM CDT 1. No acute abnormalities are identified in the abdomen or pelvis. 2. The appendix is not well visualized. vRad: ??Findings concordant with mary saldivar vRad report. Narrative 08/17/2020 4:05 PM CDT EXAM: CT ABDOMEN PELVIS WITH IV CONTRAST COMPARISON: 03/28/2016 FINDINGS: The liver, spleen, pancreas, k idneys, and both adrenal glands are normal. No acute bowel abnormalities are identified. The appendix is not well visualized. There are presumed pelvic ph leboliths. There is no free intraperitoneal air or fluid. No acute f ractures are seen. 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 The visualized lung bases are within normal limits. Procedure Note Aung Bales M.D. - 08/17/2020Format ting of this note might be different from the original. EXAM: CT ABDOMEN PELVIS WITH IV CONTRAST COMPARISON: 03/28/2016 FINDINGS: The liver, spleen, pancreas, k idneys, and both adrenal glands are normal. No acute bowel abnormalities are identified. The appendix is not well visualized. There are presumed pelvic ph leboliths. There is no free intraperitoneal air or fluid. No acute f ractures are seen. 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 The visualized lung bases are within normal limits. IMPRESSION: 1. No acute abnormalities are identified in the abdomen or pelvis. 2. The appendix is not well visualized. vRad: Findings concordant with prelimina ry vRad report. Abdelrahman E Qian Steeg P.A.-C. IMG CT PROCEDURES ECG 12 Lead (08/17/2020 1:42 PM CDT) P athologist Signature Ventricular Rate 94 BPM MUSE ECG/Min PA Interval 132 ms MUSE QRSD Interval 90 ms MUSE QT Interval 372 ms MUSE QTC Interval 465 ms MUSE P Wren 78 degrees MUSE R Wren 80 degrees MUSE T Wave Wren 45 degrees MUSE Specimen Anatomical Collection Method Collection Time Receive d Time (Source) Location / / Volume Laterality 08/17/2020 1:42 PM 0 1:51 CDT PM CDT Impressions MUSE - 08/17/2020 1:51 PM CDT Normal sinus rhythm Right atrial enlargement Voltage criteria for left ventricular hy pertrophy Nonspecific ST abnormality No previous ECGs available Reviewed by DOV Sharma Narrative This result has an attachment that is no t available. Procedure Note Parag Graves M.D. - 08/17/2020Formatt ing of this note might be different from the original. IMPRESSION: Normal sinus rhythm Right atrial enlargement Voltage criteria for left ventricular hy pertrophy Nonspecific ST abnormality No previous ECGs available Reviewed by DOV Sharma Abdelrahman E Qian Steeg P.A.-C. ECG ORDERABLES Performing Organization Address City/State/ZIP Code Phon e Number MUSE MUSE NA Ethanol Level, Serum (08/17/2020 1:42 PM CDT) P athologist Signature Ethanol, P <10 <10 mg/dL 08/17/2020 2:05 CNFL PM CDT Specimen Anatomical Collection Method Collection Time Receive d Time (Source) Location / / Volume Laterality Blood (Blood, 08/17/2020 1:42 PM 08/17/20 1:46 Venous) CDT PM CDT Abdelrahman WashingtonAJuanC. LAB BLOOD NON ADD-ON Performing Organization Address [facility] Code Phon e Number [address] [phone] [place] [address] System in [place] [address] [address] (ABNORMAL) Magnesium (08/17/2020 1:42 PM CDT) athologist Signature Magnesium, P 3.0 (H) 1.7 - 2.3 08/17/2020 [facility] mg/dL 2:05 PM CDT Specimen Anatomical Collection Method Collection Time Receive d Time (Source) Location / / Volume Laterality Blood (Blood, 08/17/2020 1:42 PM 08/17/20 1:46 Venous) CDT PM CDT Abdelrahman BrookeC. LAB BLOOD ADD-ON Performing Organization Address City/[facility] Code Phon e Number [address] [phone] [place] [address] System in [place] [address] [address] Lipase (08/17/2020 1:42 PM CDT) athologist Signature Lipase, P 30 13 - 60 U/L 08/17/2020 2:05 CNFL PM CDT Specimen Anatomical Collection Method Collection Time Receive d Time (Source) Location / / Volume Laterality Blood (Blood, 08/17/2020 1:42 PM 08/17/20 1:46 Venous) CDT PM CDT Abdelrahman BrookeC. LAB BLOOD ADD-ON Performing Organization Address [facility] Phon e Number [address] [place] [address] [place] [address] System in [place] [address] [address] (ABNORMAL) Lactate (08/17/2020 1:42 PM CDT) athologist Signature Lactate, P 2.5 (H) 0.5 - 2.2 08/17/2020 CN[facility] mmol/L 2:00 PM CDT Specimen Anatomical Collection Method Collection Time Receive d Time (Source) Location / / Volume Laterality Blood (Blood, 08/17/2020 1:42 PM 08/17/20 1:46 Venous) CDT PM CDT Abdelrahman Snell P.A.-C. LAB BLOOD NON ADD-ON Performing Organization Address City/State/ZIP Code Phon e Number [facility]- [address] [place] [id number] [place] [address] [address] (ABNORMAL) Comprehensive Metabolic Panel (08/17/2020 1:42 PM CDT) athologist Signature Potassium, P 3.9 3.6 - 5.2 08/17/2020 [facility] mmol/L 2:05 PM CDT Sodium, P 138 135 - 145 08/17/2020 [facility] mmol/L 2:05 PM CDT Chloride, P 93 (L) 98 - 107 08/17/2020 [facility] mmol/L 2:05 PM CDT Bicarbonate, P 28 22 - 29 08/17/2020 CN[facility] mmol/L 2:05 PM CDT Anion Gap, P 17 (H) 7 - 15 08/17/2020 CNFL 2:05 PM CDT BUN (Blood Urea 20 8 - 24 08/17/2020 CNFL Nitrogen), P mg/dL 2:05 PM CDT Creatinine 1.02 0.74 - 08/17/2020 CNFL 1.35 mg/dL 2:05 PM CDT eGFR-Black/Afri >90 >=60 08/17/2020 CNFL can [place]ral[place] mL/min/BSA 2:05 PM CDT Comment: ----ADDITIONAL INFORMATION---- Estimated GFR calculated using the 2009 CKD_EPI creatinine equation. eGFR Non-Black/ >90 >=60 mL/min/BSA 08/17/2020 2:05 PM CDT CNFL Comment: ----ADDITIONAL INFORMATION---- Estimated GFR calculated using the 2009 CKD_EPI creatinine equation. Calcium, Total, P 10.2 (H) 8.6 - 10.0 mg/dL 08/17/2020 2:05 PM CDT CNFL Glucose, P 107 70 - 140 mg/dL 08/17/2020 2:05 PM CDT C NFL Protein, Total, P 8.4 (H) 6.3 - 7.9 g/dL 08/17/2020 2:05 P M CDT CNFL Albumin, P 5.7 (H) 3.5 - 5.0 g/dL 08/17/2020 2:05 PM CDT C NFL Aspartate Aminotransferase 17 8 - 48 U/L 08/17/2020 2 :05 PM CDT CNFL (AST), P Alkaline Phosphatase, P 85 40 - 129 U/L 08/17/2020 2: 05 PM CDT CNFL Alanine Aminotransferase 18 7 - 55 U/L 08/17/2020 2:0 5 PM CDT CNFL (ALT), P Bilirubin, Total, P 2.2 (H) <=1.2 mg/dL 08/17/2020 2:05 PM CDT CNFL Specimen Anatomical Collection Method Collection Time Receive d Time (Source) Location / / Volume Laterality Blood (Blood, 08/17/2020 1:42 PM 08/17/20 20 1:46 Venous) CDT PM CDT Abdelrahman Snell P.A.-C. LAB BLOOD ADD-ON Performing Organization Address City/State/ZIP Code Phon e Number [facility]- [address] [place] [phone] [place] [address] [address] (ABNORMAL) CBC with Differential, Blood (08/17/2020 1:42 PM CDT) [facility] Method Time Signature Hemoglobin 18.1 (H) 13.2 - 08/17/2020 CNFL 16.6 g/dL 1:54 PM CDT Hematocrit 50.2 (H) 38.3 - 08/17/2020 CNFL 48.6 % 1:54 PM CDT Erythrocytes 5.51 4.35 - 08/17/2020 CN[facility] 5.65 1:54 PM CDT x10(12)/L MCV 91.1 78.2 - 08/17/2020 CNFL 97.9 fL 1:54 PM CDT RBC Distrib Width 13.0 11.8 - 08/17/2020 CN[facility] 14.5 % 1:54 PM CDT Platelet Count 388 (H) 135 - 317 08/17/2020 CNFL x10(9)/L 1:54 PM CDT Leukocytes 10.5 (H) 3.4 - 9.6 08/17/2020 CNFL x10(9)/L 1:54 PM CDT Neutrophils 7.79 (H) 1.56 - 08/17/2020 CNFL 6.45 1:54 PM CDT x10(9)/L Lymphocytes 2.05 0.95 - 08/17/2020 CNFL 3.07 1:54 PM CDT x10(9)/L Monocytes 0.66 0.26 - 08/17/2020 CNFL 0.81 1:54 PM CDT x10(9)/L Eosinophils 0.02 (L) 0.03 - 08/17/2020 CNFL 0.48 1:54 PM CDT x10(9)/L Basophils 0.02 0.01 - 08/17/2020 CNFL 0.08 1:54 PM CDT x10(9)/L Specimen Anatomical Collection Method Collection Time Receive d Time (Source) Location / / Volume Laterality Blood (Blood, 08/17/2020 1:42 PM 08/17/20 20 1:46 Venous) CDT PM CDT Abdelrahman Snell P.A.-C. LAB BLOOD ADD-ON Performing Organization Address City/State/[facility] Code Phon e Number [address] [phone] [place] [address] [address] documented in this encounter Visit Diagnoses Diagnosis Cyclical Vomiting Syndrome Unrelated To Migraine - Primary Abuse Cannabis Episodic Dehydration documented in this encounter Administered Medications Inactive Administered Medications - up to 3 most recent administrations Medication Order MAR Action Action Date Dose Rate Site diphenhydrAMINE injection 25 mg Given 08/17/2020 2:25 PM CDT 25 mg (BENADRYL) 25 mg, intravenous, Once, On 08/17/20 at 1407, For 1 dose droperidoL injection 1.875 mg (INAPSINE) Given 08/17/2020 2:23 PM CDT 1.875 mg 1.875 mg, intravenous, Once, On 08/17/20 at 1407, For 1 dose iohexoL (OMNIPAQUE) 300 mg iodine/mL agustin ution - ADS Override Pull Starting on 08/17/20 at 1353, For 1 dose, Created b y cabinet override iohexoL 300 mg iodine/mL solution 86 mL Given 08/17/2020 2:12 PM CDT 86 mL (OMNIPAQUE) 86 mL, intravenous, Once in imaging, contrast, Starting on 08/17/20 at 1351, For 1 dose, If administered oral then dilute in 900 mL water ketorolac injection 15 mg (TORADOL) Given 08/17/2020 2:27 PM CDT 15 mg 15 mg, intravenous, Once, On 08/17/20 at 1407, For 1 dose, Adult IV push rate: Over 15 seconds. Peds IV push rate: Over 1 minute. 60 mg dose only for IM, not recommended for IV. NaCl 0.9 % bolus 1,000 mL New Bag 08/17/2020 1:44 PM CDT 1,000 mL 1000 mL/hr 1,000 mL, intravenous, at 1,000 mL/hr, Administer over 1 Hours, Once, On 08/17/20 at 1326, For 1 dose NaCl 0.9 % bolus 1,000 mL New Bag 08/17/2020 2:44 PM CDT 1,000 mL 1000 mL/hr 1,000 mL, intravenous, at 1,000 mL/hr, Administer over 1 Hours, Once, On 08/17/20 at 1403, For 1 dose NaCl 0.9 % bolus 86 mL New Bag 08/17/2020 2:11 PM CDT 86 mL 86 mL/hr 86 mL, intravenous, at 86 mL/hr, Administer over 1 Hours, Once, On 08/17/20 at 1353, For 1 dose ondansetron (PF) injection 4 mg (ZOFRAN) Given 08/17/2020 1:44 PM CDT 4 mg 4 mg, intravenous, Once, On 08/17/20 at 1326, For 1 dose sodium chloride 0.9 % injection 10 mL Given 08/17/2020 2:12 PM CDT 10 mL 10 mL, intravenous, Once, On 08/17/20 at 1353, For 1 dose documented in this encounter Active and Recently Administered Medications Times are shown in CDT. Scheduled Medication Order 08/15/2020 08/16/2020 08/17/2020 diphenhydrAMINE injection 25 mg (BENADRYL) (COMPLETED) 1425 (Given - Provider: Frida Watts R.N.) 25 mg, intravenous, Once, On 08/17/20 at 1407, For 1 dose droperidoL injection 1.875 mg (INAPSINE) (COMPLETED) 1423 (Given - Provider: Frida Watts R.N.) 1.875 mg, intravenous, Once, On 08/17/20 at 1407, For 1 dose ketorolac injection 15 mg (TORADOL) (COMPLETED) 1427 (Given - Provider: Frida Watts R.N.) 15 mg, intravenous, Once, On 08/17/20 at 1407, For 1 dose, Adult IV push rate: Over 15 seconds. Peds IV push rate: Over 1 minute. 60 mg dose only for IM, not recommended for IV. NaCl 0.9 % bolus 1,000 mL (COMPLETED) 1344 (New Bag - Provider: Frida Watts R.N.)1531 (Stopped - Provider: Aguilar Watkins R.N.) 1,000 mL, intravenous, at 1,000 mL/hr, A dminister over 1 Hours, Once, On 08/17/20 at 1326, For 1 dose NaCl 0.9 % bolus 1,000 mL (COMPLETED) 1444 (New Bag - Provider: Frida Watts R.N.)1445 (Stopped - Provider: Frida Watts R.N.) 1,000 mL, intravenous, at 1,000 mL/hr, A dminister over 1 Hours, Once, On 08/17/20 at 1403, For 1 dose NaCl 0.9 % bolus 86 mL (COMPLETED) 1411 (New Bag - Provider: Jairo Peña(R)(CT), RCarolyn(R))1418 (Stopped - Provider: Frida Watts R.N.) 86 mL, intravenous, at 86 mL/hr, Adminis ter over 1 Hours, Once, On 08/17/20 at 1353, For 1 dose ondansetron (PF) injection 4 mg (ZOFRAN) (COMPLETED) 1344 (Given - Provider: Frida Watts R.N.) 4 mg, intravenous, Once, On 08/17/20 at 1326, For 1 dose sodium chloride 0.9 % injection 10 mL (COMPLETED) 1412 (Given - Provider: Jairo Peña(Buck)(CT), R.TJairo(R)) 10 mL, intravenous, Once, On 08/17/20 at 1353, For 1 dose PRN Medication Order 08/15/2020 08/16/2020 08/17/2020 iohexoL 300 mg iodine/mL solution 86 mL (OMNIPAQUE) (COMPLETED) 1412 (Given - Provider: Jairo Peña(Buck)(CT), R.T.(R) - Comment: [id number]) 86 mL, intravenous, Once in imaging, con trast, Starting on 08/17/20 at 1351, For 1 dose, If administered oral then dilute in 900 mL water documented in this encounter
--- OUTSIDE RECORDS SUMMARY | 2022-08-19 22:48 | XMS_ITS | Encounter Summary ---
:1995 Author Organization [facility] Address [address] [place] [address] Care Team Providers Name Role Phone Unavailable Primary Care Provider Unavailable Encounter Details Date Type Department Care Team Description 03/31/2022 Ancillary Procedure Department of Cabrera Chavarria Cyclica l Vomiting Radiology in M.D. Syndrome Unrelated To [place], [place] [address] [facility] Migraine [address] [place] [phone] Social History Tobacco Use Types Packs/Day Years [...] Appointment Laboratory Medicine Cabrera Chavarria M.D. [address] [place] [phone] 08/25/2022 Appointment Radiology Cabrera Chavarria M.D. [address] [place] [address] [phone] 08/25/2022 Comprehensive Visit Spine Chauncey Emanuel M.D. [address] [place] [phone] 08/25/2022 Office Visit Gastroenterology and Cabrera Chavarria Hepatology Donaldo [address] [place] [phone] documented as of this encounter Visit Diagnoses Diagnosis Cyclical Vomiting Syndrome Unrelated To Migraine documented in this encounter
--- OUTSIDE RECORDS SUMMARY | 2022-08-19 22:48 | XMS_ITS | Encounter Summary ---
:1995 Author Organization [facility] Address [address] [place] [address] Care Team Providers Name Role Phone Unavailable Primary Care Provider Unavailable Encounter Details Date Type Department Care Team Description 03/31/2022 Ancillary Procedure Department of Cabrera Chavarria Cyclica l Vomiting Radiology in M.D. Syndrome Unrelated To [place], [place] [address] [facility] Migraine [address] [place] [phone] Social History Tobacco Use Types Packs/Day Years [...] Appointment Laboratory Medicine Cabrera Chavarria M.D. [address] [place] [phone] 08/25/2022 Appointment Radiology Cabrera Chavarria M.D. [address] [place] [address] [phone] 08/25/2022 Comprehensive Visit Spine Chauncey Emanuel M.D. [address] [place] [phone] 08/25/2022 Office Visit Gastroenterology and Cabrera Chavarria Hepatology Donaldo [address] [place] [phone] documented as of this encounter Procedures Procedure Name Priority Date/Time Associated Comments Diagnosis INTERPRETATION OF RAD - Routine 03/31/2022 9:53 Cyclical Result s for OUTSIDE CT ABDOMEN (most inpatients AM CDT Vomiting this procedure AND OR PELVIS and all Syndrome are in the outpatients) Unrelated To results Migraine section. documented in this encounter Results Interpretation of Outside CT [...] No findings explaining patient's symptom s. Cabrera C Chavarria M.D. IMG CT PROCEDURES documented in this encounter Visit Diagnoses Diagnosis Cyclical Vomiting Syndrome Unrelated To Migraine documented in this encounter
[2022-08-19 22:52] LABS: Slide Review Reflex No
[2022-08-20] MEDS: ONDANSETRON 2 MG/ML inj 4 MG IVP (00:23)
[2022-08-20] MEDS: LACTATED RINGERS 1000 ML 1,000 ML 500 ML IV (00:23)
== END 2022-08-20 01:42 | disposition home or self-care (01) ==
PROVIDERS: Emergency Provider Family Medicine; PCP Physician Assistant Medical
DX: R11.15 Cyclical vomiting syndrome unrelated to migraine (principal); E86.0 Dehydration
CPT/HCPCS: 36415; 80048; 83605; 85025; 93005; 94761; 96361; 96374; 96375; 96376; 99284; J1790; J2405; J7030; J7120

== ENCOUNTER 2022-09-27 08:35 | Emergency (ER) | payer MEDICAID, SELFPAY ==
[2022-09-27 08:43] VITALS: BP 143/97; PULSE 99; RESP 18; TEMP 36.5; O2SAT 100; BMI 21.1
[2022-09-27 09:00] VITALS: BP 126/92; PULSE 100; O2SAT 100
[2022-09-27 09:30] VITALS: BP 122/78; PULSE 94; O2SAT 100
[2022-09-27] MEDS: 0.9 % SODIUM CHLORIDE 1000 ml 1,000 ML IV ×2 (09:48→11:12)
[2022-09-27] MEDS: KETOROLAC 30 MG/ML inj IVP (09:51)
--- OUTSIDE RECORDS SUMMARY | 2022-09-27 09:55 | XMS_ITS | Clinical Summary ---
:1995 Author Organization [employer] Address [address] [address] Phone Care Team Providers Name Role Phone Unavailable Primary Care Provider Unavailable Allergies Active Allergy Reactions Severity Noted Date Comments Environmental Sneezing Medium 07/06/2021 Medications No known medications Active Problems No known active problems Social History Tobacco Use Types Packs/Day Years Used Date Smoking Tobacco: Never Assessed Sex Assigned at Date Recorded Not on file Job Start Date Occupation Industry Not on file Not on file Not on file Last Filed Vital Signs [...] Mass Index 19.94 07/06/2021 3:47 AM CDT Plan of Treatment Health Maintenance Due Date Last Done Comments COVID-19 Vaccine (#1) 01/20/1995 PERTUSSIS (Standing Order) 2013 TETANUS (Standing Order) 2013 Influenza Vaccine Seasonal 07/30/2022 (Standing Order) (#1) Pneumococcal/PCV Vaccine: Aged Out No eros amos eligible based on Pediatrics (0-5 yrs) and At-Risk patient's age to complete this Patients (6-64 yrs) (Standing to pic Order)
--- OUTSIDE RECORDS SUMMARY | 2022-09-27 09:55 | XMS_ITS | Encounter Summary ---
:1995 Author Organization [employer] [facility] Address [address] [address] Phone Care Team Providers Name Role Phone Unavailable Primary Care Provider Unavailable Reason for Visit Reason Comments Vomiting Encounter Details Date Type Department Care Team Description 07/06/2021 Emergency [facility] Mo Bliss, Non -intractable vomiting with nausea, unspecified vomiting type (Primary Dx); Center Emergency DO Other acute gastritis without hemorrhage Department [address] [place] [address] [place] [address] [place] [address] [phone] Social History Tobacco Use Types Packs/Day Years [...] Code Departure Means Destination Home and/or Self Mcc documented in this encounter ED Notes Nicolette [...] him up to bring him back to [facility]. Nicolette Ames RN - 07/06/2021 7:12 AM CDT Handoff report from LUKE Huang Reina Forrester RN - 07/06/2021 7:12 AM CDT Verbal report given to on-coming RN. Reina Forrester RN - 07/06/2021 6:51 AM CDT Pt provided with ice chips- awaiting repeat labs. T Reina Forrester RN - 07/06/2021 5:52 AM [...] 1,000 mL (0 mL Intravenous Stopped 07/06/21 3515) droperidol (Inapsine) injection 2.5 mg (2.5 mg IV Push Given 07/06/21 648) aluminum & magnesium hydroxide-simethicone (Maalox, Mylanta) 200-200-20 [...] Disposition: ED Disposition ED Disposition Comment Discharge [facility] thanks you for allowing us to assist you with your healthcare needs. This document contains patient education materials and information regarding your injury/illness. *If you need copies of your x-rays for a f ollow up appointment please call [phone] to arrange for cloth picker. If you had an IV in place during your stay, please continue to monitor the site for the next 48 hours. Report any redness, swelling, drainage, or fever to your primary care phys alyssiaan. Mo Bliss DO 07/06/21 0758 Reina oFrrester RN - 07/06/2021 3:45 AM CDT Pt [...] 07/06/[address] [facility] mEq/L 7:28 AM [facility] Potassium 3.5 3.4 - 5.1 07/06/[address] [facility] mEq/L 7:28 AM [facility] Chloride 100 99 - 110 07/06/[address] [facility] mEq/L 7:28 AM [facility] Carbon Dioxide 23 19 - 29 07/06/2021 [facility] mEq/L 7:28 AM [facility] Anion Gap 13.0 3.0 - 15.0 07/06/[facility] [facility] mEq/L 7:28 AM [facility] Blood Urea 22 5 - 24 07/06/[address] [facility] Nitrogen mg/dL 7:28 AM [facility] Creatinine 0.87 0.70 - 07/06/2021 [facility] 1.20 mg/dL 7:28 AM [facility] Glomerular >60 >60 07/06/2021 [facility] Filtration Rate mL/min/1.7 7:28 AM [facility] [address] m*2 LABORATORY Comment: Complications of CKD and risk o f cardiovascular disease increase when GFR is below 60ml.min/1.73m2. A persistently re duced GFR is a specific indication of Chronic Kidney Disease. The eGFR calculation has not been validated in patients >70yrs. Calcium 9.1 8.4 - 10.5 mg/dL 07/06/2021 7:28 AM T [facility] Glucose 98 70 - 99 mg/dL 07/06/2021 7:28 AM T [facility] Specimen Anatomical Collection Method / Collection Time Recei paul Time (Source) Location / Volume Laterality Blood BLOOD SPECIMEN / Venipuncture / 07/06/2021 7:05 2020 7:09 Unknown Unknown AM CDT AM CDT Narrative [facility] LABORATOR Y - 07/06/2021 7:28 AM T Current ADA criteria for Glucose: ?Normal: 70-99 [...] Organization Address City/State/ZIP Code Phon e Number [facility] [address] [place] [address] ABDOMEN PELVIS W IV CONTRAST [...] 2.7 07/06/2021 [facility] mg/dL 4:55 AM T [facility] Specimen Anatomical Collection Method / Collection Time Recei paul Time (Source) Location / Volume Laterality Blood BLOOD SPECIMEN / Venipuncture / 07/06/2021 4:14 2020 4:19 Unknown Unknown AM CDT AM CDT Mo Bliss DO EC CHEMISTRY ORDERABLES Performing Organization Address City/[facility] Phon e Number [address] [address] LABORATORY LIPASE (07/06/2021 4:14 AM CDT) athologist Signature Lipase 17 12 - 84 07/06/[address] [facility] IU/L 4:52 AM T [facility] Specimen Anatomical Collection Method / Collection Time Recei paul Time (Source) Location / Volume Laterality Blood BLOOD SPECIMEN / Venipuncture / 07/06/2021 4:14 2020 4:19 Unknown Unknown AM CDT AM CDT Mo Bliss DO EC CHEMISTRY ORDERABLES Performing Organization Address City/[facility] Phon e Number [address] [address] LABORATORY (ABNORMAL) COMPREHENSIVE METABOLIC PANEL (07/06/2021 4:14 AM CDT) [facility] Method Time Signature Sodium 137 134 - 143 07/06/2021 ST. mEq/L 4:54 AM T [facility] Potassium 3.7 3.4 - 5.1 07/06/[address] mEq/L 4:54 AM T [facility] Chloride 95 (L) 99 - 110 07/06/2021 ST. mEq/L 4:54 AM T [facility] Carbon Dioxide 20 19 - 29 07/06/2021 ST. mEq/L 4:54 AM [facility] Anion Gap 22.0 (H) 3.0 - 15.0 07/06/2021 ST. mEq/L 4:54 AM [facility] Blood Urea 27 (H) 5 - 24 07/06/2021 ST. Nitrogen mg/dL 4:54 AM [facility] Creatinine 1.28 (H) 0.70 - 07/06/2021 ST. 1.20 mg/dL 4:54 AM [facility] Glomerular >60 >60 07/06/2021 [facility] Filtration Rate mL/min/1.7 4:54 AM [facility] 3 m*2 [facility] Comment: Complications of CKD and risk o f cardiovascular disease increase when GFR is below 60ml.min/1.73m2. A persistently re duced GFR is a specific indication of Chronic Kidney Disease. The eGFR calculation has not been validated in patients >70yrs. Calcium 11.4 (H) 8.4 - 10.5 07/06/2021 4:[address] [facility] [facility] mg/dL [facility] Glucose 139 (H) 70 - 99 mg/dL 07/06/2021 4:54 AM [facility] Protein, Total 8.9 (H) 6.0 - 8.0 07/06/2021 4:[address] [facility] g/dL [facility] Albumin 5.4 (H) 3.5 - 5.0 07/06/2021 4:[address] [facility] [facility] g/dL [facility] Alkaline Phosphatase 81 40 - 150 IU/L 07/06/2021 4:54 AM [facility] Aspartate 26 10 - 40 IU/L 07/06/2021 4:[address] [facility] Aminotransferase [facility] Alanine Aminotransferase 29 6 - 40 IU/L 07/06/2021 4: 54 AM [facility] Bilirubin, Total 2.9 (H) 0.2 - 1.2 07/06/2021 4:54 AM [facility] mg/dL [facility] Specimen Anatomical Collection Method / Collection Time Recei paul Time (Source) Location / Volume Laterality Blood BLOOD SPECIMEN / Venipuncture / 07/06/2021 4:14 2020 4:19 Unknown Unknown AM CDT AM CDT Narrative [facility] LABORATOR Y - 07/06/2021 4:54 AM CDT [...] Organization Address City/State/ZIP Code Phon e Number [facility] [address] [place] [address] LABORATORY (ABNORMAL) HEMOGRAM/DIFFERENTIAL (07/06/2021 4:14 AM CDT) [facility] gist Method Time Signature WBC 18.6 (H) 3.2 - 07/06/2021 ST. 11.0 4:23 AM [facility] 10*9/L [facility] RBC 5.35 4.14 - 07/06/[address]21 ST. 5.76 4:23 AM [facility] 10*12/L [facility] HGB 17.4 (H) 12.9 - 07/06/2021 ST. 16.9 g/dL 4:23 AM [facility] HCT 47.8 38.4 - 07/06/2021 ST. 49.7 % 4:23 AM [facility] MCV 89.3 81.4 - 07/06/2021 ST. 99.0 fL 4:23 AM [facility] MCH 32.5 26.7 - 07/06/2021 ST. 33.1 pg 4:23 AM [facility] MCHC 36.4 (H) 31.6 - 07/06/2021 ST. 35.5 g/dL 4:23 AM [facility] RDW 12.9 11.3 - 07/06/2021 ST. 14.6 % 4:23 AM [facility] PLT 468 (H) 130 - 375 07/06/2021 ST. 10*9/L 4:23 AM [facility] Neutrophils % 76.7 % 07/06/2021 ST. 4:23 AM [facility] Lymphocytes % 17.8 % 07/06/2021 ST. 4:23 AM [facility] Monocytes % 5.2 % 07/06/2021 ST. 4:23 AM [facility] Eosinophils % 0.0 % 07/06/2021 ST. 4:23 AM [facility] Basophils % 0.1 % 07/06/2021 ST. 4:23 AM [facility] Immature 0.2 % 07/06/2021 ST. Granulocytes % 4:23 AM [facility] Neutrophils 14.3 (H) 1.5 - 7.6 07/06/2021 ST. Absolute 10*9/L 4:23 AM [facility] Lymphocytes 3.3 0.8 - 3.3 07/06/2021 ST. Absolute 10*9/L 4:23 AM [facility] Monocytes 1.0 (H) 0.2 - 0.9 07/06/2021 ST. Absolute 10*9/L 4:23 AM [facility] Eosinophils 0.0 0.0 - 0.4 07/06/2021 ST. Absolute 10*9/L 4:23 AM [facility] Basophils 0.0 0.0 - 0.1 07/06/2021 ST. Absolute 10*9/L 4:23 AM [facility] Immature 0.04 0.00 - 07/06/2021 ST. Granulocytes 0.06 4:23 AM [facility] Absolute 10*9/L [facility] Specimen Anatomical Collection Method / Collection Time Recei paul Time (Source) Location / Volume Laterality Blood BLOOD SPECIMEN / Venipuncture / 07/06/2021 4:14 2020 4:19 Unknown Unknown AM CDT AM CDT Mo [facility] HEMATOLOGY ORDERABLES Performing Organization Address City/State/ZIP Code Phon e Number [facility] [address] [place] [address] LABORATORY documented in this encounter Visit Diagnoses [...] 80 mL (COMPLETED) 0536 (Given - Provider: RT Abiodun(R)) 80 mL, IV Push, ONCE, 1 dose, On 07/06/21 at 0525 lidocaine viscous (Xylocaine) 2 % solution 15 mL (COMPLETED) 0446 (Given - Provider: Reina Forrester RN) 15 mL, Mouth/Throat, ONCE, 1 dose, On 07/06/21 at 0435 sodium chloride 0.9% BOLUS BAG 1,000 mL (COMPLETED) 0415 (New Bag - Provider: Reina Forrester RN)0515 (Stopped - Provider: Reina Forrester RN) 1,000 mL, Intravenous, at 1,000 mL/hr, ONCE, 1 dose, On Sun at 0410 sodium chloride 0.9% BOLUS BAG 1,000 mL (COMPLETED) 0555 (New Bag - Provider: Reina Forrester RN)0651 (Stopped - Provider: Reina Forrester RN) 1,000 mL, Intravenous, at 1,000 mL/hr, ONCE, 1 dose, On Sun at 0520 sodium chloride 0.9% IV LINE FLUSH (NS) BAG 50 mL (COMPLETED) 0536 (Given - Provider: RT Abiodun(R)) 50 mL, IV Flush, ONCE, 1 dose, On 07/06/21 at 0525 documented in this encounter
--- OUTSIDE RECORDS SUMMARY | 2022-09-27 09:55 | XMS_ITS | Encounter Summary ---
:1995 Author Organization [employer] [facility] Address [address] [address] Phone Care Team Providers Name Role Phone [...]
[2022-09-27] MEDS: diphenhydrAMINE 25 MG in 0.9 % SODIUM CHLORIDE 100 ml 100 ML 402 MG IVPB (09:58)
[2022-09-27 10:00] VITALS: BP 134/102; PULSE 88; O2SAT 100
[2022-09-27] MEDS: METOCLOPRAMIDE HCL 10 MG in 0.9 % SODIUM CHLORIDE 100 ml 100 ML 306 MG IVPB (10:18)
[2022-09-27 10:30] VITALS: BP 143/87
--- NOTE | 2022-09-27 11:06 | ED_ITS ---
HPI - Headache General Date Seen: 09/27/22 Chief Complaint: Headache/Migraine Stated Complaint: Cluster headache Time Seen by Provider: 09/27/22 08:44 Source: patient Mode of arrival: ambulatory Limitations: no limitations History of Present Illness HPI Narrative: Patient is seen in room 5, he reports to me that he has his cluster headache, he has had these for almost his whole life, he only recently discovered that he can come in and be seen for these, and get medications and help, describes using peppermint or oils at home, with no real improvement, he also tried some Tylenol. He has not had any vomiting but feels like he might as he has nausea he describes his headache as a hat band distribution around his head maybe a little bit worse on his right. The light does bother his eyes, no history of fevers chills or sweats denies any numbness tingling or weakness, there is no neck pain associated with this. MD elicited complaint: headache and migraine Pertinent past history: migraines Onset (ago): hour(s) Onset description: gradually Location: right, left and temporal Quality & Timing: aching and throbbing Exacerbating factors: movement of head/neck, light and noise Relieving factors: nothing Context: occurred at rest Associated symptoms: nausea Treatments prior to arrival: acetaminophen Related Data Home Medications Medication Instructions Recorded Confirmed buprenorphine HCl 150 mcg buccal mcg buccal 06/30/22 film (Belbuca) celecoxib 100 mg capsule mg 06/30/22 cyclobenzaprine 10 mg tablet mg 06/30/22 lithium carbonate 300 mg mg PO 06/30/22 tablet,extended release Previous Rx's Medication Instructions Recorded ondansetron 4 mg disintegrating 4 mg PO Q6-8H PRN nausea and 08/25/22 tablet vomiting #20 tabs Allergies Allergy/AdvReac Type Severity Reaction Status Date / Time mold Allergy Mild Sneezing, Verified 09/27/22 08:43 congestion cats Allergy Mild Hives Uncoded 06/08/22 08:44 Dust Allergy Mild Sneezing, Uncoded 06/08/22 08:44 congestion Review of Systems Status of ROS: Reports: 10 or more systems reviewed and unremarkable except as noted in History and below [facility] Medical History Adhesive capsulitis of shoulder History of intussusception Surgical History History of hernia repair History of laparoscopy Family History Other Asthma Bipolar disorder Heart disease Social History Narrative: Marijuana user Smoking Status: Never smoker Do you use any of these nicotine containing products: None Second hand tobacco smoke exposure: Yes How often do you have a drink containing alcohol: monthly or less How many standard drinks containing alcohol do you have on a typical day: 1 or 2 How often do you have six or more drinks on one occasion: Never AUDIT-C Alcohol total score: 1 Non-prescribed substance use: marijuana (any form) Non-prescribed substance use details: few times only, lately. states he quit using marijuana. service: No Exam Narrative: Exam Narrative: Patient is a nice gentleman seen in room 5, he appears to be nontoxic in no apparent distress, but slightly photophobic. Pupils are equal round and reactive to light his fundi appear normal, TMs bilaterally are normal, orop harynx is normal with slight gingivitis, and cranial nerves 3-12 are normal. Neck is supple full range of motion is listed there is no meningismus, his chest is good air entry bilaterally with no wheezing crackles noted heart sounds are normal no clicks murmurs or gallops his abdomen is soft there is no guarding no pedal splenomegaly bowel sounds are normal. Neurologically he is intact in his upper lower extremities symmetrical with good proximal distal muscle strength, fine motor movements of fingers nose testing are normal with normal reflexes of 2/4 his upper and lower extremities. Const: Vital Signs, click to edit/add: Vital Signs - 24 hr 09/27/22 08:43 Temperature 97.7 F Pulse Rate [Pulse Oximeter] 99 Respiratory Rate 18 Blood Pressure [Ri ght Upper Arm] 143/97 H Pulse Oximetry 100 Oxygen Delivery Me thod Room Air Course Course Hospital Course: I discussed with the patient we will try some medications for his headache, it seems to be this is more of a common migraine, versus muscle contraction type headache, I am not getting a feeling that this is a cluster headache. He accepted my suggestion of of IV fluids, and medications, Reevaluation(s) Reevaluation #1: On recheck his headache pain is significantly decreased he feels much better he thanked me. Time: 11:11 Vital Signs Vital signs: Initial Vital Signs Temperature 97.7 F 09/27/22 08:43 Temperature Source Temporal Artery Scan 09/27/22 08:43 Pulse Rate 99 09/27/22 08:43 Respiratory Rate 18 09/27/22 08:43 Blood Pressure 143/97 H 09/27/22 08:43 Blood Pressure Mean 112 09/27/22 08:43 Blood Pressure Position Supine 09/27/22 08:43 Pulse Oximetry 100 09/27/22 08:43 Oxygen Delivery Method 09/27/22 08:43 Vital Signs Temperature 97.7 F 09/27/22 08:43 Pulse Rate 99 09/27/22 08:43 Respiratory Rate 18 09/27/22 08:43 Blood Pressure 143/97 H 09/27/22 08:43 Pulse Oximetry 100 09/27/22 08:43 Oxygen Delivery Method 09/27/22 08:43 Temperature 97.7 F 09/27/22 08:43 Pulse Rate 99 09/27/22 08:43 Respiratory Rate 18 09/27/22 08:43 Blood Pressure 143/97 H 09/27/22 08:43 Pulse Oximetry 100 09/27/22 08:43 Oxygen Delivery Method 09/27/22 08:43 MDM - Headache MDM Narrative Medical decision making narrative: Life-threatening differential diagnosis include subarachnoid hemorrhage, meningitis, encephalitis, carbon monoxide poisoning, and intracerebral hemorrhage. Other differential diagnosis include but not limited to migraine, cluster headache, tension headache, [employer] vasculitis, mass lesion, temporal arteritis, click acute closed angle glaucoma, septal and trigeminal neuralgia, sinusitis, closed head injury, and stroke Medical Records Attestation: I reviewed the patient's medical records. Discharge Plan Discharge Clinical Impression: Headache Patient Disposition: Home, Self-Care Condition: Improved Instructions: Acute Headache (ED) Additional Instructions: Discharge home after received fluids. May use your normal medications, follow- up with primary care as needed. Prescriptions: No Action cyclobenzaprine 10 mg tablet Label Comments: TAKE 0.5-1 TAB BY MOUTH 3 TIMES A DAY , MAX 3 TABS/DAY (MAX 30MG DAILY) lithium carbonate 300 mg tablet extended release PO Label Comments: TAKE 2 TABLETS BY MOUTH DAILY. celecoxib 100 mg capsule buprenorphine HCl [Belbuca] 150 mcg film BUCCAL Label Comments: TAKE 1 FILM BUCCALLY TWICE A DAY FOR CHRONIC PAIN DO NOT EAT/DRINK/SMOKE FOR 30 MIN ondansetron 4 mg tablet,disintegrating 4 mg PO Q6-8H PRN (Reason: nausea and vomiting) Qty: 20 0RF Follow Up/Referrals: Kimberlee Posadas PA-C [Primary Care Provider] - Stand Alone Forms: MyHealth Info Instructions
[2022-09-27 11:15] VITALS: BP 133/90; PULSE 85; RESP 20; O2SAT 100
== END 2022-09-27 12:15 | disposition home or self-care (01) ==
PROVIDERS: Emergency Provider Family Medicine; PCP Physician Assistant Medical
DX: R51.9 Headache, unspecified (principal)
CPT/HCPCS: 96365; 96366; 96374; 96375; 99284; J1200; J1885; J2765; J7030

== ENCOUNTER 2022-10-26 23:00 | Outpatient (REF) | payer MEDICAID, SELFPAY ==
--- OUTSIDE RECORDS SUMMARY | 2022-10-26 23:07 | XMS_ITS | Encounter Summary ---
:1995 Author Organization [employer] Address [address] [address] Phone Care Team Providers Name Role Phone Unavailable Primary Care Provider Unavailable Reason for Visit Reason Comments Vomiting Encounter Details Date Type Department Care Team Description 07/06/2021 Emergency [facility] Mo Bliss, Non -intractable vomiting with nausea, unspecified vomiting type (Primary Dx); Center Emergency DO Other acute gastritis without hemorrhage Department [address] [facility] [address] [address] [place] [address] [place] [address] [place] [address] [phone] Social History Tobacco Use Types Packs/Day Years [...] Code Departure Means Destination Home and/or Self Half-Way documented in this encounter ED Notes Nicolette [...] him up to bring him back to [facility]. Nicolette Ames RN - 07/06/2021 7:12 [...] 1,000 mL (0 mL Intravenous Stopped 07/06/21 3315) droperidol (Inapsine) injection 2.5 mg (2.5 mg IV Push Given 07/06/21 389) aluminum & magnesium hydroxide-simethicone (Maalox, Mylanta) 200-200-20 [...] Disposition: ED Disposition ED Disposition Comment Discharge [facility] thanks you for allowing us to assist you with your healthcare needs. This document contains patient education materials and information regarding your injury/illness. *If you need copies of your x-rays for a f ollow up appointment please call [phone] to arrange for pick up and delivery driver. If you had an IV in place during your stay, please continue to monitor the site for the next 48 hours. Report any redness, swelling, drainage, or fever to your primary care phys alyssiaan. Mo Bliss DO 07/06/21 0758 Reina Forrester [...] 07/06/[address] [facility] mEq/L 7:28 AM [facility] Potassium 3.5 3.4 - 5.1 07/06/[address] [facility] mEq/L 7:28 AM [facility] Chloride 100 99 - 110 07/06/[address] [facility] mEq/L 7:28 AM [facility] Carbon Dioxide 23 19 - 29 07/06/2021 [facility] mEq/L 7:28 AM [facility] Anion Gap 13.0 3.0 - 15.0 [facility]06[facility] mEq/L 7:28 AM [facility] Blood Urea 22 5 - 24 07/06/2021 [facility] Nitrogen mg/dL 7:28 AM [facility] Creatinine 0.87 0.70 - 07/06/2021 [facility] 1.20 mg/dL 7:28 AM [facility] Glomerular >60 >60 07/06/2021 [facility] Filtration Rate mL/min/1.7 7:28 AM [facility] [address] m*2 LABORATORY Comment: Complications of CKD and risk o f cardiovascular disease increase when GFR is below 60ml.min/1.73m2. A persistently re duced GFR is a specific indication of Chronic Kidney Disease. The eGFR calculation has not been validated in patients >70yrs. Calcium 9.1 8.4 - 10.5 mg/dL 07/06/2021 7:28 AM T [facility] Glucose 98 70 - 99 mg/dL 07/06/2021 7:28 AM T [facility] Specimen Anatomical Collection Method / Collection Time Recei paul Time (Source) Location / Volume Laterality Blood BLOOD SPECIMEN / Venipuncture / 07/06/2021 7:05 2020 7:09 Unknown Unknown AM CDT AM CDT Narrative [facility] Y - 07/06/2021 7:28 AM T [...] Organization Address City/State/ZIP Code Phon e Number [facility] [address] [place] [address] ABDOMEN PELVIS W IV CONTRAST [...] 07/06/2021 [facility] mg/dL 4:55 AM T [facility] Specimen Anatomical Collection Method / Collection Time Recei paul Time (Source) Location / Volume Laterality Blood BLOOD SPECIMEN / Venipuncture / 07/06/2021 4:14 2020 4:19 Unknown Unknown AM CDT AM CDT Mo Bliss DO EC CHEMISTRY ORDERABLES Performing Organization Address City/[facility] Phon e Number [address] [address] LABORATORY LIPASE (07/06/2021 4:14 AM CDT) athologist Signature Lipase 17 12 - 84 07/06/[address] [facility] IU/L 4:52 AM T [facility] Specimen Anatomical Collection Method / Collection Time Recei paul Time (Source) Location / Volume Laterality Blood BLOOD SPECIMEN / Venipuncture / 07/06/2021 4:14 2020 4:19 Unknown Unknown AM CDT AM CDT Mo Bliss DO EC CHEMISTRY ORDERABLES Performing Organization Address City/[facility] Phon e Number [address] [address] LABORATORY (ABNORMAL) COMPREHENSIVE METABOLIC PANEL (07/06/2021 4:14 AM CDT) [facility] Method Time Signature Sodium 137 134 - 143 07/06/2021 ST. mEq/L 4:54 AM T [facility] Potassium 3.7 3.4 - 5.1 07/06/[address] mEq/L 4:54 AM [facility] Chloride 95 (L) 99 - 110 07/06/2021 ST. mEq/L 4:54 AM T [facility] Carbon Dioxide 20 19 - 29 07/06/2021 ST. mEq/L 4:54 AM [facility] Anion Gap 22.0 (H) 3.0 - 15.0 07/06/2021 ST. mEq/L 4:54 AM [facility] Blood Urea 27 (H) 5 - 24 07/06/2021 ST. Nitrogen mg/dL 4:54 AM [facility] Creatinine 1.28 (H) 0.70 - 07/06/2021 ST. 1.20 mg/dL 4:54 AM [facility] Glomerular >60 >60 07/06/2021 [facility] Filtration Rate mL/min/1.7 4:54 AM [facility] 3 m*2 [facility] Comment: Complications of CKD and risk o f cardiovascular disease increase when GFR is below 60ml.min/1.73m2. A persistently re duced GFR is a specific indication of Chronic Kidney Disease. The eGFR calculation has not been validated in patients >70yrs. Calcium 11.4 (H) 8.4 - 10.5 07/06/2021 4:[address] [facility] [facility] mg/dL [facility] Glucose 139 (H) 70 - 99 mg/dL 07/06/2021 4:54 AM [facility] Protein, Total 8.9 (H) 6.0 - 8.0 07/06/2021 4:[address] [facility] g/dL [facility] Albumin 5.4 (H) 3.5 - 5.0 07/06/2021 4:[address] [facility] g/dL [facility] Alkaline Phosphatase 81 40 - 150 IU/L 07/06/2021 4:54 AM [facility] Aspartate 26 10 - 40 IU/L 07/06/2021 4:[address] [facility] [facility] Aminotransferase [facility] Alanine Aminotransferase 29 6 - 40 IU/L 07/06/2021 4: 54 AM [facility] Bilirubin, Total 2.9 (H) 0.2 - 1.2 07/06/2021 4:54 AM [facility] mg/dL [facility] Specimen Anatomical Collection Method / Collection Time Recei paul Time (Source) Location / Volume Laterality Blood BLOOD SPECIMEN / Venipuncture / 07/06/2021 4:14 2020 4:19 Unknown Unknown AM CDT AM CDT Narrative [facility] Y - 07/06/2021 4:54 AM CDT [...] Organization Address City/State/ZIP Code Phon e Number [facility] [address] [address] LABORATORY (ABNORMAL) HEMOGRAM/DIFFERENTIAL (07/06/2021 4:14 AM CDT) [facility] gist Method Time Signature WBC 18.6 (H) 3.2 - 07/06/2021 ST. 11.0 4:23 AM [facility] 10*9/L [facility] RBC 5.35 4.14 - 07/06/[address]21 ST[address] 5.76 4:23 AM [facility] 10*12/L [facility] HGB 17.4 (H) 12.9 - 07/06/2021 ST. 16.9 g/dL 4:23 AM [facility] HCT 47.8 38.4 - 07/06/2021 ST. 49.7 % 4:23 AM [facility] MCV 89.3 81.4 - 07/06/2021 ST. 99.0 fL 4:23 AM [facility] MCH 32.5 26.7 - 07/06/2021 ST. 33.1 pg 4:23 AM [facility] MCHC 36.4 (H) 31.6 - 07/06/2021 ST. 35.5 g/dL 4:23 AM [facility] RDW 12.9 11.3 - 07/06/2021 ST. 14.6 % 4:23 AM [facility] PLT 468 (H) 130 - 375 07/06/2021 ST. 10*9/L 4:23 AM [facility] Neutrophils % 76.7 % 07/06/2021 ST. 4:23 AM [facility] Lymphocytes % 17.8 % 07/06/2021 ST. 4:23 AM [facility] Monocytes % 5.2 % 07/06/2021 ST. 4:23 AM [facility] Eosinophils % 0.0 % 07/06/2021 ST. 4:23 AM [facility] Basophils % 0.1 % 07/06/2021 ST. 4:23 AM [facility] Immature 0.2 % 07/06/2021 ST. Granulocytes % 4:23 AM [facility] Neutrophils 14.3 (H) 1.5 - 7.6 07/06/2021 ST[facility] Absolute 10*9/L 4:23 AM [facility] Lymphocytes 3.3 0.8 - 3.3 07/06/2021 ST[facility] Absolute 10*9/L 4:23 AM [facility] Monocytes 1.0 (H) 0.2 - 0.9 07/06/2021 ST[facility] Absolute 10*9/L 4:23 AM [facility] Eosinophils 0.0 0.0 - 0.4 07/06/2021 ST[facility] 10*9/L 4:23 AM [facility] Basophils 0.0 0.0 - 0.1 07/06/2021 [facility] 10*9/L 4:23 AM [facility] Immature 0.04 0.00 - 07/06/2021 ST. Granulocytes 0.06 4:23 AM [facility] Absolute 10*9/L [facility] Specimen Anatomical Collection Method / Collection Time Recei paul Time (Source) Location / Volume Laterality Blood BLOOD SPECIMEN / Venipuncture / 07/06/2021 4:14 2020 4:19 Unknown Unknown AM CDT AM CDT Mo [facility] HEMATOLOGY ORDERABLES Performing Organization Address City/State/ZIP Code Phon e Number [facility] [address] [place] [phone] LABORATORY documented in this encounter [...]
--- OUTSIDE RECORDS SUMMARY | 2022-10-26 23:07 | XMS_ITS | Encounter Summary ---
:1995 Author Organization [employer] Address [address] [address] Phone Care Team Providers Name Role Phone [...]
--- OUTSIDE RECORDS SUMMARY | 2022-10-26 23:07 | XMS_ITS | Clinical Summary ---
:1995 Author Organization [employer] Address [address] [address] Phone Care Team Providers Name Role Phone [...]
[2022-10-28 20:38] LABS: Lithium, Serum or Plasma 0.3 mmol/L (0.5-1.2)
== END 2022-10-26 23:01 | disposition home or self-care (01) ==
LOC: LAB 23:00
PROVIDERS: Nurse Practitioner Psychiatric/Mental Health; PCP Physician Assistant Medical
DX: F32.9 Major depressive disorder, single episode, unspecified (principal)
CPT/HCPCS: 36415; 80178

== ENCOUNTER 2022-11-07 08:53 | Emergency (ER) | payer MEDICAID, SELFPAY ==
[2022-11-07] VITALS (13 sets, daily range): BP systolic 130–135; BP diastolic 94–98; PULSE 69–128; TEMP 36.7; O2SAT 95–99; BMI 20.4
--- NOTE | 2022-11-07 09:18 | ED.ABDPAIN ---
HPI - Abdominal Pain General Chief Complaint: Abdominal Pain Stated Complaint: Cyclic vomiting stomach pain Time Seen by Provider: 11/07/22 09:12 History of Present Illness HPI narrative: This 27-year-old male comes in with persistent vomiting. He states that he used marijuana and understands that this is what triggered these symptoms. He is very dramatic and complaining of abdominal pain. Related Data Home Medications Medication Instructions Recorded Confirmed buprenorphine HCl 150 mcg buccal mcg buccal 06/30/22 film (Belbuca) celecoxib 100 mg capsule mg 06/30/22 cyclobenzaprine 10 mg tablet mg 06/30/22 lithium carbonate 300 mg mg PO 06/30/22 tablet,extended release Previous Rx's Medication Instructions Recorded ondansetron 4 mg disintegrating 4 mg PO Q6-8H PRN nausea and 08/25/22 tablet vomiting #20 tabs Allergies Allergy/AdvReac Type Severity Reaction Status Date / Time mold Allergy Mild Sneezing, Verified 09/27/22 08:43 congestion cats Allergy Mild Hives Uncoded 06/08/22 08:44 Dust Allergy Mild Sneezing, Uncoded 06/08/22 08:44 congestion Review of Systems Status of ROS Reports: 10 or more systems reviewed and unremarkable except as noted in History and below Narrative Constitutional: No fevers, no weight gain or loss. Eyes: No discharge. No vision changes. HENT: No congestion, no sore throat, no ear pain. Cardiovascular: No chest pain, no palpitations. Respiratory: No shortness of breath, no wheezes, no cough. Gastrointestinal: Diffuse abdominal pain with nausea and vomiting. Genitourinary: No dysuria, no hematuria. Musculoskeletal: Normal range of motion. Skin: No rashes, no pruritis. Neurological: No dizziness, weakness, sensory change, speech change. Endo/Heme/Allergies: No bruising or bleeding. No polydipsia. All other systems reviewed and are negative. [facility] Medical History Adhesive capsulitis of shoulder History of intussusception Surgical History History of hernia repair History of laparoscopy Family History Other Asthma Bipolar disorder Heart disease Social History Narrative: Marijuana user Smoking Status: Never smoker Do you use any of these nicotine containing products: None Second hand tobacco smoke exposure: Yes How often do you have a drink containing alcohol: monthly or less How many standard drinks containing alcohol do you have on a typical day: 1 or 2 How often do you have six or more drinks on one occasion: Never AUDIT-C Alcohol total score: 1 Non-prescribed substance use: marijuana (any form) Non-prescribed substance use details: few times only, lately. states he quit using marijuana. service: No Exam Narrative: Exam Narrative: Constitutional: Well-developed, well-nourished. In significant distress with lots of drama. HEENT: Normocephalic, atraumatic. Neck: Normal range of motion. Nontender. Supple. Heart: Regular. No murmurs. Normal rate. Intact distal pulses. Lungs: Clear to auscultation. No chest discomfort. No wheezes, rhonchi, or rales. Abdomen: Diffuse tenderness. Genitalia: Deferred. Back: No midline tenderness. Normal range of motion. Extremities: Normal range of motion. No injury. Skin: Intact. No rash. Warm. No erythema or pallor. Neurologic: No altered sensation. No weakness. Alert and oriented. Nursing notes and vitals signs are reviewed. Const: Vital Signs, click to edit/add: Vital Signs - 24 hr 11/07/22 08:58 11/07/22 09:53 11/07/22 10:01 Temperature 98.1 F Pulse Rate 93 Pulse Rate [Left P ulse Oximeter] 121 H 89 Blood Pressure [Ri ght Upper Arm] 130/94 H Pulse Oximetry 99 99 98 Oxygen Delivery Me thod Room Air Room Air 11/07/22 10:16 11/07/22 10:31 11/07/22 10:46 Temperature Pulse Rate 92 81 128 H Pulse Rate [Left P ulse Oximeter] Blood Pressure [Ri ght Upper Arm] Pulse Oximetry 95 99 98 Oxygen Delivery Me thod 11/07/22 11:00 11/07/22 11:15 Temperature Pulse Rate 73 116 H Pulse Rate [Left P ulse Oximeter] Blood Pressure [Ri ght Upper Arm] Pulse Oximetry 99 99 Oxygen Delivery Me thod Course Vital Signs Vital signs: Initial Vital Signs Temperature 98.1 F 11/07/22 08:58 Temperature Source Temporal Artery Scan 11/07/22 08:58 Pulse Rate 121 H 11/07/22 08:58 Pulse Oximetry 99 11/07/22 08:58 Oxygen Delivery Method 11/07/22 08:58 Vital Signs Temperature 98.1 F 11/07/22 08:58 Pulse Rate 121 H 11/07/22 08:58 Pulse Oximetry 99 11/07/22 08:58 Oxygen Delivery Method 11/07/22 08:58 Temperature 98.1 F 11/07/22 08:58 Pulse Rate 116 H 11/07/22 11:15 Blood Pressure 130/94 H 11/07/22 09:53 Pulse Oximetry 99 11/07/22 11:15 Oxygen Delivery Method 11/07/22 09:53 MDM - Abdominal Pain MDM Narrative Medical decision making narrative: This patient comes in with nausea and vomiting and report of abdominal pain after taking cannabis. He has had problems with cyclical vomiting syndrome in this regard in the past. He was very dramatic with pain and nausea. He was laying on the floor when I 1st came into the room. An IV was established and the patient received a L of normal saline, 4 mg of Zofran, and 5 mg of Haldol. A 2 L of normal saline was administered later. These treatments brought great relief to his symptoms. He does yet reports some abdominal discomfort and received Toradol 30 mg intravenously. Lab results returned with elevated hemoglobin and white blood cell count. He also has a somewhat elevated creatinine level. This is not new for him as he has had even higher levels when reviewing past results. Some of this can be due to volume depletion. This patient is okay to return home and is encouraged to avoid cannabis. Lab Data Labs: Lab Results 11/07/22 11/07/22 Range/Units 09:15 09:15 WBC 19.84 H (4.50-11.00) K/uL RBC 6.02 H (4.30-5.90) m/uL Hgb 19.6 H (13.5-17.5) gm/dL Hct 55.1 H (37.0-53.0) % MCV 92 (80-100) fL MCH 33 (26-34) pg MCHC 36 (32-36) gm/dL RDW Coeff of Jennifer 12.9 (11.5-15.5) % Plt Count 560 H (140-440) K/uL Neut % (Auto) 82.8 H (42.0-72.0) % Lymph % (Auto) 11.9 L (20-44) % [place]ocking % (Auto) 4.9 (0.0-11.0) % Eos % (Auto) 0.0 (0.0-7.0) % Baso % (Auto) 0.2 (0.0-3.0) % Neut # (Auto) 16.40 H (1.7-7.0) K/uL Lymph # (Auto) 2.40 (0.90-2.90) K/uL [place] # (Auto) 1.00 H (0.00-0.90) K/UL Eos # (Auto) 0.00 (0.00-0.50) K/uL Baso # (Auto) 0.00 (0.00-0.30) K/uL Abs Immat Gran (auto) 0.00 (0.00-0.30) K/uL Imm/Tot Granulo (auto) 0.2 % Sodium 140 (135-149) mmol/L Potassium 3.8 (3.6-5.1) mmol/L Chloride 101 (96-114) mmol/L Carbon Dioxide 13 L (20-32) mmol/L BUN 25 H (5-24) mg/dL Creatinine 2.5 H (0.5-1.5) mg/dL Estimated Creat Clear 36.69 Estimated GFR 35 ml/min Glucose 172 H (60-115) mg/dL Calcium 11.5 H (8.4-10.6) mg/dL Discharge Plan Discharge Clinical Impression: Cyclic vomiting syndrome, Abdominal pain Patient Disposition: Home, Self-Care Condition: Improved Additional Instructions: Continue current plans. Avoid cannabis. Follow up with MD or return if worsening. Prescriptions: No Action cyclobenzaprine 10 mg tablet Label Comments: TAKE 0.5-1 TAB BY MOUTH 3 TIMES A DAY , MAX 3 TABS/DAY (MAX 30MG DAILY) lithium carbonate 300 mg tablet extended release PO Label Comments: TAKE 2 TABLETS BY MOUTH DAILY. celecoxib 100 mg capsule buprenorphine HCl [Belbuca] 150 mcg film BUCCAL Label Comments: TAKE 1 FILM BUCCALLY TWICE A DAY FOR CHRONIC PAIN DO NOT EAT/DRINK/SMOKE FOR 30 MIN ondansetron 4 mg tablet,disintegrating 4 mg PO Q6-8H PRN (Reason: nausea and vomiting) Qty: 20 0RF Follow Up/Referrals: Kimberlee Posadas PA-C [Primary Care Provider] - Stand Alone Forms: [employer] Info Instructions
[2022-11-07 09:28] LABS: Basophils Percent Auto 0.2 % (0.0-3.0); Hematocrit 55.1 % (37.0-53.0); Hemoglobin* 19.6 gm/dL (13.5-17.5); Immature Granulocytes Pct Auto 0.2 %; Lymphocytes Percent Auto 11.9 % (20-44); Mean Corpuscular HGB Conc 36 gm/dL (32-36); Mean Corpuscular Hemoglobin 33 pg (26-34); Mean Corpuscular Volume 92 fL (80-100); Monocytes Percent Auto 4.9 % (0.0-11.0); Neutrophils Percent Auto 82.8 % (42.0-72.0); Platelet Count* 560 K/uL (140-440); RDW Coefficient of Variation % 12.9 % (11.5-15.5); Red Blood Count 6.02 m/uL (4.30-5.90); White Blood Count* 19.84 K/uL (4.50-11.00)
[2022-11-07] MEDS: HALOPERIDOL 5 MG/ML INJ IV (09:30)
[2022-11-07] MEDS: ONDANSETRON 2 MG/ML inj 4 MG IVP (09:30)
[2022-11-07 09:32] LABS: Slide Review Reflex No
[2022-11-07] MEDS: 0.9 % SODIUM CHLORIDE 1000 ml 1,000 ML IV ×2 (09:36→10:31)
[2022-11-07 09:40] LABS: Chloride* 101 mmol/L (96-114)
--- NOTE | 2022-11-07 09:40 | ED.NURSE ---
Pt quite restless, frequently changing positions in room. Pt is moaning and yelling loudly enough to be heard throught the ED. Pt having relatively frequent episodes of emesis. First emesis bag removed from room contained approx 300mLs of brownish-red appearing emesis. Pt seen deliberately lying down on the ground and writhing around. MD aware of findings.
[2022-11-07 09:41] LABS: Potassium* 3.8 mmol/L (3.6-5.1); Sodium* 140 mmol/L (135-149)
[2022-11-07 09:43] LABS: Creatinine* 2.5 mg/dL (0.5-1.5); Est. Creatinine Clearance* 36.69; Estimated Glomerular Filt Rate 35 ml/min
[2022-11-07 09:44] LABS: Blood Urea Nitrogen* 25 mg/dL (5-24); Calcium* 11.5 mg/dL (8.4-10.6); Carbon Dioxide* 13 mmol/L (20-32); Glucose* 172 mg/dL (60-115)
--- NOTE | 2022-11-07 09:52 | ED.NURSE ---
Pt now able to lie still in bed and permitting vitals to be taken. residential monitor applied.
--- NOTE | 2022-11-07 10:02 | ED.NURSE ---
Pt now appears resting comfortably in bed. notified.
--- OUTSIDE RECORDS SUMMARY | 2022-11-07 10:12 | XMS_ITS | Clinical Summary ---
:1995 Author Organization [employer] Address [address] [address] Phone Care Team Providers Name Role Phone [...]
--- OUTSIDE RECORDS SUMMARY | 2022-11-07 10:12 | XMS_ITS | Encounter Summary ---
:1995 Author Organization [employer] Address [address] [address] Phone Care Team Providers Name Role Phone [...]
--- OUTSIDE RECORDS SUMMARY | 2022-11-07 10:13 | XMS_ITS | Encounter Summary ---
:1995 Author Organization [employer] Address [address] [address] Phone Care Team Providers Name Role Phone Unavailable Primary Care Provider Unavailable Reason for Visit Reason Comments Vomiting Encounter Details Date Type Department Care Team Description 07/06/2021 Emergency [facility] Mo Bliss, Non -intractable vomiting with nausea, unspecified vomiting type (Primary Dx); Center Emergency DO Other acute gastritis without hemorrhage Department [address] [place] [address] [place] [address] [place] [address] [phone] Social History Tobacco Use Types Packs/Day Years [...] Code Departure Means Destination Home and/or Self Jail documented in this encounter ED Notes Nicolette [...] him up to bring him back to [facility]. Nicolette Ames RN - 07/06/2021 [...] 1,000 mL (0 mL Intravenous Stopped 07/06/21 0215) droperidol (Inapsine) injection 2.5 mg (2.5 mg IV Push Given 07/06/21 477) aluminum & magnesium hydroxide-simethicone (Maalox, Mylanta) 200-200-20 [...] Disposition: ED Disposition ED Disposition Comment Discharge [facility] thanks you for allowing us to assist you with your healthcare needs. This document contains patient education materials and information regarding your injury/illness. *If you need copies of your x-rays for a f ollow up appointment please call [phone] to arrange for orange picking supervisor. If you had an IV in place [...] 07/06/[address] [facility] mEq/L 7:28 AM [facility] Potassium 3.5 3.4 - 5.1 07/06/[address] [facility] mEq/L 7:28 AM [facility] Chloride 100 99 - 110 07/06/[address] [facility] mEq/L 7:28 AM [facility] Carbon Dioxide 23 19 - 29 07/06/2021 [facility] mEq/L 7:28 AM [facility] Anion Gap 13.0 3.0 - 15.0 07/06/2021 [facility] mEq/L 7:28 AM [facility] Blood Urea 22 5 - 24 07/06/2021 [facility] Nitrogen mg/dL 7:28 AM [facility] Creatinine 0.87 0.70 - 07/06/2021 [facility] 1.20 mg/dL 7:28 AM [facility] Glomerular >60 >60 07/06/2021 [facility] Filtration Rate mL/min/1.7 7:[address] [facility] [address] m*2 LABORATORY Comment: Complications of CKD and risk o f cardiovascular disease increase when GFR is below 60ml.min/1.73m2. A persistently re duced GFR is a specific indication of Chronic Kidney Disease. The eGFR calculation has not been validated in patients >70yrs. Calcium 9.1 8.4 - 10.5 mg/dL 07/06/2021 7:28 AM T [facility] Glucose 98 70 - 99 mg/dL 07/06/2021 7:28 AM T [facility] Specimen Anatomical Collection Method / Collection Time Recei paul Time (Source) Location / Volume Laterality Blood BLOOD SPECIMEN / Venipuncture / 07/06/2021 7:05 2020 7:09 Unknown Unknown AM CDT AM CDT Narrative [facility] Y - 07/06/2021 7:28 AM T [...] Organization Address City/State/ZIP Code Phon e Number [facility] [address] [place] [address] ABDOMEN PELVIS W IV CONTRAST [...] 07/06/2021 [facility] mg/dL 4:55 AM T [facility] Specimen Anatomical Collection Method / Collection Time Recei paul Time (Source) Location / Volume Laterality Blood BLOOD SPECIMEN / Venipuncture / 07/06/2021 4:14 2020 4:19 Unknown Unknown AM CDT AM CDT Mo Bliss DO EC CHEMISTRY ORDERABLES Performing Organization Address City/[facility] Phon e Number [address] [address] LABORATORY LIPASE (07/06/2021 4:14 AM CDT) athologist Signature Lipase 17 12 - 84 07/06/[address] [facility] IU/L 4:52 AM T [facility] Specimen Anatomical Collection Method / Collection Time Recei paul Time (Source) Location / Volume Laterality Blood BLOOD SPECIMEN / Venipuncture / 07/06/2021 4:14 2020 4:19 Unknown Unknown AM CDT AM CDT Mo Bliss DO EC CHEMISTRY ORDERABLES Performing Organization Address City/[facility] Phon e Number [address] [address] LABORATORY (ABNORMAL) COMPREHENSIVE METABOLIC PANEL (07/06/2021 4:14 AM CDT) [facility] Method Time Signature Sodium 137 134 - 143 07/06/2021 ST. mEq/L 4:54 AM T [facility] Potassium 3.7 3.4 - 5.1 07/06/[address] mEq/L 4:54 AM T [facility] Chloride 95 (L) 99 - 110 07/06/2021 ST. mEq/L 4:54 AM T [facility] Carbon Dioxide 20 19 - 29 07/06/2021 ST. mEq/L 4:54 AM [facility] Anion Gap 22.0 (H) 3.0 - 15.0 07/06/2021 ST. mEq/L 4:54 AM [facility] Blood Urea 27 (H) 5 - 24 07/06/2021 ST. Nitrogen mg/dL 4:54 AM [facility] Creatinine 1.28 (H) 0.70 - 07/06/2021 ST. 1.20 mg/dL 4:54 AM [facility] Glomerular >60 >60 07/06/2021 [facility]. Filtration Rate mL/min/1.7 4:54 AM [facility] 3 m*2 [facility] Comment: Complications of CKD and risk o f cardiovascular disease increase when GFR is below 60ml.min/1.73m2. A persistently re duced GFR is a specific indication of Chronic Kidney Disease. The eGFR calculation has not been validated in patients >70yrs. Calcium 11.4 (H) 8.4 - 10.5 07/06/2021 4:[address] [facility] [facility] mg/dL [facility] Glucose 139 (H) 70 - 99 mg/dL 07/06/2021 4:54 AM [facility] Protein, Total 8.9 (H) 6.0 - 8.0 07/06/2021 4:[address] [facility] g/dL [facility] Albumin 5.4 (H) 3.5 - 5.0 07/06/2021 4:[address] [facility] g/dL [facility] Alkaline Phosphatase 81 40 - 150 IU/L 07/06/2021 4:54 AM [facility] Aspartate 26 10 - 40 IU/L 07/06/2021 4:[address] [facility] [facility] Amin[address] [facility] Alanine Aminotransferase 29 6 - 40 IU/L 07/06/2021 4: 54 AM [facility] Bilirubin, Total 2.9 (H) 0.2 - 1.2 07/06/2021 4:54 AM [facility] mg/dL [facility] Specimen Anatomical Collection Method / Collection Time Recei paul Time (Source) Location / Volume Laterality Blood BLOOD SPECIMEN / Venipuncture / 07/06/2021 4:14 2020 4:19 Unknown Unknown AM CDT AM CDT Narrative [facility] - 07/06/2021 4:54 AM CDT [...] Organization Address City/State/ZIP Code Phon e Number [facility] [address] [place] [address] LABORATORY (ABNORMAL) HEMOGRAM/DIFFERENTIAL (07/06/2021 4:14 AM CDT) [facility] gist Method Time Signature WBC 18.6 (H) 3.2 - 07/06/2021 ST. 11.0 4:23 AM [facility] 10*9/L [facility] RBC 5.35 4.14 - 07/06/[address]21 ST[address] 5.76 4:23 AM [facility] 10*12/L [facility] HGB 17.4 (H) 12.9 - 07/06/2021 ST. 16.9 g/dL 4:23 AM [facility] HCT 47.8 38.4 - 07/06/2021 ST. 49.7 % 4:23 AM [facility] MCV 89.3 81.4 - 07/06/2021 ST. 99.0 fL 4:23 AM [facility] MCH 32.5 26.7 - 07/06/2021 ST. 33.1 pg 4:23 AM [facility] MCHC 36.4 (H) 31.6 - 07/06/2021 ST. 35.5 g/dL 4:23 AM [facility] RDW 12.9 11.3 - 07/06/2021 ST. 14.6 % 4:23 AM [facility] PLT 468 (H) 130 - 375 07/06/2021 ST. 10*9/L 4:23 AM [facility] Neutrophils % 76.7 % 07/06/2021 ST. 4:23 AM [facility] Lymphocytes % 17.8 % 07/06/2021 ST. 4:23 AM [facility] Monocytes % 5.2 % 07/06/2021 ST. 4:23 AM [facility] Eosinophils % 0.0 % 07/06/2021 ST. 4:23 AM [facility] Basophils % 0.1 % 07/06/2021 ST. 4:23 AM [facility] Immature 0.2 % 07/06/2021 ST. Granulocytes % 4:23 AM [facility] Neutrophils 14.3 (H) 1.5 - 7.6 07/06/2021 ST. Absolute 10*9/L 4:23 AM [facility] Lymphocytes 3.3 0.8 - 3.3 07/06/2021 ST. Absolute 10*9/L 4:23 AM [facility] Monocytes 1.0 (H) 0.2 - 0.9 07/06/2021 ST. Absolute 10*9/L 4:23 AM [facility] Eosinophils 0.0 0.0 - 0.4 07/06/2021 ST. Absolute 10*9/L 4:23 AM [facility] Basophils 0.0 0.0 - 0.1 07/06/2021 ST. Absolute 10*9/L 4:23 AM [facility] Immature 0.04 0.00 - 07/06/2021 ST. Granulocytes 0.06 4:23 AM [facility] Absolute 10*9/L [facility] Specimen Anatomical Collection Method / Collection Time Recei paul Time (Source) Location / Volume Laterality Blood BLOOD SPECIMEN / Venipuncture / 07/06/2021 4:14 2020 4:19 Unknown Unknown AM CDT AM CDT Mo [facility] HEMATOLOGY ORDERABLES Performing Organization Address City/State/ZIP Code Phon e Number [facility] [address] [place] [phone] LABORATORY documented in this encounter [...]
[2022-11-07] MEDS: KETOROLAC 30 MG/ML inj IVP (11:35)
== END 2022-11-07 12:16 | disposition home or self-care (01) ==
PROVIDERS: Emergency Provider Emergency Medicine Emergency Medical Services; PCP Physician Assistant Medical
DX: R11.15 Cyclical vomiting syndrome unrelated to migraine (principal); F12.99 Cannabis use, unspecified with unspecified cannabis-induced disorder
CPT/HCPCS: 36415; 80048; 85025; 96374; 96375; 99284; J1630; J1885; J2405; J7030

== ENCOUNTER 2022-11-09 00:41 | Emergency (ER) | payer MEDICAID, SELFPAY ==
[2022-11-09 01:05] VITALS: BP 134/94; PULSE 94; RESP 20; TEMP 36.6; O2SAT 98
--- NOTE | 2022-11-09 01:11 | ED_ITS ---
HPI - Nausea/Vomiting/Diarrhea General Time Seen by Provider: 01:12 Date Seen: 11/09/22 Chief complaint: Nausea/Vomiting Stated complaint: vomitting Time Seen by Provider: 11/09/22 01:00 Source: patient and old records reviewed Mode of arrival: ambulatory Limitations: no limitations History of Present Illness HPI Narrative: 19-year-old male with multiple recent emergency department visits for cyclic vomiting syndrome, comes in today with vomiting. Patient is seen for same 2 days ago after smoking marijuana 3 days ago. He is concerned that he might have intussusception because he has some left lower quadrant abdominal pain. He denies fever or chills, does have some diarrhea. Notes some blood on vomiting yesterday but that is cleared up. Had Zofran but has not taken that recently because he ran out. Denies chest pain. No lightheadedness or dizziness. Related Data Home Medications Medication Instructions Recorded Confirmed buprenorphine HCl 150 mcg buccal mcg buccal 06/30/22 film (Belbuca) celecoxib 100 mg capsule mg 06/30/22 cyclobenzaprine 10 mg tablet mg 06/30/22 lithium carbonate 300 mg mg PO 06/30/22 tablet,extended release Previous Rx's Medication Instructions Recorded ondansetron 4 mg disintegrating 4 mg PO Q6-8H PRN nausea and 08/25/22 tablet vomiting #20 tabs Allergies Allergy/AdvReac Type Severity Reaction Status Date / Time mold Allergy Mild Sneezing, Verified 09/27/22 08:43 congestion cats Allergy Mild Hives Uncoded 06/08/22 08:44 Dust Allergy Mild Sneezing, Uncoded 06/08/22 08:44 congestion Review of Systems Status of ROS: Reports: 10 or more systems reviewed and unremarkable except as noted in History and below [facility] Medical History Adhesive capsulitis of shoulder History of intussusception Surgical History History of hernia repair History of laparoscopy Family History Other Asthma Bipolar disorder Heart disease Social History Narrative: Marijuana user Smoking Status: Never smoker Do you use any of these nicotine containing products: None Second hand tobacco smoke exposure: Yes How often do you have a drink containing alcohol: monthly or less How many standard drinks containing alcohol do you have on a typical day: 1 or 2 How often do you have six or more drinks on one occasion: Never AUDIT-C Alcohol total score: 1 Non-prescribed substance use: marijuana (any form) Non-prescribed substance use details: few times only, lately. states he quit using marijuana. service: No Exam 2 Narrative: Exam Narrative: General: Well-developed and well-nourished, no acute distress Head: Atraumatic and normocephalic Eyes: Pupils are equal reactive, extraocular motions intact, conjunctiva clear ENT: External nose and ears are normal, posterior pharynx without erythema or exudate Neck: No midline cervical tenderness, full spontaneous range of motion the neck, trachea midline, no adenopathy Heart: Regular rate and rhythm no murmurs or thrills Lungs: Clear to auscultation bilaterally without wheezes or crackles Abdomen: Soft, left lower quadrant tenderness, nondistended with active bowel sounds, frequent scromiting emesis Musculoskeletal: No tenderness, deformity, or edema Neurologic: Awake, alert, and oriented x3, no gross focal neurologic deficits, cranial nerves intact as tested Psych: Mood and affect are appropriate Skin: No rashes Const: Vital Signs, click to edit/add: Vital Signs - 24 hr 11/09/22 01:05 Temperature 97.9 F Pulse Rate [Left P ulse Oximeter] 94 Respiratory Rate 20 Blood Pressure [Le ft Upper Arm] 134/94 H Pulse Oximetry 98 Oxygen Delivery Me thod Room Air Course Course Hospital Course: Patient with history of cannabis hyperemesis syndrome as well as renal injury associated with this, presents with vomiting. Differential diagnosis includes but not limited to cyclic vomiting syndrome, bowel obstruction, gastritis, gastroenteritis. Labs and fluids are ordered. Patient is concerned about intussusception but symptoms seem most consistent with cannabis hyperemesis. Reevaluation(s) Reevaluation #1: Labs are reassuring and CT scan is normal. Patient feels better after droperidol and is stable for discharge. Encouraged to stop smoking marijuana and start using PPI. Time: 01:57 Vital Signs Vital signs: Initial Vital Signs Temperature 97.9 F 11/09/22 01:05 Temperature Source Temporal Artery Scan 11/09/22 01:05 Pulse Rate 94 11/09/22 01:05 Respiratory Rate 20 11/09/22 01:05 Blood Pressure 134/94 H 11/09/22 01:05 Blood Pressure Mean 107 11/09/22 01:05 Blood Pressure Position Sitting 11/09/22 01:05 Pulse Oximetry 98 11/09/22 01:05 Oxygen Delivery Method 11/09/22 01:05 Vital Signs Temperature 97.9 F 11/09/22 01:05 Pulse Rate 94 11/09/22 01:05 Respiratory Rate 20 11/09/22 01:05 Blood Pressure 134/94 H 11/09/22 01:05 Pulse Oximetry 98 11/09/22 01:05 Oxygen Delivery Method 11/09/22 01:05 Temperature 97.9 F 11/09/22 01:05 Pulse Rate 94 11/09/22 01:05 Respiratory Rate 20 11/09/22 01:05 Blood Pressure 134/94 H 11/09/22 01:05 Pulse Oximetry 98 11/09/22 01:05 Oxygen Delivery Method 11/09/22 01:05 MDM - Nausea/Vomiting/Diarrhea Lab Data Labs: Lab Results 11/09/22 Range/Units 01:20 Sodium 141 (135-149) mmol/L Potassium 3.4 L (3.6-5.1) mmol/L Chloride 101 (96-114) mmol/L Carbon Dioxide 30 (20-32) mmol/L BUN 21 (5-24) mg/dL Creatinine 0.9 (0.5-1.5) mg/dL Estimated GFR 119 ml/min Glucose 117 H (60-115) mg/dL Calcium 9.5 (8.4-10.6) mg/dL Total Bilirubin 2.6 H (0.1-1.5) mg/dL Direct Bilirubin 0.0 (0.0-0.5) mg/dL AST 32 (12-35) U/L ALT 23 (4-50) U/L Alkaline Phosphatase 90 (40-150) U/L Total Protein 7.6 (6.0-8.3) g/dL Albumin 4.9 (3.3-5.0) g/dL Lipase 90 (23-300) U/L Discharge Plan Discharge Clinical Impression: Cannabinoid hyperemesis syndrome, Vomiting Patient Disposition: Home, Self-Care Condition: Stable Instructions: Acute Nausea and Vomiting (ED) Additional Instructions: Start taking omeprazole or pantoprazole Activity Level: No Restrictions Discharge Diet: Regular Prescriptions: No Action cyclobenzaprine 10 mg tablet Label Comments: TAKE 0.5-1 TAB BY MOUTH 3 TIMES A DAY , MAX 3 TABS/DAY (MAX 30MG DAILY) lithium carbonate 300 mg tablet extended release PO Label Comments: TAKE 2 TABLETS BY MOUTH DAILY. celecoxib 100 mg capsule buprenorphine HCl [Belbuca] 150 mcg film BUCCAL Label Comments: TAKE 1 FILM BUCCALLY TWICE A DAY FOR CHRONIC PAIN DO NOT EAT/DRINK/SMOKE FOR 30 MIN ondansetron 4 mg tablet,disintegrating 4 mg PO Q6-8H PRN (Reason: nausea and vomiting) Qty: 20 0RF Follow Up/Referrals: Kimberlee Posadas PA-C [Primary Care Provider] - Stand Alone Forms: MyHealth Info Instructions
--- NOTE | 2022-11-09 01:20 | CRLHL7_ITS ---
For Patients: As a result of the Century Cures Act, medical imaging exams and procedure reports are released immediately into your electronic medical record. You may view this report before your referring provider. If you have questions, please contact your health care provider. INDICATION: Left lower quadrant abdominal pain. Vomiting. TECHNIQUE: CT abdomen and pelvis without contrast. COMPARISON: 11/05/2021 FINDINGS: Lower chest: Unremarkable. Liver: Normal in size and attenuation. No suspicious masses. Gallbladder and bile ducts: No stones or inflammation. No biliary ductal dilatation. Spleen: Normal in size. No masses. Few calcified granulomas. Adrenal glands: Normal in size. No nodules. Pancreas: Unremarkable. No mass or inflammation. Kidneys: Normal in size. No suspicious masses, stones, or hydronephrosis. GI tract: Unremarkable. Normal in caliber. No sign of mass or inflammation. Normal appendix. Lymph nodes: No lymphadenopathy. Vasculature: Unremarkable. Abdominal wall/Omentum/Peritoneum: Unremarkable. No sign of mass or infiltration. No free air or significant free fluid. Pelvis: Unremarkable. No pelvic masses. 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 IMPRESSION: No acute abdominal or pelvic abnormality. Please note that all CT scans at this facility use dose modulation, iterative reconstruction, and/or weight-based dosing when appropriate to reduce radiation dose to as low as reasonably achievable. Dictated by Tyson Mauricio MD @ 11/09/2022 1:55:47 AM (Electronically Signed)
[2022-11-09] MEDS: droperidoL 2.5 MG/ML inj 0.625 MG IV (01:25)
[2022-11-09] MEDS: LACTATED RINGERS 1000 ML 1,000 ML IV (01:25)
--- OUTSIDE RECORDS SUMMARY | 2022-11-09 01:27 | XMS_ITS | Clinical Summary ---
:1995 Author Organization [employer] Address [address] [address] Phone Care Team Providers Name Role Phone [...]
--- OUTSIDE RECORDS SUMMARY | 2022-11-09 01:27 | XMS_ITS | Encounter Summary ---
:1995 Author Organization [employer] Address [address] [address] Phone Care Team Providers Name Role Phone [...]
--- OUTSIDE RECORDS SUMMARY | 2022-11-09 01:27 | XMS_ITS | Encounter Summary ---
:1995 Author Organization [facility] Address [address] [address] Phone Care Team Providers Name Role Phone Unavailable Primary Care Provider Unavailable Reason for Visit Reason Comments Vomiting Encounter Details Date Type Department Care Team Description 07/06/2021 Emergency [facility] Mo Bliss, Non -intractable vomiting with nausea, unspecified vomiting type (Primary Dx); Center Emergency DO Other acute gastritis without hemorrhage Department [address] [place] [address] [place] [id number] [place] [id number] [phone] Social History Tobacco Use Types Packs/Day Years [...] Code Departure Means Destination Home and/or Self Penitentiary documented in this encounter ED Notes Nicolette [...] him up to bring him back to [facility]. Nicolette Ames RN - 07/06/2021 7:12 [...] 1,000 mL (0 mL Intravenous Stopped 07/06/21 1315) droperidol (Inapsine) injection 2.5 mg (2.5 mg IV Push Given 07/06/21 810) aluminum & magnesium hydroxide-simethicone (Maalox, Mylanta) 200-200-20 [...] Disposition: ED Disposition ED Disposition Comment Discharge [facility] thanks you for allowing us to assist you with your healthcare needs. This document contains patient education materials and information regarding your injury/illness. *If you need copies of your x-rays for a f ollow up appointment please call [phone] to arrange for milk pickup truck driver. If you had an IV in [...] 07/06/[address] [facility] [facility] mEq/L 7:28 AM [facility] Potassium 3.5 3.4 - 5.1 07/06/[address] [facility] mEq/L 7:28 AM [facility] Chloride 100 99 - 110 07/06/[address] [facility] mEq/L 7:28 AM [facility] Carbon Dioxide 23 19 - 29 07/06/2021 [facility] mEq/L 7:28 AM [facility] Anion Gap 13.0 3.0 - 15.0 07/06/2021 [facility] mEq/L 7:28 AM [facility] Blood Urea 22 5 - 24 07/06/2021 [facility] Nitrogen mg/dL 7:28 AM [facility] Creatinine 0.87 0.70 - 07/06/2021 [facility] 1.20 mg/dL 7:28 AM [facility] Glomerular >60 >60 07/06/2021 [facility] Filtration Rate mL/min/1.7 7:28 AM [facility] [address] m*2 LABORATORY Comment: Complications of CKD and risk o f cardiovascular disease increase when GFR is below 60ml.min/1.73m2. A persistently re duced GFR is a specific indication of Chronic Kidney Disease. The eGFR calculation has not been validated in patients >70yrs. Calcium 9.1 8.4 - 10.5 mg/dL 07/06/2021 7:28 AM T [facility] Glucose 98 70 - 99 mg/dL 07/06/2021 7:28 AM T [facility] Specimen Anatomical Collection Method / Collection Time Recei paul Time (Source) Location / Volume Laterality Blood BLOOD SPECIMEN / Venipuncture / 07/06/2021 7:05 2020 7:09 Unknown Unknown AM CDT AM CDT Narrative [facility] Y - 07/06/2021 7:28 AM T [...] Organization Address City/State/ZIP Code Phon e Number [facility] [address] [place] [address] ABDOMEN PELVIS W IV CONTRAST [...] 07/06/2021 [facility] mg/dL 4:55 AM T [facility] Specimen Anatomical Collection Method / Collection Time Recei paul Time (Source) Location / Volume Laterality Blood BLOOD SPECIMEN / Venipuncture / 07/06/2021 4:14 2020 4:19 Unknown Unknown AM CDT AM CDT Mo Bliss DO EC CHEMISTRY ORDERABLES Performing Organization Address City/[facility] Phon e Number [address] [address] LABORATORY LIPASE (07/06/2021 4:14 AM CDT) athologist Signature Lipase 17 12 - 84 07/06/[address] [facility] IU/L 4:52 AM T [facility] Specimen Anatomical Collection Method / Collection Time Recei paul Time (Source) Location / Volume Laterality Blood BLOOD SPECIMEN / Venipuncture / 07/06/2021 4:14 2020 4:19 Unknown Unknown AM CDT AM CDT Mo Bliss DO EC CHEMISTRY ORDERABLES Performing Organization Address City/[facility] Phon e Number [address] [address] LABORATORY (ABNORMAL) COMPREHENSIVE METABOLIC PANEL (07/06/2021 4:14 AM CDT) [facility] Method Time Signature Sodium 137 134 - 143 07/06/2021 ST. mEq/L 4:54 AM T [facility] Potassium 3.7 3.4 - 5.1 07/06/[address] mEq/L 4:54 AM T [facility] Chloride 95 (L) 99 - 110 07/06/2021 ST. mEq/L 4:54 AM T [facility] Carbon Dioxide 20 19 - 29 07/06/2021 ST. mEq/L 4:54 AM [facility] Anion Gap 22.0 (H) 3.0 - 15.0 07/06/2021 ST. mEq/L 4:54 AM [facility] Blood Urea 27 (H) 5 - 24 07/06/2021 ST. Nitrogen mg/dL 4:54 AM [facility] Creatinine 1.28 (H) 0.70 - 07/06/2021 ST. 1.20 mg/dL 4:54 AM [facility] Glomerular >60 >60 07/06/2021 [facility]. Filtration Rate mL/min/1.7 4:54 AM [facility] 3 m*2 [facility] Comment: Complications of CKD and risk o f cardiovascular disease increase when GFR is below 60ml.min/1.73m2. A persistently re duced GFR is a specific indication of Chronic Kidney Disease. The eGFR calculation has not been validated in patients >70yrs. Calcium 11.4 (H) 8.4 - 10.5 07/06/2021 4:[address] [facility] [facility] mg/dL [facility] Glucose 139 (H) 70 - 99 mg/dL 07/06/2021 4:54 AM [facility] Protein, Total 8.9 (H) 6.0 - 8.0 07/06/2021 4:[address] [facility] g/dL [facility] Albumin 5.4 (H) 3.5 - 5.0 07/06/2021 4:[address] [facility] [facility] g/dL [facility] Alkaline Phosphatase 81 40 - 150 IU/L 07/06/2021 4:54 AM [facility] Aspartate 26 10 - 40 IU/L 07/06/2021 4:[address] [facility] Aminotransferase [facility] Alanine Aminotransferase 29 6 - 40 IU/L 07/06/2021 4: 54 AM [facility] Bilirubin, Total 2.9 (H) 0.2 - 1.2 07/06/2021 4:54 AM [facility] mg/dL [facility] Specimen Anatomical Collection Method / Collection Time Recei paul Time (Source) Location / Volume Laterality Blood BLOOD SPECIMEN / Venipuncture / 07/06/2021 4:14 2020 4:19 Unknown Unknown AM CDT AM CDT Narrative [facility] Y - 07/06/2021 4:54 AM CDT [...] Organization Address City/State/ZIP Code Phon e Number [facility] [address] [address] LABORATORY (ABNORMAL) HEMOGRAM/DIFFERENTIAL (07/06/2021 4:14 AM CDT) [facility] gist Method Time Signature WBC 18.6 (H) 3.2 - 07/06/2021 ST. 11.0 4:23 AM [facility] 10*9/L [facility] RBC 5.35 4.14 - 07/06/[address]21 ST[address] 5.76 4:23 AM [facility] 10*12/L [facility] HGB 17.4 (H) 12.9 - 07/06/2021 ST. 16.9 g/dL 4:23 AM [facility] HCT 47.8 38.4 - 07/06/2021 ST. 49.7 % 4:23 AM [facility] MCV 89.3 81.4 - 07/06/2021 ST. 99.0 fL 4:23 AM [facility] MCH 32.5 26.7 - 07/06/2021 ST. 33.1 pg 4:23 AM [facility] MCHC 36.4 (H) 31.6 - 07/06/2021 ST. 35.5 g/dL 4:23 AM [facility] RDW 12.9 11.3 - 07/06/2021 ST. 14.6 % 4:23 AM [facility] PLT 468 (H) 130 - 375 07/06/2021 ST. 10*9/L 4:23 AM [facility] Neutrophils % 76.7 % 07/06/2021 ST. 4:23 AM [facility] Lymphocytes % 17.8 % 07/06/2021 ST. 4:23 AM [facility] Monocytes % 5.2 % 07/06/2021 ST. 4:23 AM [facility] Eosinophils % 0.0 % 07/06/2021 ST. 4:23 AM [facility] Basophils % 0.1 % 07/06/2021 ST. 4:23 AM [facility] Immature 0.2 % 07/06/2021 ST. Granulocytes % 4:23 AM [facility] Neutrophils 14.3 (H) 1.5 - 7.6 07/06/2021 ST. Absolute 10*9/L 4:23 AM [facility] Lymphocytes 3.3 0.8 - 3.3 07/06/2021 ST. Absolute 10*9/L 4:23 AM [facility] Monocytes 1.0 (H) 0.2 - 0.9 07/06/2021 ST. Absolute 10*9/L 4:23 AM [facility] Eosinophils 0.0 0.0 - 0.4 07/06/2021 ST. Absolute 10*9/L 4:23 AM [facility] Basophils 0.0 0.0 - 0.1 07/06/2021 ST. Absolute 10*9/L 4:23 AM [facility] Immature 0.04 0.00 - 07/06/2021 ST. Granulocytes 0.06 4:23 AM [facility] Absolute 10*9/L [facility] Specimen Anatomical Collection Method / Collection Time Recei paul Time (Source) Location / Volume Laterality Blood BLOOD SPECIMEN / Venipuncture / 07/06/2021 4:14 2020 4:19 Unknown Unknown AM CDT AM CDT Mo [facility] HEMATOLOGY ORDERABLES Performing Organization Address City/State/ZIP Code Phon e Number [facility] [address] [place] [phone] LABORATORY documented in this encounter [...]
[2022-11-09 01:30] VITALS: O2SAT 98
[2022-11-09 01:41] LABS: Albumin* 4.9 g/dL (3.3-5.0); Chloride* 101 mmol/L (96-114); Sodium* 141 mmol/L (135-149)
[2022-11-09 01:42] LABS: Potassium* 3.4 mmol/L (3.6-5.1)
[2022-11-09 01:43] LABS: Creatinine* 0.9 mg/dL (0.5-1.5); Estimated Glomerular Filt Rate 119 ml/min
[2022-11-09 01:44] LABS: Alanine Aminotransferase* 23 U/L (4-50); Alkaline Phosphatase* 90 U/L (40-150); Aspartate Amino Transferase* 32 U/L (12-35); Bilirubin Total* 2.6 mg/dL (0.1-1.5); Blood Urea Nitrogen* 21 mg/dL (5-24); Calcium* 9.5 mg/dL (8.4-10.6); Carbon Dioxide* 30 mmol/L (20-32); Glucose* 117 mg/dL (60-115); Lipase* 90 U/L (23-300); Total Protein* 7.6 g/dL (6.0-8.3)
[2022-11-09 03:50] VITALS: BP 131/73; PULSE 66; RESP 16; TEMP 36.8; O2SAT 99
--- NOTE | 2022-11-09 04:04 | ED.NURSE ---
pt up ind in room and to bathroom, dc info gone over, all additional questions answered. pt dc out via self ambulation.
== END 2022-11-09 04:05 | disposition home or self-care (01) ==
PROVIDERS: Emergency Provider Family Medicine; PCP Physician Assistant Medical
DX: F12.188 Cannabis abuse with other cannabis-induced disorder (principal); R11.10 Vomiting, unspecified
CPT/HCPCS: 36415; 74176; 80048; 80076; 83690; 94761; 99284; J1790; J7120

== ENCOUNTER 2022-11-23 11:15 | Emergency (ER) | payer MEDICAID, SELFPAY ==
[2022-11-23] VITALS (10 sets, daily range): BP systolic 123–140; BP diastolic 88–108; PULSE 84–125; RESP 20–22; TEMP 36.5; O2SAT 96–123; BMI 21.1
--- NOTE | 2022-11-23 11:29 | ED_ITS ---
HPI - Abdominal Pain General Time Seen by Provider: 11:29 Date Seen: 11/23/22 Chief Complaint: Abdominal Pain Stated Complaint: Abdominal pain Time Seen by Provider: 11/23/22 11:29 Source: patient, RN notes reviewed and old records reviewed Mode of arrival: ambulatory Limitations: no limitations History of Present Illness HPI narrative: Martin is a 27-year-old male with history of cannabis hyperemesis syndrome, chronic back and neck pain seen by a pain clinic on oxycodone, bipolar disorder with depression and history of intussusception who comes to the emergency room for evaluation regarding abdominal pain. Patient noted the onset of abdominal pain approximately 3 days ago. It has been fairly consistent and although he has had no vomiting he has had decreased p.o. intake. Patient notes that he had a normal bowel movement yesterday. He has not had any diarrhea. He denies fever or chills. He notes that the for the past few days he has had a few days of a head cold. His roommate initially had this. Also of note is some left ear pain. Patient was recently treated with amoxicillin and ear drops for swimmer's ear. He notes that he took the amoxicillin for 3 days and then felt better so he discontinued. He states that he often decides to do this and it usually works out. Patient notes that his belly pain from marijuana is usually intermittent and this pain is been consistent so he does not think it is related. His last use of marijuana was over a week and a half ago. The pain is located around the left periumbilical area and will occasionally moved to the left lower quadrant. He did take oxycodone yesterday. Has not taken any oxycodone today. Related Data Home Medications Medication Instructions Recorded Confirmed celecoxib 100 mg capsule 100 mg PO Q12H 06/30/22 11/23/22 cyclobenzaprine 10 mg tablet 10 mg PO Q12H 06/30/22 11/23/22 guanfacine 1 mg tablet,extended 1 mg PO QDAY 11/13/22 11/23/22 release 24 hr lithium carbonate 300 mg 750 mg PO DAILY 11/13/22 11/23/22 tablet,extended release lubiprostone 24 mcg capsule 24 mcg PO QDAY PRN 11/13/22 11/23/22 oxycodone 5 mg tablet 5 - 10 mg PO Q4H PRN 11/13/22 11/23/22 trazodone 50 mg tablet 100 mg PO .HS 11/13/22 11/23/22 Previous Rx's Medication Instructions Recorded [id number]-hifmpsfkx-texviwyoq 3.5 4 drp otic (ear) Q8H #10 mL 11/13/22 mg/mL-10,000 unit/mL-1 % ear solution Allergies Allergy/AdvReac Type Severity Reaction Status Date / Time mold Allergy Mild Sneezing, Verified 11/13/22 07:24 congestion cats Allergy Mild Hives Uncoded 11/13/22 07:24 Dust Allergy Mild Sneezing, Uncoded 11/13/22 07:24 congestion Review of Systems Status of ROS Reports: 10 or more systems reviewed and unremarkable except as noted in History and below Const Denies: fever or chills ENMT Denies: throat pain, throat swelling or difficulty swallowing Cardio Denies: chest pain, palpitations, swelling of feet/ankles, lightheadedness or shortness of breath with exertion Resp Denies: shortness of breath or cough GI Reports: abdominal pain and nausea; Denies: vomiting, diarrhea or difficulty swallowing Denies: painful urination Musculo Reports: back pain (Chronic) Neuro Denies: headache Allergy/Immuno Denies: throat swelling PFSH PFSH Medical History ADHD Adhesive capsulitis of shoulder YARA (acute kidney injury) Asthma Cyclical vomiting Elevated LFTs History of intussusception Intussusception of small bowel Surgical History History of hernia repair History of laparoscopy Family History Other Asthma Bipolar disorder Heart disease Social History Narrative: Marijuana user Smoking Status: Never smoker Do you use any of these nicotine containing products: None Second hand tobacco smoke exposure: Yes How often do you have a drink containing alcohol: monthly or less How many standard drinks containing alcohol do you have on a typical day: 1 or 2 How often do you have six or more drinks on one occasion: Never AUDIT-C Alcohol total score: 1 Non-prescribed substance use: marijuana (any form) Non-prescribed substance use details: few times only, lately. states he quit using marijuana. service: No Exam Narrative: Exam Narrative: Jarocho is alert and oriented. He appears to be in moderate distress holding his abdomen. His eyes are clear as is oral cavity. TMs bilaterally within normal limits. There is a small amount of debris noted in both ears canals left greater than right. Mild erythema of the ear canal as well. Neck is supple without lymphadenopathy Heart with a tachycardic rate but normal rhythm. Lungs are clear in all lung maradiaga. No CVA tenderness with percussion. Abdomen shows tenderness in the left lower quadrant. No rebound tenderness lower extremities without edema. Moving all extremities. Falling from tip toes to heels does increase his discomfort. Const: Vital Signs, click to edit/add: Vital Signs - 24 hr 11/23/22 11:20 Temperature 97.7 F Pulse Rate [Pulse Oximeter] 121 H Respiratory Rate 22 Blood Pressure [Ri ght Forearm] 123/88 Pulse Oximetry 123 H Oxygen Delivery Me thod Room Air Documenting provider has reviewed patient's vital signs: yes Course Course Hospital Course: Given history of multiple CTs we will do flat plate and upright as well as established an IV. I would like to give this patient some Toradol but given history of kidney injury with excessive vomiting I would like to wait on at c reatinine before I give him Toradol. 1 L of normal saline will be ordered. Labs to include CBC, comprehensive panel, CRP, sed rate, amylase, lipase, urinalysis. Vital Signs Vital signs: Initial Vital Signs Temperature 97.7 F 11/23/22 11:20 Temperature Source Temporal Artery Scan 11/23/22 11:20 Pulse Rate 121 H 11/23/22 11:20 Respiratory Rate 22 11/23/22 11:20 Blood Pressure 123/88 11/23/22 11:20 Blood Pressure Mean 99 11/23/22 11:20 Blood Pressure Position Sitting 11/23/22 11:20 Pulse Oximetry 123 H 11/23/22 11:20 Oxygen Delivery Method 11/23/22 11:20 Vital Signs Temperature 97.7 F 11/23/22 11:20 Pulse Rate 121 H 11/23/22 11:20 Respiratory Rate 22 11/23/22 11:20 Blood Pressure 123/88 11/23/22 11:20 Pulse Oximetry 123 H 11/23/22 11:20 Oxygen Delivery Method 11/23/22 11:20 Temperature 97.7 F 11/23/22 11:20 Pulse Rate 121 H 11/23/22 11:20 Respiratory Rate 22 11/23/22 11:20 Blood Pressure 123/88 11/23/22 11:20 Pulse Oximetry 123 H 11/23/22 11:20 Oxygen Delivery Method 11/23/22 11:20 MDM - Abdominal Pain Medical Records Attestation: I reviewed the patient's medical records. Lab Data Attestation: I reviewed the patient's lab results. Imaging Data Abdominal x-ray: Attestation: I have reviewed the pertinent imaging results. Discharge Plan Discharge Prescriptions: No Action oxycodone 5 mg tablet 5 - 10 mg PO Q4H PRN trazodone 50 mg tablet 100 mg PO .HS lubiprostone 24 mcg capsule 24 mcg PO QDAY PRN guanfacine 1 mg tablet extended release 24 hr 1 mg PO QDAY jyqkesoe-uwkpbimmd-LI 3.5-10,000-1 mg/mL-unit/mL-% solution 4 drp otic (ear) Q8H Qty: 10 0RF cyclobenzaprine 10 mg tablet 10 mg PO Q12H Label Comments: TAKE 0.5-1 TAB BY MOUTH 3 TIMES A DAY , MAX 3 TABS/DAY (MAX 30MG DAILY) celecoxib 100 mg capsule 100 mg PO Q12H lithium carbonate 300 mg tablet extended release 750 mg PO DAILY Label Comments: TAKE 2 TABLETS BY MOUTH DAILY. Follow Up/Referrals: Kimberlee Posadas PA-C [Primary Care Provider] -
--- NOTE | 2022-11-23 11:38 | CRLHL7_ITS ---
For Patients: As a result of the Century Cures Act, medical imaging exams and procedure reports are released immediately into your electronic medical record. You may view this report before your referring provider. If you have questions, please contact your health care provider. INDICATION: Abdominal pain TECHNIQUE: Abdomen 3 view. COMPARISON: None FINDINGS: Bowel: Bowel pattern is normal. Diffuse colonic fecal retention. Soft tissues: No sign of free air. No sign of soft tissue mass. No suspicious calcifications. Bones: Unremarkable for age. IMPRESSION: Diffuse colonic fecal retention. Dictated by Feroz Graham MD @ 11/23/2022 12:19:37 PM Dictated by: Feroz Graham MD @ 11/23/2022 12:19:42 (Electronically Signed)
[2022-11-23 12:29] LABS: Basophils Absolute Auto 0.01 K/uL (0.00-0.30); Basophils Percent Auto 0.1 % (0.0-3.0); Eosinophils Absolute Auto 0.07 K/uL (0.00-0.50); Eosinophils Percent Auto 0.7 % (0.0-7.0); Hematocrit 50.9 % (37.0-53.0); Hemoglobin* 17.4 gm/dL (13.5-17.5); Immature Granulocytes Abs Auto 0.01 K/uL (0.00-0.30); Immature Granulocytes Pct Auto 0.1 %; Lymphocytes Percent Auto 15.2 % (20-44); Mean Corpuscular HGB Conc 34 gm/dL (32-36); Mean Corpuscular Hemoglobin 33 pg (26-34); Mean Corpuscular Volume 95 fL (80-100); Monocytes Percent Auto 6.1 % (0.0-11.0); Neutrophils Percent Auto 77.8 % (42.0-72.0); Platelet Count* 368 K/uL (140-440); RDW Coefficient of Variation % 13.5 % (11.5-15.5); Red Blood Count 5.35 m/uL (4.30-5.90)
[2022-11-23 12:30] LABS: Slide Review Reflex No
[2022-11-23 12:33] LABS: Appearance Urine Clear (Clear); Bilirubin Urine Negative (Negative); Blood Urine Negative (Negative); Color Urine Yellow (Yellow); Glucose Urine Negative (Negative); Ketones Urine Trace (Negative); Leukocyte Esterase Urine Negative (Negative); Nitrite Urine Negative (Negative); Protein Urine 2+ (Negative); Urobilinogen Urine 0.2 (0.2-1.0); pH Urine 8.5 (5.0-8.5)
[2022-11-23] MEDS: 0.9 % SODIUM CHLORIDE 1000 ml 1,000 ML IV (12:37)
[2022-11-23 12:41] LABS: Albumin* 5.3 g/dL (3.3-5.0); Chloride* 103 mmol/L (96-114)
[2022-11-23 12:42] LABS: Sodium* 142 mmol/L (135-149)
[2022-11-23 12:44] LABS: Alkaline Phosphatase* 123 U/L (40-150); Amylase* 110 U/L (18-89); Aspartate Amino Transferase* 27 U/L (12-35); Bilirubin Total* 0.6 mg/dL (0.1-1.5); Blood Urea Nitrogen* 19 mg/dL (5-24); Carbon Dioxide* 27 mmol/L (20-32); Creatinine* 0.6 mg/dL (0.5-1.5); Est. Creatinine Clearance* 158.76; Estimated Glomerular Filt Rate 135 ml/min; Glucose* 110 mg/dL (60-115); Total Protein* 8.8 g/dL (6.0-8.3)
[2022-11-23 12:45] LABS: Alanine Aminotransferase* 38 U/L (4-50); Calcium* 10.2 mg/dL (8.4-10.6); Lipase* 51 U/L (23-300)
[2022-11-23] MEDS: LORazepam 2 MG/ML inj 0.5 MG IVP (12:48)
[2022-11-23 12:59] LABS: Amorphous Sediment Urine Moderate; Bacteria Urine Few; RBC Urine 0-2 (0-2); Squamous Epithelial Cell Urine Few (None-Few); WBC Urine 0-2 (0-5)
[2022-11-23 13:04] LABS: PCR FLU A Negative PCR FLU A (Negative); PCR FLU B Negative PCR FLU B (Negative)
[2022-11-23 13:08] LABS: SARS PCR* Negative SARS-CoV-2 (Negative)
[2022-11-23] MEDS: KETOROLAC 15 MG/ML inj IVP (13:12)
--- NOTE | 2022-11-23 14:21 | ED_ITS ---
HPI - Abdominal Pain General Date Seen: 11/23/22 Chief Complaint: Abdominal Pain Stated Complaint: Abdominal pain Time Seen by Provider: 11/23/22 11:29 Source: patient, RN notes reviewed and old records reviewed Mode of arrival: ambulatory Limitations: no limitations History of Present Illness HPI narrative: 27-year-old male with history of intussusception, cannabis hyperemesis syndrome and chronic pain currently on oxycodone from the pain clinic who comes here to the emergency room for evaluation of abdominal pain. Patient notes he has had 3 days of consistent abdominal pain mainly around the left side of his umbilicus into the left lower quadrant. He has had occasional nausea but no vomiting. He thinks this is more likely his intussusception than hyper emesis as he has not used marijuana in 10 days time. He has also not had any vomiting. He states his stools have been normal. No blood in his stools and no diarrhea. He has not had any fever or chills but does describe a head cold for the past few days. Patient notes that he takes oxycodone for chronic neck and back pain and his last dose was yesterday. He has not taken any pain medication today. Related Data Home Medications Medication Instructions Recorded Confirmed celecoxib 100 mg capsule 100 mg PO Q12H 06/30/22 11/23/22 cyclobenzaprine 10 mg tablet 10 mg PO Q12H 06/30/22 11/23/22 guanfacine 1 mg tablet,extended 1 mg PO QDAY 11/13/22 11/23/22 release 24 hr lithium carbonate 300 mg 750 mg PO DAILY 11/13/22 11/23/22 tablet,extended release lubiprostone 24 mcg capsule 24 mcg PO QDAY PRN 11/13/22 11/23/22 oxycodone 5 mg tablet 5 - 10 mg PO Q4H PRN 11/13/22 11/23/22 trazodone 50 mg tablet 100 mg PO .HS 11/13/22 11/23/22 Previous Rx's Medication Instructions Recorded vpgixnva-xmdlmvarw-zrofjxlyt 3.5 4 drp otic (ear) Q8H #10 mL 11/13/22 mg/mL-10,000 unit/mL-1 % ear solution Allergies Allergy/AdvReac Type Severity Reaction Status Date / Time mold Allergy Mild Sneezing, Verified 11/13/22 07:24 congestion cats Allergy Mild Hives Uncoded 11/13/22 07:24 Dust Allergy Mild Sneezing, Uncoded 11/13/22 07:24 congestion Review of Systems Status of ROS Reports: 10 or more systems reviewed and unremarkable except as noted in History and below Const Denies: fever or chills Eyes Denies: change in vision ENMT Reports: neck pain (Chronic); Denies: throat pain, throat swelling or hoarseness Cardio Denies: chest pain, swelling of feet/ankles or shortness of breath with exertion Resp Denies: shortness of breath or cough GI Reports: abdominal pain and nausea; Denies: vomiting, diarrhea or constipation Denies: painful urination or urinary frequency Musculo Reports: back pain (Chronic) and neck pain (Chronic) Neuro Denies: headache Allergy/Immuno Denies: throat swelling PFSH PFSH Medical History ADHD Adhesive capsulitis of shoulder YARA (acute kidney injury) Asthma Cyclical vomiting Elevated LFTs History of intussusception Intussusception of small bowel Surgical History History of hernia repair History of laparoscopy Family History Other Asthma Bipolar disorder Heart disease Social History Narrative: Marijuana user Smoking Status: Never smoker Do you use any of these nicotine containing products: None Second hand tobacco smoke exposure: Yes How often do you have a drink containing alcohol: monthly or less How many standard drinks containing alcohol do you have on a typical day: 1 or 2 How often do you have six or more drinks on one occasion: Never AUDIT-C Alcohol total score: 1 Non-prescribed substance use: marijuana (any form) Non-prescribed substance use details: few times only, lately. states he quit using marijuana. service: No Exam Narrative: Exam Narrative: Alert and oriented. Very talkative. Eyes are clear as is neuro oral cavity. Oral cavity with moist mucous membranes Neck is supple. Heart with a tachycardic rate but normal rhythm. Lungs are clear in all lung [place]. No CVA tenderness with percussion. Abdomen is firm is he has no abdominal fat. He is tender in the left lower quadrant but it should be noted that he is somewhat distractible especially with the use of stethoscope. Moving all extremities. Note moving from standing position down to heels does increase his pain. Const: Vital Signs, click to edit/add: Vital Signs - 24 hr 11/23/22 11:20 11/23/22 12:17 11/23/22 13:42 Temperature 97.7 F Pulse Rate 105 H Pulse Rate [Pulse Oximeter] 121 H 105 H Respiratory Rate 22 20 Blood Pressure Blood Pressure [Ri ght Forearm] 123/88 131/94 H Pulse Oximetry 123 H 97 97 Oxygen Delivery Me thod Room Air Room Air 11/23/22 14:00 11/23/22 14:02 11/23/22 14:30 Temperature Pulse Rate 116 H 110 H 84 Pulse Rate [Pulse Oximeter] Respiratory Rate Blood Pressure 140/103 H Blood Pressure [Ri ght Forearm] Pulse Oximetry 96 96 99 Oxygen Delivery Me thod 11/23/22 14:31 11/23/22 14:32 11/23/22 15:00 Temperature Pulse Rate 101 H 88 100 Pulse Rate [Pulse Oximeter] Respiratory Rate Blood Pressure 133/95 H Blood Pressure [Ri ght Forearm] Pulse Oximetry 98 99 99 Oxygen Delivery Me thod 11/23/22 15:02 Temperature Pulse Rate 125 H Pulse Rate [Pulse Oximeter] Respiratory Rate Blood Pressure 129/108 H Blood Pressure [Ri ght Forearm] Pulse Oximetry 100 Oxygen Delivery Me thod Course Course Hospital Course: Given history of multiple CTs we will do flat plate and upright as well as established an IV. I would like to give this patient some Toradol but given history of kidney injury with excessive vomiting I would like to wait on at creatinine before I give him Toradol. 1 L of normal saline will be ordered. Labs to include CBC, comprehensive panel, CRP, sed rate, amylase, lipase, urinal ysis. Reevaluation(s) Reevaluation #1: Patient requesting pain medications but troponin has not been returned yet. He was given Ativan 0.5 mg which seemed to help. Toradol 50 mg IV given once we were able to ascertain normal creatinine. Vital Signs Vital signs: Initial Vital Signs Temperature 97.7 F 11/23/22 11:20 Temperature Source Temporal Artery Scan 11/23/22 11:20 Pulse Rate 121 H 11/23/22 11:20 Respiratory Rate 22 11/23/22 11:20 Blood Pressure 123/88 11/23/22 11:20 Blood Pressure Mean 99 11/23/22 11:20 Blood Pressure Position Sitting 11/23/22 11:20 Pulse Oximetry 123 H 11/23/22 11:20 Oxygen Delivery Method 11/23/22 11:20 Vital Signs Temperature 97.7 F 11/23/22 11:20 Pulse Rate 121 H 11/23/22 11:20 Respiratory Rate 22 11/23/22 11:20 Blood Pressure 123/88 11/23/22 11:20 Pulse Oximetry 123 H 11/23/22 11:20 Oxygen Delivery Method 11/23/22 11:20 Temperature 97.7 F 11/23/22 11:20 Pulse Rate 125 H 11/23/22 15:02 Respiratory Rate 20 11/23/22 12:17 Blood Pressure 129/108 H 11/23/22 15:02 Pulse Oximetry 100 11/23/22 15:02 Oxygen Delivery Method 11/23/22 12:17 MDM - Abdominal Pain MDM Narrative Medical decision making narrative: 1. Abdominal pain-patient has a history of intussusception that historically resolves itself. Today's laboratory values were all normal including CRP. I was able to speak to our surgeon on-call and at this time CT is not recommended nor admission. Fortunately, patient is now noting improvement after the Toradol and has been able to drink water. Re-examination of his abdomen shows it to be soft nontender. Previous examination was very challenging giving a dramatic nature of presentation. Patient has not had any marijuana for approximately 10 days and I do encourage continued abstinence as this certainly complicates the picture of his abdominal pain. He agrees to not do that anymore. Patient states that he has been receiving information from [facility] regarding further evaluation and I absolutely encouraged him to follow up with GI. 2. Hyper emesis-patient had no evidence of vomiting today and has not had marijuana in 10 days. 3. Disposition-patient is discharged home at this time. Again, no CT done given the number of CTs this young man has had in his past as well as looking at the reassuring laboratory values. Examination x2 noted with no surgical abdomen suspected. Home at this time. Return as needed for worsening symptoms. Patient feels safe going home. States that he is feeling much better than when he 1st arrived. Re-examination of his abdomen is benign. Note patient recently treated for otitis externa which I think has return. Would recommend reinitiating ear drops and antibiotics that he has at home. I also did share with patient that he has increased stool noted on his CT flat plate and upright. Would recommend increased fluids juices and even stool softeners if he would like. Course return to the ER for worsening symptoms. Medical Records Attestation: I reviewed the patient's medical records. Lab Data Attestation: I reviewed the patient's lab results. Labs: Lab Results 11/23/22 11/23/22 11/23/22 Range/Units 11:38 12:08 12:10 WBC 9.90 (4.50-11.00) K/uL RBC 5.35 (4.30-5.90) m/uL Hgb 17.4 (13.5-17.5) gm/dL Hct 50.9 (37.0-53.0) % MCV 95 (80-100) fL MCH 33 (26-34) pg MCHC 34 (32-36) gm/dL RDW Coeff of Jennifer 13.5 (11.5-15.5) % Plt Count 368 (140-440) K/uL Neut % (Auto) 77.8 H (42.0-72.0) % Lymph % (Auto) 15.2 L (20-44) % [place] % (Auto) 6.1 (0.0-11.0) % Eos % (Auto) 0.7 (0.0-7.0) % Baso % (Auto) 0.1 (0.0-3.0) % Neut # (Auto) 7.70 H (1.7-7.0) K/uL Lymph # (Auto) 1.50 (0.90-2.90) K/uL [place] # (Auto) 0.60 (0.00-0.90) K/UL Eos # (Auto) 0.07 (0.00-0.50) K/uL Baso # (Auto) 0.01 (0.00-0.30) K/uL Sodium (135-149) mmol/L Potassium (3.6-5.1) mmol/L Chloride (96-114) mmol/L Carbon Dioxide (20-32) mmol/L BUN (5-24) mg/dL Creatinine (0.5-1.5) mg/dL Estimated Creat Clear Estimated GFR ml/min Glucose (60-115) mg/dL Calcium (8.4-10.6) mg/dL Total Bilirubin (0.1-1.5) mg/dL AST (12-35) U/L ALT (4-50) U/L Alkaline Phosphatase (40-150) U/L C-Reactive Protein (0.5-1.0) mg/dL Total Protein (6.0-8.3) g/dL Albumin (3.3-5.0) g/dL Amylase (18-89) U/L Lipase (23-300) U/L Urine Color Yellow (Yellow) Urine Appearance Clear (Clear) Urine pH 8.5 (5.0-8.5) Ur Specific [place] 1.020 (1.000-1.030) Urine Protein 2+ A (Negative) Urine Glucose (UA) Negative (Negative) Urine Ketones Trace A (Negative) Urine Blood Negative (Negative) Urine Nitrite Negative (Negative) Urine Bilirubin Negative (Negative) Urine Urobilinogen 0.2 (0.2-1.0) Ur Leukocyte Esterase Negative (Negative) Urine RBC 0-2 (0-2) Urine WBC 0-2 (0-5) Ur Squamous Epith Cells Few (None-Few) Amorphous Sediment Moderate A (None) Urine Bacteria Few A (None) SARS-CoV-2 (PCR) Negative SARS-CoV-2 (Negative) Influenza Type A (PCR) Negative PCR FLU A (Negative) Influenza Type B (PCR) Negative PCR FLU B (Negative) 11/23/22 11/23/22 Range/Units 12:10 12:10 WBC (4.50-11.00) K/uL RBC (4.30-5.90) m/uL Hgb (13.5-17.5) gm/dL Hct (37.0-53.0) % MCV (80-100) fL MCH (26-34) pg MCHC (32-36) gm/dL RDW Coeff of Jennifer (11.5-15.5) % Plt Count (140-440) K/uL Neut % (Auto) (42.0-72.0) % Lymph % (Auto) (20-44) % [place] % (Auto) (0.0-11.0) % Eos % (Auto) (0.0-7.0) % Baso % (Auto) (0.0-3.0) % Neut # (Auto) (1.7-7.0) K/uL Lymph # (Auto) (0.90-2.90) K/uL [place] # (Auto) (0.00-0.90) K/UL Eos # (Auto) (0.00-0.50) K/uL Baso # (Auto) (0.00-0.30) K/uL Sodium 142 (135-149) mmol/L Potassium 4.0 (3.6-5.1) mmol/L Chloride 103 (96-114) mmol/L Carbon Dioxide 27 (20-32) mmol/L BUN 19 (5-24) mg/dL Creatinine 0.6 (0.5-1.5) mg/dL Estimated Creat Clear 158.76 Estimated GFR 135 ml/min Glucose 110 (60-115) mg/dL Calcium 10.2 (8.4-10.6) mg/dL Total Bilirubin 0.6 (0.1-1.5) mg/dL AST 27 (12-35) U/L ALT 38 (4-50) U/L Alkaline Phosphatase 123 (40-150) U/L C-Reactive Protein < 0.5 L (0.5-1.0) mg/dL Total Protein 8.8 H (6.0-8.3) g/dL Albumin 5.3 H (3.3-5.0) g/dL Amylase 110 H (18-89) U/L Lipase 51 (23-300) U/L Urine Color (Yellow) Urine Appearance (Clear) Urine pH (5.0-8.5) Ur Specific [place] (1.000-1.030) Urine Protein (Negative) Urine Glucose (UA) (Negative) Urine Ketones (Negative) Urine Blood (Negative) Urine Nitrite (Negative) Urine Bilirubin (Negative) Urine Urobilinogen (0.2-1.0) Ur Leukocyte Esterase (Negative) Urine RBC (0-2) Urine WBC (0-5) Ur Squamous Epith Cells (None-Few) Amorphous Sediment (None) Urine Bacteria (None) SARS-CoV-2 (PCR) (Negative) Influenza Type A (PCR) (Negative) Influenza Type B (PCR) (Negative) Imaging Data Abdominal x-ray: My impression: Increased stool but no evidence of bowel obstruction Radiologist's impression: Bowel: Bowel pattern is normal. Diffuse colonic fecal retention. Soft tissues: No sign of free air. No sign of soft tissue mass. No suspicious calcifications. Bones: Unremarkable for age. IMPRESSION: Diffuse colonic fecal retention. Discharge Plan Discharge Clinical Impression: Abdominal pain, Otitis externa Patient Disposition: Home, Self-Care Condition: Improved Additional Instructions: Abstain from all marijuana products. Follow-up with GI at [place] as you are now being scheduled. Recommend fluids at this time. Seek medical attention for fever, vomiting, worsening symptoms and as needed. Recommend restarting your ear drops. Prescriptions: No Action oxycodone 5 mg tablet 5 - 10 mg PO Q4H PRN trazodone 50 mg tablet 100 mg PO .HS lubiprostone 24 mcg capsule 24 mcg PO QDAY PRN guanfacine 1 mg tablet extended release 24 hr 1 mg PO QDAY lotjxung-hbvvixvhl-WG 3.5-10,000-1 mg/mL-unit/mL-% solution 4 drp otic (ear) Q8H Qty: 10 0RF cyclobenzaprine 10 mg tablet 10 mg PO Q12H Label Comments: TAKE 0.5-1 TAB BY MOUTH 3 TIMES A DAY , MAX 3 TABS/DAY (MAX 30MG DAILY) celecoxib 100 mg capsule 100 mg PO Q12H lithium carbonate 300 mg tablet extended release 750 mg PO DAILY Label Comments: TAKE 2 TABLETS BY MOUTH DAILY. Follow Up/Referrals: Kimberlee Posadas PA-C [Primary Care Provider] - Stand Alone Forms: [facility] Info Inst[facility]
[2022-11-23 14:41] LABS: C Reactive Protein* < 0.5 mg/dL (0.5-1.0)
== END 2022-11-23 15:30 | disposition home or self-care (01) ==
PROVIDERS: Emergency Provider Family Medicine; PCP Physician Assistant Medical
DX: R10.32 Left lower quadrant pain (principal); R11.10 Vomiting, unspecified
CPT/HCPCS: 36415; 74019; 80053; 81001; 82150; 83690; 85025; 86140; 87086; 87631; 96374; 96375; 99284; 99285; J1885; J2060; J7030

== ENCOUNTER 2022-11-24 17:54 | Emergency (ER) | payer MEDICAID, SELFPAY ==
[2022-11-24 18:01] VITALS: BP 163/93; PULSE 115; RESP 18; TEMP 36.4; O2SAT 99; BMI 21.1
--- NOTE | 2022-11-24 18:39 | CRLHL7_ITS ---
For Patients: As a result of the Century Cures Act, medical imaging exams and procedure reports are released immediately into your electronic medical record. You may view this report before your referring provider. If you have questions, please contact your health care provider. INDICATION: Left abdominal pain. TECHNIQUE: CT abdomen and pelvis acquired with 66 cc Isovue 370 IV contrast. COMPARISON: November 09, 2022. FINDINGS: Lower chest: Scattered dependent atelectasis. Liver: Unremarkable. Normal in size and attenuation. No suspicious masses. Gallbladder and bile ducts: Unremarkable. No stones or inflammation. No biliary dilatation. Pancreas: Unremarkable. No mass or inflammation. Spleen: Unremarkable. Normal in size. No masses. Adrenal glands: Unremarkable. No nodules. Kidneys: Unremarkable. No suspicious masses, stones, or hydronephrosis. GI tract: Mild colonic stool burden.. Normal in caliber. No sign of mass or inflammation. A focal calcification about the cecum, possibly appendicular, without right lower quadrant inflammatory changes. Vasculature: Abdominal aorta is normal in caliber. Mesenteric arteries are patent. Lymph nodes: No lymphadenopathy. Peritoneum/Abdominal Wall: Unremarkable. No sign of mass or infiltration. No free air or significant free fluid. Pelvis: Unremarkable. Bones: Bilateral L5 pars defect. IMPRESSION: No acute intra-abdominal/pelvic abnormality. Mild colonic stool burden. Please note that all CT scans at this facility use dose modulation, iterative reconstruction, and/or weight-based dosing when appropriate to reduce radiation dose to as low as reasonably achievable. Dictated by Sidney Polo MD @ 11/24/2022 7:55:47 PM (Electronically Signed)
--- NOTE | 2022-11-24 18:41 | ED_ITS ---
HPI - Abdominal Pain General Chief Complaint: Abdominal Pain Stated Complaint: Extreme stomach pain Time Seen by Provider: 11/24/22 17:56 Source: patient Mode of arrival: ambulatory Limitations: no limitations History of Present Illness HPI narrative: 27-year-old male with notable history of chronic pain disorder typically on oxycodone 4 times daily and a history of cyclic vomiting syndrome presents to the emergency department for the 2nd time in 24 hours with abdominal pain. Patient does have a notable history of intussusception, sounds like it has been recurrent. He had an extremely thorough workup yesterday those notes are reviewed. Laboratory studies were nonrevealing, there was no leukocytosis, CRP was normal. He had an abdominal x-ray which looked normal. We elected not to do CT scan because he has had so many of these over the course of his illness and wanted to reduce risk of radiation. He did have some signs of stool retention, he was instructed to take laxatives for this and to continue Tylenol as needed. Patient reports that he has not used any of the oxycodone in the past 2 days because his neck and back are not hurting which is unusual for him. The abdominal pain has been so much more bothersome. The pain has been present for 4 days now he states that he was still taking his typical oxycodone for the 1st couple of days and I did not help with his pain. This decreases the likely this that this is related to narcotic withdrawal but does not rule it out. He does pull up his medications for me on his [employer] apps we can review these together. I see that he last filled his oxycodone on 11/12/2022. He reports that he did take his stool medication to help counteract the narcotics and had a small bowel movement this morning, it did not relieve his symptoms. He states that he had 1 brief episode of vomiting at 3:00 a.m. this morning but he thinks it was just because he drank too much water to facet was only clear water, non bilious. He denies nausea. He continues to abstain from marijuana, notes extensively reviewed from yesterday. Still no trauma no injury. No fevers, he did recently recover from an otitis externa. Has completed antibiotic therapy. Notes no blood in his stools, no dysuria, no suspicion for STD. Pain is located in the left lower quadrant and he specifically points to the left lower rectus area. He states that when he has previously had pain abdominal pain it has been more lateral, this episode is not typical for him. He has not tried any other interventions at home to help with his pain. He does take chronic NSAIDs with Celebrex and also Flexeril for his chronic pain. Past medical history notable for bipolar disorder, chronic pain, cyclic vomiting syndrome. He has previously had high creatinine levels but these have been no rmal on our last few checks here. Socially denies alcohol, cannabis use. No pertinent travel. Medications reviewed and accurate per his [facility] report and allergies are to no drugs but he does have some environmental allergies. Family history reviewed. ROS is notable for the GI symptoms only, otherwise denies times 12 systems. Related Data Home Medications Medication Instructions Recorded Confirmed celecoxib 100 mg capsule 100 mg PO Q12H 06/30/22 11/23/22 cyclobenzaprine 10 mg tablet 10 mg PO Q12H 06/30/22 11/23/22 guanfacine 1 mg tablet,extended 1 mg PO QDAY 11/13/22 11/23/22 release 24 hr lithium carbonate 300 mg 750 mg PO DAILY 11/13/22 11/23/22 tablet,extended release lubiprostone 24 mcg capsule 24 mcg PO QDAY PRN 11/13/22 11/23/22 oxycodone 5 mg tablet 5 - 10 mg PO Q4H PRN 11/13/22 11/23/22 trazodone 50 mg tablet 100 mg PO .HS 11/13/22 11/23/22 Previous Rx's Medication Instructions Recorded vonffebo-ctiqcpxox-bnupeamsr 3.5 4 drp otic (ear) Q8H #10 mL 11/13/22 mg/mL-10,000 unit/mL-1 % ear solution Allergies Allergy/AdvReac Type Severity Reaction Status Date / Time mold Allergy Mild Sneezing, Verified 11/13/22 07:24 congestion cats Allergy Mild Hives Uncoded 11/13/22 07:24 Dust Allergy Mild Sneezing, Uncoded 11/13/22 07:24 congestion PFSH PFSH Medical History ADHD Adhesive capsulitis of shoulder YARA (acute kidney injury) Asthma Cyclical vomiting Elevated LFTs History of intussusception Intussusception of small bowel Surgical History History of hernia repair History of laparoscopy Family History Other Asthma Bipolar disorder Heart disease Social History Narrative: Marijuana user Smoking Status: Never smoker Do you use any of these nicotine containing products: None Second hand tobacco smoke exposure: Yes How often do you have a drink containing alcohol: monthly or less How many standard drinks containing alcohol do you have on a typical day: 1 or 2 How often do you have six or more drinks on one occasion: Never AUDIT-C Alcohol total score: 1 Non-prescribed substance use: marijuana (any form) Non-prescribed substance use details: few times only, lately. states he quit using marijuana. service: No Exam Const: Vital Signs, click to edit/add: Vital Signs - 24 hr 11/24/22 18:01 11/24/22 20:03 Temperature 97.5 F L Pulse Rate [Pulse Oximeter] 90 Pulse Rate [Right Femoral] 115 H Respiratory Rate 18 16 Blood Pressure [Ri ght Upper Arm] 163/93 H 133/93 H Pulse Oximetry 99 99 Oxygen Delivery Me thod Room Air Documenting provider has reviewed patient's vital signs: yes Common normals: alert Orientation/consciousness: Yes awake Other: Appears moderately distressed from pain, seems somewhat out of proportion. Answers questions appropriately and seems to have good insight. HENMT: Common normals: normocephalic Head and scalp: normocephalic Face and sinus: normal facial exam Mouth: oral and palatal mucosa normal Throat: posterior oropharynx normal Eye: Common normals: PERRL and conjunctivae normal General eye: normal appearance of both eyes Conjunctiva: conjunctiva(e) normal Pupil: PERRL Neck & C-Spine: Common normals: full ROM and no lymphadenopathy Resp: Common normals: normal respiratory effort, no use of accessory muscles and clear to auscultation bilaterally Effort & inspection: able to speak in complete sentences Auscultation: clear to auscultation bilaterally Cardio: Common normals: regular rate, regular rhythm, S1 normal heart sound, S2 normal heart sound, no murmurs and peripheral pulses 2+ throughout Rate: regular rate Rhythm: regular rhythm Heart sounds: S1 normal and S2 normal Peripheral pulses: pulses 2+ throughout GI: Other: Surgical scarring consistent with history of intussusception repair. Abdomen appears completely nondistended. Bowel sounds are normoactive in all 4 quadrants. He is tender to palpation over the left rectus, but I say it is focal when I palpate the right and go back to the left I am not getting most consistent exam. On the 2nd time I did the exam, he guards but it does seem like he can relax under his own free will and still exhibits tenderness but it is fluctuating. I certainly do not appreciate any masses or hernia. Extremity: Other: Normal gait, moves all extremities freely with no obvious effusions Neuro: Sensorium/orientation: awake and alert Speech: speech normal Gait (neuro): normal gait Motor exam: no tremor noted and no movement abnormalities noted Psych: Appearance: grossly normal Attitude: engaged Insight: fair Judgement: fair Other: Behavior and pain seem out of proportion to exam. Skin: Common normals: no rashes or lesions noted General skin exam: no rashes or lesions noted Course Vital Signs Vital signs: Initial Vital Signs Temperature 97.5 F L 11/24/22 18:01 Temperature Source Temporal Artery Scan 11/24/22 18:01 Pulse Rate 115 H 11/24/22 18:01 Respiratory Rate 18 11/24/22 18:01 Blood Pressure 163/93 H 11/24/22 18:01 Blood Pressure Mean 116 11/24/22 18:01 Blood Pressure Position Sitting 11/24/22 18:01 Pulse Oximetry 99 11/24/22 18:01 Oxygen Delivery Method 11/24/22 18:01 Vital Signs Temperature 97.5 F L 11/24/22 18:01 Pulse Rate 115 H 11/24/22 18:01 Respiratory Rate 18 11/24/22 18:01 Blood Pressure 163/93 H 11/24/22 18:01 Pulse Oximetry 99 11/24/22 18:01 Oxygen Delivery Method 11/24/22 18:01 Temperature 97.5 F L 11/24/22 18:01 Pulse Rate 90 11/24/22 20:03 Respiratory Rate 16 11/24/22 20:03 Blood Pressure 133/93 H 11/24/22 20:03 Pulse Oximetry 99 11/24/22 20:03 Oxygen Delivery Method 11/24/22 18:01 MDM - Abdominal Pain MDM Narrative Medical decision making narrative: Differential diagnosis including repeat intussusception, bowel obstruction, narcotic withdrawal, pancreatitis, diverticulitis, among others. Normal CRP and labs yesterday are somewhat reassuring. Because his pain really seems out of proportion to my exam, I do recommend that we do a CT scan. I am not going to give him narcotics, I do question if he could potentially be out of his oxycodone and is not being truthful with me. He will be given Toradol 15 mg IV x1, Ativan 0.25 mg IV x1 and await CT findings. Not planning to give narcotics unless something unforseen is found on CT scan. Update: Patient reports mild improvement of pain with low-dose Ativan and Toradol. CT scan and labs reviewed with patient, all reassuring. Recommended stool cleanout and if this does not improve his pain, a follow-up with his GI team. Stress that there is nothing emergent seen and no additional workup is likely to be beneficial with repeated visits unless symptoms change. Patient will start MiraLax 17 g every 8 hours up to 5 doses until stools are running liquid. If this does not improve his pain, he should contact his GI provider. He assures me that he has MiraLax at home Medical Records Attestation: I reviewed the patient's medical records. Lab Data Attestation: I reviewed the patient's lab results. Lab results narrative: Unremarkable Labs: Lab Results 11/24/22 11/24/22 Range/Units 18:55 18:55 WBC 10.30 (4.50-11.00) K/uL RBC 5.26 (4.30-5.90) m/uL Hgb 17.2 (13.5-17.5) gm/dL Hct 51.0 (37.0-53.0) % MCV 97 (80-100) fL MCH 33 (26-34) pg MCHC 34 (32-36) gm/dL RDW Coeff of Jennifer 13.9 (11.5-15.5) % Plt Count 374 (140-440) K/uL Neut % (Auto) 70.9 (42.0-72.0) % Lymph % (Auto) 22.3 (20-44) % Gregg % (Auto) 5.8 (0.0-11.0) % Eos % (Auto) 0.7 (0.0-7.0) % Baso % (Auto) 0.1 (0.0-3.0) % Neut # (Auto) 7.30 H (1.7-7.0) K/uL Lymph # (Auto) 2.30 (0.90-2.90) K/uL Gregg # (Auto) 0.60 (0.00-0.90) K/UL Eos # (Auto) 0.07 (0.00-0.50) K/uL Baso # (Auto) 0.01 (0.00-0.30) K/uL Sodium 141 (135-149) mmol/L Potassium 4.9 (3.6-5.1) mmol/L Chloride 104 (96-114) mmol/L Carbon Dioxide 28 (20-32) mmol/L BUN 20 (5-24) mg/dL Creatinine 0.7 (0.5-1.5) mg/dL Estimated Creat Clear 136.08 Estimated GFR 129 ml/min Glucose 108 (60-115) mg/dL Calcium 10.2 (8.4-10.6) mg/dL Total Bilirubin 0.9 (0.1-1.5) mg/dL AST 22 (12-35) U/L ALT 33 (4-50) U/L Alkaline Phosphatase 119 (40-150) U/L C-Reactive Protein < 0.5 L (0.5-1.0) mg/dL Total Protein 8.6 H (6.0-8.3) g/dL Albumin 5.3 H (3.3-5.0) g/dL Lipase 61 (23-300) U/L Imaging Data CT scan - abdomen: My impression: Unremarkable Radiologist's impression: MPRESSION: No acute intra-abdominal/pelvic abnormality. Mild colonic stool burden. Discharge Plan Discharge Clinical Impression: Abdominal pain, chronic, left lower quadrant Patient Disposition: Home, Self-Care Condition: Stable Instructions: Abdominal Pain (ED) Additional Instructions: Thankfully, there were no significant abnormality seen in today's or yesterday's workup in the emergency department. Blood work is all reassuring, CT scan is reassuring. As we discussed, this could be firm 1 of many things, this could be a change in your recurrent abdominal pain, this could be related to constipation. I would like for you to start MiraLax 17 g every 8 hours for up to 5 doses until your stools are running very soft or liquid. If this does not improve your pain, contact your GI provider for further guidance. Continue all of your other medications as prescribed. Activity Level: No Restrictions Discharge Diet: Regular Prescriptions: No Action oxycodone 5 mg tablet 5 - 10 mg PO Q4H PRN trazodone 50 mg tablet 100 mg PO .HS lubiprostone 24 mcg capsule 24 mcg PO QDAY PRN guanfacine 1 mg tablet extended release 24 hr 1 mg PO QDAY iecgszpf-fxjlopxxr-IQ 3.5-10,000-1 mg/mL-unit/mL-% solution 4 drp otic (ear) Q8H Qty: 10 0RF cyclobenzaprine 10 mg tablet 10 mg PO Q12H Label Comments: TAKE 0.5-1 TAB BY MOUTH 3 TIMES A DAY , MAX 3 TABS/DAY (MAX 30MG DAILY) celecoxib 100 mg capsule 100 mg PO Q12H lithium carbonate 300 mg tablet extended release 750 mg PO DAILY Label Comments: TAKE 2 TABLETS BY MOUTH DAILY. Follow Up/Referrals: Kimberlee Posadas PA-C [Primary Care Provider] - Stand Alone [facility]: [facility] Info Inst[facility]
[2022-11-24] MEDS: KETOROLAC 15 MG/ML inj IVP (19:04)
[2022-11-24] MEDS: LORazepam 2 MG/ML inj 0.25 MG IVP (19:06)
[2022-11-24 19:19] LABS: Albumin* 5.3 g/dL (3.3-5.0); Chloride* 104 mmol/L (96-114); Sodium* 141 mmol/L (135-149)
[2022-11-24 19:20] LABS: Potassium* 4.9 mmol/L (3.6-5.1)
[2022-11-24 19:22] LABS: Creatinine* 0.7 mg/dL (0.5-1.5); Est. Creatinine Clearance* 136.08; Estimated Glomerular Filt Rate 129 ml/min
[2022-11-24 19:23] LABS: Alanine Aminotransferase* 33 U/L (4-50); Alkaline Phosphatase* 119 U/L (40-150); Aspartate Amino Transferase* 22 U/L (12-35); Bilirubin Total* 0.9 mg/dL (0.1-1.5); Blood Urea Nitrogen* 20 mg/dL (5-24); Calcium* 10.2 mg/dL (8.4-10.6); Carbon Dioxide* 28 mmol/L (20-32); Glucose* 108 mg/dL (60-115); Lipase* 61 U/L (23-300); Total Protein* 8.6 g/dL (6.0-8.3)
[2022-11-24 19:43] LABS: C Reactive Protein* < 0.5 mg/dL (0.5-1.0)
[2022-11-24 19:47] LABS: Basophils Absolute Auto 0.01 K/uL (0.00-0.30); Basophils Percent Auto 0.1 % (0.0-3.0); Eosinophils Absolute Auto 0.07 K/uL (0.00-0.50); Eosinophils Percent Auto 0.7 % (0.0-7.0); Hemoglobin* 17.2 gm/dL (13.5-17.5); Immature Granulocytes Abs Auto 0.02 K/uL (0.00-0.30); Immature Granulocytes Pct Auto 0.2 %; Lymphocytes Percent Auto 22.3 % (20-44); Mean Corpuscular HGB Conc 34 gm/dL (32-36); Mean Corpuscular Hemoglobin 33 pg (26-34); Mean Corpuscular Volume 97 fL (80-100); Monocytes Percent Auto 5.8 % (0.0-11.0); Neutrophils Percent Auto 70.9 % (42.0-72.0); Platelet Count* 374 K/uL (140-440); RDW Coefficient of Variation % 13.9 % (11.5-15.5); Red Blood Count 5.26 m/uL (4.30-5.90)
[2022-11-24 19:55] LABS: Slide Review Reflex No
[2022-11-24 20:03] VITALS: BP 133/93; PULSE 90; RESP 16; O2SAT 99
== END 2022-11-24 20:43 | disposition home or self-care (01) ==
PROVIDERS: Emergency Provider Family Medicine; PCP Physician Assistant Medical
DX: R10.32 Left lower quadrant pain (principal)
CPT/HCPCS: 36415; 74177; 80053; 83690; 85025; 86140; 96374; 96375; 99284; J1885; J2060; Q9967

== ENCOUNTER 2023-01-19 14:17 | Outpatient (REF) | payer MEDICAID, SELFPAY ==
[2023-01-22 16:28] LABS: Lithium, Serum or Plasma 0.7 mmol/L (0.5-1.2)
== END 2023-01-19 14:18 | disposition home or self-care (01) ==
LOC: NPINS 14:17
PROVIDERS: PCP Physician Assistant Medical; Visit Provider Nurse Practitioner Psychiatric/Mental Health
DX: Z79.899 Other long term (current) drug therapy (principal)
CPT/HCPCS: 80178

== ENCOUNTER 2023-01-30 08:05 | Emergency (ER) | payer MEDICAID, SELFPAY ==
[2023-01-30 08:20] VITALS: BP 144/115; PULSE 120; RESP 22; TEMP 36.4; O2SAT 100; BMI 21.1
[2023-01-30] MEDS: 0.9 % SODIUM CHLORIDE 1000 ml 1,000 ML IV ×2 (08:36→10:05)
[2023-01-30] MEDS: droperidoL 2.5 MG/ML inj 0.625 MG IV ×2 (08:36→10:06)
[2023-01-30 08:46] LABS: Basophils Percent Auto 0.3 % (0.0-3.0); Eosinophils Percent Auto 0.8 % (0.0-7.0); Hematocrit 53.2 % (37.0-53.0); Hemoglobin* 18.2 gm/dL (13.5-17.5); Immature Granulocytes Pct Auto 0.2 %; Lymphocytes Percent Auto 12.4 % (20-44); Mean Corpuscular HGB Conc 34 gm/dL (32-36); Mean Corpuscular Hemoglobin 32 pg (26-34); Mean Corpuscular Volume 94 fL (80-100); Monocytes Percent Auto 5.3 % (0.0-11.0); Platelet Count* 497 K/uL (140-440); RDW Coefficient of Variation % 13.1 % (11.5-15.5); Red Blood Count 5.64 m/uL (4.30-5.90); White Blood Count* 17.67 K/uL (4.50-11.00)
[2023-01-30 08:48] LABS: Lactate* 4.4 mmol/L (0.5-1.9); Slide Review Reflex No
[2023-01-30 09:11] LABS: Albumin* 5.6 g/dL (3.3-5.0)
[2023-01-30 09:12] LABS: Chloride* 108 mmol/L (96-114); Sodium* 144 mmol/L (135-149)
[2023-01-30 09:14] LABS: Alanine Aminotransferase* 34 U/L (4-50); Alkaline Phosphatase* 122 U/L (40-150); Aspartate Amino Transferase* 30 U/L (12-35); Bilirubin Direct* 0.3 mg/dL (0.0-0.5); Bilirubin Total* 1.3 mg/dL (0.1-1.5); Creatinine* 1.4 mg/dL (0.5-1.5); Est. Creatinine Clearance* 68.04; Estimated Glomerular Filt Rate 70 ml/min
[2023-01-30] MEDS: KETOROLAC 30 MG/ML inj IVP (09:14)
[2023-01-30] MEDS: diphenhydrAMINE 50 MG/ML inj 25 MG IVP (09:14)
[2023-01-30 09:15] LABS: Blood Urea Nitrogen* 12 mg/dL (5-24); Calcium* 11.5 mg/dL (8.4-10.6); Carbon Dioxide* 19 mmol/L (20-32); Glucose* 175 mg/dL (60-115)
--- NOTE | 2023-01-30 09:31 | CRLHL7_ITS ---
For Patients: As a result of the Century Cures Act, medical imaging exams and procedure reports are released immediately into your electronic medical record. You may view this report before your referring provider. If you have questions, please contact your health care provider. HISTORY: Vomiting. TECHNIQUE: Flat and upright abdominal radiographs. COMPARISON: CT 11/24/2022. FINDINGS: No free intraperitoneal air. No small bowel obstruction. Mild to moderate amount stool within the colon. Lung bases clear. No acute bony abnormality. IMPRESSION: No obstruction or free air. Dictated by Maximiliano Peña MD @ 01/30/2023 9:59:41 AM Dictated by: Maximiliano Peña MD @ 01/30/2023 09:59:47 (Electronically Signed)
[2023-01-30] MEDS: LORazepam 2 MG/ML inj 0.5 MG IVP (10:05)
--- NOTE | 2023-01-30 10:39 | ED_ITS ---
HPI - General Adult General Chief complaint: Nausea/Vomiting Stated complaint: Vomiting Time Seen by Provider: 01/30/23 08:14 Source: patient Mode of arrival: ambulatory Limitations: no limitations History of Present Illness HPI narrative: 27-year-old male coming in today complaining of intractable vomiting. Patient states that he does have a history of cannabinoid hyperemesis, but tells me that he quit using cannabis about 3 weeks ago. Unfortunately, 3 days ago he was at a constitution party and he states that he inadvertently took some edibles. About a day later vomiting started and he has not been able to get it under control. He states he has been vomiting for about a day and half. He states that he has lower abdominal discomfort that he often gets when he has these episodes. He also has a history of intussusception but tells me that the pain he has today is not significant like it has been before. He states that he feels constipated and has small hard stools although they have been daily. He denies fevers. He does become diaphoretic on and off throughout the day when the vomiting becomes worse. He denies any blood in his vomit. Related Data Home Medications Medication Instructions Recorded Confirmed celecoxib 100 mg capsule 100 mg PO Q12H 06/30/22 11/23/22 cyclobenzaprine 10 mg tablet 10 mg PO Q12H 06/30/22 11/23/22 guanfacine 1 mg tablet,extended 1 mg PO QDAY 11/13/22 11/23/22 release 24 hr lithium carbonate 300 mg 750 mg PO DAILY 11/13/22 11/23/22 tablet,extended release lubiprostone 24 mcg capsule 24 mcg PO QDAY PRN 11/13/22 11/23/22 oxycodone 5 mg tablet 5 - 10 mg PO Q4H PRN 11/13/22 11/23/22 trazodone 50 mg tablet 100 mg PO .HS 11/13/22 11/23/22 Previous Rx's Medication Instructions Recorded ojimpiux-mmgxuqksh-vweembegg 3.5 4 drp otic (ear) Q8H #10 mL 11/13/22 mg/mL-10,000 unit/mL-1 % ear solution ondansetron 4 mg disintegrating 4 mg PO Q8H PRN nausea and 01/25/23 tablet vomiting #30 tabs Allergies Allergy/AdvReac Type Severity Reaction Status Date / Time mold Allergy Mild Sneezing, Verified 11/13/22 07:24 congestion cats Allergy Mild Hives Uncoded 11/13/22 07:24 Dust Allergy Mild Sneezing, Uncoded 11/13/22 07:24 congestion Review of Systems Status of ROS: Reports: 10 or more systems reviewed and unremarkable except as noted in History and below [facility] Medical History ADHD Adhesive capsulitis of shoulder YARA (acute kidney injury) Asthma Cyclical vomiting Elevated LFTs History of intussusception Intussusception of small bowel Surgical History History of hernia repair History of laparoscopy Family History Other Asthma Bipolar disorder Heart disease Social History Narrative: Marijuana user Smoking Status: Never smoker Do you use any of these nicotine containing products: None Second hand tobacco smoke exposure: Yes How often do you have a drink containing alcohol: monthly or less How many standard drinks containing alcohol do you have on a typical day: 1 or 2 How often do you have six or more drinks on one occasion: Never AUDIT-C Alcohol total score: 1 Non-prescribed substance use: marijuana (any form) Non-prescribed substance use details: few times only, lately. states he quit using marijuana. service: No Exam Narrative: Exam Narrative: Thin, well-developed patient vomiting and dry heaving very loudly. Alert and oriented x3. Patient is diaphoretic. HEENT: Normocephalic atraumatic. Pupils are equally round reactive to light. Extraocular muscles are intact. Conjunctivae are moist without any icterus noted. Dry mucous membranes. Neck is soft. Cardiovascular: Heart is regular rate and rhythm S1 and S2 are present without any murmurs. Lungs: Clear to auscultation bilaterally no wheezes rhonchi or rales are appreciated. Patient takes deep breaths without any discomfort. Abdomen: Soft and nondistended with normal bowel sounds. No guarding or rebound. No masses or organomegaly appreciated. Minimal discomfort throughout. Extremities: Bilateral lower extremities are without edema. Normal DP and PT pulses. Skin: Well perfused without any obvious rashes. Const: Vital Signs, click to edit/add: Vital Signs - 24 hr 01/30/23 08:20 01/30/23 11:02 Temperature 97.5 F L Pulse Rate [Pulse Oximeter] 120 H 90 Respiratory Rate 22 18 Blood Pressure [Le ft Forearm] 144/115 H 127/83 Pulse Oximetry 100 99 Oxygen Delivery Me thod Room Air Room Air Course Course Hospital Course: IV was established and fluids were started. Patient received droperidol which has helped him in the past 0.612 mg. Unfortunately today this did not seem to help so we proceeded with IV Toradol and Benadryl. EKG was done to rule out any QT prolongation and this showed a sinus rhythm with a short [place], no evidence of prolonged QT. Therefore repeated his droperidol and added Ativan 0.5 mg IV. 2 L of normal saline was started also. CBC showed elevated white count, elevated hemoglobin and elevated platelet count consistent with probable dehydration. Protein levels all elevated as well. Lactate was elevated at 4.4. Approximately 2 hours into his treatment patient's symptoms finally subsided. Repeat lactate came down to 2.4. We did also do a flat and upright x-ray which, read by me, was unremarkable. Vital Signs Vital signs: Initial Vital Signs Temperature 97.5 F L 01/30/23 08:20 Temperature Source Temporal Artery Scan 01/30/23 08:20 Pulse Rate 120 H 01/30/23 08:20 Respiratory Rate 22 01/30/23 08:20 Blood Pressure 144/115 H 01/30/23 08:20 Blood Pressure Mean 124 01/30/23 08:20 Blood Pressure Position Sitting 01/30/23 08:20 Pulse Oximetry 100 01/30/23 08:20 Oxygen Delivery Method 01/30/23 08:20 Vital Signs Temperature 97.5 F L 01/30/23 08:20 Pulse Rate 120 H 01/30/23 08:20 Respiratory Rate 22 01/30/23 08:20 Blood Pressure 144/115 H 01/30/23 08:20 Pulse Oximetry 100 01/30/23 08:20 Oxygen Delivery Method 01/30/23 08:20 Temperature 97.5 F L 01/30/23 08:20 Pulse Rate 90 01/30/23 11:02 Respiratory Rate 18 01/30/23 11:02 Blood Pressure 127/83 01/30/23 11:02 Pulse Oximetry 99 01/30/23 11:02 Oxygen Delivery Method 01/30/23 11:02 Medical Decision Making MDM Narrative Medical decision making narrative: 27-year-old male with recurrent canal but no it hyperemesis. Symptoms resolved. Lab Data Lab results reviewed: Yes I reviewed the patient's lab results Labs: Lab Results 01/30/23 01/30/23 01/30/23 Range/Units 08:35 08:35 08:35 WBC 17.67 H (4.50-11.00) K/uL RBC 5.64 (4.30-5.90) m/uL Hgb 18.2 H (13.5-17.5) gm/dL Hct 53.2 H (37.0-53.0) % MCV 94 (80-100) fL MCH 32 (26-34) pg MCHC 34 (32-36) gm/dL RDW Coeff of Jennifer 13.1 (11.5-15.5) % Plt Count 497 H (140-440) K/uL Neut % (Auto) 81.0 H (42.0-72.0) % Lymph % (Auto) 12.4 L (20-44) % Grady % (Auto) 5.3 (0.0-11.0) % Eos % (Auto) 0.8 (0.0-7.0) % Baso % (Auto) 0.3 (0.0-3.0) % Neut # (Auto) 14.30 H (1.7-7.0) K/uL Lymph # (Auto) 2.20 (0.90-2.90) K/uL Grady # (Auto) 0.90 (0.00-0.90) K/UL Eos # (Auto) 0.10 (0.00-0.50) K/uL Baso # (Auto) 0.10 (0.00-0.30) K/uL Sodium 144 (135-149) mmol/L Potassium 4.0 (3.6-5.1) mmol/L Chloride 108 (96-114) mmol/L Carbon Dioxide 19 L (20-32) mmol/L BUN 12 (5-24) mg/dL Creatinine 1.4 (0.5-1.5) mg/dL Estimated Creat Clear 68.04 Estimated GFR 70 ml/min Glucose 175 H (60-115) mg/dL Lactate 4.4 H* (0.5-1.9) mmol/L Calcium 11.5 H (8.4-10.6) mg/dL Total Bilirubin (0.1-1.5) mg/dL Direct Bilirubin (0.0-0.5) mg/dL AST (12-35) U/L ALT (4-50) U/L Alkaline Phosphatase (40-150) U/L Total Protein (6.0-8.3) g/dL Albumin (3.3-5.0) g/dL 01/30/23 01/30/23 Range/Units 08:35 11:27 WBC (4.50-11.00) K/uL RBC (4.30-5.90) m/uL Hgb (13.5-17.5) gm/dL Hct (37.0-53.0) % MCV (80-100) fL MCH (26-34) pg MCHC (32-36) gm/dL RDW Coeff of Jennifer (11.5-15.5) % Plt Count (140-440) K/uL Neut % (Auto) (42.0-72.0) % Lymph % (Auto) (20-44) % Grady % (Auto) (0.0-11.0) % Eos % (Auto) (0.0-7.0) % Baso % (Auto) (0.0-3.0) % Neut # (Auto) (1.7-7.0) K/uL Lymph # (Auto) (0.90-2.90) K/uL Grady # (Auto) (0.00-0.90) K/UL Eos # (Auto) (0.00-0.50) K/uL Baso # (Auto) (0.00-0.30) K/uL Sodium (135-149) mmol/L Potassium (3.6-5.1) mmol/L Chloride (96-114) mmol/L Carbon Dioxide (20-32) mmol/L BUN (5-24) mg/dL Creatinine (0.5-1.5) mg/dL Estimated Creat Clear Estimated GFR ml/min Glucose (60-115) mg/dL Lactate 2.4 H (0.5-1.9) mmol/L Calcium (8.4-10.6) mg/dL Total Bilirubin 1.3 (0.1-1.5) mg/dL Direct Bilirubin 0.3 (0.0-0.5) mg/dL AST 30 (12-35) U/L ALT 34 (4-50) U/L Alkaline Phosphatase 122 (40-150) U/L Total Protein 10.0 H (6.0-8.3) g/dL Albumin 5.6 H (3.3-5.0) g/dL Imaging Data Abdominal x-ray: Attestation: I have reviewed the pertinent imaging results. Radiologist's impression: Flat and upright abdominal radiographs. COMPARISON: CT 11/24/2022. FINDINGS: No free intraperitoneal air. No small bowel obstruction. Mild to moderate amount stool within the colon. Lung bases clear. No acute bony abnormality. IMPRESSION: No obstruction or free air. Discharge Plan Discharge Clinical Impression: Cannabinoid hyperemesis syndrome Patient Disposition: Home, Self-Care Condition: Improved Additional Instructions: Increase your water intake for the next few days. Refrain from using any cannabis products. Prescriptions: No Action oxycodone 5 mg tablet 5 - 10 mg PO Q4H PRN trazodone 50 mg tablet 100 mg PO .HS lubiprostone 24 mcg capsule 24 mcg PO QDAY PRN guanfacine 1 mg tablet extended release 24 hr 1 mg PO QDAY [id number]-DG 3.5-10,000-1 mg/mL-unit/mL-% solution 4 drp otic (ear) Q8H Qty: 10 0RF cyclobenzaprine 10 mg tablet 10 mg PO Q12H Label Comments: TAKE 0.5-1 TAB BY MOUTH 3 TIMES A DAY , MAX 3 TABS/DAY (MAX 30MG DAILY) celecoxib 100 mg capsule 100 mg PO Q12H lithium carbonate 300 mg tablet extended release 750 mg PO DAILY Label Comments: TAKE 2 TABLETS BY MOUTH DAILY. ondansetron 4 mg tablet,disintegrating 4 mg PO Q8H PRN (Reason: nausea and vomiting) Qty: 30 5RF Follow Up/Referrals: Kimberlee Posadas PA-C [Primary Care Provider] - Stand Alone Forms: [facility] Info Instructions
[2023-01-30 11:02] VITALS: BP 127/83; PULSE 90; RESP 18; O2SAT 99
[2023-01-30 11:32] LABS: Lactate* 2.4 mmol/L (0.5-1.9)
--- NOTE | 2023-01-30 12:08 | ED.NURSE ---
a taxi was called for pt for d/c home. after calling, pt left the ED, got in his car and drove away
== END 2023-01-30 12:15 | disposition home or self-care (01) ==
PROVIDERS: Emergency Provider Family Medicine; PCP Physician Assistant Medical
DX: R11.2 Nausea with vomiting, unspecified (principal); F12.920 Cannabis use, unspecified with intoxication, uncomplicated
CPT/HCPCS: 36415; 74019; 80048; 80076; 83605; 85025; 93005; 96361; 96374; 96375; 99284; 99285; J1200; J1790; J1885; J2060; J7030

== ENCOUNTER 2023-12-13 21:10 | Emergency (ER) | payer MEDICAID, SELFPAY ==
[2023-12-13 21:20] VITALS: BP 116/84; PULSE 86; RESP 16; TEMP 36.1; O2SAT 99; BMI 21.1
--- NOTE | 2023-12-13 21:36 | ED_ITS ---
HPI - General Adult General Chief complaint: Nausea/Vomiting Stated complaint: vomiting Time Seen by Provider: 12/13/23 21:28 Source: patient Mode of arrival: ambulatory Limitations: no limitations History of Present Illness HPI narrative: 28-year-old male coming in today with vomiting. Patient does have a history of cannabis dependence and cannabinoid hyperemesis syndrome. He tells me however that he has not used any marijuana for the last 8 months however 3 days ago he was inadvertently given a gummy. Interestingly, this is the exact same story that he told last January when he presented with the same symptoms. Patient states he has been vomiting for 3 days, has not eaten anything. Denies fevers or chills. Has abdominal discomfort from all the retching. Denies any blood in his vomitus. No diarrhea. No chest pain or shortness of breath. He denies other drug use. Related Data Home Medications Medication Instructions Recorded Confirmed celecoxib 100 mg capsule 100 mg PO Q12H 06/30/22 12/13/23 cyclobenzaprine 10 mg tablet 10 mg PO Q12H 06/30/22 12/13/23 guanfacine 1 mg tablet,extended 1 mg PO QDAY 11/13/22 12/13/23 release 24 hr lithium carbonate 300 mg 750 mg PO DAILY 11/13/22 12/13/23 tablet,extended release lubiprostone 24 mcg capsule 24 mcg PO QDAY PRN 11/13/22 12/13/23 oxycodone 5 mg tablet 5 - 10 mg PO Q4H PRN 11/13/22 12/13/23 trazodone 50 mg tablet 100 mg PO .HS 11/13/22 12/13/23 Previous Rx's Medication Instructions Recorded ondansetron 4 mg disintegrating 4 mg PO Q8H PRN nausea and 01/25/23 tablet vomiting #30 tabs Allergies Allergy/AdvReac Type Severity Reaction Status Date / Time mold Allergy Mild Sneezing, Verified 12/13/23 21:28 congestion cats Allergy Mild Hives Uncoded 11/13/22 07:24 Dust Allergy Mild Sneezing, Uncoded 11/13/22 07:24 congestion Review of Systems Status of ROS: Reports: 10 or more systems reviewed and unremarkable except as noted in History and below [facility] Medical History ADHD ?F90.9 - Attention-deficit hyperactivity disorder, unspecified type (ICD-10) Intussusception of small bowel ?K56.1 - Intussusception (ICD-10) Asthma ?J45.909 - Unspecified asthma, uncomplicated (ICD-10) Elevated LFTs ?R79.89 - Other specified abnormal findings of blood chemistry (ICD-10) YARA (acute kidney injury) ?N17.9 - Acute kidney failure, unspecified (ICD-10) Cyclical vomiting ?R11.15 - Cyclical vomiting syndrome unrelated to migraine (ICD-10) History of intussusception ?Z87.19 - Personal history of other diseases of the digestive system (ICD-10) Adhesive capsulitis of shoulder ?M75.00 - Adhesive capsulitis of unspecified shoulder (ICD-10) Surgical History History of laparoscopy ?Z98.890 - Other specified postprocedural states (ICD-10) History of hernia repair ?Z98.890 - Other specified postprocedural states (ICD-10) ?Z87.19 - Personal history of other diseases of the digestive system (ICD-10) Family History Other Asthma Bipolar disorder Heart disease Social History Narrative: Marijuana user Smoking Status: Never smoker Do you use any of these nicotine containing products: None Second hand tobacco smoke exposure: Yes How often do you have a drink containing alcohol: monthly or less How many standard drinks containing alcohol do you have on a typical day: 1 or 2 How often do you have six or more drinks on one occasion: Never AUDIT-C Alcohol total score: 1 Non-prescribed substance use: marijuana (any form) Non-prescribed substance use details: few times only, lately. states he quit using marijuana. service: No Exam Narrative: Exam Narrative: Very thin,well-developed patient repeatedly retching. Alert and oriented X3. Answers questions appropriately. No tangential or magical thinking noted. HEENT: Normocephalic atraumatic. Pupils are equally round reactive to light. Extraocular muscles are intact. Conjunctivae are moist without any icterus noted. dry mucous membranes. Posterior pharynx is normal. Neck is soft without any lymphadenopathy or thyromegaly. No masses are appreciated. poor dentition. Cardiovascular: Heart is regular rate and rhythm S1 and S2 are present without any murmurs. Lungs: Clear to auscultation bilaterally. Abdomen: Soft and nontender nondistended with normal bowel sounds. Extremities: Bilateral lower extremities are without edema. Skin: Well perfused without any obvious rashes. Const: Vital Signs, click to edit/add: Vital Signs - 24 hr 12/13/23 21:20 12/13/23 22:14 12/13/23 22:30 Temperature 97.0 F L Pulse Rate 71 100 Pulse Rate [Pulse Oximeter] 86 Respiratory Rate 16 Blood Pressure [Le ft Upper Arm] 116/84 Pulse Oximetry 99 100 96 Oxygen Delivery Me thod Room Air 12/13/23 23:00 Temperature Pulse Rate 97 Pulse Rate [Pulse Oximeter] Respiratory Rate Blood Pressure [Le ft Upper Arm] Pulse Oximetry 96 Oxygen Delivery Me thod Course Course ED Course: IV established labs were drawn. Patient was given a L of normal saline, Zofran and droperidol. his labs returned showing acute signs of dehydration including elevated white cell count, elevated hemoglobin, elevated creatinine, elevated protein. labs are a similar to the last time he presented with vomiting. Therefore, he was given another L of normal saline followed by a L of lactated Ringer's. His vomiting did resolve completely. He is discharged home in improved condition. Vital Signs Vital signs: Initial Vital Signs Temperature 97.0 F L 12/13/23 21:20 Temperature Source Temporal Artery Scan 12/13/23 21:20 Pulse Rate 86 12/13/23 21:20 Respiratory Rate 16 12/13/23 21:20 Blood Pressure 116/84 12/13/23 21:20 Blood Pressure Mean 94 12/13/23 21:20 Blood Pressure Position Sitting 12/13/23 21:20 Pulse Oximetry 99 12/13/23 21:20 Oxygen Delivery Method Room Air 12/13/23 21:20 Vital Signs Temperature 97.0 F L 12/13/23 21:20 Pulse Rate 86 12/13/23 21:20 Respiratory Rate 16 12/13/23 21:20 Blood Pressure 116/84 12/13/23 21:20 Pulse Oximetry 99 12/13/23 21:20 Oxygen Delivery Method Room Air 12/13/23 21:20 Temperature 97.0 F L 12/13/23 21:20 Pulse Rate 97 12/13/23 23:00 Respiratory Rate 16 12/13/23 21:20 Blood Pressure 116/84 12/13/23 21:20 Pulse Oximetry 96 12/13/23 23:00 Oxygen Delivery Method Room Air 12/13/23 21:20 Medications Administered Medications: Generic Name Dose Route Start Last Admin Trade Name Freq PRN Reason Stop Dose Admin Sodium Chloride 1,000 mls @ 1,000 mls/hr 12/13/23 22:45 12/13/23 22:53 0.9 % Sodium Chloride 1000 Ml IV 12/13/23 23:44 1,000 mls/hr .Q1H WILMA Administration Discontinued Medications Generic Name Dose Route Start Last Admin Trade Name Freq PRN Reason Stop Dose Admin Droperidol 1.25 mg 12/13/23 21:33 12/13/23 22:01 Droperidol 2.5 Mg/Ml Inj IV 12/13/23 21:34 1.25 mg ONCE ONE Administration Sodium Chloride 1,000 mls @ 1,000 mls/hr 12/13/23 21:45 12/13/23 22:53 0.9 % Sodium Chloride 1000 Ml IV 12/13/23 22:44 Infused .Q1H WILMA Infusion Ondansetron HCl 4 mg 12/13/23 21:33 12/13/23 22:01 Ondansetron 2 Mg/Ml Inj IVP 12/13/23 21:34 4 mg ONCE ONE Administration Medical Decision Making MDM Narrative Medical decision making narrative: cannabinoid hyperemesis syndrome. Improved with treatment per above. Lab Data Lab results reviewed: Yes I reviewed the patient's lab results Labs: Lab Results 12/13/23 Range/Units 21:45 WBC 19.60 H (4.50-11.00) K/uL RBC 6.24 H (4.30-5.90) m/uL Hgb 19.7 H (13.5-17.5) gm/dL Hct 56.7 H (37.0-53.0) % MCV 91 (80-100) fL MCH 32 (26-34) pg MCHC 35 (32-36) gm/dL RDW Coeff of Jennifer 12.5 (11.5-15.5) % Plt Count 569 H (140-440) K/uL Neut % (Auto) 79.4 H (42.0-72.0) % Lymph % (Auto) 14.8 L (20-44) % [place] % (Auto) 4.8 (0.0-11.0) % Eos % (Auto) 0.0 (0.0-7.0) % Baso % (Auto) 0.2 (0.0-3.0) % Neut # (Auto) 15.60 H (1.7-7.0) K/uL Lymph # (Auto) 2.90 (0.90-2.90) K/uL [place] # (Auto) 0.90 (0.00-0.90) K/UL Eos # (Auto) 0.00 (0.00-0.50) K/uL Baso # (Auto) 0.00 (0.00-0.30) K/uL Abs Immat Gran (auto) 0.20 (0.00-0.30) K/uL Imm/Tot Granulo (auto) 0.8 % Sodium 141 (135-149) mmol/L Potassium 4.1 (3.6-5.1) mmol/L Chloride 101 (96-114) mmol/L Carbon Dioxide 15 L (20-32) mmol/L Anion Gap 25 H (7-15) mEq/L BUN 26 H (5-24) mg/dL Creatinine 2.2 H (0.5-1.5) mg/dL Estimated Creat Clear 42.91 Estimated GFR 41 ml/min Glucose 184 H (60-115) mg/dL Calcium 11.6 H (8.4-10.6) mg/dL Total Bilirubin 2.6 H (0.1-1.5) mg/dL Direct Bilirubin 0.6 H (0.0-0.5) mg/dL AST 29 (12-35) U/L ALT 27 (4-50) U/L Alkaline Phosphatase 96 (40-150) U/L Total Protein 10.7 H (6.0-8.3) g/dL Albumin 6.4 H (3.3-5.0) g/dL Discharge Plan Discharge Clinical Impression: Cannabinoid hyperemesis syndrome Patient Disposition: Home, Self-Care Condition: Stable Additional Instructions: Avoid all cannabis products. Should this occur again, I recommend not waiting 3 days to present for treatment. Prescriptions: No Action oxycodone 5 mg tablet 5 - 10 mg PO Q4H PRN trazodone 50 mg tablet 100 mg PO .HS lubiprostone 24 mcg capsule 24 mcg PO QDAY PRN guanfacine 1 mg tablet extended release 24 hr 1 mg PO QDAY cyclobenzaprine 10 mg tablet 10 mg PO Q12H Patient Comments: TAKE 0.5-1 TAB BY MOUTH 3 TIMES A DAY , MAX 3 TABS/DAY (MAX 30MG DAILY) celecoxib 100 mg capsule 100 mg PO Q12H lithium carbonate 300 mg tablet extended release 750 mg PO DAILY Patient Comments: TAKE 2 TABLETS BY MOUTH DAILY. ondansetron 4 mg tablet,disintegrating 4 mg PO Q8H PRN (Reason: nausea and vomiting) Qty: 30 5RF Follow Up/Referrals: Kimberlee Posadas PA-C [Primary Care Provider] - Stand Alone Forms: [facility] Info Instructions
--- OUTSIDE RECORDS SUMMARY | 2023-12-13 21:46 | XMS_ITS | Encounter Summary ---
Author Name Unknown Organization [place] Address [address] [place] [address] Care Team Providers Care Projection Engineer Name Role Phone Kimberlee Posadas PA-C Primary Care Provider [phone] Reason for Visit * Reason Comments Laceration Encounter Details Date Type Department Care Team (Late st Contact Info) Description 03/30/2023 12:25 PM CDT - 03/30/2023 3:[address] [facility] Emergency Department [facility] [place] [address] Lilian Cerda PA-C EMERGENCY CARE [facility] [address] Laceration of right little finger without foreign body without damage to nail, initial encounter Discharge Disposition: Home or Self Care Social History Tobacco Use Types Packs/Day Years Used Date Smoking Tobacco: Passive Smo ke Exposure - Never Smoker Smokeless Tobacco: Never Alcohol Use Standard Drinks/Week Comments Not Currently 0 (1 standard drink = 0.6 oz pur e alcohol) Sex and Gender Information Value Date Recorded Sex Assigned at Not on file Gender Identity Not on file Sexual Orientation Not on file COVID-19 Exposure Response Date Recorded In the last 10 days, have yo u been in contact with someone who was confirmed or suspected to have Coronavirus/COVID-19? No / Unsure 03/30/2023 12:17 PM CDT documented as of this encounter Last Filed Vital Signs Vital Sign Reading Time Taken Comments Blood Pressure 159/95 03/30/2023 12:19 PM CDT Pulse 124 03/30/2023 12:19 PM CDT Temperature 37.7 ??C (99.8 ??F) 03/30/2023 12:19 PM C DT Respiratory Rate 16 03/30/2023 12:19 PM CDT Oxygen Saturation 98% 03/30/2023 12:19 PM CDT Inhaled Oxygen Concentration - - Weight 61.2 kg (135 lb) 03/30/2023 12:19 PM CDT Height 170.2 cm (5' 7) 03/30/2023 12:19 PM CDT Body Mass Index 21.14 03/30/2023 12:19 PM CDT documented in this encounter Discharge Instructions * Discharge Instructions* Lilian Cerda PA-C - 03/30/2023 2:07 PM CDT You were seen in the ER for evaluation of laceration. Your laceration was cleaned and repaired withsutures. Your XR showed no evidence of fracture or foreign body. Your tetanus was updated today. You were prescribed an antibiotic, Cipro, to take for the next 5 days to prevent infection. Please keep your finger out of work glove until sutures removed. Rest, ice, elevate your extremity, Tylenol and/or ibuprofen as needed for pain. Keep your bandage in place and clean and dry for the first 24 hours, then only clean water - no dirty water (swimming pools, hot tubes, saunas, lakes, etc.) until your sutures are removed. Tylenol (Acetaminophen) Discharge Instructions: You may take 2 tablets of regular strength, xuzu-efm-ufabdho, Tylenol (acetaminophen) every 4-6 hours as needed for pain. Take no more than 4000 mg of Tylenol in a 24-hour period. Avoid taking more than 1 acetaminophen-containing product at a time and be aware that many hiuz-sdm-czhhjue medications contain a combination of acetaminophen and other products. If you are taking Tylenol in addition to a combination product please keep track of your daily acetaminophen dose to make sure you do not exceed the recommended 4000 mg. Taking too much acetaminophen can cause permanent damage to your liver. Ibuprofen/Naproxen Discharge Instructions: You may take ibuprofen for pain control. The maximum dose of (ibuprofen is 3200 mg ) in a 24-hour period. Take this medication with food to prevent stomach irritation. With long-term use this medication can irritate the stomach causing pain and lead to development of a stomach ulcer. If you notice stomach pain or vomiting of coffee-ground colored vomit or blood, please be seen by a healthcare provider.Attempt to use this medication for the shortest time possible. Follow-up with your primary care provider in 8-10 days for reevaluation and suture removal. Return to the emergency department for any new or worsening symptoms including worsening pain, redness/warmth/drainage/swelling, streaking redness up your extremity, fever/chills, new weakness/numbness/tingling, decreased range of motion, cool extremity, or any other concerning symptoms. Take Care! - Lilian Cerda PA-C * Attachments The following attachments cannot be sent through Care Everywhere. * Laceration, Extremity: Stitches, Staple, or Tape (Bruneian) documented in this encounter Medications at Time of Discharge Medication Sig Dispensed Refills Start Date End Date prochlorperazine (COMPAZINE) [address] 1 suppository (25 mg) rectally every 12 hours as needed for nausea 12 suppository 0 02/25/2021 ciprofloxacin (CIPRO) 500 MG tablet Take 1 tablet (500 mg) by mouth 2 times daily for 5 days 10 tablet 0 03/30/2023 04/04/2023 documented as of this encounter ED Notes * Stefania Jimenez RN - 03/30/2023 12:21 PM CDT Patient was assisting friend with fixing a chainsaw when the chain slipped and lacerated right pinkie. Patient states he is up to date on tetnus. * Lilian Cerda PA-C - 03/30/2023 12:17 PM CDT EMERGENCY DEPARTMENT ENCOUNTER NAME: Jarocho Pickens AGE: [age] year old male DATE OF : 1995 EVALUATION DATE & TIME: No admission date for patient encounter. PCP: [facility] ED PROVIDER: Lilian Cerda PA-C Chief Complaint Patient presents with ??? Laceration FINAL IMPRESSION: 1. Laceration of right little finger without foreign body without damage to nail, initial encounter ED COURSE & MEDICAL DECISION MAKIN:46 PM Met with patient for initial interview. Plan for care discussed. 1:18 PM I performed a digital block procedure. 1:30 PM I performed an s/p laceration repair procedure. Reevaluated and updated patient. I discussed the plan for discharge with the patient, and patient is agreeable. We discussed supportive cares at home and reasons for return to the ER including new or worsening symptoms. All questions and concerns addressed. Patient to be discharged by RN. 2:36 PM I spoke to pharmacy about the patient's current med list and any contraindications with Cipro antibiotic. Reviewed currently medication list with pharmacist, pharmacy agreed OK to proceed with Cipro prescription. Pertinent Labs & Imaging studies reviewed. (See chart for details) 27 year old male presents to the Emergency Department for evaluation of laceration to right pinky finger that he sustained while using a chainsaw, which went through a cloth work glove. Upon exam, patient is afebrile, tachycardic, appears anxious, but in no acute distress. 3.0 cm laceration as documented below, CMS intact. No nail involvement. Based on patient's presenting symptoms, imaging was ordered. XR revealed no fracture or foreign body. Tetanus was updated. Based on the presenting symptoms, the wound was irrigated, explored, and closed with 6 sutures as documented below. Plan for 5-day course of Cipro given laceration occurred through sweaty work glove.Patient was educated on signs of infection including redness, drainage, warmth, fever/chills with instructions to return immediately if infection suspected or new weakness/numbness/tingling, decreased ROM, or cold extremity. Patient also educated to keep the wound clean and dry for the next 24 hours. Patient advised to set up an appointment with PCP in 8-10 days for suture removal. The patient was advised to return to the ER if new or worsening symptoms develop. The patient was stable and well appearing throughout entire ER visit and upon discharge. The patient verbalizes understanding and agrees with the plan. Medical Decision Making History: ??? Supplemental history from: Documented in chart, if applicable ??? External Record(s) reviewed: Documented in chart, if applicable. Work Up: ??? Chart documentation includes differential considered and any EKGs or imaging independently interpreted by provider, where specified. ??? In additional to work up documented, I considered the following work up: Documented in chart, if applicable. External consultation: ??? Discussion of management with another provider: Pharmacist Complicating factors: ??? Care impacted by chronic illness: Chronic Pain and Mental Health ??? Care affected by social determinants of health: N/A Disposition considerations: Discharge. I prescribed additional prescription strength medication(s) as charted. See documentation for any additional details. MEDICATIONS GIVEN IN THE EMERGENCY: Medications Tdap (rclzrhn-zwxurzyvgl-ofzyi pertussis) (ADACEL) injection 0.5 mL (0.5 mLs Intramuscular $Given 03/30/23 767) ibuprofen (ADVIL/MOTRIN) tablet 600 mg (600 mg Oral $Given 03/30/231248) NEW PRESCRIPTIONS STARTED AT TODAY'S ER VISIT New Prescriptions CIPROFLOXACIN (CIPRO) 500 MG TABLET Take 1 tablet (500 mg) by mouth 2 times daily for 5 days HPI Patient information was obtained from: Patient Use of Obstetrical Tech: N/A Jarocho Pickens is a 27 year old male with a pertinent history of chronic pain, YARA, and bipolar disorder, who presents to this ED by walk in for evaluation of laceration. Prior to arrival, the patient was helping his friend fix a chainsaw to cut a tree, when the chain slipped out of gear and accidentally cut the patient, sustaining a laceration to his right fifth finger. He was able to clean his wound minimally and stop the bleeding. He notes of some numbness to hisfinger secondary to wrapping his finger tightly. Currently in the ED, the patient endorses 7.5 out of 10 pain. His last Tdap was in 2018. He otherwise denies any other injuries or complaints at this time. Social Hx: Second hand smoke exposure, never smoker. REVIEW OF SYSTEMS Review of Systems Musculoskeletal: Positive for finger pain. Skin: Positive for wound. Neurological: Positive for numbness. All other systems reviewed and are negative. PAST MEDICAL HISTORY: Past Medical History: Diagnosis Date ??? Cyclical vomiting PAST SURGICAL HISTORY: Past Surgical History: Procedure Laterality Date ??? HERNIA REPAIR CURRENT MEDICATIONS: ciprofloxacin (CIPRO) 500 MG tablet prochlorperazine (COMPAZINE) 25 MG suppository ALLERGIES: Allergies Allergen Reactions ??? Seasonal Allergies Other reaction(s): Sneezing ??? Dust Mite Extract Other reaction(s): Runny Nose FAMILY HISTORY: History reviewed. No pertinent family history. SOCIAL HISTORY: Social History Socioeconomic History ??? Marital status: Single Tobacco Use ??? Smoking status: Passive Smoke Exposure - Never Smoker ??? Smokeless tobacco: Never Substance and Sexual Activity ??? Alcohol use: Not Currently ??? Drug use: Yes Types: Marijuana Comment: Daily VITALS: BP (!) 159/95 Pulse (!) 124 Temp 99.8 ??F (37.7 ??C) (Temporal) Resp 16 Ht 1.702 m (5' 7) Wt 61.2 kg (135 lb) SpO2 98% BMI 21.14 kg/m?? PHYSICAL EXAM Constitutional: Alert, in no acute distress. Cooperative. EYES: Conjunctivae clear. HENT: Atraumatic, normocephalic. Respiratory: Respirations even, unlabored, in no acute respiratory distress. Cardiovascular: Regular rate, good peripheral perfusion. GI: Soft, flat, nondistended. Musculoskeletal: 3.0 cm laceration over dorsal right pinky extending from just proximal of nailbed to PIP joint. Bleeding well controlled with direct pressure. No surrounding erythema, warmth, purulence, fluctuance, swelling, crepitus, or obvious bony deformity. No obvious foreign body visualized. No nail or tendon involvement. Full ROM. Neurovascularly intact distally. Cap refill <2 seconds. 5 /5 strength. Surrounding compartments soft. Integument: Warm, Dry, No erythema, No rash. Neurologic: Alert & oriented. No focal deficits noted. Psych: Normal mood and affect. LAB: All pertinent labs reviewed and interpreted. Results for orders placed or performed during the hospital encounter of 03/30/23 XR Finger Right G/E 2 Views Impression IMPRESSION: Soft tissue irregularity in the distal aspect of the right fifth finger. No foreign body. No fracture or osseous defect. Normal alignment. RADIOLOGY: Reviewed all pertinent imaging. Please see official radiology report. XR Finger Right G/E 2 Views Final Result IMPRESSION: Soft tissue irregularity in the distal aspect of the right fifth finger. No foreign body. No fracture or osseous defect. Normal alignment. PROCEDURES: PROCEDURE: Digital Block INDICATIONS: Laceration PROCEDURE PROVIDER: Lilian Cerda PA-C SITE: Right little finger (5th digit) MEDICATION: 2 mL of 1% Lidocaine without epinephrine NOTE: The skin overlying the site for injection was prepped with chlorhexidine. Needle was insertedin a standard three point injection pattern. Each time the area was aspirated and there was no return of blood. I then injected the medication at the base of the digit. The patient had good response to the procedure COMPLICATIONS: Patient tolerated procedure well, without complication PROCEDURE: Laceration Repair INDICATIONS: Laceration PROCEDURE PROVIDER: Lilian Cerda PA-C SITE: Right little finger (5th digit) TYPE/SIZE: simple, clean and no foreign body visualized 3 cm (total length) FUNCTIONAL ASSESSMENT: Distal sensation, circulation and motor and tendon intact MEDICATION: See digital block noted above. PREPARATION: irrigation with Normal saline DEBRIDEMENT: wound explored, no foreign body found CLOSURE: Superficial layer closed with 6 stitches of 5-0 Ethilon simple interrupted Total number of sutures/german placed: 6 IMark Cha, am serving as a scribe to document services personally performed by Lilian Cerda PA-C, based on my observation and the provider's statements to me. Lilian Anna PA-C, attest that Mark Marcelo is acting in a scribe capacity, has observed my performance of the services and has documented them in accordance with my direction. ?? Lilian Cerda PA-C [facility] EMERGENCY DEPARTMENT [address] [place] [phone] Lilian Cerda PA-C 03/30/23 1505 documented in this encounter Plan of Treatment Not on file documented as of this encounter Procedures Procedure Name Priority Date/Time Associated Diagnosis Comments XR FINGER RIGHT G/E 2 VIEWS STAT 03/30/2023 1:00 PM CDT documented in this encounter Results * XR Finger Right G/E 2 Views (03/30/2023 1:00 PM CDT) Anatomical Region Laterality Modality Hand, Right Hand Right Digital Radiogr aphy 03/30/2023 1:00 PM CDT Impressions 03/30/2023 1:04 PM CDT IMPRESSION: Soft tissue irregularity in the distal aspect of the right fifth finger. No foreign body. No fracture or osseous defect. Normal alignment. Narrative 03/30/2023 1:04 PM CDT EXAM: XR FINGER RIGHT G/E 2 VIEWS LOCATION: [facility] DATE/TIME: 03/30/2023 1:00 PM CDT INDICATION: Pain following chainsaw injury. COMPARISON: None. Procedure Note Valentin Mckinley MD - 03/30/2023 EXAM: XR FINGER RIGHT G/E 2 VIEWS LOCATION: [facility] DATE/TIME: 03/30/2023 1:00 PM CDT INDICATION: Pain following chainsaw injury. COMPARISON: None. IMPRESSION: Soft tissue irregularity in the distal aspect of the rightfifth finger. No foreign body. No fracture or osseous defect. Normalalignment. Lilian Cerda PA-C [facility] DI[facility]NOST[facility] IMAGI NG ORDERABLES documented in this encounter Visit Diagnoses Diagnosis Laceration of right little finger without foreign body without damage to nail, initial encounter documented in this encounter Administered Medications Inactive Administered Medications - up to 3 most recent administrations Medication Order MAR Action Action Date Dose Rate Site ibuprofen (ADVIL/MOTRIN) tablet 600 mg 600 mg, Oral, ONCE, On Wed03/30/23 at 1300, For 1 dose, Give with food. $Given 03/30/2023 12:49 PM CDT 600 mg documented in this encounter Active and Recently Administered Medications Times are shown in CDT. Scheduled Medication Order 03/28/2023 03/29/2023 03/30/2023 ibuprofen (ADVIL/MOTRIN) tablet 600 mg (COMPLETED) 600 mg, Oral, ONCE, On Wed03/30/23 at 1300, For 1 dose, Give with food. 1249 ($Given - Provi padmaja: Jessica Colindres RN) documented in this encounter Care Teams Projection Engineer Relationship Specialty Start Date End Date Kimberlee Posadas PA-C [place] [address] [place] [address] PCP - General 03/30/23 documented as of this encounter
--- OUTSIDE RECORDS SUMMARY | 2023-12-13 21:46 | XMS_ITS | Encounter Summary ---
Author Name Unknown Organization [place] Address [address] [place] [address] Care Team Providers Care Tree Trimming Line Technician Name Role Phone Kimberlee Posadas PA-C Primary Care Provider [phone] Encounter Details Date Type Department Care Team (Latest Contact Info) Description 03/30/2023 Travel Social History Tobacco Use Types Packs/Day [...] PM CDT documented as of this encounter Plan of Treatment Not on file documented as of this encounter Visit Diagnoses Not on filedocumented in this encounter Care Teams Tree Trimming Line Technician Relationship Specialty Start Date End Date Kimberlee Posadas PA-C [facility] [address] [place] [address] PCP - General 03/30/23 documented as of this encounter
--- OUTSIDE RECORDS SUMMARY | 2023-12-13 21:46 | XMS_ITS | Clinical Summary ---
Author Name Unknown Organization [facility] Address [address] [place] [address] Care Team Providers Care Clinical Unit Coordinator Name Role Phone Kimberlee Posadas PA-C Primary Care Provider [phone] Allergies Active Allergy Reactions Criticality Noted Date Comments Dust Mite Extract 08/09/2020 Other reaction(s): Runny Nose Seasonal Allergies Medium 07/06/2021 Other reaction(s): Sneezing Medications Medication Sig Dispensed Refills Start Date End Date Status prochlorperazine (COMPAZINE) [address] 1 suppository (25 mg) rectally every 12 hours as needed for nausea 12 suppository 0 02/25/2021 Active Active Problems No known active problems Immunizations Name Administration Dates Next Due TDAP (Adacel,Boostrix) 03/30/2023 Social History Tobacco Use Types Packs/Day Years Used Date Smoking Tobacco: Passive Smo ke Exposure - Never Smoker Smokeless Tobacco: Never Alcohol Use Standard Drinks/Week Comments Not Currently 0 (1 standard drink = 0.6 oz pur e alcohol) Adolescent Education Answer Date Record ed Getting School Help Needed Not on file 08/21 Sex and Gender Information Value Date Recorded Sex Assigned at Not on file Gender Identity Not on file Sexual Orientation Not on file Last Filed Vital Signs [...] Mass Index 21.14 03/30/2023 12:19 PM CDT Plan of Treatment Health Maintenance Due Date Last Done Comments ADVANCE CARE PLANNING 1995 ANNUAL REVIEW OF HM ORDERS 1995 YEARLY PREVENTIVE VISIT 1995 COVID-19 Vaccine (#1) 01/20/1995 IPV IMMUNIZATION (5 of 5 - 5-dose series) 1998 02/05/1995, 02/05/1995, 1995, Additional history exists HIV SCREENING 2009 HEPATITIS C SCREENING 2012 INFLUENZA VACCINE (#1) 2023 09/25/2003, 2002 PHQ-2 (once per calendar year) 2023 DTAP/TDAP/TD IMMUNIZATION (8 - Td or Tdap) 03/30/2033 03/30/2023, 12/17/2017, 06/08/2006, Additional history exists HEPATITIS B IMMUNIZATION Completed 995, 04/15/1995, 1994, Additional history exists HPV IMMUNIZATION Aged Out No longer e ligible based on patient's age to complete this topic MENINGITIS IMMUNIZATION Aged Out No l onger eligible based on patient's age to complete this topic Pneumococcal Vaccine: Pediatrics (0 to 5 Years) and At-Risk Patients (6 to 64 Years) Aged Out No longer eligible based on patient's age to complete this topic RSV MONOCLONAL ANTIBODY Aged Out No l onger eligible based on patient's age to complete this topic Care Teams Clinical Unit Coordinator Relationship Specialty Start Date End Date Kimberlee Posadas PA-C [facility] [address] [place] [address] PCP - General 03/30/23
--- OUTSIDE RECORDS SUMMARY | 2023-12-13 21:46 | XMS_ITS | Referral Summary ---
Author Name Unknown Organization [facility] Address [address] [place] [address] Care Team Providers Care Audit Associate Name Role Phone Kimberlee Posadas PA-C Primary Care Provider [phone] Allergies Active Allergy Reactions Criticality Noted Date [...] 03/30/2023 12:19 PM CDT Plan of Treatment Not on file Care Teams Audit Associate Relationship Specialty Start Date End Date Kimberlee Posadas PA-C [address] [place], [place] [id number] PCP - General 03/30/23
--- OUTSIDE RECORDS SUMMARY | 2023-12-13 21:46 | XMS_ITS | Clinical Summary ---
Author Name Unknown Organization [facility] Address [address] [address] Phone Care Team Providers Care Despatch Clerk Name Role Phone Unavailable Primary Care Provider Unavailabl e Allergies Active Allergy Reactions Criticality Noted Date Comments Environmental Sneezing Medium 07/06/2021 Medications No known medications Active Problems No known active problems Social History Tobacco Use Types Packs/Day Years Used Date Smoking Tobacco: Never Assessed Sex and Gender Information Value Date Recorded Sex Assigned at Not on file Gender Identity Not on file Sexual Orientation Not on file Job Start Date Occupation Industry Not on file Not on file Not on file Last Filed Vital Signs Vital Sign Reading Time Taken Comments Blood Pressure 130/66 07/06/2021 3:47 AM CDT Pulse 123 07/06/2021 3:47 AM CDT Temperature 36.3 ??C (97.4 ??F) 07/06/2021 3:47 AM CD T Respiratory Rate 18 07/06/2021 3:47 AM CDT Oxygen Saturation 100% 07/06/2021 3:47 AM CDT Inhaled Oxygen Concentration - - Weight 61.2 kg (135 lb) 07/06/2021 3:47 AM CDT Height 175.3 cm (5' 9) 07/06/2021 3:47 AM CDT Body Mass Index 19.94 07/06/2021 3:47 AM CDT Plan of Treatment Health Maintenance Due Date Last Done Comments Hepatitis B Vaccine (Standin g Order) (1 of 3 - 3-dose series) 1995 COVID-19 Vaccine (#1) 01/20/1995 PERTUSSIS (Standing Order) 2013 TETANUS (Standing Order) 2013 Influenza Vaccine Seasonal (Standing Order) (#1) 2023 HPV Vaccine (Standing Order) Aged Out No longer eligible based on patient's age to complete this topic Pneumococcal/PCV20 Vaccine: Pediatrics (2-5 yrs) and At-Risk Patients (6-64 yrs) (Standing Order) Aged Out No longer eligible b ased on patient's age to complete this topic
[2023-12-13] MEDS: droperidoL 2.5 MG/ML inj 1.25 MG IV (22:01)
[2023-12-13] MEDS: ONDANSETRON 2 MG/ML inj 4 MG IVP (22:01)
[2023-12-13] MEDS: 0.9 % SODIUM CHLORIDE 1000 ml 1,000 ML IV ×2 (22:01→22:53)
[2023-12-13 22:11] LABS: Chloride* 101 mmol/L (96-114); Sodium* 141 mmol/L (135-149)
[2023-12-13 22:12] LABS: Potassium* 4.1 mmol/L (3.6-5.1)
[2023-12-13 22:14] VITALS: PULSE 71; O2SAT 100
[2023-12-13 22:14] LABS: Alkaline Phosphatase* 96 U/L (40-150); Anion Gap 25 mEq/L (7-15); Aspartate Amino Transferase* 29 U/L (12-35); Bilirubin Direct* 0.6 mg/dL (0.0-0.5); Bilirubin Total* 2.6 mg/dL (0.1-1.5); Blood Urea Nitrogen* 26 mg/dL (5-24); Carbon Dioxide* 15 mmol/L (20-32); Creatinine* 2.2 mg/dL (0.5-1.5); Est. Creatinine Clearance* 42.91; Estimated Glomerular Filt Rate 41 ml/min
[2023-12-13 22:15] LABS: Alanine Aminotransferase* 27 U/L (4-50); Calcium* 11.6 mg/dL (8.4-10.6); Glucose* 184 mg/dL (60-115)
[2023-12-13 22:21] LABS: Total Protein* 10.7 g/dL (6.0-8.3)
[2023-12-13 22:25] LABS: Basophils Percent Auto 0.2 % (0.0-3.0); Hematocrit 56.7 % (37.0-53.0); Hemoglobin* 19.7 gm/dL (13.5-17.5); Immature Granulocytes Pct Auto 0.8 %; Lymphocytes Percent Auto 14.8 % (20-44); Mean Corpuscular HGB Conc 35 gm/dL (32-36); Mean Corpuscular Hemoglobin 32 pg (26-34); Mean Corpuscular Volume 91 fL (80-100); Monocytes Percent Auto 4.8 % (0.0-11.0); Neutrophils Percent Auto 79.4 % (42.0-72.0); Platelet Count* 569 K/uL (140-440); RDW Coefficient of Variation % 12.5 % (11.5-15.5); Red Blood Count 6.24 m/uL (4.30-5.90)
[2023-12-13 22:28] LABS: Slide Review Reflex No
[2023-12-13 22:30] VITALS: PULSE 100; O2SAT 96
[2023-12-13 23:00] VITALS: PULSE 97; O2SAT 96
[2023-12-13 23:18] LABS: Albumin* 6.4 g/dL (3.3-5.0)
[2023-12-13] MEDS: LACTATED RINGERS 1000 ML 1,000 ML IV (23:26)
[2023-12-13 23:30] VITALS: PULSE 93; O2SAT 98
[2023-12-14] VITALS: PULSE 91; O2SAT 98
== END 2023-12-14 00:17 | disposition home or self-care (01) ==
PROVIDERS: Emergency Provider Family Medicine; PCP Physician Assistant Medical
DX: F12.188 Cannabis abuse with other cannabis-induced disorder (principal); R11.10 Vomiting, unspecified
CPT/HCPCS: 36415; 80048; 80076; 80306; 85025; 96374; 96375; 99284; J1790; J2405; J7030; J7120